=== PATIENT | male | born 1945 | race Caucasian/White ===

== ENCOUNTER → 2017-10-04 10:46 | Outpatient (CLI) | payer MEDICARE, OTHER, SELFPAY | PROVIDERS: PCP Family Medicine; Visit Provider Family Medicine | DX: I10 Essential (primary) hypertension (principal) | CPT/HCPCS: 36415; 80048 ==

== ENCOUNTER → 2017-11-03 09:47 | Outpatient (CLI) | payer MEDICARE, OTHER, SELFPAY ==
--- NOTE | 2017-11-03 | DI.US.S_ITS ---
PROCEDURE: US RENAL COMPLETE INDICATIONS: History of renal cell carcinoma TECHNIQUE: Real-time scanning was performed of the kidneys and bladder, with image documentation. COMPARISON: [facility], , RENAL COMPLETE, 12/26/2007, 10:04. FINDINGS: Kidneys: Kidneys are normal in size. Right kidney measures 12.2 cm long; left kidney measures 12.9 cm long. Right renal cortical thickness is 1.6 cm; left renal cortical thickness is 2.0 cm. Renal cortical echotexture is normal. No hydronephrosis or nephrolithiasis. No suspicious solid mass lesions. Bilateral renal cysts are redemonstrated with the largest on the right measuring up to 3.9 cm which has increased in size from prior examination and largest on the left measuring up to 3.4 cm not significantly changed Bladder: Pre-void bladder volume is 530 mL. Post-void residual is 274 mL. Pre-void images demonstrate no intraluminal masses or stones. On pre-void images, neither ureteral jets are noted with color Doppler interrogation. (Of note, ureteral jets may not be detectable in up to 25% of cases due to insufficient differences in specific gravity between ureteral and bladder urine). Miscellaneous: No free pelvic fluid. Prominent prostate redemonstrated. IMPRESSION: Bilateral renal cysts, with the largest increased in size on the right compared to prior examination. 274 cc urinary bladder PVR. Dictated by: Michael Erickson [facility] Interpreted: Daryl Castillo MD on 11/03/2017 at 11:03 Approved by: Daryl Castillo M.D. on 11/03/2017 at 11:28
== END ==
PROVIDERS: PCP Family Medicine; Visit Provider Urology
DX: N28.1 Cyst of kidney, acquired (principal); Z90.5 Acquired absence of kidney; Z85.528 Personal history of other malignant neoplasm of kidney
CPT/HCPCS: 76770

== ENCOUNTER → 2017-12-14 14:09 | Outpatient (REF) | payer MEDICARE, OTHER, SELFPAY | LOC: LAB 14:09 | PROVIDERS: PCP Family Medicine; Visit Provider Family Medicine | DX: R19.7 Diarrhea, unspecified (principal) ==

== ENCOUNTER → 2018-05-26 09:48 | Outpatient (CLI) | payer MEDICARE, OTHER, SELFPAY ==
[2018-05-26 10:27] LABS: Add Manual Diff / Slide Review NO; Basophils Absolute Auto 0 /uL (0-100); Basophils Percent Auto 0.4 % (0-2); Eosinophils Absolute Auto 200 /uL (0-450); Eosinophils Percent Auto 2.9 % (2-4); Hematocrit 37.6 % (41-53); Hemoglobin 12.9 g/dL (13.5-17.5); Lymphocytes Absolute Auto 1500 /uL (1100-4500); Lymphocytes Percent Auto 25.3 % (25-40); Mean Corpuscular HGB Conc 34.4 % (30-36); Mean Corpuscular Hemoglobin 31.5 PG (26-34); Mean Corpuscular Volume 91.4 fL (80-100); Monocytes Absolute Auto 400 /uL (0-900); Monocytes Percent Auto 5.9 % (3-14); Neutrophils Absolute Auto 3900 /uL (1500-7000); Neutrophils Percent Auto 65.5 % (50-75); Platelet Count 175 X10^3/uL (150-400); Red Blood Cell Count 4.11 X10^6/uL (4.5-5.9); Red Cell Distribution Width 12.9 % (11.6-14.8)
[2018-05-26 10:53] LABS: Alanine Aminotransferase 23 IU/L (21-72); Albumin 4.4 g/dL (3.5-5.0); Albumin Globulin Ratio 1.5 (1.0-2.8); Alkaline Phosphatase 88 U/L (38-126); Aspartate Aminotransferase 19 IU/L (17-59); BUN Creatinine Ratio 21.2 (6-22); Bilirubin Total 0.5 mg/dL (0.2-1.3); Blood Urea Nitrogen 36 mg/dL (9-20); C-Reactive Protein Quant < 0.5 mg/dL (<1.0); Calcium 9.4 mg/dL (8.4-10.2); Carbon Dioxide 24 mmol/L (22-32); Chloride 106 mmol/L (98-107); Cholesterol 213 mg/dL (140-199); Estimated Glomerular Filt Rate 39.7 mL/min (>60); Globulin 2.9 g/dL (1.7-4.1); Glucose 121 mg/dL (80-110); HDL Cholesterol 32 mg/dL (40-60); HEMOLYSIS < 15 (0-50); LDL Cholesterol Calculated 145 mg/dL (<100); Potassium 4.4 mmol/L (3.4-5.1); Sodium 141 mmol/L (137-145); Total Protein 7.3 g/dL (6.3-8.2); Triglycerides 178 mg/dL (35-150)
[2018-05-26 10:57] LABS: Rheumatoid Factor < 8.6 IU/mL (<12.0)
[2018-05-26 11:19] LABS: Vitamin D 25 Hydroxy (D3) 35.1 ng/mL (30.0-100.0)
[2018-05-26 11:20] LABS: Erythrocyte Sedimentation Rate 23 MM/HR (0-15)
[2018-05-26 11:25] LABS: TSH w/ Reflex to FT4 1.51 uIU/mL (0.47-4.68)
[2018-05-26 11:39] LABS: Vitamin B12 699 pg/mL (239-931)
[2018-05-28 10:45] LABS: CCP Antibody (IgG) < 16 Units (< 20)
[2018-05-28 20:01] LABS: ANA Screen, IFA Negative (Negative)
[2018-05-31 15:53] LABS: Homocysteine 11.2 umol/L (< 11.4)
[2018-06-01 16:29] LABS: Methylmalonic Acid 196 nmol/L (87-318)
== END ==
PROVIDERS: PCP Family Medicine; Visit Provider Family Medicine
DX: E78.5 Hyperlipidemia, unspecified (principal); G60.0 Hereditary motor and sensory neuropathy; G35 Multiple sclerosis; I10 Essential (primary) hypertension
CPT/HCPCS: 36415; 80053; 80061; 82306; 82607; 83090; 83516; 83921; 84443; 85025; 85651; 86038; 86140; 86430

== ENCOUNTER → 2018-06-21 09:27 | Outpatient (CLI) | payer MEDICARE, OTHER, SELFPAY ==
[2018-06-21 11:07] LABS: Creatinine Urine Random 115.8 mg/dL; Protein (Total) Urine Random 27 mg/dL (0-12); Protein Creatinine Ratio Urine 0.23 GRAM/24H
== END ==
PROVIDERS: Family Provider Family Medicine; PCP Family Medicine; Visit Provider Student in an Organized Health Care Education/Training Program
DX: R80.9 Proteinuria, unspecified (principal)
CPT/HCPCS: 82570; 84156

== ENCOUNTER → 2018-07-11 10:34 | Outpatient (CLI) | payer MEDICARE, OTHER, SELFPAY ==
--- NOTE | 2018-07-11 | DI.US.S_ITS ---
PROCEDURE: US RENAL COMPLETE INDICATIONS: CHRONIC KIDNEY DISEASE STAGE 3 TECHNIQUE: Real-time scanning was performed of the kidneys and bladder, with image documentation. COMPARISON: [facility], , US RENAL COMPLETE, 11/03/2017, 10:04. FINDINGS: Kidneys: Kidneys are normal in size. Right kidney measures 10.5 cm long; left kidney measures 12.1 cm long. Right renal cortical thickness is 1.1 cm; left renal cortical thickness is 1.4 cm. Renal cortical echotexture is grossly unremarkable. No hydronephrosis or nephrolithiasis. No suspicious solid mass lesions. There are bilateral renal cysts measuring up to 3.8 cm on the right, and 3.7 cm on the left. Bladder: Pre-void bladder volume is 614 mL. Post-void residual is 315 mL. Pre-void images demonstrate no intraluminal masses or stones. On pre-void images, both of the ureteral jets are noted with color Doppler interrogation. (Of note, ureteral jets may not be detectable in up to 25% of cases due to insufficient differences in specific gravity between ureteral and bladder urine). Miscellaneous: No free pelvic fluid. IMPRESSION: Bilateral simple appearing renal cysts. No hydronephrosis. Large postvoid residual measuring 315 mL. Dictated by: Daryl Castillo M.D. on 07/11/2018 at 13:26 Approved by: Daryl Castillo M.D. on 07/11/2018 at 13:29
== END ==
PROVIDERS: Family Provider Family Medicine; PCP Family Medicine; Visit Provider Student in an Organized Health Care Education/Training Program
DX: N18.3 Chronic kidney disease, stage 3 (moderate) (principal); N28.1 Cyst of kidney, acquired
CPT/HCPCS: 76770

== ENCOUNTER → 2018-07-26 08:00 | Outpatient (CLI) | payer MEDICARE, OTHER, SELFPAY ==
[2018-07-26 08:18] LABS: Bacteria Urine None Seen; RBC Urine None Seen (0-5/HPF); WBC Urine None Seen (0-5/HPF)
[2018-07-26 08:47] LABS: Appearance Urine UA CLEAR; Bilirubin Urine UA NEGATIVE (NEGATIVE); Color Urine UA YELLOW; Glucose Urine UA NEGATIVE (Negative); Ketones Urine UA NEGATIVE (NEGATIVE); Leukocyte Esterase Urine UA NEGATIVE (NEGATIVE); Nitrite Urine UA NEGATIVE (Negative); Occult Blood Urine UA NEGATIVE (Negative); Protein Urine UA NEGATIVE (Negative); Urobilinogen Urine UA 0.2 E.U./dL (0.2)
[2018-07-26 09:02] LABS: Add Manual Diff / Slide Review NO; Basophils Absolute Auto 0 /uL (0-100); Basophils Percent Auto 0.5 % (0-2); Eosinophils Absolute Auto 200 /uL (0-450); Eosinophils Percent Auto 3.1 % (2-4); Hematocrit 35.5 % (41-53); Hemoglobin 12.5 g/dL (13.5-17.5); Lymphocytes Absolute Auto 1400 /uL (1100-4500); Lymphocytes Percent Auto 26.7 % (25-40); Mean Corpuscular HGB Conc 35.1 % (30-36); Mean Corpuscular Hemoglobin 32.1 PG (26-34); Mean Corpuscular Volume 91.5 fL (80-100); Monocytes Absolute Auto 300 /uL (0-900); Monocytes Percent Auto 6.4 % (3-14); Neutrophils Absolute Auto 3400 /uL (1500-7000); Neutrophils Percent Auto 63.3 % (50-75); Platelet Count 170 X10^3/uL (150-400); Red Blood Cell Count 3.88 X10^6/uL (4.5-5.9); Red Cell Distribution Width 12.8 % (11.6-14.8); White Blood Cell Count 5.4 X10^3/uL (4.5-11.0)
[2018-07-26 09:04] LABS: HEMOLYSIS < 15 (0-50); Iron 104 ug/dL (49-181)
[2018-07-26 09:06] LABS: BUN Creatinine Ratio 25.3 (6-22); Blood Urea Nitrogen 43 mg/dL (9-20); Calcium 9.5 mg/dL (8.4-10.2); Carbon Dioxide 25 mmol/L (22-32); Chloride 105 mmol/L (98-107); Estimated Glomerular Filt Rate 39.6 mL/min (>60); Glucose 119 mg/dL (80-110); HEMOLYSIS < 15 (0-50); Phosphorous 3.9 mg/dL (2.3-3.7); Potassium 4.3 mmol/L (3.4-5.1); Sodium 140 mmol/L (137-145)
[2018-07-26 09:10] LABS: Reticulocyte Count, Percent 1.1 % (0.87-2.60)
[2018-07-26 09:15] LABS: Percent Iron Saturation 35 % (20-50); Total Iron Binding Capacity 296 ug/dL (261-462); Transferrin 221 mg/dL (206-381)
[2018-07-26 09:21] LABS: Vitamin D 25 Hydroxy (D3) 37.2 ng/mL (30.0-100.0)
[2018-07-26 09:24] LABS: Creatinine Urine Random 83.6 mg/dL; Protein (Total) Urine Random 24 mg/dL (0-12); Protein Creatinine Ratio Urine 0.28 GRAM/24H
[2018-07-26 09:27] LABS: Culture Indicated Urine Cult Not Indicated; Urine Comments Microscopic Normal
[2018-07-26 09:57] LABS: Vitamin B12 582 pg/mL (239-931)
[2018-07-28 14:45] LABS: Parathyroid Hormone Int 49 pg/mL (14-64)
== END ==
PROVIDERS: PCP Family Medicine; Visit Provider Student in an Organized Health Care Education/Training Program
DX: N05.9 Unspecified nephritic syndrome with unspecified morphologic changes (principal); N30.00 Acute cystitis without hematuria; R80.9 Proteinuria, unspecified; D64.9 Anemia, unspecified; D50.0 Iron deficiency anemia secondary to blood loss (chronic); E83.30 Disorder of phosphorus metabolism, unspecified; N25.81 Secondary hyperparathyroidism of renal origin; N18.3 Chronic kidney disease, stage 3 (moderate); G35 Multiple sclerosis
CPT/HCPCS: 36415; 80048; 81001; 82306; 82570; 82607; 82728; 83540; 83550; 83970; 84100; 84156; 85025; 85045

== ENCOUNTER 2018-08-26 11:15 | Outpatient (RCR) | payer MEDICARE, OTHER, SELFPAY ==
--- NOTE | 2018-07-25 14:30 | PT.OIE ---
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) Past Medical History (Last Updated 05/28/18 @ 11:51 by Brittany Lomas DO) Melanoma (Resolved 2007) CMT (Mvryhlm-Pmpud-Dukfo disease) (Chronic 2014) Stage 3 chronic kidney disease (Chronic) Essential hypertension (Chronic) Obstructive sleep apnea (Chronic) Colon polyps (Resolved 2008) Tinnitus (Chronic) Hearing loss (Chronic 2014) Clubfoot (Chronic) Osteoarthrosis, ankle and foot (Chronic) BPH (benign prostatic hyperplasia) (Chronic) Malignant neoplasm of kidney (Resolved) Osteoarthritis of both knees (Chronic) Spinal stenosis of lumbar region (Chronic 09/15/13) Ankle pain (Chronic) Shoulder pain (Chronic 2011) Basal cell adenocarcinoma (Resolved) Cataract (Resolved 2013) History of kidney cancer (Resolved 2003) Rheumatic fever (Resolved 1957) Squamous cell skin cancer, face (Resolved) Past Surgical History (Last Updated 05/28/18 @ 11:54 by Brittany Lomas DO) Anesthesia (Resolved) History of back surgery (Resolved 08/2013) History of cataract removal with insertion of prosthetic lens (Resolved 2013) History of left knee replacement (Resolved) History of left knee surgery (Resolved 2004) History of nephrectomy (Resolved 2003) Provider Visit Care Team Role Provider Type Brittany Lomas DO Attending Provider Physician Primary Care Provider Specialty: Family Practice Address: [address] [place] [address] Email: [email or web address] Physical Therapy Initial Evaluation PT-OP-A Visit Information Start: 07/25/18 08:14 Freq: Status: Active Protocol: Document 07/25/18 11:25 LRN (Rec: 07/25/18 12:39 LRN [id number]) Out-Patient Physical Therapy Visit Information Visit Information Visit Type Initial Evaluation Visit Start Time 11:25 Visit Stop Time 12:25 Total Visit Minutes 60 Visit Number 1 Number of [facility] Visits 0 Evaluation Information Evaluation Date 07/25/18 PT-OP-B Current Condition Start: 07/25/18 08:14 Freq: Status: Active Protocol: Document 07/25/18 11:25 LRN (Rec: 07/25/18 12:39 LRN [id number]) Current Condition History of Current Condition Onset Date . Started in hands 5 yrs ago. 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 His history is that he has had numbness in the entire R arm that has been controlled with wound care center consultant, to clear the symptom for a couple weeks. He also reports having a nerve moved at the R elbow and it didn't help his R hand strength. He has continued to receive wound care center consultant every other week; therefore numbness is only in the hands, He states the numbness has started to move up the fingers, and he is losing strength in the hands. He is being referred to PT for weakness of hands. He notes chronic pain in ankles & is has bone on bone now; therefore he has a noticeable limp. He states his gait is baseline and is not seeking therapy for his LE's and gait. 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 Prior Functional Status Baseline Function- ADL's Independent Baseline Function- Mobility Independent Baseline Function- Gait Independent Baseline Function- Other Difficulty picking up screws or change from pockets, difficulty working with tools that need to grasp tightly. Able to hold a hammer and pound nails in. Current Functional Impairments (Reported) Functional Limitations- Other Past 2 years difficulty picking up and using tools that he has to squeeze and hold. Difficulty holding hammer and pounding nails. Personal Factors Other Personal Factors That May Effect HBP, Rheumatoid arthritis, Therapy/Recovery Kidney CA - 8-10yrs ago, Melanoma, Otoniel TKA's, Low back disc decompression 8-10 yrs ago. PT-OP-C Subjective Start: 07/25/18 08:14 Freq: Status: Active Protocol: Document 07/25/18 11:25 LRN (Rec: 07/26/18 19:16 LRN [id number]) Patient Questionnaires Lower Extremity Functional Scale LEFS Score 53 LEFS Impairment 20 to 39% Impaired (Score 48- 62) PT-OP-K Range of Motion Start: 06/03/19 08:14 Freq: Status: Active Protocol: Document 07/25/18 11:25 LRN (Rec: 07/26/18 19:14 LRN [id number]) Elbow/Forearm Range of Motion Elbow/Forearm Measured in Degrees Right Active Pronation (degrees) 90 Supination (degrees) 90 Left Active Pronation (degrees) 60 Supination (degrees) 70 Wrist Goniometric Range of Motion Wrist Measured in Degrees Right Flexion Active (degrees) 35 Extension Active (degrees) 60 Left Flexion Active (degrees) 28 Extension Active (degrees) 60 PT-OP-M Strength Start: 07/25/18 08:14 Freq: Status: Active Protocol: Document 07/25/18 11:25 LRN (Rec: 07/26/18 19:14 LRN [id number]) Elbow/Forearm Strength Elbow and Forearm Manual Muscle Testing Right Reason Not Measured WFL Comments Generally 5/5 Left Reason Not Measured WFL Comments Generally 5/5 Wrist Strength Wrist Manual Muscle Testing Right Ulnar Deviation 3 Fair Radial Deviation 4 Good Left Ulnar Deviation 5 Normal Radial Deviation 5 Normal Hand Pulp Mill Operator/Pinch Strength Hand Dominance Hand Dominance Right Hand Strength Right Pulp Mill Operator (lbs) 17 Lateral Pinch (lbs) 4 Comments Avg Pulp Mill Operator noted above from 3 trials (kg): 20, 16, 15. Lateral Pinch (kg): 2. Finger Opposition: Generally 5/5. Left Pulp Mill Operator (lbs) 27 Lateral Pinch (lbs) 8 Comments Avg Pulp Mill Operator noted above from 3 trials (kg): 30, 26, 26. Lateral Pinch (kg): 2.75. Finger opposition is WNL except 1/2 cm lacking in little finger to thumb opposition positioning. PT-OP-T Assessment and Plan Start: 07/25/18 08:14 Freq: Status: Active Protocol: Document 07/25/18 11:25 LRN (Rec: 07/25/18 12:39 LRN [id number]) Physical Therapy Assessment Rehab Potential Rehabilitation Potential Fair Evaluation Complexity Number of Personal Factors/Comorbidities 3 or More Number of Body Systems Impaired 1-2 Clinical Presentation at Evaluation Stable Impairments Impairments Sensation Strength Other Concerns Barriers to Rehabilitation Chronicity of condition Diagnosis: Waeazhe-Bpcoi-Kxfla Disease Hereditary motor & sensory neuropathy Assessment Summary Assessment Pt presents with complaints of weakness of his dominant R hand and wrist that are making fine motor movements difficult (picking up screws and tiny objects). The pt will need time to work towards strengthening and it was agreed upon that he could do the exercises at home, since they will primarily be fine motor skills. I agreed that this might be a good program for the patient to try. As I am familiar with the patient and have found in the past that he is compliant with home exercises I feel this is appropriate The pt will therefore be seen for several skilled physical therapy visits to place him on a HEP of hand/wrist strengthening exercises and if he can demonstrate improvement, he could then benefit from continuation of therapy for a more formal rehab at 2x/week for 4-6 weeks. Physical Therapy Plan Frequency and Duration Frequency of Treatment 2x/Week Plan of Care Start Date 07/25/18 Plan of Care End Date 10/25/18 Therapeutic Interventions Therapeutic Interventions Home Exercise Program Joint Mobilizations Manual Therapy Patient/Caregiver Education Self-Care/Home Management Soft Tissue Mobilization Therapeutic Exercises Modalities Cold Pack/Ice Massage Hot Packs Paraffin Bath Next Visit Focus/Plan Next Note Type Treatment Note Next Visit Plan 2 x/week for strengthening and placement on a HEP of hand general and intrinsic ex's for HEP (general and T-Putty exs) with handouts within a 2-3 visit timeframe. I will then see him for a follow up in 3-4 weeks for assessment of strength improvements. If he can demonstrate improvement I will progress his exercise rehab to include his UE's 2x/ week for general strengthening . If time permits at next appt, try Paraffin Wax with elbow/shoulder strengthening ( UBE, ex's with hand gripping handles).
--- NOTE | 2018-07-25 14:30 | PT.OPPOC ---
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) Provider Visit Care Team Role Provider Type Brittany Lomas DO Attending Provider Physician Primary Care Provider Specialty: Family Practice Address: [address] [place] [address], [phone] Email: [email or web address] Plan Of Care PT-OP-T Assessment and Plan Start: 07/25/18 08:14 Freq: Status: Active Protocol: Document 07/25/18 11:25 LRN (Rec: 07/25/18 12:39 LRN [id number]) Physical Therapy Assessment Rehab Potential Rehabilitation Potential Fair Evaluation Complexity Number of Personal Factors/Comorbidities 3 or More Number of Body Systems Impaired 1-2 Clinical Presentation at Evaluation Stable Impairments Impairments Sensation Strength Other Concerns Barriers to Rehabilitation Chronicity of condition Diagnosis: Uxilcrj-Sveov-Yhkvs Disease Hereditary motor & sensory neuropathy Assessment Summary Assessment Pt presents with complaints of weakness of his dominant R hand and wrist that are making fine motor movements difficult (picking up screws and tiny objects). The pt will need time to work towards strengthening and it was agreed upon that he could do the exercises at home, since they will primarily be fine motor skills. I agreed that this might be a good program for the patient to try. As I am familiar with the patient and have found in the past that he is compliant with home exercises I feel this is appropriate The pt will therefore be seen for several skilled physical therapy visits to place him on a HEP of hand/wrist strengthening exercises and if he can demonstrate improvement, he could then benefit from continuation of therapy for a more formal rehab at 2x/week for 4-6 weeks. Physical Therapy Plan Frequency and Duration Frequency of Treatment 2x/Week Plan of Care Start Date 07/25/18 Plan of Care End Date 10/25/18 Therapeutic Interventions Therapeutic Interventions Home Exercise Program Joint Mobilizations Manual Therapy Patient/Caregiver Education Self-Care/Home Management Soft Tissue Mobilization Therapeutic Exercises Modalities Cold Pack/Ice Massage Hot Packs Paraffin Bath Next Visit Focus/Plan Next Note Type Treatment Note Next Visit Plan 2 x/week for strengthening and placement on a HEP of hand general and intrinsic ex's for HEP (general and T-Putty exs) with handouts within a 2-3 visit timeframe. I will then see him for a follow up in 3-4 weeks for assessment of strength improvements. If he can demonstrate improvement I will progress his exercise rehab to include his UE's 2x/ week for general strengthening . If time permits at next appt, try Paraffin Wax with elbow/shoulder strengthening ( UBE, ex's with hand gripping handles). Plan of Care Dates Plan of Care Start Date 07/25/18 Plan of Care End Date 10/25/18 Please Sign and Return: I have reviewed this Plan of Care and certify that the skilled therapy services above are required to meet the patient?s needs. Physician Signature Date Printed Name and Credentials Clinical Instructor Signature Printed Name and Credentials
--- NOTE | 2018-07-25 14:30 | PT.OPPOC ---
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) Provider Visit Care Team Role Provider Type Brittany Lomas DO Attending Provider Physician Primary Care Provider Specialty: Family Practice Address: [address] [place] [address], [phone] Email: [email or web address] Plan Of Care PT-OP-T Assessment and Plan Start: 07/25/18 08:14 Freq: Status: Active Protocol: Document 07/25/18 11:25 LRN (Rec: 07/25/18 12:39 LRN [id number]) Physical Therapy Assessment Rehab Potential Rehabilitation Potential Fair Evaluation Complexity Number of Personal Factors/Comorbidities 3 or More Number of Body Systems Impaired 1-2 Clinical Presentation at Evaluation Stable Impairments Impairments Sensation Strength Other Concerns Barriers to Rehabilitation Chronicity of condition Diagnosis: Uracyso-Lgead-Petom Disease Hereditary motor & sensory neuropathy Assessment Summary Assessment Pt presents with complaints of weakness of his dominant R hand and wrist that are making fine motor movements difficult (picking up screws and tiny objects). The pt will need time to work towards strengthening and it was agreed upon that he could do the exercises at home, since they will primarily be fine motor skills. I agreed that this might be a good program for the patient to try. As I am familiar with the patient and have found in the past that he is compliant with home exercises I feel this is appropriate The pt will therefore be seen for several skilled physical therapy visits to place him on a HEP of hand/wrist strengthening exercises and if he can demonstrate improvement, he could then benefit from continuation of therapy for a more formal rehab at 2x/week for 4-6 weeks. Physical Therapy Plan Frequency and Duration Frequency of Treatment 2x/Week Plan of Care Start Date 07/25/18 Plan of Care End Date 10/25/18 Therapeutic Interventions Therapeutic Interventions Home Exercise Program Joint Mobilizations Manual Therapy Patient/Caregiver Education Self-Care/Home Management Soft Tissue Mobilization Therapeutic Exercises Modalities Cold Pack/Ice Massage Hot Packs Paraffin Bath Next Visit Focus/Plan Next Note Type Treatment Note Next Visit Plan 2 x/week for strengthening and placement on a HEP of hand general and intrinsic ex's for HEP (general and T-Putty exs) with handouts within a 2-3 visit timeframe. I will then see him for a follow up in 3-4 weeks for assessment of strength improvements. If he can demonstrate improvement I will progress his exercise rehab to include his UE's 2x/ week for general strengthening . If time permits at next appt, try Paraffin Wax with elbow/shoulder strengthening ( UBE, ex's with hand gripping handles). Plan of Care Dates Plan of Care Start Date 07/25/18 Plan of Care End Date 10/25/18 Please Sign and Return: I have reviewed this Plan of Care and certify that the skilled therapy services above are required to meet the patient?s needs. Physician Signature Date Printed Name and Credentials Clinical Instructor Signature Printed Name and Credentials
--- NOTE | 2018-07-25 14:30 | PT.OIE ---
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) Past Medical History (Last Updated 05/28/18 @ 11:51 by Brittany Lomas DO) Melanoma (Resolved 2007) CMT (Ggpumhm-Jbetr-Zvhph disease) (Chronic 2014) Stage 3 chronic kidney disease (Chronic) Essential hypertension (Chronic) Obstructive sleep apnea (Chronic) Colon polyps (Resolved 2008) Tinnitus (Chronic) Hearing loss (Chronic 2014) Clubfoot (Chronic) Osteoarthrosis, ankle and foot (Chronic) BPH (benign prostatic hyperplasia) (Chronic) Malignant neoplasm of kidney (Resolved) Osteoarthritis of both knees (Chronic) Spinal stenosis of lumbar region (Chronic 09/15/13) Ankle pain (Chronic) Shoulder pain (Chronic 2011) Basal cell adenocarcinoma (Resolved) Cataract (Resolved 2013) History of kidney cancer (Resolved 2003) Rheumatic fever (Resolved 1957) Squamous cell skin cancer, face (Resolved) Past Surgical History (Last Updated 05/28/18 @ 11:54 by Brittany Lomas DO) Anesthesia (Resolved) History of back surgery (Resolved 08/2013) History of cataract removal with insertion of prosthetic lens (Resolved 2013) History of left knee replacement (Resolved) History of left knee surgery (Resolved 2004) History of nephrectomy (Resolved 2003) Provider Visit Care Team Role Provider Type Brittany Lomas DO Attending Provider Physician Primary Care Provider Specialty: Family Practice Address: [address] [place] [address] Email: [email or web address] Physical Therapy Initial Evaluation PT-OP-A Visit Information Start: 07/25/18 08:14 Freq: Status: Active Protocol: Document 07/25/18 11:25 LRN (Rec: 07/25/18 12:39 LRN [id number]) Out-Patient Physical Therapy Visit Information Visit Information Visit Type Initial Evaluation Visit Start Time 11:25 Visit Stop Time 12:25 Total Visit Minutes 60 Visit Number 1 Number of BAR TENDER Visits 0 Evaluation Information Evaluation Date 07/25/18 PT-OP-B Current Condition Start: 07/25/18 08:14 Freq: Status: Active Protocol: Document 07/25/18 11:25 LRN (Rec: 07/25/18 12:39 LRN [id number]) Current Condition History of Current Condition Onset Date . Started in hands 5 yrs ago. 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 His history is that he has had numbness in the entire R arm that has been controlled with youth care worker, to clear the symptom for a couple weeks. He also reports having a nerve moved at the R elbow and it didn't help his R hand strength. He has continued to receive youth care worker every other week; therefore numbness is only in the hands, He states the numbness has started to move up the fingers, and he is losing strength in the hands. He is being referred to PT for weakness of hands. He notes chronic pain in ankles & is has bone on bone now; therefore he has a noticeable limp. He states his gait is baseline and is not seeking therapy for his LE's and gait. 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 Prior Functional Status Baseline Function- ADL's Independent Baseline Function- Mobility Independent Baseline Function- Gait Independent Baseline Function- Other Difficulty picking up screws or change from pockets, difficulty working with tools that need to grasp tightly. Able to hold a hammer and pound nails in. Current Functional Impairments (Reported) Functional Limitations- Other Past 2 years difficulty picking up and using tools that he has to squeeze and hold. Difficulty holding hammer and pounding nails. Personal Factors Other Personal Factors That May Effect HBP, Rheumatoid arthritis, Therapy/Recovery Kidney CA - 8-10yrs ago, Melanoma, Otoniel TKA's, Low back disc decompression 8-10 yrs ago. PT-OP-C Subjective Start: 07/25/18 08:14 Freq: Status: Active Protocol: Document 07/25/18 11:25 LRN (Rec: 07/26/18 19:16 LRN [id number]) Patient Questionnaires Lower Extremity Functional Scale LEFS Score 53 LEFS Impairment 20 to 39% Impaired (Score 48- 62) PT-OP-K Range of Motion Start: 07/25/18 08:14 Freq: Status: Active Protocol: Document 07/25/18 11:25 LRN (Rec: 07/26/18 19:14 LRN [id number]) Elbow/Forearm Range of Motion Elbow/Forearm Measured in Degrees Right Active Pronation (degrees) 90 Supination (degrees) 90 Left Active Pronation (degrees) 60 Supination (degrees) 70 Wrist Goniometric Range of Motion Wrist Measured in Degrees Right Flexion Active (degrees) 35 Extension Active (degrees) 60 Left Flexion Active (degrees) 28 Extension Active (degrees) 60 PT-OP-M Strength Start: 07/25/18 08:14 Freq: Status: Active Protocol: Document 07/25/18 11:25 LRN (Rec: 07/26/18 19:14 LRN [id number]) Elbow/Forearm Strength Elbow and Forearm Manual Muscle Testing Right Reason Not Measured WFL Comments Generally 5/5 Left Reason Not Measured WFL Comments Generally 5/5 Wrist Strength Wrist Manual Muscle Testing Right Ulnar Deviation 3 Fair Radial Deviation 4 Good Left Ulnar Deviation 5 Normal Radial Deviation 5 Normal Hand Association Executive/Pinch Strength Hand Dominance Hand Dominance Right Hand Strength Right Association Executive (lbs) 17 Lateral Pinch (lbs) 4 Comments Avg Association Executive noted above from 3 trials (kg): 20, 16, 15. Lateral Pinch (kg): 2. Finger Opposition: Generally 5/5. Left Association Executive (lbs) 27 Lateral Pinch (lbs) 8 Comments Avg Association Executive noted above from 3 trials (kg): 30, 26, 26. Lateral Pinch (kg): 2.75. Finger opposition is WNL except 1/2 cm lacking in little finger to thumb opposition positioning. PT-OP-Q Treatments Start: 07/25/18 08:14 Freq: Status: Active Protocol: Document 07/25/18 11:25 LRN (Rec: 07/28/18 15:29 LRN [id number]) Therapeutic Exercises Sitting Exercises Wrist pronation Side bilateral Wrist supination Side bilateral Hand gripping Sitting Exercise Name Hand gripping for fingertips on palmar surface of hand Side bilateral Finger ROM Sitting Exercise Name Opposition ex and gripping ex Side bilateral PT-OP-T Assessment and Plan Start: 07/25/18 08:14 Freq: Status: Active Protocol: Document 07/25/18 11:25 LRN (Rec: 07/25/18 12:39 LRN [id number]) Physical Therapy Assessment Rehab Potential Rehabilitation Potential Fair Evaluation Complexity Number of Personal Factors/Comorbidities 3 or More Number of Body Systems Impaired 1-2 Clinical Presentation at Evaluation Stable Impairments Impairments Sensation Strength Other Concerns Barriers to Rehabilitation Chronicity of condition Diagnosis: Jcqujts-Wsiyf-Rxbrd Disease Hereditary motor & sensory neuropathy Assessment Summary Assessment Pt presents with complaints of weakness of his dominant R hand and wrist that are making fine motor movements difficult (picking up screws and tiny objects). The pt will need time to work towards strengthening and it was agreed upon that he could do the exercises at home, since they will primarily be fine motor skills. I agreed that this might be a good program for the patient to try. As I am familiar with the patient and have found in the past that he is compliant with home exercises I feel this is appropriate The pt will therefore be seen for several skilled physical therapy visits to place him on a HEP of hand/wrist strengthening exercises and if he can demonstrate improvement, he could then benefit from continuation of therapy for a more formal rehab at 2x/week for 4-6 weeks. Physical Therapy Plan Frequency and Duration Frequency of Treatment 2x/Week Plan of Care Start Date 07/25/18 Plan of Care End Date 10/25/18 Therapeutic Interventions Therapeutic Interventions Home Exercise Program Joint Mobilizations Manual Therapy Patient/Caregiver Education Self-Care/Home Management Soft Tissue Mobilization Therapeutic Exercises Modalities Cold Pack/Ice Massage Hot Packs Paraffin Bath Next Visit Focus/Plan Next Note Type Treatment Note Next Visit Plan 2 x/week for strengthening and placement on a HEP of hand general and intrinsic ex's for HEP (general and T-Putty exs) with handouts within a 2-3 visit timeframe. I will then see him for a follow up in 3-4 weeks for assessment of strength improvements. If he can demonstrate improvement I will progress his exercise rehab to include his UE's 2x/ week for general strengthening . If time permits at next appt, try Paraffin Wax with elbow/shoulder strengthening ( UBE, ex's with hand gripping handles).
--- NOTE | 2018-07-28 15:56 | PT.OTN ---
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) Physical Therapy Treatment Note PT-OP-A Visit Information Start: 07/25/18 08:14 Freq: Status: Active Protocol: Document 07/28/18 11:37 LRN (Rec: 07/28/18 15:56 LRN [id number]) Out-Patient Physical Therapy Visit Information Visit Information Visit Type Progress Note Visit Start Time 11:37 Visit Stop Time 12:07 Total Visit Minutes 44 Visit Number 2 Number of COLLEGE PROFESSOR Visits 0 Evaluation Information Evaluation Date 07/25/18 PT-OP-B Current Condition Start: 07/25/18 08:14 Freq: Status: Active Protocol: Document 07/25/18 11:25 LRN (Rec: 07/25/18 12:39 LRN [id number]) Current Condition History of Current Condition Onset Date . Started in hands 5 yrs ago. 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 His history is that he has had numbness in the entire R arm that has been controlled with health care / medical job titles, to clear the symptom for a couple weeks. He also reports having a nerve moved at the R elbow and it didn't help his R hand strength. He has continued to receive health care / medical job titles every other week; therefore numbness is only in the hands, He states the numbness has started to move up the fingers, and he is losing strength in the hands. He is being referred to PT for weakness of hands. He notes chronic pain in ankles & is has bone on bone now; therefore he has a noticeable limp. He states his gait is baseline and is not seeking therapy for his LE's and gait. Future Testing and Treatments Planned None Treatment Goals Patient/Caregiver Goals Pt goal is to: 1) improve the strength of his R hand, 2) to be able to student support services director a hammer better, 3) to be able to pick remover small objects with his fingers. Prior Functional Status Baseline Function- ADL's Independent Baseline Function- Mobility Independent Baseline Function- Gait Independent Baseline Function- Other Difficulty picking up screws or change from pockets, difficulty working with tools that need to grasp tightly. Able to hold a hammer and pound nails in. Current Functional Impairments (Reported) Functional Limitations- Other Past 2 years difficulty picking up and using tools that he has to squeeze and hold. Difficulty holding hammer and pounding nails. Personal Factors Other Personal Factors That May Effect HBP, Rheumatoid arthritis, Therapy/Recovery Kidney CA - 8-10yrs ago, Melanoma, Otoniel TKA's, Low back disc decompression 8-10 yrs ago. PT-OP-C Subjective Start: 07/25/18 08:14 Freq: Status: Active Protocol: Document 07/28/18 11:37 LRN (Rec: 07/28/18 15:56 LRN [id number]) OP-PT Subjective Patient Comments Patient Comments Pt feels after last session he can now bend his fingers more and after exercising at home, can touch his R little finger to the vazquez surface of the hand barely. PT-OP-K Range of Motion Start: 07/25/18 08:14 Freq: Status: Active Protocol: Document 07/25/18 11:25 LRN (Rec: 07/26/18 19:14 LRN [id number]) Elbow/Forearm Range of Motion Elbow/Forearm Measured in Degrees Right Active Pronation (degrees) 90 Supination (degrees) 90 Left Active Pronation (degrees) 60 Supination (degrees) 70 Wrist Goniometric Range of Motion Wrist Measured in Degrees Right Flexion Active (degrees) 35 Extension Active (degrees) 60 Left Flexion Active (degrees) 28 Extension Active (degrees) 60 PT-OP-M Strength Start: 07/25/18 08:14 Freq: Status: Active Protocol: Document 07/25/18 11:25 LRN (Rec: 07/26/18 19:14 LRN [id number]) Elbow/Forearm Strength Elbow and Forearm Manual Muscle Testing Right Reason Not Measured WFL Comments Generally 5/5 Left Reason Not Measured WFL Comments Generally 5/5 Wrist Strength Wrist Manual Muscle Testing Right Ulnar Deviation 3 Fair Radial Deviation 4 Good Left Ulnar Deviation 5 Normal Radial Deviation 5 Normal Hand Clinical Lab Assistant/Pinch Strength Hand Dominance Hand Dominance Right Hand Strength Right Clinical Lab Assistant (lbs) 17 Lateral Pinch (lbs) 4 Comments Avg Clinical Lab Assistant noted above from 3 trials (kg): 20, 16, 15. Lateral Pinch (kg): 2. Finger Opposition: Generally 5/5. Left Clinical Lab Assistant (lbs) 27 Lateral Pinch (lbs) 8 Comments Avg Clinical Lab Assistant noted above from 3 trials (kg): 30, 26, 26. Lateral Pinch (kg): 2.75. Finger opposition is WNL except 1/2 cm lacking in little finger to thumb opposition positioning. PT-OP-Q Treatments Start: 07/25/18 08:14 Freq: Status: Active Protocol: Document 07/28/18 11:37 LRN (Rec: 07/28/18 15:56 LRN [id number]) Therapeutic Exercises Sitting Exercises Finger ext Sitting Exercise Name Finger ext with regular rubberband Side bilateral Reps/Minutes 4' Wrist flexor stretch Sitting Exercise Name Stretch of wrist flexors: Arms out and hand planted: fingers up & medial. Side bilateral Reps/Minutes 7' Hand gripping Sitting Exercise Name Hand gripping for fingertips on palmar surface of hand, squeezing T-Putty Side bilateral Resistance None & Green T-putty Equipment Used 10' Finger ROM Sitting Exercise Name Opposition of each finger and with T-Putty Side bilateral Resistance Yellow T-Putty Reps/Minutes 15' Self-Care/Home Management Treatment Education Patient Education Home Exercise Program Activities Self-Care/Home Management Activities Educated, issued & reviewed HEP: Finger opposition and student support services director strengthening ex's (with and without T-putty) and stretch to finger flexors between strengthening ex's. Issued yellow T-putty for finger opposition ex's and Green T-putty for gripping ex' s. PT-OP-T Assessment and Plan Start: 07/25/18 08:14 Freq: Status: Active Protocol: Document 07/28/18 11:37 LRN (Rec: 07/28/18 15:56 [facility] [id number]) Physical Therapy Assessment Rehab Potential Rehabilitation Potential Fair Evaluation Complexity Number of Personal Factors/Comorbidities 3 or More Number of Body Systems Impaired 1-2 Clinical Presentation at Evaluation Stable Impairments Impairments Sensation Strength Other Concerns Barriers to Rehabilitation Chronicity of condition Diagnosis: Xqrxirt-Atbdt-Qssav Disease Hereditary motor & sensory neuropathy Goals Two Impairment Pt lacks R student support services director strength to hammer nails Airway Traffic Controller Goal (LTG) Pt will improve R student support services director strength enough to hold and use a hammer to pound nails. LTG Duration 10/10/18 One Impairment Pt lacks full mobility of R fingers for flexion and opposition. Short Term Goal (STG) Pt will be issued a HEP for self progression towards achieving ability to fully grasp and oppose fingers with thumb. STG Duration 08/05/18 Airway Traffic Controller Goal (LTG) Pt will be able to actively perform with the R hand a full grasp and oppose finger with thumbs such that the pt will be able to pick remover screws without dropping 10x. LTG Duration 09/09/18 Assessment Summary Assessment Goals set. Pt able to student support services director better with slight improved finger flexion ability. Not able to use Paraffin Dip due to skin condition from melanoma treatments. Pt presents with complaints of weakness of his dominant R hand and wrist that are making fine motor movements difficult (picking up screws and tiny objects). The pt will need time to work towards strengthening and it was agreed upon that he could do the exercises at home, since they will primarily be fine motor skills. I agreed that this might be a good program for the patient to try. As I am familiar with the patient and have found in the past that he is compliant with home exercises I feel this is appropriate The pt will therefore be seen for several skilled physical therapy visits to place him on a HEP of hand/wrist strengthening exercises and if he can demonstrate improvement, he could then benefit from continuation of therapy for a more formal rehab at 2x/week for 4-6 weeks. Physical Therapy Plan Frequency and Duration Frequency of Treatment 2x/Week Plan of Care Start Date 07/25/18 Plan of Care End Date 10/25/18 Therapeutic Interventions Therapeutic Interventions Home Exercise Program Joint Mobilizations Manual Therapy Patient/Caregiver Education Self-Care/Home Management Soft Tissue Mobilization Therapeutic Exercises Modalities Cold Pack/Ice Massage Hot Packs Paraffin Bath Next Visit Focus/Plan Next Note Type Treatment Note Next Visit Plan 2 x/week for strengthening and placement on a HEP of hand general and intrinsic ex's for HEP (general and T-Putty exs) with handouts within a 1-2 visit timeframe. I will then see him for a follow up in 3-4 weeks for assessment of strength improvements. If he can demonstrate improvement I will progress his exercise rehab to include his UE's 2x/ week for general strengthening . If time permits at next appt, try elbow/shoulder strengthening (UBE, ex's with hand gripping handles).
--- NOTE | 2018-07-28 15:57 | PT.OPPOC ---
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) Provider Visit Care Team Role Provider Type Brittany Lomas DO Attending Provider Physician Primary Care Provider Specialty: Family Practice Address: [address] [place] [address], [id number] Email: [email or web address] Plan Of Care PT-OP-T Assessment and Plan Start: 07/25/18 08:14 Freq: Status: Active Protocol: Document 07/28/18 11:37 LRN (Rec: 07/28/18 15:56 LRN [id number]) Physical Therapy Assessment Rehab Potential Rehabilitation Potential Fair Evaluation Complexity Number of Personal Factors/Comorbidities 3 or More Number of Body Systems Impaired 1-2 Clinical Presentation at Evaluation Stable Impairments Impairments Sensation Strength Other Concerns Barriers to Rehabilitation Chronicity of condition Diagnosis: Gakdczw-Qagvy-Lfnmf Disease Hereditary motor & sensory neuropathy Goals Two Impairment Pt lacks R hospice administrator strength to hammer nails [facility] Goal (LTG) Pt will improve R hospice administrator strength enough to hold and use a hammer to pound nails. LTG Duration 10/10/18 One Impairment Pt lacks full mobility of R fingers for flexion and opposition. Short Term Goal (STG) Pt will be issued a HEP for self progression towards achieving ability to fully grasp and oppose fingers with thumb. STG Duration 08/05/18 [facility] Goal (LTG) Pt will be able to actively perform with the R hand a full grasp and oppose finger with thumbs such that the pt will be able to sheepskin pickler screws without dropping 10x. LTG Duration 09/09/18 Assessment Summary Assessment Goals set. Pt able to hospice administrator better with slight improved finger flexion ability. Not able to use Paraffin Dip due to skin condition from melanoma treatments. Pt presents with complaints of weakness of his dominant R hand and wrist that are making fine motor movements difficult (picking up screws and tiny objects). The pt will need time to work towards strengthening and it was agreed upon that he could do the exercises at home, since they will primarily be fine motor skills. I agreed that this might be a good program for the patient to try. As I am familiar with the patient and have found in the past that he is compliant with home exercises I feel this is appropriate The pt will therefore be seen for several skilled physical therapy visits to place him on a HEP of hand/wrist strengthening exercises and if he can demonstrate improvement, he could then benefit from continuation of therapy for a more formal rehab at 2x/week for 4-6 weeks. Physical Therapy Plan Frequency and Duration Frequency of Treatment 2x/Week Plan of Care Start Date 07/25/18 Plan of Care End Date 10/25/18 Therapeutic Interventions Therapeutic Interventions Home Exercise Program Joint Mobilizations Manual Therapy Patient/Caregiver Education Self-Care/Home Management Soft Tissue Mobilization Therapeutic Exercises Modalities Cold Pack/Ice Massage Hot Packs Paraffin Bath Next Visit Focus/Plan Next Note Type Treatment Note Next Visit Plan 2 x/week for strengthening and placement on a HEP of hand general and intrinsic ex's for HEP (general and T-Putty exs) with handouts within a 1-2 visit timeframe. I will then see him for a follow up in 3-4 weeks for assessment of strength improvements. If he can demonstrate improvement I will progress his exercise rehab to include his UE's 2x/ week for general strengthening . If time permits at next appt, try elbow/shoulder strengthening (UBE, ex's with hand gripping handles). Plan of Care Dates Plan of Care Start Date 07/25/18 Plan of Care End Date 10/25/18 Please Sign and Return: I have reviewed this Plan of Care and certify that the skilled therapy services above are required to meet the patient?s needs. Physician Signature Date Printed Name and Credentials Clinical Instructor Signature Printed Name and Credentials
--- NOTE | 2018-08-01 12:18 | PT.OTN ---
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) Physical Therapy Treatment Note PT-OP-A Visit Information Start: 07/25/18 08:14 Freq: Status: Active Protocol: Document 08/01/18 11:21 LRN (Rec: 08/01/18 12:18 LRN [id number]) Out-Patient Physical Therapy Visit Information Visit Information Visit Type Treatment Note Visit Start Time 11:21 Visit Stop Time 12:05 Total Visit Minutes 44 Visit Number 3 Number of ANIMAL PARK CODE ENFORCEMENT OFFICER Visits 0 Evaluation Information Evaluation Date 07/25/18 PT-OP-B Current Condition Start: 07/25/18 08:14 Freq: Status: Active Protocol: Document 07/25/18 11:25 LRN (Rec: 07/25/18 12:39 LRN [id number]) Current Condition History of Current Condition Onset Date . Started in hands 5 yrs ago. 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 His history is that he has had numbness in the entire R arm that has been controlled with manager intensive care unit, to clear the symptom for a couple weeks. He also reports having a nerve moved at the R elbow and it didn't help his R hand strength. He has continued to receive manager intensive care unit every other week; therefore numbness is only in the hands, He states the numbness has started to move up the fingers, and he is losing strength in the hands. He is being referred to PT for weakness of hands. He notes chronic pain in ankles & is has bone on bone now; therefore he has a noticeable limp. He states his gait is baseline and is not seeking therapy for his LE's and gait. 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 Prior Functional Status Baseline Function- ADL's Independent Baseline Function- Mobility Independent Baseline Function- Gait Independent Baseline Function- Other Difficulty picking up screws or change from pockets, difficulty working with tools that need to grasp tightly. Able to hold a hammer and pound nails in. Current Functional Impairments (Reported) Functional Limitations- Other Past 2 years difficulty picking up and using tools that he has to squeeze and hold. Difficulty holding hammer and pounding nails. Personal Factors Other Personal Factors That May Effect HBP, Rheumatoid arthritis, Therapy/Recovery Kidney CA - 8-10yrs ago, Melanoma, Otoniel TKA's, Low back disc decompression 8-10 yrs ago. PT-OP-C Subjective Start: 07/25/18 08:14 Freq: Status: Active Protocol: Document 08/01/18 11:21 LRN (Rec: 08/01/18 12:18 LRN [id number]) OP-PT Subjective Patient Comments Patient Comments Works out UE's using neighbors weight equipment. shoulders are strong. Can now touch my little finger with thumb on both sides. PT-OP-K Range of Motion Start: 07/25/18 08:14 Freq: Status: Active Protocol: Document 07/25/18 11:25 LRN (Rec: 07/26/18 19:14 LRN [id number]) Elbow/Forearm Range of Motion Elbow/Forearm Measured in Degrees Right Active Pronation (degrees) 90 Supination (degrees) 90 Left Active Pronation (degrees) 60 Supination (degrees) 70 Wrist Goniometric Range of Motion Wrist Measured in Degrees Right Flexion Active (degrees) 35 Extension Active (degrees) 60 Left Flexion Active (degrees) 28 Extension Active (degrees) 60 PT-OP-M Strength Start: 07/25/18 08:14 Freq: Status: Active Protocol: Document 07/25/18 11:25 LRN (Rec: 07/26/18 19:14 LRN [id number]) Elbow/Forearm Strength Elbow and Forearm Manual Muscle Testing Right Reason Not Measured WFL Comments Generally 5/5 Left Reason Not Measured WFL Comments Generally 5/5 Wrist Strength Wrist Manual Muscle Testing Right Ulnar Deviation 3 Fair Radial Deviation 4 Good Left Ulnar Deviation 5 Normal Radial Deviation 5 Normal Hand Post Acute Care Nurse/Pinch Strength Hand Dominance Hand Dominance Right Hand Strength Right Post Acute Care Nurse (lbs) 17 Lateral Pinch (lbs) 4 Comments Avg Post Acute Care Nurse noted above from 3 trials (kg): 20, 16, 15. Lateral Pinch (kg): 2. Finger Opposition: Generally 5/5. Left Post Acute Care Nurse (lbs) 27 Lateral Pinch (lbs) 8 Comments Avg Post Acute Care Nurse noted above from 3 trials (kg): 30, 26, 26. Lateral Pinch (kg): 2.75. Finger opposition is WNL except 1/2 cm lacking in little finger to thumb opposition positioning. PT-OP-Q Treatments Start: 07/25/18 08:14 Freq: Status: Active Protocol: Document 08/01/18 11:21 LRN (Rec: 08/01/18 12:18 LRN [id number]) Cardio Equipment Recumbent Stepper (Sci-Fit) Duration (Minutes) 8 Resistance 2 Other UE's only Gym Equipment Cable Column (Body Solid) Shoulder ext Details Wrist band for wrist in sup & pron, fingers extended Resistance 10# Reps/Time 15X each wrist direction, bilaterally Lat Pull Down Details Facing forward Resistance 40# Reps/Time 25x Bicep curl Details Bicep Curl using Lat Pull Down Resistance 40# Reps/Time 25x Rows Details Soft senior integration architect handles Resistance 20# Reps/Time 25x Therapeutic Exercises Sitting Exercises Thumb AD Sitting Exercise Name Isometric holding, R>L Side bilateral Equipment Used Clip, 3 Pieces of paper held together. Reps/Minutes 4' Oppositiong Sitting Exercise Name Opposition Side bilateral Resistance Yellow Clip Reps/Minutes 5' Hand gripping Sitting Exercise Name Hand gripping for fingertips & general gripping Side bilateral Resistance 1.4 kg Digi-flex & [place] hand senior integration architect Equipment Used 15' Finger ROM Sitting Exercise Name Opposition of each finger Reps/Minutes 1' PT-OP-T Assessment and Plan Start: 07/25/18 08:14 Freq: Status: Active Protocol: Document 08/01/18 11:21 LRN (Rec: 08/01/18 12:18 LRN [id number]) Physical Therapy Assessment Assessment Summary Assessment Pt did very well with UE ex's. He is now able to perform R hand 5th digit opposition with the thumb. His R thumb ADD is very weak, with atrophy of muscle visible. He appears to have a good understanding of his HEP. Physical Therapy Plan Frequency and Duration Frequency of Treatment 2x/Week Plan of Care Start Date 07/25/18 Plan of Care End Date 10/25/18 Next Visit Focus/Plan Next Note Type Treatment Note Next Visit Plan Recheck in ~4 weeks to see if improvement is noted with strengthening on a HEP. If he can demonstrate improvement I will discuss DC to HEP or if he wants to continue with therapy to include his UE's 2x /week for general strengthening.
--- NOTE | 2018-08-26 12:24 | PT.OTN ---
Current Diagnoses Hereditary motor and sensory neuropathy (08/26/18) Physical Therapy Treatment Note PT-OP-A Visit Information Start: 07/25/18 08:14 Freq: Status: Active Protocol: Document 08/26/18 11:19 LRN (Rec: 08/26/18 12:20 LRN [id number]) Out-Patient Physical Therapy Visit Information Visit Information Visit Type Treatment Note Visit Start Time 11:19 Visit Stop Time 11:57 Total Visit Minutes 38 Visit Number 4 Number of RIPSAW MATCHER Visits 0 Evaluation Information Evaluation Date 07/25/18 PT-OP-B Current Condition Start: 07/25/18 08:14 Freq: Status: Active Protocol: Document 07/25/18 11:25 LRN (Rec: 07/25/18 12:39 LRN [id number]) Current Condition History of Current Condition Onset Date . Started in hands 5 yrs ago. 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 His history is that he has had numbness in the entire R arm that has been controlled with post acute care nurse practitioner, to clear the symptom for a couple weeks. He also reports having a nerve moved at the R elbow and it didn't help his R hand strength. He has continued to receive post acute care nurse practitioner every other week; therefore numbness is only in the hands, He states the numbness has started to move up the fingers, and he is losing strength in the hands. He is being referred to PT for weakness of hands. He notes chronic pain in ankles & is has bone on bone now; therefore he has a noticeable limp. He states his gait is baseline and is not seeking therapy for his LE's and gait. 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 Prior Functional Status Baseline Function- ADL's Independent Baseline Function- Mobility Independent Baseline Function- Gait Independent Baseline Function- Other Difficulty picking up screws or change from pockets, difficulty working with tools that need to grasp tightly. Able to hold a hammer and pound nails in. Current Functional Impairments (Reported) Functional Limitations- Other Past 2 years difficulty picking up and using tools that he has to squeeze and hold. Difficulty holding hammer and pounding nails. Personal Factors Other Personal Factors That May Effect HBP, Rheumatoid arthritis, Therapy/Recovery Kidney CA - 8-10yrs ago, Melanoma, Otoniel TKA's, Low back disc decompression 8-10 yrs ago. PT-OP-C Subjective Start: 07/25/18 08:14 Freq: Status: Active Protocol: Document 08/26/18 11:19 LRN (Rec: 08/26/18 12:20 LRN [id number]) OP-PT Subjective Patient Comments Patient Comments States no improvement, but can picked edge sewing machine operator screws now. States a couple weeks ago had to see chiropractor to eliminate numbness in the R arm, but numbness in fingers are the same as usual. PT-OP-K Range of Motion Start: 07/25/18 08:14 Freq: Status: Active Protocol: Document 08/26/18 11:19 LRN (Rec: 08/26/18 12:20 LRN [id number]) Elbow/Forearm Range of Motion Elbow/Forearm Right Active Pronation (degrees) 90 Supination (degrees) 65 Left Active Pronation (degrees) 90 Supination (degrees) 60 Wrist Goniometric Range of Motion Wrist Right Flexion Active (degrees) 45 Extension Active (degrees) 55 Left Flexion Active (degrees) 35 Extension Active (degrees) 68 PT-OP-M Strength Start: 07/25/18 08:14 Freq: Status: Active Protocol: Document 08/26/18 11:19 LRN (Rec: 08/26/18 12:20 LRN [id number]) Elbow/Forearm Strength Elbow and Forearm Manual Muscle Testing Right Reason Not Measured WFL Comments Generally 5/5 Left Reason Not Measured WFL Comments Generally 5/5 Wrist Strength Wrist Manual Muscle Testing Right Ulnar Deviation 5 Normal Radial Deviation 5 Normal Left Ulnar Deviation 5 Normal Radial Deviation 5 Normal Hand Casino Manager/Pinch Strength Hand Dominance Hand Dominance Right Hand Strength Right Casino Manager (lbs) 25 Comments Avg Casino Manager noted above from 3 trials (kg): 26, 25, 25. Lateral Pinch (kg): Unable to assess. Measuring unit not available Finger Opposition: Generally 5/5. Left Casino Manager (lbs) 32.6 Comments Avg Casino Manager noted above from 3 trials (kg): 35, 32, 31. Lateral Pinch (kg): Unable to assess. Measuring unit not available Finger opposition is WNL except little finger to thumb opposition is 3/5. Pt is able to perform opposition with little finger. PT-OP-Q Treatments Start: 07/25/18 08:14 Freq: Status: Active Protocol: Document 08/26/18 11:19 LRN (Rec: 08/26/18 12:20 LRN [id number]) Cardio Equipment Upper Body Ergometer (UBE) Duration (Minutes) 8 RPM 70 Seat Position 11 Height 3 Therapeutic Exercises Sitting Exercises Oppositiong Sitting Exercise Name Opposition Side bilateral Reps/Minutes Active Wrist pronation Side bilateral Wrist supination Side bilateral Hand gripping Sitting Exercise Name Hand gripping for fingertips & general gripping Side bilateral Resistance Hand dynomometer Equipment Used 15' Comments Measurements also taken Finger ROM Sitting Exercise Name Opposition of each finger Reps/Minutes 5' Comments Strength also assessed Self-Care/Home Management Treatment Education Patient Education Home Exercise Program Activities Self-Care/Home Management Activities Review of HEP. PT-OP-T Assessment and Plan Start: 07/25/18 08:14 Freq: Status: Active Protocol: Document 08/26/18 11:19 LRN (Rec: 08/26/18 12:20 LRN [id number]) Physical Therapy Assessment Goals Two Impairment Pt lacks R account retention representative strength to hammer nails Dough Mixing Machine Operator Goal (LTG) Pt will improve R account retention representative strength enough to hold and use a hammer to pound nails. LTG Duration 10/10/18 (08/26/18: Goal partially met) One Impairment Pt lacks full mobility of R fingers for flexion and opposition. Short Term Goal (STG) Pt will be issued a HEP for self progression towards achieving ability to fully grasp and oppose fingers with thumb. STG Duration 08/05/18 (08/26/18: GOAL MET) Penitentiary Goal (LTG) Pt will be able to actively perform with the R hand a full grasp and oppose finger with thumbs such that the pt will be able to picked edge sewing machine operator screws without dropping 10x. LTG Duration 09/09/18 (08/26/18: GOAL MET) Assessment Summary Assessment Pt demonstrates improved account retention representative strength and opposition mobility bilaterally, being mainly on a HEP. Functionally /recreationally, he is not able to hammer like he would like to, but he is nowe able to picked edge sewing machine operator screws with his right hand. The pt feels with his improvement he can continue on his own independent HEP to work towards furthering his account retention representative strength to make recreational activities easier. Physical Therapy Plan Frequency and Duration Frequency of Treatment 2x/Week Plan of Care Start Date 07/25/18 Plan of Care End Date 10/25/18 Discharge Physical Therapy Discharge Reasons Goals Met Discharge Comments Pt has been placed on an independent HEP to improve his account retention representative and hand strength.
== END 2018-09-16 15:07 | disposition home or self-care (01) ==
LOC: PHYS 11:15
PROVIDERS: PCP Family Medicine; Visit Provider Family Medicine
DX: G60.0 Hereditary motor and sensory neuropathy (principal)
CPT/HCPCS: 97110; 97161; 97535

== ENCOUNTER → 2018-08-29 15:29 | Outpatient (CLI) | payer MEDICARE, OTHER, SELFPAY | PROVIDERS: Family Provider Family Medicine; PCP Family Medicine; Visit Provider Specialist | DX: N40.3 Nodular prostate with lower urinary tract symptoms (principal) | CPT/HCPCS: 36415; 84153 ==

== ENCOUNTER → 2018-10-03 11:57 | Outpatient (CLI) | payer MEDICARE, OTHER, SELFPAY ==
[2018-10-03 12:22] LABS: Hematocrit 37.1 % (41-53); Hemoglobin 12.6 g/dL (13.5-17.5)
[2018-10-03 12:42] LABS: Appearance Urine UA CLEAR; Bilirubin Urine UA NEGATIVE (NEGATIVE); Color Urine UA YELLOW; Glucose Urine UA NEGATIVE (Negative); Ketones Urine UA NEGATIVE (NEGATIVE); Leukocyte Esterase Urine UA 2+ (NEGATIVE); Nitrite Urine UA NEGATIVE (Negative); Occult Blood Urine UA TRACE-LYSED (Negative); Protein Urine UA NEGATIVE (Negative); Urobilinogen Urine UA 0.2 E.U./dL (0.2)
[2018-10-03 12:45] LABS: BUN Creatinine Ratio 19.4 (6-22); Blood Urea Nitrogen 33 mg/dL (9-20); Calcium 9.5 mg/dL (8.4-10.2); Carbon Dioxide 23 mmol/L (22-32); Chloride 105 mmol/L (98-107); Estimated Glomerular Filt Rate 39.6 mL/min (>60); Glucose 118 mg/dL (80-110); HEMOLYSIS < 15 (0-50); Potassium 4.4 mmol/L (3.4-5.1); Sodium 140 mmol/L (137-145)
[2018-10-03 12:47] LABS: Bacteria Urine Few (2-10); Culture Indicated Urine Specimen Cultured; RBC Urine 0-1/HPF (0-5/HPF); WBC Urine 5-10/HPF (0-5/HPF)
[2018-10-03 15:14] LABS: Creatinine Urine Random 65.4 mg/dL; Protein (Total) Urine Random 19 mg/dL (0-12); Protein Creatinine Ratio Urine 0.29 GRAM/24H
[2018-10-06 14:50] LABS: Parathyroid Hormone Int 41 pg/mL (14-64)
== END ==
PROVIDERS: PCP Family Medicine; Visit Provider Student in an Organized Health Care Education/Training Program
DX: N05.9 Unspecified nephritic syndrome with unspecified morphologic changes (principal); D64.9 Anemia, unspecified; N25.81 Secondary hyperparathyroidism of renal origin; N30.00 Acute cystitis without hematuria; R80.9 Proteinuria, unspecified
CPT/HCPCS: 36415; 80048; 81001; 82570; 83970; 84156; 85014; 85018; 87086

== ENCOUNTER → 2018-11-24 07:33 | Outpatient (CLI) | payer MEDICARE, OTHER, SELFPAY ==
--- NOTE | 2018-11-24 | DI.MRI.S_ITS ---
PROCEDURE: MR PELIS WO/W CON INDICATIONS: Elevated PSA. TECHNIQUE: Coronal HASTE, axial T1 FSE with fat saturation, 3-plane nonbreath-hold T2 FSE. After the administration of contrast, dynamic axial, delayed axial and coronal VIBE or 2-D FLASH with fat saturation through the pelvis. Optional diffusion weighted imaging and ADC may be performed. COMPARISON: [facility], , CT ABDOMEN/PELVIS W/WO CONTRAST, 12/05/2002, 8:27. FINDINGS: Image quality: Diffusion weighted and dynamic contrast enhanced images are diagnostic. Prostate: Gland size is 6.7 x 5.7 x 5.4 cm; ellipsoid gland volume is 107 mL. Median lobe hypertrophy. -Focus of intrinsic T1 hyperintensity in the left mid gland transitional zone which may be due to prior biopsy hemorrhage. -Serpiginous dilated duct with intrinsic T1 hyperintensity in the left seminal vesicle, (07/16), likely due to proteinaceous debris. Lesion size(s): Lesion 1: A 1 cm in axial plane, (06/12). Lesion location(s) (sector): Lesion 1: Right apex transitional zone Lesion description: Lesion 1: Circumscribed hypointense nodule T2 weighted imaging (T2WI) morphology score: Lesion 1: 2 Diffusion weighted imaging (DWI) morphology score: Lesion 1: 2 Dynamic contrast enhancement (DCE): Lesion 1: Present Lesion PI-RADS score: Lesion 1: PI-RADS 2, low probability. Genitourinary system: Bladder wall thickness is normal. Distal ureters are non distended. Bowel and peritoneum: No pathologic free pelvic fluid. Inferior colon and small bowel loops are normal in caliber. Nodes and vessels: No pelvic or inguinal adenopathy by size criteria. Iliac vessels are normal in caliber. Soft tissues: Bilateral fat-containing inguinal hernias. Bones: Marrow demonstrates normal overall signal, without lesions to suggest metastases. IMPRESSION: 1. No PI-RADS 3 or above lesion. 2. PI-RADS 2 nodule in the right apex transitional zone. 3. No suspicious adenopathy. 4. Proteinaceous debris in the left seminal vesicle. Dictated by: Thanh Caballero M.D. on 11/24/2018 at 17:46 Approved by: Thanh Caballero M.D. on 11/24/2018 at 18:06
== END ==
PROVIDERS: PCP Family Medicine; Visit Provider Specialist
DX: R97.20 Elevated prostate specific antigen [PSA] (principal); K40.20 Bilateral inguinal hernia, without obstruction or gangrene, not specified as recurrent
CPT/HCPCS: 72197; A9579

== ENCOUNTER → 2018-12-14 11:05 | Outpatient (CLI) | payer MEDICARE, OTHER, SELFPAY ==
[2018-12-14 13:55] LABS: Prostate Specific Antigen 3.08 ng/mL (0.10-4.00)
== END ==
PROVIDERS: Family Provider Family Medicine; PCP Family Medicine; Visit Provider Specialist
DX: R97.20 Elevated prostate specific antigen [PSA] (principal)
CPT/HCPCS: 36415; 84153

== ENCOUNTER → 2019-02-08 11:55 | Outpatient (CLI) | payer MEDICARE, OTHER, SELFPAY ==
[2019-02-08 12:36] LABS: Hematocrit 35.7 % (41-53); Hemoglobin 12.3 g/dL (13.5-17.5)
[2019-02-08 13:01] LABS: Hemoglobin A1C% w Est Avg Glu 5.4 % (4.0-6.0)
[2019-02-08 13:32] LABS: BUN Creatinine Ratio 22.1 (6-22); Blood Urea Nitrogen 42 mg/dL (9-20); Calcium 9.7 mg/dL (8.4-10.2); Carbon Dioxide 24 mmol/L (22-32); Chloride 106 mmol/L (98-107); Estimated Glomerular Filt Rate 34.8 mL/min (>60); Glucose 123 mg/dL (80-110); HEMOLYSIS < 15 (0-50); Potassium 4.7 mmol/L (3.4-5.1); Sodium 141 mmol/L (137-145)
[2019-02-08 16:47] LABS: Creatinine Urine Random 126.6 mg/dL; Protein (Total) Urine Random 21 mg/dL (0-12); Protein Creatinine Ratio Urine 0.16 GRAM/24H
[2019-02-11 17:20] LABS: Parathyroid Hormone Int 19 pg/mL (14-64)
== END ==
PROVIDERS: PCP Family Medicine; Visit Provider Student in an Organized Health Care Education/Training Program
DX: R80.9 Proteinuria, unspecified (principal); N05.9 Unspecified nephritic syndrome with unspecified morphologic changes; D64.9 Anemia, unspecified; N25.81 Secondary hyperparathyroidism of renal origin; R73.03 Prediabetes
CPT/HCPCS: 36415; 80048; 82570; 83036; 83970; 84156; 85014; 85018

== ENCOUNTER → 2019-03-16 12:29 | Outpatient (CLI) | payer MEDICARE, OTHER, SELFPAY ==
[2019-03-16 14:00] LABS: BUN Creatinine Ratio 20.6 (6-22); Blood Urea Nitrogen 37 mg/dL (9-20); Calcium 9.8 mg/dL (8.4-10.2); Carbon Dioxide 24 mmol/L (22-32); Chloride 106 mmol/L (98-107); Estimated Glomerular Filt Rate 37.1 mL/min (>60); Glucose 104 mg/dL (80-110); HEMOLYSIS < 15 (0-50); Potassium 4.6 mmol/L (3.4-5.1); Sodium 141 mmol/L (137-145)
[2019-03-16 15:05] LABS: Protein (Total) Urine Random 25 mg/dL (0-12); Protein Creatinine Ratio Urine 0.14 GRAM/24H
== END ==
PROVIDERS: PCP Family Medicine; Visit Provider Student in an Organized Health Care Education/Training Program
DX: N05.9 Unspecified nephritic syndrome with unspecified morphologic changes (principal); R80.9 Proteinuria, unspecified
CPT/HCPCS: 36415; 80048; 82570; 84156

== ENCOUNTER → 2019-07-20 14:09 | Outpatient (CLI) | payer MEDICARE, OTHER, SELFPAY ==
[2019-07-20 17:16] LABS: Hematocrit 33.7 % (41-53); Hemoglobin 11.7 g/dL (13.5-17.5)
[2019-07-20 17:41] LABS: BUN Creatinine Ratio 19.6 (6-22); Blood Urea Nitrogen 37 mg/dL (9-20); Calcium 9.4 mg/dL (8.4-10.2); Carbon Dioxide 25 mmol/L (22-32); Chloride 105 mmol/L (98-107); Estimated Glomerular Filt Rate 34.9 mL/min (>60); Glucose 140 mg/dL (80-110); HEMOLYSIS < 15 (0-50); Potassium 4.6 mmol/L (3.4-5.1); Sodium 140 mmol/L (137-145)
[2019-07-21 07:49] LABS: Parathyroid Hormone Int 52 pg/mL (15-65)
== END ==
PROVIDERS: PCP Family Medicine; Referring Provider Student in an Organized Health Care Education/Training Program; Visit Provider Student in an Organized Health Care Education/Training Program
DX: N05.9 Unspecified nephritic syndrome with unspecified morphologic changes (principal); D64.9 Anemia, unspecified; N25.81 Secondary hyperparathyroidism of renal origin
CPT/HCPCS: 36415; 80048; 83970; 85014; 85018

== ENCOUNTER → 2019-09-22 08:47 | Outpatient (CLI) | payer MEDICARE, OTHER, SELFPAY ==
[2019-09-22 09:43] LABS: Add Manual Diff / Slide Review NO; Basophils Absolute Auto 0 /uL (0-100); Basophils Percent Auto 0.6 % (0-2); Eosinophils Absolute Auto 300 /uL (0-450); Eosinophils Percent Auto 4.7 % (2-4); Hematocrit 34.1 % (41-53); Hemoglobin 11.6 g/dL (13.5-17.5); Lymphocytes Absolute Auto 1300 /uL (1100-4500); Lymphocytes Percent Auto 24.5 % (25-40); Mean Corpuscular HGB Conc 34.1 % (30-36); Mean Corpuscular Hemoglobin 31.2 PG (26-34); Mean Corpuscular Volume 91.5 fL (80-100); Monocytes Absolute Auto 400 /uL (0-900); Monocytes Percent Auto 7.6 % (3-14); Neutrophils Absolute Auto 3400 /uL (1500-7000); Neutrophils Percent Auto 62.6 % (50-75); Platelet Count 185 X10^3/uL (150-400); Red Blood Cell Count 3.73 X10^6/uL (4.5-5.9); Red Cell Distribution Width 13.1 % (11.6-14.8); White Blood Cell Count 5.5 X10^3/uL (4.5-11.0)
[2019-09-22 10:01] LABS: Hemoglobin A1C% w Est Avg Glu 5.4 % (4.0-6.0)
[2019-09-22 10:20] LABS: BUN Creatinine Ratio 25.2 (6-22); Blood Urea Nitrogen 38 mg/dL (9-20); Calcium 9.4 mg/dL (8.4-10.2); Carbon Dioxide 24 mmol/L (22-32); Chloride 108 mmol/L (98-107); Estimated Glomerular Filt Rate 45.3 mL/min (>60); Glucose 137 mg/dL (80-110); HEMOLYSIS < 15 (0-50); Potassium 3.8 mmol/L (3.4-5.1); Sodium 140 mmol/L (137-145)
[2019-09-22 15:37] LABS: Creatinine Urine Random 104.4 mg/dL; Protein (Total) Urine Random 84 mg/dL (0-12)
[2019-09-23 09:36] LABS: Parathyroid Hormone, Intact 57 pg/mL (15-65)
== END ==
PROVIDERS: PCP Family Medicine; Referring Provider Family Medicine; Visit Provider Family Medicine
DX: E78.5 Hyperlipidemia, unspecified (principal); I10 Essential (primary) hypertension; N18.3 Chronic kidney disease, stage 3 (moderate); N40.0 Benign prostatic hyperplasia without lower urinary tract symptoms; Q66.89 Other specified congenital deformities of feet
CPT/HCPCS: 36415; 80048; 82310; 82570; 83036; 83970; 84156; 85025

== ENCOUNTER → 2019-12-12 13:56 | Outpatient (CLI) | payer MEDICARE, OTHER, SELFPAY ==
[2019-12-12 15:56] LABS: BUN Creatinine Ratio 22.2 (6-22); Blood Urea Nitrogen 34 mg/dL (9-20); Calcium 9.3 mg/dL (8.4-10.2); Carbon Dioxide 25 mmol/L (22-32); Chloride 105 mmol/L (98-107); Estimated Glomerular Filt Rate 44.6 mL/min (>60); Glucose 127 mg/dL (80-110); HEMOLYSIS < 15 (0-50); Potassium 3.8 mmol/L (3.4-5.1); Sodium 139 mmol/L (137-145)
[2019-12-12 15:57] LABS: Creatinine Urine Random 89.8 mg/dL; Protein (Total) Urine Random 184 mg/dL (0-12); Protein Creatinine Ratio Urine 2.04 GRAM/24H
[2019-12-12 15:58] LABS: Hematocrit 40.4 % (41-53)
[2019-12-13 08:03] LABS: Parathyroid Hormone Int 49 pg/mL (15-65)
== END ==
PROVIDERS: PCP Family Medicine; Referring Provider Student in an Organized Health Care Education/Training Program; Visit Provider Student in an Organized Health Care Education/Training Program
DX: N05.9 Unspecified nephritic syndrome with unspecified morphologic changes (principal); D64.9 Anemia, unspecified; N25.81 Secondary hyperparathyroidism of renal origin; R80.9 Proteinuria, unspecified
CPT/HCPCS: 36415; 80048; 82570; 83970; 84156; 85014; 85018

== ENCOUNTER → 2019-12-19 13:37 | Outpatient (CLI) | payer MEDICARE, OTHER, SELFPAY ==
[2019-12-19 15:02] LABS: Add Manual Diff / Slide Review NO; Basophils Absolute Auto 0 /uL (0-100); Basophils Percent Auto 0.5 % (0-2); Eosinophils Absolute Auto 200 /uL (0-450); Hematocrit 39.4 % (41-53); Hemoglobin 13.3 g/dL (13.5-17.5); Lymphocytes Absolute Auto 1700 /uL (1100-4500); Mean Corpuscular HGB Conc 33.7 % (30-36); Mean Corpuscular Hemoglobin 30.1 PG (26-34); Mean Corpuscular Volume 89.4 fL (80-100); Monocytes Absolute Auto 500 /uL (0-900); Monocytes Percent Auto 7.6 % (3-14); Neutrophils Absolute Auto 4500 /uL (1500-7000); Neutrophils Percent Auto 63.9 % (50-75); Platelet Count 194 X10^3/uL (150-400); Red Cell Distribution Width 13.8 % (11.6-14.8)
[2019-12-19 15:19] LABS: Hemoglobin A1C% w Est Avg Glu 5.9 % (4.0-6.0)
== END ==
PROVIDERS: PCP Family Medicine; Referring Provider Family Medicine; Visit Provider Family Medicine
DX: I10 Essential (primary) hypertension (principal); E78.5 Hyperlipidemia, unspecified
CPT/HCPCS: 36415; 83036; 85025

== ENCOUNTER → 2019-12-29 07:53 | Outpatient (CLI) | payer MEDICARE, OTHER, SELFPAY ==
--- NOTE | 2019-12-29 07:54 | DI.ECHO.S_ITS ---
[facility]---------+ [facility] +---------+ : : [address] [place] : : : : [id number] : : : : Phone: [phone]---------+ Echocardiogram Report + + :Name: DONNA BRUCE Study Date: 12/29/2019 Height: 65 in : :[facility] Weight: 220 lb : : Gender: Male BSA: 2.1 m2 : :: 1945 Age: 74 yrs BP: 144/70 mmHg: :Reason For Study: Murmur : :History: CABG : :Ordering Physician: Brittany : :Abebe Performed By: Lillian Brar : + + Interpretation Summary 1) Mildly to moderately increased left ventricular thickness with mildly to moderately reduced systolic function (EF about 40%). 2) Normal right ventricular size and function. 3) Severe left atrial enlargement. 4) Aortic sclerosis but no significant valvular stenosis or regurgitation present. 5) The aortic root is mildly dilated at 4.1cm. 6) There is a trivial (physiological appearing) pericardial effusion noted. 7) No prior echo available for comparison. Procedure: A two-dimensional transthoracic echocardiogram with color flow and Doppler was performed. The study quality was technically adequate. There is no prior echocardiogram noted for this patient. The patient was in normal sinus rhythm during the exam. Left Ventricle: The left ventricle is normal in size. Left ventricular wall thickness is mild-moderately increased. There is no ventricular septal defect visualized. Left ventricular ejection fraction is estimated to be 40 +/- 5%. There is mild to moderate global hypokinesis of the left ventricle. Diastolic parameters suggest a pseudonormalization pattern, consistent with probable elevated filling pressures. Right Ventricle: The right ventricle is normal in size and function. Atria: The left atrium is severely dilated. The right atrium is mildly dilated. There is no Doppler evidence for an interatrial shunt. Mitral Valve: There is mild to moderate mitral annular calcification. There is mild mitral regurgitation. Aortic Valve: The aortic valve is trileaflet. The aortic valve opens well. There is discrete nodular thickening of the right coronary cusp. There is no aortic valve stenosis. No aortic regurgitation is present. Tricuspid Valve: The tricuspid valve is not well visualized, but is grossly normal. Pulmonary artery pressures cannot be estimated because of the lack of a measurable TR jet velocity but the IVC suggests a CVP of around 3 mmHg. Pulmonic Valve: The pulmonic valve is not well visualized. There is a trace or physiologic amount of pulmonic regurgitation. Great Vessels: The aortic root is mildly dilated. The ascending aorta is at the upper limits of normal in size. The aortic arch is normal in size. The IVC is of normal diameter and collapses greater than 50% with a sniff. This suggests a low right atrial pressure of 3 mm Hg. Pericardium/ Pleura There is a trivial pericardial effusion noted. MMode/2D Measurements & Calculations LVIDd: 5.4 cm LVOT diam: 2.5 cm EPSS: 1.3 cm Ao root diam: 4.1 cm IVSd: 1.8 cm Aortic Jxn: 3.5 cm LVPWd: 1.4 cm asc Aorta Diam: 3.9 cm LV encinas. diameter/BSA (cm/m^2): 2.6 Ao Arch Diam (Prox Trans): 2.9 cm LA A2 area: 30.4 cm2 RA long axis: 5.6 cm LA A4 area: 32.0 cm2 RA area: 20.9 cm2 LA length (vol): 6.7 cm RA vol: 66.1 ml LA vol: 123.7 ml RA : 32.1 ml/m2 LA vol index: 60.1 ml/m2 IVC diam: 1.8 cm RVD1 (basal): 4.0 cm RVD2 (mid): 3.2 cm TAPSE: 3.3 cm Doppler Measurements & Calculations Ao V2 max: 178.4 cm/sec LVOT Max Thomas: 99.9 cm/sec Ao V2 mean: 134.4 cm/sec LV V1 max P.0 mmHg Ao max P.7 mmHg LV V1 VTI: 24.7 cm Ao mean P.7 mmHg KVNG(I,D): 3.0 cm2 Ao V2 VTI: 41.4 cm KVNG(V,D): 2.8 cm2 sev ratio: 0.60 KVNG indexed to BSA (cm^2/m^2): 1.5 MV E max thomas: 77.7 cm/sec PA V2 max: 104.0 cm/sec MV A max thomas: 103.4 cm/sec PA V2 mean: 68.2 cm/sec MV E/A: 0.75 PA mean P.1 mmHg Med Peak E' Thomas: 3.7 cm/sec PA Accel Time: 0.09 sec E/E' med: 20.8 Lat Peak E' Thomas: 4.6 cm/sec E/E' lat: 16.9 E/e' average: 18.9 MV dec time: 0.25 sec MV P1/2t: 72.1 msec MV /2t max thomas: 77.5 cm/sec SV(LVOT): 125.4 ml MVA(2t): 3.1 cm2 Reading Physician:12:15 PM
== END ==
PROVIDERS: PCP Family Medicine; Referring Provider Family Medicine; Visit Provider Family Medicine
DX: I34.0 Nonrheumatic mitral (valve) insufficiency (principal); I77.810 Thoracic aortic ectasia; R01.1 Cardiac murmur, unspecified
CPT/HCPCS: 93306

== ENCOUNTER → 2020-01-09 09:33 | Outpatient (CLI) | payer MEDICARE, OTHER, SELFPAY ==
[2020-01-09 11:43] LABS: Add Manual Diff / Slide Review NO; Basophils Absolute Auto 0 /uL (0-100); Basophils Percent Auto 0.5 % (0-2); Eosinophils Absolute Auto 200 /uL (0-450); Eosinophils Percent Auto 3.5 % (2-4); Hematocrit 39.6 % (41-53); Hemoglobin 13.2 g/dL (13.5-17.5); Lymphocytes Absolute Auto 1600 /uL (1100-4500); Lymphocytes Percent Auto 25.8 % (25-40); Mean Corpuscular HGB Conc 33.5 % (30-36); Mean Corpuscular Hemoglobin 30.2 PG (26-34); Mean Corpuscular Volume 90.4 fL (80-100); Monocytes Absolute Auto 400 /uL (0-900); Monocytes Percent Auto 6.8 % (3-14); Neutrophils Absolute Auto 3800 /uL (1500-7000); Neutrophils Percent Auto 63.4 % (50-75); Platelet Count 188 X10^3/uL (150-400); Red Blood Cell Count 4.38 X10^6/uL (4.5-5.9); Red Cell Distribution Width 13.7 % (11.6-14.8)
[2020-01-09 12:00] LABS: Hemoglobin A1C% w Est Avg Glu 5.9 % (4.0-6.0)
[2020-01-09 12:02] LABS: BUN Creatinine Ratio 25.5 (6-22); Blood Urea Nitrogen 40 mg/dL (9-20); Calcium 8.8 mg/dL (8.4-10.2); Carbon Dioxide 26 mmol/L (22-32); Chloride 105 mmol/L (98-107); Estimated Glomerular Filt Rate 43.3 mL/min (>60); Glucose 118 mg/dL (80-110); Potassium 4.3 mmol/L (3.4-5.1); Sodium 139 mmol/L (137-145)
[2020-01-09 12:04] LABS: HEMOLYSIS 70 (0-50)
[2020-01-09 14:53] LABS: Creatinine Urine Random 84.2 mg/dL; Protein (Total) Urine Random 59 mg/dL (0-12)
[2020-01-10 15:43] LABS: Calcium 9.4 mg/dL (8.6-10.2); Parathyroid Hormone, Intact 48 pg/mL (15-65)
== END ==
PROVIDERS: PCP Family Medicine; Referring Provider Family Medicine; Visit Provider Family Medicine
DX: I10 Essential (primary) hypertension (principal); R73.9 Hyperglycemia, unspecified
CPT/HCPCS: 36415; 80048; 82310; 82570; 83036; 83970; 84156; 85025

== ENCOUNTER → 2020-01-15 11:38 | Outpatient (CLI) | payer MEDICARE, OTHER, SELFPAY ==
[2020-01-15 13:10] LABS: COVID19 -Nasal RAPID Negative (Negative)
== END ==
PROVIDERS: PCP Family Medicine; Visit Provider Physician Assistant
DX: Z11.59 Encounter for screening for other viral diseases (principal)
CPT/HCPCS: 87635

== ENCOUNTER → 2020-01-16 08:16 | Outpatient (CLI) | payer MEDICARE, OTHER, SELFPAY ==
--- NOTE | 2020-01-16 09:18 | PM.TREADMILL ---
Cardiac Stress Test Report Referral & Results Date Patient Seen: 01/16/20 Time Patient Seen: 09:00 Requesting provider: Brittany Lomas Indication: Cardiomegaly Rest ECG: Left bundle branch block Procedure Note: After both written and verbal informed consent the patient had an IV started by the diagnostic imaging RN, and then was hooked up to the treadmill monitoring system. The Lexiscan material, and then the Cardiolite tracer, were administered sequentially. An additional 3 min was spent monitoring the patient while supine on the gurney. The patient had a normal response to all infused materials. Impression: Successful Kendy protocol. Will await perfusion imaging. Please note: Actual ECG tracings can be found in the PACS system.
--- NOTE | 2020-01-17 20:48 | DI.NM.S_ITS ---
DATE OF SERVICE: 01/16/2020 PROCEDURE: Pharmacological perfusion study INDICATION: LV dysfunction on echocardiogram with underlying left bundle branch block with ejection fraction around 40 percent. RADIOPHARMACEUTICAL: 25.4 millicurie technetium-99m Myoview IV was injected at stress and 25.2 millicurie technetium-99m Myoview IV was injected at rest. CARDIAC STRESS: The patient underwent IV Lexiscan perfusion study under the supervision of an attending staff, as per standard protocol. The patient remained hemodynamically stable. Baseline EKG reveals sinus rhythm with left bundle branch block. During stress, no new ischemic changes. No new significant arrhythmias. RAW DATA: There is increased subdiaphragmatic activity. GATED STUDY: Resting LV ejection fraction 42 percent and stress LV ejection fraction reported to be 53 percent. There appears to be global hypokinesis. Resting end-diastolic volume 231 mL, suggestive of dilated left ventricle. TID ratio 1.08, which is within normal limits. Lung/heart ratio 0.42, which is within normal limits. MYOCARDIAL PERFUSION: Stress supine, resting supine and stress prone images were compared to each other. It appears to be that patient has a small to moderate-sized, mild reversible ischemia of the basal inferior wall extending into the distal inferolateral wall. CONCLUSION: I will call this study and abnormal myocardial perfusion study with small to moderate size reversible ischemia of the basal inferior wall extending into the distal inferior lateral wall. Left ventricle is dilated. Resting left ventricular ejection fraction 42 percent. It appears to be that patient has a combination of ischemic, as well as nonischemic, cardiomyopathy. I discussed the finding with Dr. Lomas. Will recommend left heart catheterization. Andres Younger - ROLY/tripp/ronna doc#: [id number]/job#: [id number] dd: 01/17/2020 17:45:00 dt: 01/17/2020 20:20:00 DICTATING MD/COPIES TO: Mala Jerome MD; Brittany Lomas, DO COPIES MNE: WAI;
== END ==
PROVIDERS: PCP Family Medicine; Referring Provider Family Medicine; Visit Provider Family Medicine
DX: R94.30 Abnormal result of cardiovascular function study, unspecified (principal); R93.1 Abnormal findings on diagnostic imaging of heart and coronary circulation; I51.7 Cardiomegaly
CPT/HCPCS: 78452; 93016; 93017; 93018; A9502; J2785

== ENCOUNTER 2020-01-23 12:59 | Inpatient (IN) | payer MEDICARE, OTHER, SELFPAY ==
[2020-01-23] VITALS (11 sets, daily range): BP systolic 122–166; BP diastolic 61–81; PULSE 57–68; RESP 16–18; TEMP 36.4–37.3; O2SAT 96–99; BMI 32.8
[2020-01-23] MEDS: SODIUM CHLORIDE 0.9% 1,000 ML 1000 ML IV (13:38)
[2020-01-23 13:42] LABS: Add Manual Diff / Slide Review NO; Basophils Absolute Auto 0 /uL (0-100); Basophils Percent Auto 0.5 % (0-2); Eosinophils Absolute Auto 500 /uL (0-450); Eosinophils Percent Auto 7.6 % (2-4); Hematocrit 35.9 % (41-53); Hemoglobin 12.2 g/dL (13.5-17.5); Lymphocytes Absolute Auto 1100 /uL (1100-4500); Lymphocytes Percent Auto 17.6 % (25-40); Mean Corpuscular HGB Conc 33.9 % (30-36); Mean Corpuscular Hemoglobin 30.8 PG (26-34); Mean Corpuscular Volume 90.7 fL (80-100); Monocytes Absolute Auto 500 /uL (0-900); Monocytes Percent Auto 8.2 % (3-14); Neutrophils Absolute Auto 4300 /uL (1500-7000); Neutrophils Percent Auto 66.1 % (50-75); Platelet Count 172 X10^3/uL (150-400); Red Blood Cell Count 3.96 X10^6/uL (4.5-5.9); Red Cell Distribution Width 13.4 % (11.6-14.8); White Blood Cell Count 6.5 X10^3/uL (4.5-11.0)
--- NOTE | 2020-01-23 13:47 | ED_ITS ---
HPI - Recheck/Abnormal Lab/Rx <Pricilla ReyIGNACIA - Last Filed: 01/23/20 19:59> General Chief Complaint: Recheck/Abnormal Lab/Rx Stated Complaint: Abnormal Labs Time Seen by Provider: 01/23/20 13:10 History of Present Illness HPI narrative: 74yo male with a history of CKD stage 3 and HTN presents to the ED per instruction of DR. Trotter at [facility]. Patient states that he was getting laboratory work drawn prior to an Angiocath procedure, his laboratory w ork was taken yesterday. He was called today and told to be seen in the emergency department as his BUN and creatinine were elevated. Patient denies any symptoms. He denies any fatigue, back pain, dysuria, chest pain, shortness of breath, abdominal pain, nausea, or any other concerns. Laboratory work from 01/22/2020 was brought with patient, BUN 52, Creatinine 3.25, and eGFR 18. Patient later states he had a UTI last week, was given an antibiotic, unsure of name, has 2 doses left. Patient also states that before he had a TURP some time ago he used to self cath due to urinary tension. Patient cathed himself this morning and had a small to moderate amount of urine drained. Patient states 1 week ago he had a stress test and nuclear scan, states the use injectable medicine, unsure if it was . Related Data Home Medications Medication Instructions Recorded Confirmed Respironics Dreamstation CPAP #1 ea 07/27/18 01/24/20 amlodipine 5 mg tablet 5 mg PO DAILY 01/16/19 01/23/20 carvedilol 12.5 mg tablet 12.5 mg PO BID 04/17/19 01/23/20 lisinopril 5 mg tablet 5 mg PO DAILY 12/22/19 01/23/20 acetaminophen 650 mg 650 mg PO Q12H PRN 01/15/20 01/23/20 tablet,extended release Previous Rx's Medication Instructions Recorded miscellaneous medical supply #1 each 10/04/17 cefdinir 300 mg PO BID #6 cap 01/24/20 tamsulosin [Flomax] 0.4 mg PO BEDTIME #30 cap 01/24/20 Allergies Allergy/AdvReac Type Severity Reaction Status Date / Time amoxicillin [AMOXICILLIN] Allergy Unknown RASH Verified 01/15/20 16:30 Review of Systems <IGNACIA Evangelista - Last Filed: 01/23/20 19:59> Review of Systems Narrative: REVIEW OF SYSTEMS: GENERAL: Denies fever or chills. HENT: No head trauma. EYES: No loss of vision, double vision, eye pain, or irritation. CARDIOVASCULAR: No chest pain or syncope. RESPIRATORY: No shortness of breath or cough. GASTROINTESTINAL: No nausea, vomiting, diarrhea, or constipation. GENITOURINARY: No flank pain or dysuria. MUSCULOSKELETAL: No pain, weakness, or deformities. INTEGUMENTARY: No rash, lesions, or pruritus. NEURO: No numbness, tingling, memory loss, or confusion. PSYCH: No behavior or mood changes. Patient History <IGNACIA Evangelista - Last Filed: 01/23/20 19:59> Medical History (Updated 01/24/20 @ 04:41 by IGNACIA Zayas) Ankle pain Basal cell adenocarcinoma BPH (benign prostatic hyperplasia) Cardiomyopathy Cataract (2013) Clubfoot CMT (Lxaemka-Szhqk-Wbfck disease) (2014) Colon polyps (2008) Essential hypertension Hearing loss (2014) Malignant neoplasm of kidney Melanoma (2007) Obstructive sleep apnea Osteoarthritis of both knees Osteoarthrosis, ankle and foot Rheumatic fever (1957) Shoulder pain (2011) Spinal stenosis of lumbar region (09/15/13) Squamous cell skin cancer, face Stage 3 chronic kidney disease Superficial laceration Tinnitus UTI (urinary tract infection) Surgical History Anesthesia History of back surgery (08/2013) History of cataract removal with insertion of prosthetic lens (2013) History of left knee replacement History of left knee surgery (2004) History of nephrectomy (2003) S/P TURP (~07/2019) Family History Father Alcoholism Heart disease Mother Stroke Heart disease Other Hypertension Social History marital status: household members: spouse lives independently: Yes Smoking Status: Former smoker alcohol intake: current Smoking Status: Never smoker Exam <IGNACIA Evangelista - Last Filed: 01/23/20 19:59> Initial Vital Signs Initial Vital Signs: Vital Signs Temperature 97.5 F L 01/23/20 13:00 Pulse Rate 61 01/23/20 13:00 Respiratory Rate 18 01/23/20 13:00 Blood Pressure 149/68 H 01/23/20 13:00 Pulse Oximetry 99 01/23/20 13:00 PHYSICAL EXAMINATION: GENERAL: Well groomed, alert, and cooperative. Answers questions promptly and appropriately. Vital signs noted. HENT: Normocephalic, atraumatic. Ear canals patent. Oral mucosa is pink and moist. EYES: Conjunctiva pink, sclera white, no periorbital swelling. CHEST: Normal to inspection and without deformities. CARDIOVASCULAR: S1 and S2 sounds normal. Regular rate and rhythm, no murmurs, clicks, or bruits. No pedal edema. RESPIRATORY: Normal respiratory rate, trachea midline, airway patent. No strido r, nasal flaring or accessory muscle use. Lungs are clear in all alexander without wheeze, rhonchi, or crackles. GASTROINTESTINAL: Bowel sounds normoactive. Abdomen is soft and non-tender. No organomegaly. : No CVA tenderness. MUSCULOSKELETAL: Normal gait and coordination. Equal tone and mass bilaterally. EXTREMITIES: CMS intact. Moves all extremities. SKIN: Warm, dry, soft, appropriate color for ethnicity. No lesions, rashes, or wounds. NEURO: Alert and Oriented X 3. Good coordination. No ataxia, or sensory deficits, or cognitive issues. PSYCH: Appropriate affect and mood. <Allyssa Victoria DO - Last Filed: 01/28/20 08:09> Initial Vital Signs Initial Vital Signs: Vital Signs Temperature 97.5 F L 01/23/20 13:00 Pulse Rate 61 01/23/20 13:00 Respiratory Rate 18 01/23/20 13:00 Blood Pressure 149/68 H 01/23/20 13:00 Pulse Oximetry 99 01/23/20 13:00 Course <IGNACIA Evangelista - Last Filed: 01/23/20 19:59> Course Course Narrative: 1523: I spoke with Dr. Walton discussed patient's history, test, test results. She requested urinalysis result and KUB prior to admission. 1717: I discussed patient's case with urology. Does not recommend any specific treatment for stones at this time as they appear to be in the kidney. 1720: Patient had bacteria in urine, urine culture was added. IV ceftriaxone was given to the patient. 1733: I spoke with Dr. Walton discussed you job urology consult, KUB findings, and patient's history. She accepts for admission. 1800: Patient updated on plan of care, agrees to admission. Orders Ordered: Discontinued Medications Acetaminophen (Acetaminophen 325 Mg Tablet) 650 mg PO Q6HR PRN PRN Reason: Fever/Mild Pain (1-3) Al Hydrox/Mg Hydrox/Simethicone (Mag Hydrox/Alum/Simeth 30 Ml Udc) 30 ml PO Q6HR PRN PRN Reason: Dyspepsia Amlodipine Besylate (Amlodipine 5 Mg Tablet) 5 mg PO DAILY [facility] Last Admin: 01/24/20 08:44 Dose: 5 mg Documented by: VAHID Calcium Carbonate (Calcium Carbonate 500 Mg Tab) 1,000 mg PO Q4HR PRN PRN Reason: Dyspepsia Carvedilol (Carvedilol 12.5 Mg Tablet) 12.5 mg PO BID [facility] Last Admin: 01/24/20 08:44 Dose: 12.5 mg Documented by: VAHID Dextrose (Dextrose 50 % In Water 25 Gm/50 Ml Syringe) 25 gm IV PRN PRN; Protocol PRN Reason: Hypoglycemia Heparin Sodium (Porcine) (Heparin 5,000 Unit/Ml Vial) 5,000 unit SUBCUT BID [facility] Last Admin: 01/24/20 08:44 Dose: 5,000 unit Documented by: Admin: 01/23/20 21:00 Dose: 5,000 unit Documented by: NATALIA Sodium Chloride (Normal Saline 0.9%) 1,000 mls @ 1,000 mls/hr IV BOLUS ONE Stop: 01/23/20 14:25 Last Infusion: 01/23/20 14:55 Dose: 0 mls/hr Documented by: Admin: 01/23/20 13:38 Dose: 1,000 mls/hr Documented by: DOTTIE Ceftriaxone Sodium/Dextrose (Rocephin) 1 gm in 50 mls @ 100 mls/hr IV NOW ONE Stop: 01/23/20 16:00 Last Infusion: 01/23/20 16:43 Dose: 0 mls/hr Documented by: Admin: 01/23/20 15:37 Dose: 100 mls/hr Documented by: DOTTIE Sodium Chloride (Normal Saline 0.9%) 1,000 mls @ 100 mls/hr IV CONT [facility] Last Admin: 01/23/20 23:13 Dose: Not Given Documented by: ELIJAH Sodium Chloride (Normal Saline 0.9%) 1,000 mls @ 75 mls/hr IV CONT [facility] Last Admin: 01/24/20 06:01 Dose: 75 mls/hr Documented by: Infusion: 01/24/20 06:01 Dose: 75 mls/hr Documented by: Admin: 01/23/20 21:04 Dose: 75 mls/hr Documented by: NATALIA Ceftriaxone Sodium/Dextrose (Rocephin) 1 gm in 50 mls @ 100 mls/hr IV Q24H [facility] Last Admin: 01/24/20 14:31 Dose: 100 mls/hr Documented by: VAHID Insulin Aspart (Insulin Aspart 100 Unit/Ml Insuln Pen) 0 unit SUBCUT [facility]; Protocol Last Admin: 01/24/20 12:00 Dose: 1 unit Documented by: VAHID Cosigned by: ASHKAN Admin: 01/24/20 08:45 Dose: Not Given Documented by: Admin: 01/23/20 21:06 Dose: 1 unit Documented by: NATALIA Cosigned by: TEVIN Lisinopril (Lisinopril 5 Mg Tablet) 5 mg PO DAILY [facility] Melatonin (Melatonin 3 Mg Tablet) 6 mg PO BEDTIME [facility] Last Admin: 01/24/20 00:17 Dose: 6 mg Documented by: ELIJAH Naloxone HCl (Naloxone 0.4 Mg/Ml Vial) 0.2 mg IV Q2MIN PRN PRN Reason: Opiate Reversal Ondansetron HCl (Ondansetron 4 Mg/2 Ml Inj) 4 mg IV Q8HR PRN PRN Reason: Nausea And Vomiting Tamsulosin HCl (Tamsulosin 0.4 Mg Capsule) 0.4 mg PO BEDTIME [facility] Last Admin: 01/23/20 21:00 Dose: 0.4 mg Documented by: NATALIA Consultations Consultation #1: Patient staffed with Dr. Victoria discussed test, test results, plan of care. Vital Signs Vital signs: Vital Signs - 8 hr 01/23/20 13:00 01/23/20 14:30 01/23/20 15:00 Temperature 97.5 F L Pulse Rate 61 57 L 60 Respiratory Rate 18 Blood Pressure 149/68 H 135/64 Pulse Oximetry 99 98 98 01/23/20 16:57 01/23/20 16:59 01/23/20 17:00 Temperature Pulse Rate 68 65 65 Respiratory Rate Blood Pressure 166/77 H 161/81 H Pulse Oximetry 96 98 98 01/23/20 17:30 Temperature Pulse Rate 60 Respiratory Rate Blood Pressure 140/65 Pulse Oximetry 96 <Allyssa Victoria, - Last Filed: 01/28/20 08:09> Orders Ordered: Discontinued Medications Acetaminophen (Acetaminophen 325 Mg Tablet) 650 mg PO Q6HR PRN PRN Reason: Fever/Mild Pain (1-3) Al Hydrox/Mg Hydrox/Simethicone (Mag Hydrox/Alum/Simeth 30 Ml Udc) 30 ml PO Q6HR PRN PRN Reason: Dyspepsia Amlodipine Besylate (Amlodipine 5 Mg Tablet) 5 mg PO DAILY [facility] Last Admin: 01/24/20 08:44 Dose: 5 mg Documented by: VAHID Calcium Carbonate (Calcium Carbonate 500 Mg Tab) 1,000 mg PO Q4HR PRN PRN Reason: Dyspepsia Carvedilol (Carvedilol 12.5 Mg Tablet) 12.5 mg PO BID [facility] Last Admin: 01/24/20 08:44 Dose: 12.5 mg Documented by: VAHID Dextrose (Dextrose 50 % In Water 25 Gm/50 Ml Syringe) 25 gm IV PRN PRN; Protocol PRN Reason: Hypoglycemia Heparin Sodium (Porcine) (Heparin 5,000 Unit/Ml Vial) 5,000 unit SUBCUT BID [facility] Last Admin: 01/24/20 08:44 Dose: 5,000 unit Documented by: Admin: 01/23/20 21:00 Dose: 5,000 unit Documented by: NATALIA Sodium Chloride (Normal Saline 0.9%) 1,000 mls @ 1,000 mls/hr IV BOLUS ONE Stop: 01/23/20 14:25 Last Infusion: 01/23/20 14:55 Dose: 0 mls/hr Documented by: Admin: 01/23/20 13:38 Dose: 1,000 mls/hr Documented by: DOTTIE Ceftriaxone Sodium/Dextrose (Rocephin) 1 gm in 50 mls @ 100 mls/hr IV NOW ONE Stop: 01/23/20 16:00 Last Infusion: 01/23/20 16:43 Dose: 0 mls/hr Documented by: Admin: 01/23/20 15:37 Dose: 100 mls/hr Documented by: DOTTIE Sodium Chloride (Normal Saline 0.9%) 1,000 mls @ 100 mls/hr IV CONT [facility] Last Admin: 01/23/20 23:13 Dose: Not Given Documented by: ELIJAH Sodium Chloride (Normal Saline 0.9%) 1,000 mls @ 75 mls/hr IV CONT [facility] Last Admin: 01/24/20 06:01 Dose: 75 mls/hr Documented by: Infusion: 01/24/20 06:01 Dose: 75 mls/hr Documented by: Admin: 01/23/20 21:04 Dose: 75 mls/hr Documented by: NATALIA Ceftriaxone Sodium/Dextrose (Rocephin) 1 gm in 50 mls @ 100 mls/hr IV Q24H [facility] Last Admin: 01/24/20 14:31 Dose: 100 mls/hr Documented by: VAHID Insulin Aspart (Insulin Aspart 100 Unit/Ml Insuln Pen) 0 unit SUBCUT [facility]; Protocol Last Admin: 01/24/20 12:00 Dose: 1 unit Documented by: VAHID Cosigned by: ASHKAN Admin: 01/24/20 08:45 Dose: Not Given Documented by: Admin: 01/23/20 21:06 Dose: 1 unit Documented by: NATALIA Cosigned by: TEVIN Lisinopril (Lisinopril 5 Mg Tablet) 5 mg PO DAILY [facility] Melatonin (Melatonin 3 Mg Tablet) 6 mg PO BEDTIME [facility] Last Admin: 01/24/20 00:17 Dose: 6 mg Documented by: ELIJAH Naloxone HCl (Naloxone 0.4 Mg/Ml Vial) 0.2 mg IV Q2MIN PRN PRN Reason: Opiate Reversal Ondansetron HCl (Ondansetron 4 Mg/2 Ml Inj) 4 mg IV Q8HR PRN PRN Reason: Nausea And Vomiting Tamsulosin HCl (Tamsulosin 0.4 Mg Capsule) 0.4 mg PO BEDTIME [facility] Last Admin: 01/23/20 21:00 Dose: 0.4 mg Documented by: NATALIA Vital Signs Vital signs: Vital Signs - 8 hr 01/23/20 13:00 01/23/20 14:30 01/23/20 15:00 Temperature 97.5 F L Pulse Rate 61 57 L 60 Respiratory Rate 18 Blood Pressure 149/68 H 135/64 Pulse Oximetry 99 98 98 01/23/20 16:57 01/23/20 16:59 01/23/20 17:00 Temperature Pulse Rate 68 65 65 Respiratory Rate Blood Pressure 166/77 H 161/81 H Pulse Oximetry 96 98 98 01/23/20 17:30 Temperature Pulse Rate 60 Respiratory Rate Blood Pressure 140/65 Pulse Oximetry 96 MDM - Recheck/Abnormal Lab/Rx <IGNACIA Evangelista - Last Filed: 01/23/20 19:59> Medical Records Attestation: I reviewed the patient's medical records. Lab Data Attestation: I reviewed the patient's lab results. Result diagrams: 01/24/20 06:18 01/24/20 16:16 Labs: Lab Results 01/23/20 01/23/20 01/23/20 Range/Units 13:20 13:20 13:20 WBC 6.5 (4.5-11.0) X10^3/uL RBC 3.96 L (4.5-5.9) X10^6/uL Hgb 12.2 L (13.5-17.5) g/dL Hct 35.9 L (41-53) % MCV 90.7 (80-100) fL MCH 30.8 (26-34) PG MCHC 33.9 (30-36) % RDW 13.4 (11.6-14.8) % Plt Count 172 (150-400) X10^3/uL Neut % (Auto) 66.1 (50-75) % Lymph % (Auto) 17.6 L (25-40) % Stark % (Auto) 8.2 (3-14) % Eos % (Auto) 7.6 H (2-4) % Baso % (Auto) 0.5 (0-2) % Neut # (Auto) 4300 (3090-8247) /uL Lymph # (Auto) 1100 (2648-6058) /uL Stark # (Auto) 500 (0-900) /uL Eos # (Auto) 500 H (0-450) /uL Baso # (Auto) 0 (0-100) /uL Sodium 137 (137-145) mmol/L Potassium 4.6 (3.4-5.1) mmol/L Chloride 106 (98-107) mmol/L Carbon Dioxide 23 (22-32) mmol/L BUN 52 H (9-20) mg/dL Creatinine 3.17 H (0.66-1.25) mg/dL Estimated GFR 19.2 L (>60) mL/min BUN/Creatinine Ratio 16.4 (6-22) Glucose 160 H (80-110) mg/dL Hemoglobin A1c (4.0-6.0) % Calcium 9.1 (8.4-10.2) mg/dL Magnesium (1.6-2.3) mg/dL Total Bilirubin 0.5 (0.2-1.3) mg/dL AST 64 H (17-59) IU/L ALT 101 H (<50) IU/L Alkaline Phosphatase 253 H (38-126) U/L Total Protein 7.3 (6.3-8.2) g/dL Albumin 4.2 (3.5-5.0) g/dL Globulin 3.1 (1.7-4.1) g/dL Albumin/Globulin Ratio 1.4 (1.0-2.8) Procalcitonin 0.30 (<0.5) ng/mL Urine Color Urine Appearance Urine pH (4.5-8.0) Ur Specific Almo (1.000-1.035) Urine Protein (Negative) Urine Glucose (UA) (Negative) g/dL Urine Ketones (NEGATIVE) Urine Occult Blood (Negative) Urine Nitrate (Negative) Urine Bilirubin (NEGATIVE) Urine Urobilinogen (0.2) E.U./dL Ur Leukocyte Esterase (NEGATIVE) Urine RBC (0-5/HPF) Urine WBC (0-5/HPF) Ur Squamous Epith Cells (0-5/HPF) Urine Bacteria (None) Ur Culture Indicated? COVID-19 PCR (Negative) 01/23/20 01/23/20 01/23/20 Range/Units 13:20 13:20 14:20 WBC (4.5-11.0) X10^3/uL RBC (4.5-5.9) X10^6/uL Hgb (13.5-17.5) g/dL Hct (41-53) % MCV (80-100) fL MCH (26-34) PG MCHC (30-36) % RDW (11.6-14.8) % Plt Count (150-400) X10^3/uL Neut % (Auto) (50-75) % Lymph % (Auto) (25-40) % Stark % (Auto) (3-14) % Eos % (Auto) (2-4) % Baso % (Auto) (0-2) % Neut # (Auto) (5272-2821) /uL Lymph # (Auto) (1724-7346) /uL Stark # (Auto) (0-900) /uL Eos # (Auto) (0-450) /uL Baso # (Auto) (0-100) /uL Sodium (137-145) mmol/L Potassium (3.4-5.1) mmol/L Chloride (98-107) mmol/L Carbon Dioxide (22-32) mmol/L BUN (9-20) mg/dL Creatinine (0.66-1.25) mg/dL Estimated GFR (>60) mL/min BUN/Creatinine Ratio (6-22) Glucose (80-110) mg/dL Hemoglobin A1c 5.8 (4.0-6.0) % Calcium (8.4-10.2) mg/dL Magnesium 2.2 (1.6-2.3) mg/dL Total Bilirubin (0.2-1.3) mg/dL AST (17-59) IU/L ALT (<50) IU/L Alkaline Phosphatase (38-126) U/L Total Protein (6.3-8.2) g/dL Albumin (3.5-5.0) g/dL Globulin (1.7-4.1) g/dL Albumin/Globulin Ratio (1.0-2.8) Procalcitonin (<0.5) ng/mL Urine Color Yellow Urine Appearance Sl cloudy Urine pH 5.0 (4.5-8.0) Ur Specific Almo 1.010 (1.000-1.035) Urine Protein 1+ H (Negative) Urine Glucose (UA) Negative (Negative) g/dL Urine Ketones Negative (NEGATIVE) Urine Occult Blood 3+ H (Negative) Urine Nitrate Negative (Negative) Urine Bilirubin Negative (NEGATIVE) Urine Urobilinogen 0.2 (0.2) E.U./dL Ur Leukocyte Esterase Negative (NEGATIVE) Urine RBC >100/hpf H (0-5/HPF) Urine WBC 1-5/hpf (0-5/HPF) Ur Squamous Epith Cells 0-1 /hpf (0-5/HPF) Urine Bacteria Many (>30) H (None) Ur Culture Indicated? Cult not indicated COVID-19 PCR (Negative) 01/23/20 Range/Units 14:48 WBC (4.5-11.0) X10^3/uL RBC (4.5-5.9) X10^6/uL Hgb (13.5-17.5) g/dL Hct (41-53) % MCV (80-100) fL MCH (26-34) PG MCHC (30-36) % RDW (11.6-14.8) % Plt Count (150-400) X10^3/uL Neut % (Auto) (50-75) % Lymph % (Auto) (25-40) % Stark % (Auto) (3-14) % Eos % (Auto) (2-4) % Baso % (Auto) (0-2) % Neut # (Auto) (4749-6942) /uL Lymph # (Auto) (1424-5101) /uL Stark # (Auto) (0-900) /uL Eos # (Auto) (0-450) /uL Baso # (Auto) (0-100) /uL Sodium (137-145) mmol/L Potassium (3.4-5.1) mmol/L Chloride (98-107) mmol/L Carbon Dioxide (22-32) mmol/L BUN (9-20) mg/dL Creatinine (0.66-1.25) mg/dL Estimated GFR (>60) mL/min BUN/Creatinine Ratio (6-22) Glucose (80-110) mg/dL Hemoglobin A1c (4.0-6.0) % Calcium (8.4-10.2) mg/dL Magnesium (1.6-2.3) mg/dL Total Bilirubin (0.2-1.3) mg/dL AST (17-59) IU/L ALT (<50) IU/L Alkaline Phosphatase (38-126) U/L Total Protein (6.3-8.2) g/dL Albumin (3.5-5.0) g/dL Globulin (1.7-4.1) g/dL Albumin/Globulin Ratio (1.0-2.8) Procalcitonin (<0.5) ng/mL Urine Color Urine Appearance Urine pH (4.5-8.0) Ur Specific Almo (1.000-1.035) Urine Protein (Negative) Urine Glucose (UA) (Negative) g/dL Urine Ketones (NEGATIVE) Urine Occult Blood (Negative) Urine Nitrate (Negative) Urine Bilirubin (NEGATIVE) Urine Urobilinogen (0.2) E.U./dL Ur Leukocyte Esterase (NEGATIVE) Urine RBC (0-5/HPF) Urine WBC (0-5/HPF) Ur Squamous Epith Cells (0-5/HPF) Urine Bacteria (None) Ur Culture Indicated? COVID-19 PCR Negative (Negative) Imaging Data CT scan - abdomen/pelvis: Radiologist's Impression: [address] [id number] Scan ReportSigned Patient: Andres Younger#: [id number]: 5Acct:[id number]/Sex: 74 / MDate of Service: 01/23/20Loc: EDAccession Number: [id number] Procedure: CT kidney ureter bladder (KUB) Ordering Provider: Pricilla Rey PROCEDURE: CT KIDNEY URETER BLADDER (KUB) INDICATIONS: urinary retention TECHNIQUE: Noncontrast 5 mm thick sections acquired from the diaphragms to the symphysis. 5 mm thick coronal and sagittal reformats were then performed. For radiation dose reduction, the following was used: automated exposure control, adjustment of mA and/or kV according to patient size. COMPARISON: [facility], CT, KIDNEY/ URETER/BLADDER, 04/01/2009, 12:01. FINDINGS: Image quality: Excellent. Lung bases: Trace pericardial effusion. 3 mm right basilar pulmonary nodule, is unchanged since 2009. Urinary system: No hydronephrosis is seen. There is bilateral renal cortical scarring and atrophy. Left renal cysts although technically indeterminate in the absence of IV contrast. There are multiple sub 5 mm bilateral renal calculi. Some of these may represent vascular calcifications. Minimal age-indeterminate bilateral perinephric stranding. Other solid organs: Liver is normal in size. Gallbladder contains sub cm gallstones otherwise unremarkable appearance . Pancreas is normal in contours. Spleen is normal in size. No adrenal nodules. Peritoneum and bowel: Unenhanced bowel loops demonstrate normal wall thickness and caliber. No free fluid or air. Appendix is not clearly identified however no suspicious pericecal inflammatory changes are seen. Colonic diverticulosis is seen without evidence of acute complication. Nodes and vessels: No retroperitoneal or mesenteric adenopathy by size criteria. Aorta and inferior vena cava are normal in caliber. Abdominal wall: No ventral hernias. Pelvis: Small bilateral fat containing inguinal hernias. Enlarged prostate. Mild circumferential bladder wall thickening. Bones: No vertebral body compression fracture. Spondylytic changes and facet arthropathy. IMPRESSION: Bilateral sub 5 mm renal calculi suggesting nephrolithiasis, although some of these may be vascular nature. No hydronephrosis identified. Incidental cholelithiasis Circumferential bladder wall thickening, which could reflect age-indeterminate cystitis although recommend clinical correlation and with urinalysis. Additional chronic and incidental findings as above. Dictated by: Daryl Castillo M.D. on 01/23/2020 at 16:01 Approved by: Daryl Castillo M.D. on 01/23/2020 at 16:08 [facility] Narrative Medical decision making narrative: 74yo male with a history of CKD, presents to the ED after a call up from a hospitalist at [facility] for abnormal labs. He was getting preop labs for a cardiac Angiocath, however, his creatinine and BUN were significantly elevated which is an acute bladder changer the past 2 weeks. Patient was recently treated with Bactrim for UTI, urinary infection and Bactrim may have caused renal function to decline. Additionally, patient has a history of urinary tension pre TURP procedure, he states he felt like he was having an increase in urinary tension over the past few days. This may have also caused elevated renal enzymes. Additionally other cause may be previous testing about a week ago, he was unsure if tie was used. Patient did have bacteria in urine, no white blood cells or nitrates present which is most likely due to patient taking Bactrim. However, specimen was attempted to be cultured. Patient was treated with ceftriaxone. KUB was ordered prior to admission per hospitalist. Renal calculi present but appeared to be in renal pelvis. Less concern for sepsis, patient is afebrile, non tachycardic, and hemodynamically stable. Patient is admitted to Dr. Walton for further evaluation and treatment. <Allyssa Victoria, DO - Last Filed: 01/28/20 08:09> Lab Data Labs: Lab Results 01/23/20 01/23/20 01/23/20 Range/Units 13:20 13:20 13:20 WBC 6.5 (4.5-11.0) X10^3/uL RBC 3.96 L (4.5-5.9) X10^6/uL Hgb 12.2 L (13.5-17.5) g/dL Hct 35.9 L (41-53) % MCV 90.7 (80-100) fL MCH 30.8 (26-34) PG MCHC 33.9 (30-36) % RDW 13.4 (11.6-14.8) % Plt Count 172 (150-400) X10^3/uL Neut % (Auto) 66.1 (50-75) % Lymph % (Auto) 17.6 L (25-40) % Stark % (Auto) 8.2 (3-14) % Eos % (Auto) 7.6 H (2-4) % Baso % (Auto) 0.5 (0-2) % Neut # (Auto) 4300 (1463-7789) /uL Lymph # (Auto) 1100 (8062-6873) /uL Stark # (Auto) 500 (0-900) /uL Eos # (Auto) 500 H (0-450) /uL Baso # (Auto) 0 (0-100) /uL Sodium 137 (137-145) mmol/L Potassium 4.6 (3.4-5.1) mmol/L Chloride 106 (98-107) mmol/L Carbon Dioxide 23 (22-32) mmol/L BUN 52 H (9-20) mg/dL Creatinine 3.17 H (0.66-1.25) mg/dL Estimated GFR 19.2 L (>60) mL/min BUN/Creatinine Ratio 16.4 (6-22) Glucose 160 H (80-110) mg/dL Hemoglobin A1c (4.0-6.0) % Calcium 9.1 (8.4-10.2) mg/dL Magnesium (1.6-2.3) mg/dL Total Bilirubin 0.5 (0.2-1.3) mg/dL AST 64 H (17-59) IU/L ALT 101 H (<50) IU/L Alkaline Phosphatase 253 H (38-126) U/L Total Protein 7.3 (6.3-8.2) g/dL Albumin 4.2 (3.5-5.0) g/dL Globulin 3.1 (1.7-4.1) g/dL Albumin/Globulin Ratio 1.4 (1.0-2.8) Procalcitonin 0.30 (<0.5) ng/mL Urine Color Urine Appearance Urine pH (4.5-8.0) Ur Specific Almo (1.000-1.035) Urine Protein (Negative) Urine Glucose (UA) (Negative) g/dL Urine Ketones (NEGATIVE) Urine Occult Blood (Negative) Urine Nitrate (Negative) Urine Bilirubin (NEGATIVE) Urine Urobilinogen (0.2) E.U./dL Ur Leukocyte Esterase (NEGATIVE) Urine RBC (0-5/HPF) Urine WBC (0-5/HPF) Ur Squamous Epith Cells (0-5/HPF) Urine Bacteria (None) Ur Culture Indicated? COVID-19 PCR (Negative) 01/23/20 01/23/20 01/23/20 Range/Units 13:20 13:20 14:20 WBC (4.5-11.0) X10^3/uL RBC (4.5-5.9) X10^6/uL Hgb (13.5-17.5) g/dL Hct (41-53) % MCV (80-100) fL MCH (26-34) PG MCHC (30-36) % RDW (11.6-14.8) % Plt Count (150-400) X10^3/uL Neut % (Auto) (50-75) % Lymph % (Auto) (25-40) % [place] % (Auto) (3-14) % Eos % (Auto) (2-4) % Baso % (Auto) (0-2) % Neut # (Auto) (0094-0549) /uL Lymph # (Auto) (0333-0994) /uL Stark # (Auto) (0-900) /uL Eos # (Auto) (0-450) /uL Baso # (Auto) (0-100) /uL Sodium (137-145) mmol/L Potassium (3.4-5.1) mmol/L Chloride (98-107) mmol/L Carbon Dioxide (22-32) mmol/L BUN (9-20) mg/dL Creatinine (0.66-1.25) mg/dL Estimated GFR (>60) mL/min BUN/Creatinine Ratio (6-22) Glucose (80-110) mg/dL Hemoglobin A1c 5.8 (4.0-6.0) % Calcium (8.4-10.2) mg/dL Magnesium 2.2 (1.6-2.3) mg/dL Total Bilirubin (0.2-1.3) mg/dL AST (17-59) IU/L ALT (<50) IU/L Alkaline Phosphatase (38-126) U/L Total Protein (6.3-8.2) g/dL Albumin (3.5-5.0) g/dL Globulin (1.7-4.1) g/dL Albumin/Globulin Ratio (1.0-2.8) Procalcitonin (<0.5) ng/mL Urine Color Yellow Urine Appearance Sl cloudy Urine pH 5.0 (4.5-8.0) Ur Specific [place] 1.010 (1.000-1.035) Urine Protein 1+ H (Negative) Urine Glucose (UA) Negative (Negative) g/dL Urine Ketones Negative (NEGATIVE) Urine Occult Blood 3+ H (Negative) Urine Nitrate Negative (Negative) Urine Bilirubin Negative (NEGATIVE) Urine Urobilinogen 0.2 (0.2) E.U./dL Ur Leukocyte Esterase Negative (NEGATIVE) Urine RBC >100/hpf H (0-5/HPF) Urine WBC 1-5/hpf (0-5/HPF) Ur Squamous Epith Cells 0-1 /hpf (0-5/HPF) Urine Bacteria Many (>30) H (None) Ur Culture Indicated? Cult not indicated COVID-19 PCR (Negative) 01/23/20 Range/Units 14:48 WBC (4.5-11.0) X10^3/uL RBC (4.5-5.9) X10^6/uL Hgb (13.5-17.5) g/dL Hct (41-53) % MCV (80-100) fL MCH (26-34) PG MCHC (30-36) % RDW (11.6-14.8) % Plt Count (150-400) X10^3/uL Neut % (Auto) (50-75) % Lymph % (Auto) (25-40) % Stark % (Auto) (3-14) % Eos % (Auto) (2-4) % Baso % (Auto) (0-2) % Neut # (Auto) (8174-6663) /uL Lymph # (Auto) (3917-2214) /uL Stark # (Auto) (0-900) /uL Eos # (Auto) (0-450) /uL Baso # (Auto) (0-100) /uL Sodium (137-145) mmol/L Potassium (3.4-5.1) mmol/L Chloride (98-107) mmol/L Carbon Dioxide (22-32) mmol/L BUN (9-20) mg/dL Creatinine (0.66-1.25) mg/dL Estimated GFR (>60) mL/min BUN/Creatinine Ratio (6-22) Glucose (80-110) mg/dL Hemoglobin A1c (4.0-6.0) % Calcium (8.4-10.2) mg/dL Magnesium (1.6-2.3) mg/dL Total Bilirubin (0.2-1.3) mg/dL AST (17-59) IU/L ALT (<50) IU/L Alkaline Phosphatase (38-126) U/L Total Protein (6.3-8.2) g/dL Albumin (3.5-5.0) g/dL Globulin (1.7-4.1) g/dL Albumin/Globulin Ratio (1.0-2.8) Procalcitonin (<0.5) ng/mL Urine Color Urine Appearance Urine pH (4.5-8.0) Ur Specific [place] (1.000-1.035) Urine Protein (Negative) Urine Glucose (UA) (Negative) g/dL Urine Ketones (NEGATIVE) Urine Occult Blood (Negative) Urine Nitrate (Negative) Urine Bilirubin (NEGATIVE) Urine Urobilinogen (0.2) E.U./dL Ur Leukocyte Esterase (NEGATIVE) Urine RBC (0-5/HPF) Urine WBC (0-5/HPF) Ur Squamous Epith Cells (0-5/HPF) Urine Bacteria (None) Ur Culture Indicated? COVID-19 PCR Negative (Negative) Discharge Plan Departure Patient Disposition: Admitted As Inpatient Clinical Impression: Acute UTI Acute renal failure Qualifiers: Acute renal failure type: unspecified Qualified Code(s): N17.9 - Acute kidney failure, unspecified Admit Date/Time: 01/23/20 17:46 Admit Provider: Татьяна Walton <Allyssa Victoria DO - Last Filed: 01/28/20 08:09> Cosign ED Attending Cosignature Attestation: I was immediately available in the department for consultation. This documentation has been reviewed and I agree with assessment and plan. Patient's case was discussed with myself as well as labs and imaging reviewed myself. Patient does have acute renal failure likely secondary to antibiotic, bactrim. Patient does have renal stones but they are within the kidney themselves and not a likely cause of renal failure. No current signs of infection. Supervised by Allyssa Victoria DO
[2020-01-23 13:50] LABS: Alanine Aminotransferase 101 IU/L (<50); Albumin 4.2 g/dL (3.5-5.0); Albumin Globulin Ratio 1.4 (1.0-2.8); Alkaline Phosphatase 253 U/L (38-126); Aspartate Aminotransferase 64 IU/L (17-59); BUN Creatinine Ratio 16.4 (6-22); Bilirubin Total 0.5 mg/dL (0.2-1.3); Blood Urea Nitrogen 52 mg/dL (9-20); Calcium 9.1 mg/dL (8.4-10.2); Carbon Dioxide 23 mmol/L (22-32); Chloride 106 mmol/L (98-107); Estimated Glomerular Filt Rate 19.2 mL/min (>60); Globulin 3.1 g/dL (1.7-4.1); Glucose 160 mg/dL (80-110); HEMOLYSIS < 15 (0-50); Potassium 4.6 mmol/L (3.4-5.1); Sodium 137 mmol/L (137-145); Total Protein 7.3 g/dL (6.3-8.2)
[2020-01-23 15:06] LABS: Appearance Urine UA SL CLOUDY; Bilirubin Urine UA NEGATIVE (NEGATIVE); Color Urine UA YELLOW; Glucose Urine UA NEGATIVE (Negative); Ketones Urine UA NEGATIVE (NEGATIVE); Leukocyte Esterase Urine UA NEGATIVE (NEGATIVE); Nitrite Urine UA NEGATIVE (Negative); Occult Blood Urine UA 3+ (Negative); Protein Urine UA 1+ (Negative); Urobilinogen Urine UA 0.2 E.U./dL (0.2)
[2020-01-23 15:20] LABS: COVID19 -Nasal RAPID Negative (Negative)
--- NOTE | 2020-01-23 15:20 | DI.CT.S_ITS ---
PROCEDURE: CT KIDNEY URETER BLADDER (KUB) INDICATIONS: urinary retention TECHNIQUE: Noncontrast 5 mm thick sections acquired from the diaphragms to the symphysis. 5 mm thick coronal and sagittal reformats were then performed. For radiation dose reduction, the following was used: automated exposure control, adjustment of mA and/or kV according to patient size. COMPARISON: [facility], CT, KIDNEY/ URETER/BLADDER, 04/01/2009, 12:01. FINDINGS: Image quality: Excellent. Lung bases: Trace pericardial effusion. 3 mm right basilar pulmonary nodule, is unchanged since 2009. Urinary system: No hydronephrosis is seen. There is bilateral renal cortical scarring and atrophy. Left renal cysts although technically indeterminate in the absence of IV contrast. There are multiple sub 5 mm bilateral renal calculi. Some of these may represent vascular calcifications. Minimal age-indeterminate bilateral perinephric stranding. Other solid organs: Liver is normal in size. Gallbladder contains sub cm gallstones otherwise unremarkable appearance . Pancreas is normal in contours. Spleen is normal in size. No adrenal nodules. Peritoneum and bowel: Unenhanced bowel loops demonstrate normal wall thickness and caliber. No free fluid or air. Appendix is not clearly identified however no suspicious pericecal inflammatory changes are seen. Colonic diverticulosis is seen without evidence of acute complication. Nodes and vessels: No retroperitoneal or mesenteric adenopathy by size criteria. Aorta and inferior vena cava are normal in caliber. Abdominal wall: No ventral hernias. Pelvis: Small bilateral fat containing inguinal hernias. Enlarged prostate. Mild circumferential bladder wall thickening. Bones: No vertebral body compression fracture. Spondylytic changes and facet arthropathy. IMPRESSION: Bilateral sub 5 mm renal calculi suggesting nephrolithiasis, although some of these may be vascular nature. No hydronephrosis identified. Incidental cholelithiasis Circumferential bladder wall thickening, which could reflect age-indeterminate cystitis although recommend clinical correlation and with urinalysis. Additional chronic and incidental findings as above. Dictated by: Daryl Castillo M.D. on 01/23/2020 at 16:01 Approved by: Daryl Castillo M.D. on 01/23/2020 at 16:08
[2020-01-23 15:21] LABS: Bacteria Urine Many (>30); RBC Urine >100/HPF (0-5/HPF); Squamous Epithelial Cell Urine 0-1 /HPF (0-5/HPF); WBC Urine 1-5/HPF (0-5/HPF)
[2020-01-23 15:22] LABS: Culture Indicated Urine Cult Not Indicated
[2020-01-23] MEDS: CEFTRIAXONE 1 GM/50 ML FROZ.PIGGY IV (15:37)
[2020-01-23 20:25] LABS: Magnesium 2.2 mg/dL (1.6-2.3)
[2020-01-23 20:28] LABS: Hemoglobin A1C% w Est Avg Glu 5.8 % (4.0-6.0)
[2020-01-23] MEDS: TAMSULOSIN 0.4 MG CAPSULE PO (21:00)
[2020-01-23] MEDS: HEPARIN 5,000 UNIT/ML VIAL 5000 UNIT SUBCUT (21:00)
[2020-01-23] MEDS: SODIUM CHLORIDE 0.9% 1,000 ML 75 ML IV (21:04)
[2020-01-23] MEDS: INSULIN ASPART 100 UNIT/ML INSULN PEN SUBCUT (21:06)
--- NOTE | 2020-01-23 23:02 | PM.HP.1 ---
History of Present Illness History of Present Illness Date Patient Seen: 01/23/20 Time Patient Seen: 20:49 Chief complaint: Abnormal Labs Narrative: Mr. Andres Younger is a sent to the emergency depart at the instruction of DR. Trotter at [facility]. The patient had undergone a cardiac stress test on 01/16/2020 with plans for a left heart catheterization for which she had preoperative labs completed finding an elevated creatinine. The patient has a history of chronic kidney disease stage 3 with his baseline creatinine between 1.50 and 1.89. The patient previously had BPH with lower urinary tract symptoms and had been on finasteride and terazosin. Patient that time was self catheterizing for 1 year until undergoing a TURP after which his urinary symptoms were relieved. The patient reports developing UTI symptoms for which she was prescribed Bactrim DS on 01/15/2020. The patient describes ongoing urinary symptoms urinary hesitancy and weak stream. He felt he was retaining urine so he once again self catheterized this morning returning approximately 4 oz. otherwise the patient states he has been feeling in good health and active and was planning on riding his bike today. He denies complaints of fevers or chills, nausea vomiting or back pain. He reports no other flu or cold symptoms and no known COVID-19 exposures. Denies nasal congestion or sore throat. Reports no chest pain or palpitations, shortness of breath cough or wheezing. He has no epigastric or abdominal pain and denies diarrhea or constipation. He has urinary symptoms as outlined above. Upon arrival to the ER the patient is afebrile with temperature 97.5?, heart rate of 61, blood pressure 149/68, respirations of 18 saturating 99% on room air. A CT of the abdomen and pelvis finds bilateral sub 5 mm renal calculi without hydronephrosis, incidental cholelithiasis, cecum pharyngeal bladder wall thickening. On 12 lead EKG the patient shows sinus bradycardia at a rate of 58 with a first-degree AV block and left bundle branch block. He has a p.r. 242 milliseconds, QRS 188 milliseconds and QTC of 475 milliseconds. On laboratory analysis he has white count of 6.5, hemoglobin of 12.2 and hematocrit of 35.9 and platelets of 172. His electrolytes are within normal limits he has a BUN of 52 and a creatinine of 3.17. His EGFR is 19.2. His nonfasting glucose is 160. His total bilirubin 0.5, AST of 64, ALT of 101 and alkaline phosphatase of 253. On urinalysis he has 1+ protein, positive for blood and bacteria, negative for leukocyte esters nitrites. His COVID screening is negative. In the ER a Batista catheter is placed, normal saline 1 L infused and 1 g of ceftriaxone administered. The patient is admitted to the hospitalist service for acute kidney injury. Patient History Medical History (Updated 01/24/20 @ 04:41 by IGNACIA Zayas) Ankle pain Basal cell adenocarcinoma BPH (benign prostatic hyperplasia) Cardiomyopathy Cataract (2013) Clubfoot CMT (Pqrtefy-Aegyf-Xcpof disease) (2014) Colon polyps (2008) Essential hypertension Hearing loss (2014) Malignant neoplasm of kidney Melanoma (2007) Obstructive sleep apnea Osteoarthritis of both knees Osteoarthrosis, ankle and foot Rheumatic fever (1957) Shoulder pain (2011) Spinal stenosis of lumbar region (09/15/13) Squamous cell skin cancer, face Stage 3 chronic kidney disease Superficial laceration Tinnitus UTI (urinary tract infection) Surgical History Anesthesia History of back surgery (08/2013) History of cataract removal with insertion of prosthetic lens (2013) History of left knee replacement History of left knee surgery (2004) History of nephrectomy (2003) S/P TURP (~07/2019) Family & Social History Family History Father Alcoholism Heart disease Mother Stroke Heart disease Other Hypertension Social History: household members spouse Prior Living Arrangements House lives independently Yes Safety & Behavioral: Feels Safe in Current Yes Environment Been Physically Hurt or No Threatened By a Person Suicide Plan Description No Plan Tobacco & Substance use: Smoking Status Former smoker alcohol intake current alcohol intake frequency holiday/special occasion Substance Use Type does not use Meds Home Medications and Allergies Home Medications Medication Instructions Recorded Confirmed Type miscellaneous medical supply #1 each 10/04/17 01/15/20 Rx Respironics Dreamstation CPAP #1 ea 07/27/18 01/15/20 History amlodipine 5 mg tablet 5 mg PO DAILY 01/16/19 01/23/20 History carvedilol 12.5 mg tablet 12.5 mg PO BID 04/17/19 01/23/20 History lisinopril 5 mg tablet 5 mg PO DAILY 12/22/19 01/23/20 History acetaminophen 650 mg 650 mg PO Q12H PRN 01/15/20 01/23/20 History tablet,extended release Allergies Allergy/AdvReac Type Severity Reaction Status Date / Time amoxicillin [AMOXICILLIN] Allergy Unknown RASH Verified 01/15/20 16:30 Review of Systems Review of Systems ROS: Yes All systems reviewed with the patient and are negative except as otherwise documented Exam Vital Signs (past 8 hours): - 01/23/20 16:57 01/23/20 16:59 01/23/20 17:00 Temperature Pulse Rate 68 65 65 Respiratory Rate Blood Pressure 166/77 H 161/81 H Pulse Oximetry 96 98 98 01/23/20 17:30 01/23/20 18:00 01/23/20 20:12 Temperature Pulse Rate 60 59 L Respiratory Rate Blood Pressure 140/65 139/66 Pulse Oximetry 96 96 96 01/23/20 21:00 Temperature 98.1 F Pulse Rate 58 L Respiratory Rate 17 Blood Pressure 132/62 Pulse Oximetry 97 Oxygen Delivery Method Room Air Narrative Exam Narrative: GENERAL APPEARANCE: well developed, obese male with BMI of 32.8, resting semi recumbent in bed in no acute distress. HEENT: Normocephalic, PERRLA, conjunctiva clear, EOMs intact without nystagmus, no sinus tenderness to percussion, no rhinorrhea, mucous membranes are moist and pink. NECK/THYROID: Diminished range of motion, no JVD, no carotid bruit, no thyromegaly, trachea midline. LYMPH NODES: no cervical or supraclavicular lymphadenopathy. SKIN: [place], warm and dry, no visible lesions or rashes. HEART: Bradycardic heart rate, regular rhythm, S1-S2, no murmur, no rubs or gallops, brisk capillary refill, trace bilateral pedal edema LUNGS: clear to auscultation bilaterally, no coarseness crackles or wheezing, no cough present CHEST: Symmetrical movement, no accessory muscle use, good tidal volume. ABDOMEN: Soft, dull to percussion, no abdominal tenderness on palpation, no guarding or peritoneal signs, no organomegaly, no flank or suprapubic tenderness, active bowel tones. EXTREMITIES: moves all extremities, strength is 5/5 and symmetrical, bilateral clubfoot with decreased range of motion NEUROLOGIC: AAO x4, no focal neurologic deficits, cranial nerves II-XII grossly intact, decreased sensation fingers, impaired hearing PSYCH: Good eye contact, cooperative, stable behavior Objective Labs Result Diagrams: 01/23/20 13:20 01/23/20 13:20 Labs: Laboratory Results - last 24 hr 01/23/20 01/23/20 01/23/20 13:20 13:20 13:20 WBC 6.5 RBC 3.96 L Hgb 12.2 L Hct 35.9 L MCV 90.7 MCH 30.8 MCHC 33.9 RDW 13.4 Plt Count 172 Neut % (Auto) 66.1 Lymph % (Auto) 17.6 L [place] % (Auto) 8.2 Eos % (Auto) 7.6 H Baso % (Auto) 0.5 Neut # (Auto) 4300 Lymph # (Auto) 1100 [place] # (Auto) 500 Eos # (Auto) 500 H Baso # (Auto) 0 Sodium 137 Potassium 4.6 Chloride 106 Carbon Dioxide 23 BUN 52 H Creatinine 3.17 H Estimated GFR 19.2 L BUN/Creatinine Ratio 16.4 Glucose 160 H Hemoglobin A1c Calcium 9.1 Magnesium Total Bilirubin 0.5 AST 64 H ALT 101 H Alkaline Phosphatase 253 H Total Protein 7.3 Albumin 4.2 Globulin 3.1 Albumin/Globulin Ratio 1.4 Procalcitonin 0.30 Urine Color Urine Appearance Urine pH Ur Specific [place] Urine Protein Urine Glucose (UA) Urine Ketones Urine Occult Blood Urine Nitrate Urine Bilirubin Urine Urobilinogen Ur Leukocyte Esterase Urine RBC Urine WBC Ur Squamous Epith Cells Urine Bacteria Ur Culture Indicated? COVID-19 PCR 01/23/20 01/23/20 01/23/20 13:20 13:20 14:20 WBC RBC Hgb Hct MCV MCH MCHC RDW Plt Count Neut % (Auto) Lymph % (Auto) [place] % (Auto) Eos % (Auto) Baso % (Auto) Neut # (Auto) Lymph # (Auto) [place] # (Auto) Eos # (Auto) Baso # (Auto) Sodium Potassium Chloride Carbon Dioxide BUN Creatinine Estimated GFR BUN/Creatinine Ratio Glucose Hemoglobin A1c 5.8 Calcium Magnesium 2.2 Total Bilirubin AST ALT Alkaline Phosphatase Total Protein Albumin Globulin Albumin/Globulin Ratio Procalcitonin Urine Color Yellow Urine Appearance Sl cloudy Urine pH 5.0 Ur Specific [place] 1.010 Urine Protein 1+ H Urine Glucose (UA) Negative Urine Ketones Negative Urine Occult Blood 3+ H Urine Nitrate Negative Urine Bilirubin Negative Urine Urobilinogen 0.2 Ur Leukocyte Esterase Negative Urine RBC >100/hpf H Urine WBC 1-5/hpf Ur Squamous Epith Cells 0-1 /hpf Urine Bacteria Many (>30) H Ur Culture Indicated? Cult not indicated COVID-19 PCR 01/23/20 14:48 WBC RBC Hgb Hct MCV MCH MCHC RDW Plt Count Neut % (Auto) Lymph % (Auto) [place] % (Auto) Eos % (Auto) Baso % (Auto) Neut # (Auto) Lymph # (Auto) [place] # (Auto) Eos # (Auto) Baso # (Auto) Sodium Potassium Chloride Carbon Dioxide BUN Creatinine Estimated GFR BUN/Creatinine Ratio Glucose Hemoglobin A1c Calcium Magnesium Total Bilirubin AST ALT Alkaline Phosphatase Total Protein Albumin Globulin Albumin/Globulin Ratio Procalcitonin Urine Color Urine Appearance Urine pH Ur Specific [place] Urine Protein Urine Glucose (UA) Urine Ketones Urine Occult Blood Urine Nitrate Urine Bilirubin Urine Urobilinogen Ur Leukocyte Esterase Urine RBC Urine WBC Ur Squamous Epith Cells Urine Bacteria Ur Culture Indicated? COVID-19 PCR Negative Assessment & Plan Assessment & Plan narrative: This is a 74-year-old former smoker male with past medical history significant for hypertension, cardiomyopathy, chronic kidney disease stage 3, obstructive sleep apnea, spinal stenosis, osteoarthritis BPH s/p TURP and basal cell, squamous and melanoma skin cancers who who was found to have acute kidney injury on preoperative lab clearance for left heart catheterization. 1. Acute kidney injury superimposed on chronic kidney disease stage 3, present on admission, active -patient with a creatinine of 3.17 today with an EGFR of 19.2. Previous creatinine was 1.57 with ranged from 1.50 to 1.89. -etiology of acute kidney injury likely multifactorial including addition of Haris inhibitor, obstructive uropathy, UTI or heart failure. -blood dressing each etiology and re-evaluate renal function on serial chemistries. -patient is followed by Dr. Fontenot. Will evaluate patient's response and consult tandem mill roller as needed. 2. Urinary tract infection, acute, present on admission, active -patient was started on a 10 day course of Bactrim DS which the patient has completed 1 week. -CT of the abdomen pelvis finds mild circumferential bladder wall thickening. -urinalysis positive for blood and bacteria, negative for leukocyte esterase or nitrites, is sent for culture. -ordered ceftriaxone 1 g IV daily 1st dose administered in the emergency department. 3. BPH with lower urinary tract symptoms, acute, present on admission, active -previous history of BPH treated with terazosin and finasteride, patient still of catheterized for 1 year prior to undergoing TURP. Symptoms abated until recently with UTI and recurrent lower urinary tract symptoms reoccurred. -patient feels incomplete voiding with hesitancy and weak stream self catheterized this morning obtaining 4 oz of urine. -CT of the abdomen pelvis finds enlarged prostate. -Batista catheter placed in the emergency department with clear urine that is pink tinged. -or tamsulosin 0.4 mg at bedtime. 4. Systolic heart failure, believed chronic, present on admission, stable. -the patient denies chest pain or palpitations, no reports of exertional dyspnea. -the patient underwent a cardiac stress test on 01/16/2020 for cardiomyopathy. Interpretation of the stress test is not available at this time. The patient was referred for left heart catheterization. -echocardiogram completed on 12/29/2019 finds ejection fraction of 40% with moderately increased LV thickness and reduced function, RV is normal in size and function, severe left atrial enlargement. -over proceed with rehydration cautiously at 75 cc/hour. -will obtain a proBNP with morning labs. 5. Hypertension, chronic, stable -patient initially hypertensive on admission to the ER at 149/68. Blood pressure later normalize after admission. -will continue carvedilol 12.5 mg twice daily and amlodipine 5 mg daily. Lisinopril 5 mg started for renal protection initially but would be home with this time. -will closely follow blood pressures. 6. Hyperglycemia, unknown if acute or chronic, active -no personal or family history of diabetes. Elevated glucose elevates the risk for UTI. -serum glucose on admission labs is 160. -ordered fingerstick blood sugar checks a.c. and hs with correctional insulin low-dose sliding scale. -will check hemoglobin A1c. VTE prophylaxis: Heparin IV fluid: Normal saline 75 cc/hour Diet: Heart healthy. Code status: Patient is full code and he designates his is his surrogate decision maker. The patient is admitted to the hospital due to the extent of his acute renal failure involving multiple possible etiologies requiring further investigation and follow-up. The patient is admitted as an inpatient with expected length of stay to be greater than 2 midnights. COVID-19 COVID-19 status: Negative Result date/Date tested (Pos, Neg/Pending): 01/23/20 Quality VTE Deep Vein Thrombosis/Pulmonary Embolism Present on Admission: No
[2020-01-24] VITALS: O2SAT 98
[2020-01-24] MEDS: MELATONIN 3 MG TABLET 6 MG PO (00:17)
[2020-01-24 04:00] VITALS: O2SAT 96
[2020-01-24] MEDS: SODIUM CHLORIDE 0.9% 1,000 ML 75 ML IV (06:01)
[2020-01-24 06:24] VITALS: BP 134/61; PULSE 66; RESP 16; TEMP 37.1; O2SAT 97
[2020-01-24 06:37] LABS: Add Manual Diff / Slide Review NO; Basophils Absolute Auto 0 /uL (0-100); Basophils Percent Auto 0.7 % (0-2); Eosinophils Absolute Auto 500 /uL (0-450); Eosinophils Percent Auto 8.8 % (2-4); Hematocrit 33.3 % (41-53); Hemoglobin 11.2 g/dL (13.5-17.5); Lymphocytes Absolute Auto 1300 /uL (1100-4500); Lymphocytes Percent Auto 21.7 % (25-40); Mean Corpuscular HGB Conc 33.6 % (30-36); Mean Corpuscular Hemoglobin 30.7 PG (26-34); Mean Corpuscular Volume 91.2 fL (80-100); Monocytes Absolute Auto 500 /uL (0-900); Monocytes Percent Auto 8.9 % (3-14); Neutrophils Absolute Auto 3500 /uL (1500-7000); Neutrophils Percent Auto 59.9 % (50-75); Platelet Count 172 X10^3/uL (150-400); Red Blood Cell Count 3.65 X10^6/uL (4.5-5.9); Red Cell Distribution Width 13.8 % (11.6-14.8); White Blood Cell Count 5.9 X10^3/uL (4.5-11.0)
[2020-01-24 06:47] LABS: Alanine Aminotransferase 88 IU/L (<50); Albumin 3.6 g/dL (3.5-5.0); Albumin Globulin Ratio 1.2 (1.0-2.8); Alkaline Phosphatase 254 U/L (38-126); Aspartate Aminotransferase 60 IU/L (17-59); BUN Creatinine Ratio 17.5 (6-22); Bilirubin Total 0.4 mg/dL (0.2-1.3); Blood Urea Nitrogen 41 mg/dL (9-20); Calcium 8.7 mg/dL (8.4-10.2); Carbon Dioxide 22 mmol/L (22-32); Chloride 111 mmol/L (98-107); Estimated Glomerular Filt Rate 27.3 mL/min (>60); Glucose 117 mg/dL (80-110); HEMOLYSIS < 15 (0-50); Potassium 4.7 mmol/L (3.4-5.1); Sodium 139 mmol/L (137-145); Total Protein 6.6 g/dL (6.3-8.2)
[2020-01-24 06:55] LABS: NT-proBNP (BNP-Adult 18+) 1230 pg/mL (<450)
[2020-01-24 07:00] LABS: Procalcitonin 0.24 ng/mL (<0.5)
[2020-01-24 08:00] VITALS: BP 124/57; PULSE 62; RESP 16; TEMP 36.8; O2SAT 98
[2020-01-24] MEDS: AMLODIPINE 5 MG TABLET PO (08:44)
[2020-01-24] MEDS: carvediloL 12.5 MG TABLET PO (08:44)
[2020-01-24] MEDS: HEPARIN 5,000 UNIT/ML VIAL 5000 UNIT SUBCUT (08:44)
--- NOTE | 2020-01-24 09:23 | PC.NURSE ---
Addendum entered by Sirisha Santiago R.N. 01/24/20 11:28: Patients barajas catheter taken out around 1115. Patient encouraged to drink water, and is getting ivf to help with kidney function. Will give him a couple of hours time to void, if no void, will bladder scan patient. Original Note: Patient will go home this afternoon if his creatinine is under 2. said she will do that this afternoon after seeing his labs. He denies pain, blood sugar 109 and appetite good. He did not sleep well, he has ivf infusing and his barajas catheter will be taken out.
[2020-01-24 12:00] VITALS: BP 129/58; PULSE 65; RESP 15; TEMP 36.4; O2SAT 98
[2020-01-24] MEDS: INSULIN ASPART 100 UNIT/ML INSULN PEN SUBCUT (12:00)
[2020-01-24] MEDS: CEFTRIAXONE 1 GM/50 ML FROZ.PIGGY IV (14:31)
[2020-01-24 15:27] VITALS: BP 145/66; PULSE 72; RESP 18; TEMP 36.9; O2SAT 97
--- NOTE | 2020-01-24 16:32 | DIET.PN ---
Dietary Progress Note Assessment: 74y M admitted with acute kidney injury. Pt will have a left heart catheterization soon and his preop labs showed a high creatinine level and he was referred to hospital to address. pMHx of CKD3, HTN, Cardiomyopathy, systolic heart failure. Pt reports his typical diet is: Breakfast: Oatmeal with blueberries, brown sugar and nonfat half and half Lunch: Sometimes a sandwich Dinner: Chicken, fish, or turkey, pasta with red sauce Pts is the primary cook and she is very considerate of their salt intake and makes most foods from scratch in order to limit the sodium from processed foods. Often makes homemade bread and casseroles. Pts had questions about if bananas were okay for pt to eat. does not feel very confident with the information they currently have. Pt and his were happy to get to speak to an RD and would like to meet outpatient for more information about CKD3 and diet. HT: 175.26cm WT: 100kg BMI: 32.6 Labs: BUN: 52H on admit, 41H today eGFR: 19.2L on admit, 27.3L today Cr: 3.17H on admit, 2.341H today NTpBNP: 1230H MNA:14 Justin: 22 Nutrition Diagnosis: Nutrition related knowledge deficit r/t chronic kidney disease aeb pt has several questions about food and fluids appropriate for CKD, eGFR 27.3L , Cr: 2.34H, and BUN 41H. Interventions: 1.Educated pt about basics of CKD diet such as limiting sodium and moderating protein. 2. Limit bananas and potatoes to one serving per day. Explained that boiling potatoes and discarding the water can help to decrease the potassium in potatoes. 3. [facility] outpatient RD appt to tailor help patient tailor his diet . Will request consult from Dr. Lomas. Diet Order: HH
[2020-01-24 16:37] LABS: BUN Creatinine Ratio 23.8 (6-22); Blood Urea Nitrogen 46 mg/dL (9-20); Calcium 8.6 mg/dL (8.4-10.2); Carbon Dioxide 22 mmol/L (22-32); Chloride 110 mmol/L (98-107); Estimated Glomerular Filt Rate 34.1 mL/min (>60); Glucose 131 mg/dL (80-110); HEMOLYSIS 41 (0-50); Potassium 5.2 mmol/L (3.4-5.1); Sodium 138 mmol/L (137-145)
--- NOTE | 2020-01-24 17:41 | P.DS_ITS ---
History of Present Illness History of Present Illness Date Patient Seen: 01/23/20 Chief complaint: Abnormal Labs Narrative: Written by Forrest BETH: Mr. Andres Younger is a sent to the emergency depart at the instruction of DR. Trotter at [facility]. The patient had undergone a cardiac stress test on 01/16/2020 with plans for a left heart catheterization for which she had preoperative labs completed finding an elevated creatinine. The patient has a history of chronic kidney disease stage 3 with his baseline creatinine between 1.50 and 1.89. The patient previously had BPH with lower urinary tract symptoms and had been on finasteride and terazosin. Patient that time was self catheterizing for 1 year until undergoing a TURP after which his urinary symptoms were relieved. The patient reports developing UTI symptoms for which she was prescribed Bactrim DS on 01/15/2020. The patient describes ongoing urinary symptoms urinary hesitancy and weak stream. He felt he was retaining urine so he once again self catheterized this morning returning approximately 4 oz. otherwise the patient states he has been feeling in good health and active and was planning on riding his bike today. He denies complaints of fevers or chills, nausea vomiting or back pain. He reports no other flu or cold symptoms and no known COVID-19 exposures. Denies nasal congestion or sore throat. Reports no chest pain or palpitations, shortness of breath cough or wheezing. He has no epigastric or abdominal pain and denies diarrhea or constipation. He has urinary symptoms as outlined above. Upon arrival to the ER the patient is afebrile with temperature 97.5?, heart rate of 61, blood pressure 149/68, respirations of 18 saturating 99% on room air. A CT of the abdomen and pelvis finds bilateral sub 5 mm renal calculi without hydronephrosis, incidental cholelithiasis, cecum pharyngeal bladder wall thickening. On 12 lead EKG the patient shows sinus bradycardia at a rate of 58 with a first-degree AV block and left bundle branch block. He has a p.r. 242 milliseconds, QRS 188 milliseconds and QTC of 475 milliseconds. On laboratory analysis he has white count of 6.5, hemoglobin of 12.2 and hematocrit of 35.9 and platelets of 172. His electrolytes are within normal limits he has a BUN of 52 and a creatinine of 3.17. His EGFR is 19.2. His nonfasting glucose is 160. His total bilirubin 0.5, AST of 64, ALT of 101 and alkaline phosphatase of 253. On urinalysis he has 1+ protein, positive for blood and bacteria, negative for leukocyte esters nitrites. His COVID screening is negative. In the ER a Batista catheter is placed, normal saline 1 L infused and 1 g of ceftriaxone administered. The patient is admitted to the hospitalist service for acute kidney injury. Discharge Providers Provider Date of admission: 01/23/20 17:46 Discharge Date: 01/24/20 Primary care physician: Brittany Lomas DO Consults: 01/23/20 20:05 Consult to Dietitian, Adult Routine Comment: Reason For Exam: Acute on chronic renal failure, eGFR 19.2 Consult to Discharge Planning Routine Comment: Discharge provider: Татьяна Walton DO Summary Hospital Course Discharge Diagnosis: 1. Acute kidney injury on chronic kidney disease stage 3, present on admission. Resolving. 2. Recent urinary tract infection, present on admission. Resolving. 3. BPH with lower urinary tract symptoms, chronic, present on admission. Stable. 4. Presumed ischemic cardiomyopathy and systolic congestive heart failure, chronic, present on admission. Stable. 5. Hypertension, chronic, present on admission. Stable. 6. Prediabtes, chronic, present on admission. Stable. Hospital Course: Andres Younger is a 74-year-old male with a past medical history significant for hypertension, presumed ischemic cardiomyopathy and systolic congestive heart failure EF 40%, CKD stage 3, BPH status post TURP who presented to ED at [facility] cardiology due to elevated creatinine on preoperative labs for left heart catheterization. 1. Acute kidney injury on chronic kidney disease stage 3, present on admission. Resolving. -Etiology of acute kidney injury multifactorial and secondary to UTI, Bactrim, ACEI and obstructive uropathy. -Initial creatinine 3.17 with eGFR 19.2. Baseline creatinine 1.5-1.8. Creatinine improved to 1.93. -Avoided nephroptoxic agents. Held home lisinopril and discontinued Bactrim. -Continued cautious IV fluid hydration with normal saline at 75 mL/hr then discontinued once adequately hydrated and BC nearly resolved. -Patient is followed by nephrology Dr. Fontenot and continue outpatient follow-up. 2. Recent urinary tract infection, present on admission. Resolving. -Patient was started on a 10 day course of Bactrim DS outpatient per PCP and had completed 7 days. -CT abdomen and pelvis without contrast demonstrated mild circumferential bladder wall thickening. -Urine culture had no growth but patient was on antibiotics. -Continued ceftriaxone 1 g IV daily with first dose in ED. Discharged on c efdinir 300 mg twice daily for 3 days to complete 10 day course of antibiotic treatment. 3. BPH with lower urinary tract symptoms, chronic, present on admission. Stable. -Previous history of BPH initially treated with terazosin and finasteride then TURP. Patient previously performed self catheterized for 1 year prior to undergoing TURP. Symptoms completely abated with TURP until recently with UTI and recurrent lower urinary tract symptoms including: feeling of incomplete voiding, hesitancy and weak stream. Patient performed self catheterization prior to arrival with 4 oz of urine obtained. Patient reports he has been told he will need to have repeat TURP in future. -CT abdomen and pelvis without contrast demonstrated enlarged prostate. -Batista catheter placed in ED for urinary retention and later removed and patient was able to spontaneously void. -Restarted tamsulosin 0.4 mg at bedtime. Recommended outpatient re-evaluation of BPH and treatment per his urologist at [facility]. Patient is aware he may need to resume intermittent self catheterization using sterile technique. 4. Presumed ischemic cardiomyopathy and systolic congestive heart failure, chronic, present on admission. Stable. -Patient denies chest pain, ACS or CHF symptoms. Does not represent acute CHF exacerbation. -Patient underwent a cardiac stress test on 01/16/2020 for cardiomyopathy which was felt to have ischemic and non-ischemic component. The patient was referred for left heart catheterization. -Echocardiogram on 12/29/2019 finds ejection fraction of 40% with moderately increased LV thickness and reduced function, RV is normal in size and function, severe left atrial enlargement. -Continued cautious IV fluid hydration with normal saline at 75 mL/hr then discontinued once adequately hydrated and BC nearly resolved as above. -Continued to monitor strict I&O's and daily weights. -Continued heart healthy/carbohydrate consistent diet. -Recommend pursue left heart catheterization as soon as possible at [facility] and defer to cardiology. 5. Hypertension, chronic, present on admission. Stable. -Continued home carvedilol 12.5 mg twice daily and amlodipine 5 mg daily. Held home lisinopril 5 mg due to BC as above. 6. Prediabtes, chronic, present on admission. Stable. -Hemoglobin A1C 5.8% indicative of prediabetes. -No family history of diabetes. Patients elevated glucose increases risk for UTI. -Continued ACHS blood glucose checksand low-dose correctional scale insulin. -Counseled patient on lifestyle modification including diet and exercise. -Continued heart healthy/carbohydrate consistent diet. Exam Vital Signs (past 8 hours): - 01/24/20 12:00 01/24/20 15:27 Temperature 97.6 F 98.5 F Pulse Rate 65 72 Respiratory Rate 15 18 Blood Pressure 129/58 L 145/66 H Pulse Oximetry 98 97 Oxygen Delivery Method Room Air Oxygen Flow Rate 0 Narrative Exam Narrative: General: Elderly male sitting in bed and in no acute distress, well-developed, well-nourished, appropriately interactive. HEENT: Normocephalic, atraumatic. External ears without defect. Pupils equal, round, and reactive to light. Anicteric sclerae, moist conjunctivae, and no lid lag. Oropharynx free of erythema and cobble stoning with moist mucosa. Neck: Supple with full range of motion. No jugular venous distension. No lymphadenopathy or thyromegaly. Cardiovascular: Regular rate and rhythm without murmurs, rubs, or gallops appreciated. Pulmonary: Clear to auscultation bilaterally without crackles, wheezes, or rh onchi. Normal respiratory effort with no use of accessory muscles. Abdomen: Soft, bowel sounds present, nontender, nondistended. Extremities: No clubbing, cyanosis, or edema. Skin: Normal temperature, turgor, and texture; no rash, ulcers, or subcutaneous nodules appreciated. Neurological: Cranial nerves grossly intact. Psychiatric: Normal mood and affect. Alert and oriented to person, place, and time. Objective Labs Result Diagrams: 01/24/20 06:18 01/24/20 16:16 Labs: Laboratory Results - last 24 hr 01/23/20 01/23/20 01/24/20 13:20 13:20 06:18 WBC 5.9 RBC 3.65 L Hgb 11.2 L Hct 33.3 L MCV 91.2 MCH 30.7 MCHC 33.6 RDW 13.8 Plt Count 172 Neut % (Auto) 59.9 Lymph % (Auto) 21.7 L [place] % (Auto) 8.9 Eos % (Auto) 8.8 H Baso % (Auto) 0.7 Neut # (Auto) 3500 Lymph # (Auto) 1300 [place] # (Auto) 500 Eos # (Auto) 500 H Baso # (Auto) 0 Sodium Potassium Chloride Carbon Dioxide BUN Creatinine Estimated GFR BUN/Creatinine Ratio Glucose Hemoglobin A1c 5.8 Calcium Magnesium 2.2 Total Bilirubin AST ALT Alkaline Phosphatase NT-Pro-B Natriuret Pep Total Protein Albumin Globulin Albumin/Globulin Ratio Procalcitonin 01/24/20 01/24/20 01/24/20 06:18 06:18 16:16 WBC RBC Hgb Hct MCV MCH MCHC RDW Plt Count Neut % (Auto) Lymph % (Auto) [place] % (Auto) Eos % (Auto) Baso % (Auto) Neut # (Auto) Lymph # (Auto) [place] # (Auto) Eos # (Auto) Baso # (Auto) Sodium 139 138 Potassium 4.7 5.2 H Chloride 111 H 110 H Carbon Dioxide 22 22 BUN 41 H 46 H Creatinine 2.34 H 1.93 H Estimated GFR 27.3 L 34.1 L BUN/Creatinine Ratio 17.5 23.8 H Glucose 117 H 131 H Hemoglobin A1c Calcium 8.7 8.6 Magnesium Total Bilirubin 0.4 AST 60 H ALT 88 H Alkaline Phosphatase 254 H NT-Pro-B Natriuret Pep 1230 H Total Protein 6.6 Albumin 3.6 Globulin 3.0 Albumin/Globulin Ratio 1.2 Procalcitonin 0.24 PFSH Medical History (Updated 01/30/20 @ 17:06 by Brittany Lomas DO) Ankle pain Basal cell adenocarcinoma BPH (benign prostatic hyperplasia) Cardiomyopathy Cataract (2013) Clubfoot CMT (Bcxrbdf-Fnkyy-Ukheq disease) (2014) Colon polyps (2008) Essential hypertension Hearing loss (2014) Malignant neoplasm of kidney Melanoma (2007) Obstructive sleep apnea Osteoarthritis of both knees Osteoarthrosis, ankle and foot Rheumatic fever (1958) Shoulder pain (2011) Spinal stenosis of lumbar region (09/15/13) Squamous cell skin cancer, face Stage 3 chronic kidney disease Superficial laceration Tinnitus UTI (urinary tract infection) Surgical History Anesthesia History of back surgery (08/2013) History of cataract removal with insertion of prosthetic lens (2013) History of left knee replacement History of left knee surgery (2004) History of nephrectomy (2003) S/P TURP (~07/2019) Family History Father Alcoholism Heart disease Mother Stroke Heart disease Other Hypertension Social History marital status: household members: spouse lives independently: Yes Smoking Status: Former smoker alcohol intake: current Discharge Plan Discharge Plan Patient Disposition: Home Provider Discharge Comment: You are being discharged home. You had a kidney injury for several reasons including UTI, Bactrim which was used to treat UTI and probable urinary retention due to enlarged prostate. You have been started on tamsulosin 0.4 mg daily at bedtime to help shrink your prostate until you are able to have another TURP performed by your urologist. You may need to intermittently self catheterization using sterile technique as you have in the past to assure that you are not retaining urine as this will provoke UTI. You have been prescribed cefdinir 300 mg every 12 hours for 3 additional days to complete treatment of your UTI. Please follow-up with your primary care physician, Dr. Lomas, at your scheduled appointment regarding your hospitalization and for repeat lab work to check your kidney function and electrolytes. Please continue to follow-up with your neuropsychiatric aide at [facility] to plan your left heart catheterization which should be first priority. Discharge orders & Medications Prescriptions: Continued (DME) miscellaneous medical supply misc See Dose Instructions .Route .MEDSUPPLY Qty: 1 RF: 0 amlodipine 5 mg tablet 5 mg PO DAILY RF: 0 carvedilol 12.5 mg tablet 12.5 mg PO BID RF: 0 acetaminophen [Tylenol Arthritis Pain] 650 mg tablet extended release 650 mg PO Q12H PRN (Reason: Pain (Scale Score 4-6)) RF: 0 lisinopril 5 mg tablet 5 mg PO DAILY RF: 0 Hold Instructions: kidney function (DME) Respironics Dreamstation CPAP Qty: 1 RF: 0 No Action terazosin 10 mg capsule 10 mg PO BEDTIME RF: 0 Follow up/Referrals: Brittany Lomas DO [Primary Care Provider] - 01/29/20 4:30 pm (APPT:01/28 @ 4:[address] LOMAS PLEASE ARRIVE 15 MINUTES PRIOR TO YOUR SCHEDULED APPOINTMENT TIME ) Diet/Activity/Treatments Diet: Diet as Tolerated, Low-fat, Low-sodium and Low-cholesterol Activity: Activity as tolerated Visit Report/Discharge Packet Instructions: How to Catheterize Yourself -- for Men, DI for Urinary Tract Infection (UTI), DI for Urinary Retention in Men, Tamsulosin, How To Use an Intermittent Catheter-Male Discharge Data Primary Care Provider: Brittany Lomas VTE Deep Vein Thrombosis/Pulmonary Embolism Present on Admission: No
== END 2020-01-24 18:25 | disposition home or self-care (01) | DRG 683 ==
LOC: ED 17:40 → AC 17:47
PROVIDERS: Nurse Practitioner Adult Health; Admitting Provider Internal Medicine; Emergency Provider Nurse Practitioner; PCP Family Medicine; Referring Provider Nurse Practitioner; Visit Provider Internal Medicine
DX: N17.9 Acute kidney failure, unspecified (principal); N39.0 Urinary tract infection, site not specified; I13.0 Hypertensive heart and chronic kidney disease with heart failure and stage 1 through stage 4 chronic kidney disease, or unspecified chronic kidney disease; I50.22 Chronic systolic (congestive) heart failure; I42.9 Cardiomyopathy, unspecified; N18.30 Chronic kidney disease, stage 3 unspecified; E66.9 Obesity, unspecified; Z68.32 Body mass index [BMI] 32.0-32.9, adult; N40.1 Benign prostatic hyperplasia with lower urinary tract symptoms; R39.14 Feeling of incomplete bladder emptying; R73.9 Hyperglycemia, unspecified; Z87.891 Personal history of nicotine dependence; Z11.59 Encounter for screening for other viral diseases
CPT/HCPCS: 36415; 51701; 74176; 80048; 80053; 81001; 82962; 83036; 83735; 83880; 84145; 85025; 87086; 87635; 93005; 96361; 96365; 99283; 99284; J1644

== ENCOUNTER → 2020-01-29 11:27 | Outpatient (CLI) | payer MEDICARE, OTHER, SELFPAY ==
[2020-01-23 21:36] VITALS: BMI 32.8
[2020-01-29 11:56] LABS: Bacteria Urine None Seen; WBC Urine None Seen (0-5/HPF)
[2020-01-29 12:33] LABS: Appearance Urine UA CLEAR; Bilirubin Urine UA NEGATIVE (NEGATIVE); Color Urine UA YELLOW; Glucose Urine UA NEGATIVE (Negative); Ketones Urine UA NEGATIVE (NEGATIVE); Leukocyte Esterase Urine UA NEGATIVE (NEGATIVE); Nitrite Urine UA NEGATIVE (Negative); Occult Blood Urine UA TRACE-INTACT (Negative); Protein Urine UA TRACE (Negative); Urobilinogen Urine UA 0.2 E.U./dL (0.2)
[2020-01-29 12:42] LABS: Amorphous Sediment Urine 1+; Culture Indicated Urine Cult Not Indicated; RBC Urine 1-5/HPF (0-5/HPF)
[2020-01-29 12:56] LABS: Alanine Aminotransferase 123 IU/L (<50); Albumin Globulin Ratio 1.4 (1.0-2.8); Alkaline Phosphatase 192 U/L (38-126); Aspartate Aminotransferase 68 IU/L (17-59); BUN Creatinine Ratio 18.8 (6-22); Bilirubin Total 0.3 mg/dL (0.2-1.3); Blood Urea Nitrogen 30 mg/dL (9-20); Calcium 9.4 mg/dL (8.4-10.2); Carbon Dioxide 25 mmol/L (22-32); Chloride 105 mmol/L (98-107); Estimated Glomerular Filt Rate 42.3 mL/min (>60); Globulin 2.9 g/dL (1.7-4.1); Glucose 126 mg/dL (80-110); HEMOLYSIS < 15 (0-50); Potassium 4.4 mmol/L (3.4-5.1); Sodium 137 mmol/L (137-145); Total Protein 6.9 g/dL (6.3-8.2)
== END ==
PROVIDERS: PCP Family Medicine; Referring Provider Family Medicine; Visit Provider Family Medicine
DX: N17.9 Acute kidney failure, unspecified (principal); N30.01 Acute cystitis with hematuria; N39.0 Urinary tract infection, site not specified
CPT/HCPCS: 80053; 81001; 83735

== ENCOUNTER → 2020-02-05 08:55 | Outpatient (CLI) | payer MEDICARE, OTHER, SELFPAY ==
[2020-01-23 21:36] VITALS: BMI 32.8
[2020-02-05 09:56] LABS: Alanine Aminotransferase 36 IU/L (<50); Albumin 4.1 g/dL (3.5-5.0); Albumin Globulin Ratio 1.4 (1.0-2.8); Alkaline Phosphatase 157 U/L (38-126); Aspartate Aminotransferase 24 IU/L (17-59); Bilirubin Total 0.3 mg/dL (0.2-1.3); Blood Urea Nitrogen 34 mg/dL (9-20); Calcium 9.4 mg/dL (8.4-10.2); Carbon Dioxide 24 mmol/L (22-32); Chloride 107 mmol/L (98-107); Estimated Glomerular Filt Rate 41.7 mL/min (>60); Glucose 117 mg/dL (80-110); HEMOLYSIS < 15 (0-50); Potassium 4.1 mmol/L (3.4-5.1); Sodium 140 mmol/L (137-145); Total Protein 7.1 g/dL (6.3-8.2)
== END ==
PROVIDERS: PCP Family Medicine; Referring Provider Family Medicine; Visit Provider Family Medicine
DX: I10 Essential (primary) hypertension (principal); N17.9 Acute kidney failure, unspecified; N18.30 Chronic kidney disease, stage 3 unspecified; R74.01 Elevation of levels of liver transaminase levels
CPT/HCPCS: 36415; 80053

== ENCOUNTER → 2020-04-02 09:54 | Outpatient (CLI) | payer MEDICARE, OTHER, SELFPAY ==
[2020-01-23 21:36] VITALS: BMI 32.8
[2020-04-02 10:40] LABS: Hematocrit 37.1 % (41-53); Hemoglobin 12.5 g/dL (13.5-17.5)
[2020-04-02 11:05] LABS: BUN Creatinine Ratio 20.9 (6-22); Blood Urea Nitrogen 36 mg/dL (9-20); Calcium 9.1 mg/dL (8.4-10.2); Carbon Dioxide 26 mmol/L (22-32); Chloride 106 mmol/L (98-107); Glucose 188 mg/dL (80-110); HEMOLYSIS < 15 (0-50); Potassium 3.7 mmol/L (3.4-5.1); Sodium 140 mmol/L (137-145)
[2020-04-02 11:09] LABS: Creatinine Urine Random 97.6 mg/dL; Protein (Total) Urine Random 35 mg/dL (0-12); Protein Creatinine Ratio Urine 0.35 GRAM/24H
[2020-04-02 14:50] LABS: Hemoglobin A1C% w Est Avg Glu 5.3 % (4.0-6.0)
[2020-04-03 12:49] LABS: Parathyroid Hormone Int 73 pg/mL (15-65)
== END ==
PROVIDERS: PCP Family Medicine; Referring Provider Student in an Organized Health Care Education/Training Program; Visit Provider Student in an Organized Health Care Education/Training Program
DX: N05.9 Unspecified nephritic syndrome with unspecified morphologic changes (principal); N25.81 Secondary hyperparathyroidism of renal origin; D64.9 Anemia, unspecified; R80.9 Proteinuria, unspecified; R73.9 Hyperglycemia, unspecified
CPT/HCPCS: 36415; 80048; 82570; 83036; 83970; 84156; 85014; 85018

== ENCOUNTER → 2020-04-03 12:57 | Outpatient (CLI) | payer MEDICARE, OTHER, SELFPAY ==
[2020-01-23 21:36] VITALS: BMI 32.8
--- NOTE | 2020-04-03 13:04 | DIET.PN ---
Dietary Progress Note Assessment: 74y M referred to nutrition for help c diet for CKD3b and his newly found atherosclerosis, attends appointment c who is the main cook of the family. 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, just started low dose statin, pt dx c CKD 1.5y ago Pt eats mostly from scratch, even making pizza dough when buying any boxed or canned items, get no sodium was a salt man but now using MsKatie Hardin and is okay with it Usual Day: 8:30- wakes up breakfast 9am: 3/4c raw old fashioned and quick oatmeal prepared c water c 1 cup blueberries c coffee light lunch Lunch 1-2pm: 1 slice Orowheat oatmeal bread c pb and honey or leftovers (piece chicken), tuna fish sandwich, drinks water throughout the day rides bike daily Dinner 5-5:30pm: time together c and sit down meal salmon and chicken weekly, ground turkey, sometimes a casserole, frozen veggies, sometimes rice, sometimes potatoes-baked or scalloped HT: 5'9 WT: 215# BMI: 31.7 Labs:K+ 3.7, eGFR 39.0 L, Cr 1.72 H all have been fairly stable for the past 1.5y Nutrition Diagnosis: altered nutrition related laboratory values (Cr, eGFR) r/t food and nutrition related knowledge deficit aeb pt has dx of CKD3b, pt and spouse unaware of nutrition reccs for CKD, Cr 1.72 H, eGFR 39.0 L. Interventions: 1. Educated on role of nutrition in renal disease. Discussed important labs and when we decide to manage specific nutrient intake. At this point, pt should moderate sodium and protein, and be aware of high/low potassium and phosphorus foods. 2. Educated pt on role of sodium in diet, recc 1500-2,000mg per day. It seems like they were trying to reduce sodium to zero. Alerted pt to high sodium content of any boxed or canned products, and anything not made from scratch in the home. 3. Educated pt on the role of protein in the diet, calculated pts pro needs at 75g/d (0.8g/kg). Pts diet averages this amount of protein, but provided handout with protein content of food to increase confidence with meal planning and in the kitchen. 4. Introduced pt to high and low potassium foods c handouts. While pt does not need to moderate potassium at this time, he should try to not pair high K+ foods in a day. For instance, pt should avoid bananas and oranges when he would like to eat potatoes. 5. Provided pt information on phosphorus in the diet. Encouraged pt to limit foods with phos in the ingredient list as these are 100% bioavailable. Alerted pt to low phosphorus dairy products which he can freely eat. Diet Order: Renal EER: 75g Monitoring/Evaluations: pt will f/u c RD with any questions or if labs change
== END ==
PROVIDERS: PCP Family Medicine; Referring Provider Family Medicine; Visit Provider Family Medicine
DX: N18.32 Chronic kidney disease, stage 3b (principal)
CPT/HCPCS: 97802

== ENCOUNTER → 2020-07-01 16:47 | Outpatient (CLI) | payer MEDICARE, OTHER, SELFPAY ==
[2020-01-23 21:36] VITALS: BMI 32.8
--- NOTE | 2020-07-01 16:50 | DI.MRI.S_ITS ---
PROCEDURE: MR HEAD/BRAIN WO CON INDICATIONS: UNSPECIFIED SENSORINEURAL HEARING LOSS TECHNIQUE: Non-contrast axial T1 spin echo, axial T2 fast spin echo, sagittal T1 and axial FLAIR, coronal T2 fast spin echo, axial gradient echo, axial diffusion and ADC through the brain. Thin section, high-resolution axial CISS and T1 with fat sat images obtained through the internal auditory canals. COMPARISON: None. FINDINGS: Image quality: Excellent. CSF spaces: Ventricles appear symmetric in size and shape. Basal cisterns are patent. No extra-axial fluid collections. Brain: No intracranial bleeds or mass effects. There is mild cerebral volume loss for age. There are moderate periventricular and deep white matter chronic small vessel ischemic changes. Brainstem appears normal. Diffusion-weighted images show no acute ischemic insults. No chronic ischemic insults. Normal intravascular flow voids are present. Inner ears are normally formed bilaterally. Normal fluid signal noted within the cochlea, semicircular canals vestibules. Skull and face: Calvarial bone marrow is normal in signal. Orbits are normal. Sinuses: Mild mucosal thickening in the maxillary sinuses bilaterally. The mastoids are clear. IMPRESSION: 1. No acute intracranial disease process. 2. No abnormal mass identified in the cerebellar pontine angles or internal auditory canals. 3. Normal MR appearance of cochlea, semicircular canals and vestibules. Dictated by: Chaya Ashby MD, PhD on 07/02/2020 at 8:58 Approved by: Chaya Ashby MD, PhD on 07/02/2020 at 9:04
== END ==
PROVIDERS: PCP Family Medicine; Referring Provider Otolaryngology; Visit Provider Otolaryngology
DX: H90.5 Unspecified sensorineural hearing loss (principal)
CPT/HCPCS: 70551

== ENCOUNTER → 2020-08-26 08:19 | Outpatient (CLI) | payer MEDICARE, OTHER, SELFPAY ==
[2020-01-23 21:36] VITALS: BMI 32.8
[2020-08-26 09:14] LABS: Hematocrit 36.3 % (41-53); Hemoglobin 12.5 g/dL (13.5-17.5)
[2020-08-26 09:33] LABS: BUN Creatinine Ratio 21.6 (6-22); Blood Urea Nitrogen 37 mg/dL (9-20); Calcium 9.5 mg/dL (8.4-10.2); Carbon Dioxide 25 mmol/L (22-32); Chloride 109 mmol/L (98-107); Estimated Glomerular Filt Rate 39.1 mL/min (>60); Glucose 127 mg/dL (80-110); HEMOLYSIS < 15 (0-50); Potassium 4.1 mmol/L (3.4-5.1); Sodium 141 mmol/L (137-145)
[2020-08-26 09:43] LABS: Creatinine Urine Random 73.9 mg/dL; Protein (Total) Urine Random 32 mg/dL (0-12); Protein Creatinine Ratio Urine 0.43 GRAM/24H
[2020-08-27 05:42] LABS: Parathyroid Hormone Int 85 pg/mL (15-65)
== END ==
PROVIDERS: PCP Family Medicine; Referring Provider Student in an Organized Health Care Education/Training Program; Visit Provider Student in an Organized Health Care Education/Training Program
DX: N05.9 Unspecified nephritic syndrome with unspecified morphologic changes (principal); D64.9 Anemia, unspecified; N25.81 Secondary hyperparathyroidism of renal origin; R80.9 Proteinuria, unspecified
CPT/HCPCS: 36415; 80048; 82570; 83970; 84156; 85014; 85018

== ENCOUNTER → 2020-09-18 13:19 | Outpatient (CLI) | payer MEDICARE, OTHER, SELFPAY ==
[2020-01-23 21:36] VITALS: BMI 32.8
--- NOTE | 2020-09-18 13:21 | DI.RAD.S_ITS ---
PROCEDURE: XR ELBOW LT MIN 3V INDICATIONS: left elbow injury, swelling TECHNIQUE: 3 views of the elbow were acquired. COMPARISON: None. FINDINGS: Bones: No fractures or dislocations. Prominent marginal spurring on the humeral ulnar articulation medially, and the radiocapitellar articulation laterally. There is dystrophic calcification projecting ventrally from the distal humerus. No suspicious bony lesions. Soft tissues: Prominent soft tissue thickening over the olecranon. No radiodense foreign bodies. No elbow joint effusion. No suspicious soft tissue calcifications. IMPRESSION: 1. Dorsal soft tissue thickening without underlying fracture or foreign body. Consider bursitis or cellulitis. 2. Moderately severe degenerative changes in the elbow. Dictated by: Trisha Obregon M.D. on 09/18/2020 at 15:03 Approved by: Trisha Obregon M.D. on 09/18/2020 at 15:07
== END ==
PROVIDERS: PCP Family Medicine; Referring Provider Registered Nurse; Visit Provider Registered Nurse
DX: S59.902A Unspecified injury of left elbow, initial encounter (principal); M25.422 Effusion, left elbow; X58.XXXA Exposure to other specified factors, initial encounter
CPT/HCPCS: 73080

== ENCOUNTER 2020-11-11 11:15 | Outpatient (RCR) | payer MEDICARE, OTHER, SELFPAY ==
[2020-01-23 21:36] VITALS: BMI 32.8
--- NOTE | 2020-10-10 16:30 | PT.OIE ---
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) Muscle weakness (generalized) (10/10/20) Other abnormalities of gait and mobility (10/10/20) Past Medical History (Last Reviewed 10/03/20 @ 08:45 by Luly Sheehan PA-C) Acute renal failure Acute UTI Ankle pain Basal cell adenocarcinoma BPH (benign prostatic hyperplasia) Burning pain CAD (coronary artery disease) Cardiomyopathy Cataract (2013) Clubfoot CMT (Zkykmog-Iagyd-Xaahe disease) (2014) Colon polyps (2008) Essential hypertension Hearing loss (2014) History of back surgery (08/2013) History of left knee replacement History of left knee surgery (2004) Injury of left elbow Malignant neoplasm of kidney Melanoma (2007) Obstructive sleep apnea Osteoarthritis of both knees Osteoarthrosis, ankle and foot Rheumatic fever (1957) S/P TURP (~07/2019) Shoulder pain (2011) Spinal stenosis of lumbar region (09/15/13) Squamous cell skin cancer, face Stage 3 chronic kidney disease Superficial laceration Tinnitus UTI (urinary tract infection) Past Surgical History (Last Reviewed 10/03/20 @ 08:45 by Luly Sheehan PA-C) Anesthesia History of back surgery (08/2013) History of cataract removal with insertion of prosthetic lens (2013) History of left knee replacement History of left knee surgery (2004) History of nephrectomy (2003) S/P TURP (~07/2019) Visit Care Team Role Provider Type Brittany Lomas DO Primary Care Provider Physician Specialty: Family Practice Address: [address] [place] [address], [address], [address] Email: [email or web address] Karla Lacy Attending Provider Non-Staff Referring Provider Specialty: Medical Address: [address] [place] [address], [address], [address] Email: Physical Therapy Initial Evaluation PT-OP-A Visit Information Start: 10/01/20 17:33 Freq: Status: Active Protocol: Document 10/10/20 11:26 LRN (Rec: 10/10/20 12:48 LRN [id number]) Out-Patient Physical Therapy Visit Information Visit Information Visit Type Initial Evaluation Visit Start Time 11:27 Visit Stop Time 12:20 Total Visit Minutes 53 Visit Number 1 Evaluation Information Evaluation Date 10/10/20 Precautions Precautions Per subjective report: Tape allergy, 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 PT-OP-B Current Condition Start: 10/01/20 17:33 Freq: Status: Active Protocol: Document 10/10/20 11:26 LRN (Rec: 10/10/20 12:48 LRN [id number]) Current Condition History of Current Condition Onset Date 09/04/20 Current Complaints Poor balance History of Current Condition 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 Was referred to physical therapy for balance that has been a problem since having to wear bilateral Vinny ankle braces, given to him by Dr. Gee 2 yrs ago. Pt feels the braces on the legs causes him balance issues for the past couple years. Pt reports recent fall from his electric bike that her rides 3x/week. He fell when reaching behind him with his right arm to turn his bike on when he lost his balance and fell landing on his L elbow. He has been to a walk in clinic and given instructions to treat, but the L elbow is now severely swollen and painful. Coloration is good and pt denies increased temperature. Prior Treatments and Tests None. Prior treatment for his hands. Future Testing and Treatments Planned None Developmental History Developmental History Dr. Lomas wanted him to see a neurologist due to CMT disease and numbness of fingers. Neurologist thought his balance wasn't good; therefore was referred to therapy. Pt is not convinced PT will be helpful due to longstanding nature of his CMT disease. Treatment Goals Patient/Caregiver Goals HEP (leg strengthening & balance ex's). Prior Functional Status Baseline Function- ADL's Independent Baseline Function- Mobility Independent Baseline Function- Gait Walks 2-3 blocks before having to sit to rest ankles. Current Functional Impairments (Reported) Functional Limitations- ADL's Hand use is limited due to CMT disease Functional Limitations- Mobility/Gait Walks 2-3 blocks before having to sit to rest ankles. Wears bilateral ankle braces with hard lateral supports. Functional Limitations- Other Works out at [employer] 3x /week (Joe). Personal Factors Other Personal Factors That May Effect being treated for blood Therapy/Recovery cancer. 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 PT-OP-C Subjective Start: 10/01/20 17:33 Freq: Status: Active Protocol: Document 10/10/20 11:26 LRN (Rec: 10/10/20 12:48 LRN [id number]) OP-PT Pain Assessment Pain Assessment Grid Paper Pain Assessment Grid Completed Yes Location Ankles Pain Location Details Ankles (L>R) Intensity 3 Scale Used Numeric (0 - 10) Description Aching Frequency Walking Pain Duration Only while walking Pain Aggravating Factors Walking Pain Alleviating Factors Inactivity Other Pain Alleviating Factors Marijuana cream PT-OP-D Balance Start: 10/01/20 17:33 Freq: Status: Active Protocol: Document 10/10/20 11:26 LRN (Rec: 10/10/20 12:48 LRN [id number]) Gale Balance Assessment Evaluation Sitting to Standing Ability Independent w/out Hands Unsupported Stance Safely- 2 minutes Sitting Unsupported, Feet on Floor Safely- 2 minutes Standing to Sitting Ability Safely, Minimal Hand Use Transfer Ability Safely, Minimal Hand Use Unsupported Stance- Eyes Closed Safely, 10 seconds Unsupported Stance- Eyes Open Independent, 1 minute Reaching Forward Standing Safely, 5 inches Pick- Up Object From Floor Independent/Safe Look Behind Shoulder - Standing Shifts Weight Well Turning 360 Degrees Turns Bilateral, < 4 secs Unsupported Stance, Alternating Feet on (I)- 8 Steps in 20 secs Stair Unsupported Tandem Stance Balance Lost- Step/Stand Unilateral Leg Stance Unable,assist to not fall Total Score Gale Total Score (out of 56 points) 47 Gale Impairment Rating 20 to 39% Impaired (Score 34- 44) Tinetti Balance Assessment Sitting Balance Sitting Balance Steady, safe Arising from Chair Ability to Arise Able, w/o using arms Standing Balance Immediate Standing Balance Steady w/o support Turning Step Pattern Turning 360 Degrees Continuous steps Stability Turning 360 Degrees Steady Sitting Down Sitting Down Safe, steady Gait and Step Initiation of Gait No hesitancy Right Foot Step Length Does pass stance foot Right Foot Step Height Completely clears floor Left Foot Step Length Does not pass stance foot Left Foot Step Height Completely clears floor Step Description Step Symmetry Step length not equal Step Continuity Steps appear continuous Gait Description Path Description Mild/moderate deviation Trunk Description Marked sway or uses aide Walking Stance Heels apart Scoring and Interpretation Tinetti Composite Score (points) 15 Interpretation of Scores High risk for falls(< 19) Tinetti Impairment Rating from Composite 40 to <60% Impaired (Score 12- Score 16) PT-OP-G Mobility & Gait Start: 10/01/20 17:33 Freq: Status: Active Protocol: Document 10/10/20 11:26 LRN (Rec: 10/11/20 09:39 LRN [id number]) OP Gait Assessment Gait Gait Assistance Required: Independent Able to Maintain Weight Bearing Status Yes During Gait Assistive Devices Assistive Device None Gait Deviations General Gait Pattern Decreased Stride Length, Lateral Trunk Lean,Wide Based Gait Factors Limiting Gait Function Factors Limiting Gait Function Decreased Strength,Limited Range of Motion,Poor Balance PT-OP-J Posture/Palpation/Skin Start: 10/01/20 17:33 Freq: Status: Active Protocol: Document 10/10/20 11:26 LRN (Rec: 10/11/20 09:39 LRN [id number]) Posture Evaluation Comments Posture Comments Bilateral ankle braces with hard lateral supports. Palpation Assessment Location Ankles Palpation Location Ankles Palpation Details Poor joint mobility. PT-OP-K Range of Motion Start: 10/01/20 17:33 Freq: Status: Active Protocol: Document 10/10/20 11:26 LRN (Rec: 10/10/20 12:48 LRN [id number]) Hip Goniometric Range of Motion Hip Right Active Testing Position Prone Comments Lacks hip ext to neutral Left Active Testing Position Prone Comments Lacks hip ext to neutral Knee Goniometric Range of Motion Knee Right Knee ROM WFL Yes Patient Position Sitting Left Knee ROM WFL Yes Patient Position Sitting Ankle and Foot Goniometric Range of Motion Ankle and Foot Right Active Ankle/Foot ROM WFL No Testing Position Sitting Comments Lacks ankle AROM (~95%): flex, IV. Mild decrease with EV & DF. Left Active Ankle/Foot ROM WFL No Testing Position Sitting Comments Lacks ankle AROM ~95%: DF, flex, IV. Mild decrease with EV. PT-OP-M Strength Start: 10/01/20 17:33 Freq: Status: Active Protocol: Document 10/10/20 11:26 LRN (Rec: 10/10/20 12:48 LRN [id number]) Trunk Strength Trunk Manual Muscle Testing Testing Position Supine, sidelie & prone Flexion 3+ Fair+ Extension 3+ Fair+ Rotation Left 2+ Poor+ Rotation Right 2+ Poor+ Lateral Flexion Left 5 Normal Lateral Flexion Right 5 Normal Core Stabilization Pt not able to maintain core stability during hip MMT. Hip Strength Hip Manual Muscle Testing Right Flexion (L2) 5 Normal Extension (S1) 2- Poor- Abduction 3+ Fair+ Adduction 5 Normal Comments Pt lacks hip ext mobility Left Flexion (L2) 5 Normal Extension (S1) 2- Poor- Abduction 3+ Fair+ Adduction 5 Normal Comments Pt lacks hip ext mobility Knee Strength Knee Manual Muscle Testing Right Flexion (S2) 5 Normal Extension (L3) 5 Normal Left Flexion (S2) 5 Normal Extension (L3) 5 Normal Ankle/Foot Strength Ankle and Foot Manual Muscle Testing Right Dorsiflexion (L4) 5 Normal Plantarflexion (S1) 5 Normal Inversion 3+ Fair+ Eversion (S1) 5 Normal Comments Club foot prohibits ankle movement; strength tesing is in neutral position. Left Dorsiflexion (L4) 1 Trace Plantarflexion (S1) 5 Normal Inversion 2- Poor- Eversion (S1) 5 Normal Comments Club foot prohibits ankle movement; strength is in neutral position. Toe Strength Toe Manual Muscle Testing Right Great Toe Flexion 5 Normal Extension 2+ Poor+ Left Great Toe Flexion 3+ Fair+ Extension 5 Normal PT-OP-Q Treatments Start: 10/01/20 17:33 Freq: Status: Active Protocol: Document 10/10/20 11:26 LRN (Rec: 10/10/20 12:48 LRN [id number]) Self-Care/Home Management Treatment Education Other Education Discussed reason for physical therapy since pt was not sure why he was sent to therapy. Discussed results of evaluation, goals, and plan of care (POC) and timeline, pt agreeable. Discussed his current exercise status (aerobic and hands) and recommended pt continue. Reviewed self care of L elbow swelling by other health care practitioners and recommended pt see his primary care physician. PT-OP-T Assessment and Plan Start: 10/01/20 17:33 Freq: Status: Active Protocol: Document 10/10/20 11:26 LRN (Rec: 10/10/20 12:48 LRN [id number]) Physical Therapy Assessment Rehab Potential Rehabilitation Potential Good Evaluation Complexity Number of Personal Factors/Comorbidities 1-2 Number of Body Systems Impaired 3 Clinical Presentation at Evaluation Evolving Impairments Impairments Gait,Pain,Strength Goals Three Impairment Decreased syd Ankle and hip strength Impairment Initial Eval: Ankle strength: In neutral position isometric strength is normal except: Left: DF 1/5, IV 2-/5; Right: IV 3+/5. Hip strength: In neutral position isometric strength is normal except: Left: Ext 2/ 5, AB 3+/5; Right: Ext 2-/5, AB 3+/5. Short Term Goal (STG) Improve ankle and hip strength by 1/2 grade in areas of weakness. STG Duration 11/08/20 Mcc Goal (LTG) Improve ankle and hip strength to 4/5 with pt able to demonstrate less trunk sway and path deviation (under 1 foot) with gait. LTG Duration 12/23/20 Two Impairment Decreased tandem and SLS stance (0 secs for both) Short Term Goal (STG) Improve standing balance with tandem stance to 3 secs ( initial 0 secs) STG Duration 11/08/20 Cotton Chopper Goal (LTG) Improve standing balance with tandem stance to 5 secs ( initial 0 secs) and improve SLS > 2 sec. LTG Duration 12/23/20 One Impairment Lacks appropriate self care HEP Impairment Weak ankles, hips & core; and lacks SLS/tandem stance ability. Big toe weak: L flexion, R ext . Ankles: DF(1/5)/IV(2/5) left, IV(3/5) right. Hips: Left: Ext 2-/5, AB 4/5; Right Ext 2-/5, AB 4+/5 Short Term Goal (STG) Pt will be educated in edema management. STG Duration 11/08/20 Mcc Goal (LTG) Pt will be independent in a self care HEP of ankle/hip/ core strengthening and SLS/ tandem stance exercises. LTG Duration 12/23/20 Assessment Summary Assessment Pt is a 75 yo male who presents with weakness of his toes, ankles, hips & core effecting his balance with gait. He lacks ability to balance with SLS or tandem stance, affecting his stability with gait. Progression of his Charcot Ani Tooth Disease is expected to hinder his ability to progress with therapy. Today the pt pointed out excessive swelling in the L elbow after a recent fall that is causing him pain; therefore he would benefit from further medical assessment and treatment for his L elbow. The pt will benefit from skilled physical therapy to achieve the above stated goals. Physical Therapy Plan Frequency and Duration Frequency of Treatment 2x/Week Plan of Care Start Date 10/10/20 Plan of Care End Date 12/23/20 Therapeutic Interventions Therapeutic Interventions Balance Training,Gait Training ,Home Exercise Program,Joint Mobilizations,Manual Therapy, Neuromuscular Re-education, Patient/Caregiver Education, Self-Care/Home Management,Soft Tissue Mobilization, Therapeutic Exercises Modalities Cold Pack/Ice Massage, Ultrasound Other Referrals/Consults Referrals/Consults Recommended Consult with primary care physician for swelling in L elbow since fall. Next Visit Focus/Plan Next Note Type Treatment Note Next Visit Plan Therapy to focus on improving bilateral ankle/hip/core strength and gait training to improve stability with gait. Reassess progress in 4-6 weeks for continuation of therapy or progression towards self care on a HEP. Next treatment educate pt in edema management of elbow if hindering his ability to concentrate on therapy due to pain.
--- NOTE | 2020-10-10 16:30 | PT.OPPOC ---
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) Muscle weakness (generalized) (10/10/20) Other abnormalities of gait and mobility (10/10/20) Visit Care Team Role Provider Type Brittany Lomas DO Primary Care Provider Physician Specialty: Family Practice Address: [address] [place] [address], [facility] [address], [place], [address] Email: [email or web address] Karla Lacy Attending Provider Non-Staff Referring Provider Specialty: Medical Address: [address] [place] [address], [facility], [place], [address] Email: Plan Of Care PT-OP-T Assessment and Plan Start: 10/01/20 17:33 Freq: Status: Active Protocol: Document 10/10/20 11:26 LRN (Rec: 10/10/20 12:48 LRN [id number]) Physical Therapy Assessment Rehab Potential Rehabilitation Potential Good Evaluation Complexity Number of Personal Factors/Comorbidities 1-2 Number of Body Systems Impaired 3 Clinical Presentation at Evaluation Evolving Impairments Impairments Gait,Pain,Strength Goals Three Impairment Decreased syd Ankle and hip strength Impairment Initial Eval: Ankle strength: In neutral position isometric strength is normal except: Left: DF 1/5, IV 2-/5; Right: IV 3+/5. Hip strength: In neutral position isometric strength is normal except: Left: Ext 2/ 5, AB 3+/5; Right: Ext 2-/5, AB 3+/5. Short Term Goal (STG) Improve ankle and hip strength by 1/2 grade in areas of weakness. STG Duration 11/08/20 Longterm Goal (LTG) Improve ankle and hip strength to 4/5 with pt able to demonstrate less trunk sway and path deviation (under 1 foot) with gait. LTG Duration 12/23/20 Two Impairment Decreased tandem and SLS stance (0 secs for both) Short Term Goal (STG) Improve standing balance with tandem stance to 3 secs ( initial 0 secs) STG Duration 11/08/20 Longterm Goal (LTG) Improve standing balance with tandem stance to 5 secs ( initial 0 secs) and improve SLS > 2 sec. LTG Duration 12/23/20 One Impairment Lacks appropriate self care HEP Impairment Weak ankles, hips & core; and lacks SLS/tandem stance ability. Big toe weak: L flexion, R ext . Ankles: DF(1/5)/IV(2/5) left, IV(3/5) right. Hips: Left: Ext 2-/5, AB 4/5; Right Ext 2-/5, AB 4+/5 Short Term Goal (STG) Pt will be educated in edema management. STG Duration 11/08/20 Shipping Helper Goal (LTG) Pt will be independent in a self care HEP of ankle/hip/ core strengthening and SLS/ tandem stance exercises. LTG Duration 12/23/20 Assessment Summary Assessment Pt is a 75 yo male who presents with weakness of his toes, ankles, hips & core effecting his balance with gait. He lacks ability to balance with SLS or tandem stance, affecting his stability with gait. Progression of his Charcot Ani Tooth Disease is expected to hinder his ability to progress with therapy. Today the pt pointed out excessive swelling in the L elbow after a recent fall that is causing him pain; therefore he would benefit from further medical assessment and treatment for his L elbow. The pt will benefit from skilled physical therapy to achieve the above stated goals. Physical Therapy Plan Frequency and Duration Frequency of Treatment 2x/Week Plan of Care Start Date 10/10/20 Plan of Care End Date 12/23/20 Therapeutic Interventions Therapeutic Interventions Balance Training,Gait Training ,Home Exercise Program,Joint Mobilizations,Manual Therapy, Neuromuscular Re-education, Patient/Caregiver Education, Self-Care/Home Management,Soft Tissue Mobilization, Therapeutic Exercises Modalities Cold Pack/Ice Massage, Ultrasound Other Referrals/Consults Referrals/Consults Recommended Consult with primary care physician for swelling in L elbow since fall. Next Visit Focus/Plan Next Note Type Treatment Note Next Visit Plan Therapy to focus on improving bilateral ankle/hip/core strength and gait training to improve stability with gait. Reassess progress in 4-6 weeks for continuation of therapy or progression towards self care on a HEP. Next treatment educate pt in edema management of elbow if hindering his ability to concentrate on therapy due to pain. Plan of Care Dates Plan of Care Start Date 10/10/20 Plan of Care End Date 12/23/20 Electronically Signed by: Connie Reddy, PT 10/11/20 1018 Please Sign and Return: I have reviewed this Plan of Care and certify that the skilled therapy services above are required to meet the patient?s needs. Physician Signature Date Printed Name and Credentials Clinical Instructor Signature Printed Name and Credentials
--- NOTE | 2020-10-14 17:39 | PT.OTN ---
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) Muscle weakness (generalized) (10/14/20) Other abnormalities of gait and mobility (10/14/20) Physical Therapy Treatment Note PT-OP-A Visit Information Start: 10/01/20 17:33 Freq: Status: Active Protocol: Document 10/14/20 09:50 LRN (Rec: 10/14/20 10:35 LRN [id number]) Out-Patient Physical Therapy Visit Information Visit Information Visit Type Treatment Note Visit Start Time 09:50 Visit Stop Time 10:31 Total Visit Minutes 41 Visit Number 2 Evaluation Information Evaluation Date 10/10/20 Precautions Precautions Per subjective report: Tape allergy, 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 PT-OP-B Current Condition Start: 10/01/20 17:33 Freq: Status: Active Protocol: Document 10/10/20 11:26 LRN (Rec: 10/10/20 12:48 LRN [id number]) Current Condition History of Current Condition Onset Date 09/04/20 Current Complaints Poor balance History of Current Condition 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 Was referred to physical therapy for balance that has been a problem since having to wear bilateral Vinny ankle braces, given to him by Dr. Gee 2 yrs ago. Pt feels the braces on the legs causes him balance issues for the past couple years. Pt reports recent fall from his electric bike that her rides 3x/week. He fell when reaching behind him with his right arm to turn his bike on when he lost his balance and fell landing on his L elbow. He has been to a walk in clinic and given instructions to treat, but the L elbow is now severely swollen and painful. Coloration is good and pt denies increased temperature. Prior Treatments and Tests None. Prior treatment for his hands. Future Testing and Treatments Planned None Developmental History Developmental History Dr. Lomas wanted him to see a neurologist due to CMT disease and numbness of fingers. Neurologist thought his balance wasn't good; therefore was referred to therapy. Pt is not convinced PT will be helpful due to longstanding nature of his CMT disease. Treatment Goals Patient/Caregiver Goals HEP (leg strengthening & balance ex's). Prior Functional Status Baseline Function- ADL's Independent Baseline Function- Mobility Independent Baseline Function- Gait Walks 2-3 blocks before having to sit to rest ankles. Current Functional Impairments (Reported) Functional Limitations- ADL's Hand use is limited due to CMT disease Functional Limitations- Mobility/Gait Walks 2-3 blocks before having to sit to rest ankles. Wears bilateral ankle braces with hard lateral supports. Functional Limitations- Other Works out at [employer] 3x /week ([employer]). Personal Factors Other Personal Factors That May Effect being treated for blood Therapy/Recovery cancer. 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 PT-OP-C Subjective Start: 10/01/20 17:33 Freq: Status: Active Protocol: Document 10/14/20 09:50 LRN (Rec: 10/14/20 10:35 LRN [id number]) OP-PT Subjective Patient Comments Patient Comments ............ PT-OP-D Balance Start: 10/01/20 17:33 Freq: Status: Active Protocol: Document 10/10/20 11:26 LRN (Rec: 10/10/20 12:48 LRN [id number]) Gale Balance Assessment Evaluation Sitting to Standing Ability Independent w/out Hands Unsupported Stance Safely- 2 minutes Sitting Unsupported, Feet on Floor Safely- 2 minutes Standing to Sitting Ability Safely, Minimal Hand Use Transfer Ability Safely, Minimal Hand Use Unsupported Stance- Eyes Closed Safely, 10 seconds Unsupported Stance- Eyes Open Independent, 1 minute Reaching Forward Standing Safely, 5 inches Pick- Up Object From Floor Independent/Safe Look Behind Shoulder - Standing Shifts Weight Well Turning 360 Degrees Turns Bilateral, < 4 secs Unsupported Stance, Alternating Feet on (I)- 8 Steps in 20 secs Stair Unsupported Tandem Stance Balance Lost- Step/Stand Unilateral Leg Stance Unable,assist to not fall Total Score Gale Total Score (out of 56 points) 47 Gale Impairment Rating 20 to 39% Impaired (Score 34- 44) Tinetti Balance Assessment Sitting Balance Sitting Balance Steady, safe Arising from Chair Ability to Arise Able, w/o using arms Standing Balance Immediate Standing Balance Steady w/o support Turning Step Pattern Turning 360 Degrees Continuous steps Stability Turning 360 Degrees Steady Sitting Down Sitting Down Safe, steady Gait and Step Initiation of Gait No hesitancy Right Foot Step Length Does pass stance foot Right Foot Step Height Completely clears floor Left Foot Step Length Does not pass stance foot Left Foot Step Height Completely clears floor Step Description Step Symmetry Step length not equal Step Continuity Steps appear continuous Gait Description Path Description Mild/moderate deviation Trunk Description Marked sway or uses aide Walking Stance Heels apart Scoring and Interpretation Tinetti Composite Score (points) 15 Interpretation of Scores High risk for falls(< 19) Tinetti Impairment Rating from Composite 40 to <60% Impaired (Score 12- Score 16) PT-OP-G Mobility & Gait Start: 10/01/20 17:33 Freq: Status: Active Protocol: Document 10/10/20 11:26 LRN (Rec: 10/11/20 09:39 LRN [id number]) OP Gait Assessment Gait Gait Assistance Required: Independent Able to Maintain Weight Bearing Status Yes During Gait Assistive Devices Assistive Device None Gait Deviations General Gait Pattern Decreased Stride Length, Lateral Trunk Lean,Wide Based Gait Factors Limiting Gait Function Factors Limiting Gait Function Decreased Strength,Limited Range of Motion,Poor Balance PT-OP-J Posture/Palpation/Skin Start: 10/01/20 17:33 Freq: Status: Active Protocol: Document 10/10/20 11:26 LRN (Rec: 10/11/20 09:39 LRN [id number]) Posture Evaluation Comments Posture Comments Bilateral ankle braces with hard lateral supports. Palpation Assessment Location Ankles Palpation Location Ankles Palpation Details Poor joint mobility. PT-OP-K Range of Motion Start: 10/01/20 17:33 Freq: Status: Active Protocol: Document 10/10/20 11:26 LRN (Rec: 10/10/20 12:48 LRN [id number]) Hip Goniometric Range of Motion Hip Right Active Testing Position Prone Comments Lacks hip ext to neutral Left Active Testing Position Prone Comments Lacks hip ext to neutral Knee Goniometric Range of Motion Knee Right Knee ROM WFL Yes Patient Position Sitting Left Knee ROM WFL Yes Patient Position Sitting Ankle and Foot Goniometric Range of Motion Ankle and Foot Right Active Ankle/Foot ROM WFL No Testing Position Sitting Comments Lacks ankle AROM (~95%): flex, IV. Mild decrease with EV & DF. Left Active Ankle/Foot ROM WFL No Testing Position Sitting Comments Lacks ankle AROM ~95%: DF, flex, IV. Mild decrease with EV. PT-OP-M Strength Start: 10/01/20 17:33 Freq: Status: Active Protocol: Document 10/10/20 11:26 LRN (Rec: 10/10/20 12:48 LRN [id number]) Trunk Strength Trunk Manual Muscle Testing Testing Position Supine, sidelie & prone Flexion 3+ Fair+ Extension 3+ Fair+ Rotation Left 2+ Poor+ Rotation Right 2+ Poor+ Lateral Flexion Left 5 Normal Lateral Flexion Right 5 Normal Core Stabilization Pt not able to maintain core stability during hip MMT. Hip Strength Hip Manual Muscle Testing Right Flexion (L2) 5 Normal Extension (S1) 2- Poor- Abduction 3+ Fair+ Adduction 5 Normal Comments Pt lacks hip ext mobility Left Flexion (L2) 5 Normal Extension (S1) 2- Poor- Abduction 3+ Fair+ Adduction 5 Normal Comments Pt lacks hip ext mobility Knee Strength Knee Manual Muscle Testing Right Flexion (S2) 5 Normal Extension (L3) 5 Normal Left Flexion (S2) 5 Normal Extension (L3) 5 Normal Ankle/Foot Strength Ankle and Foot Manual Muscle Testing Right Dorsiflexion (L4) 5 Normal Plantarflexion (S1) 5 Normal Inversion 3+ Fair+ Eversion (S1) 5 Normal Comments Club foot prohibits ankle movement; strength tesing is in neutral position. Left Dorsiflexion (L4) 1 Trace Plantarflexion (S1) 5 Normal Inversion 2- Poor- Eversion (S1) 5 Normal Comments Club foot prohibits ankle movement; strength is in neutral position. Toe Strength Toe Manual Muscle Testing Right Great Toe Flexion 5 Normal Extension 2+ Poor+ Left Great Toe Flexion 3+ Fair+ Extension 5 Normal PT-OP-Q Treatments Start: 10/01/20 17:33 Freq: Status: Active Protocol: Document 10/14/20 09:50 LRN (Rec: 10/14/20 10:35 LRN [id number]) Therapeutic Exercises Supine Exercises BKFO Supine Exercise Name BKFO (issued HEP) Side bilateral Equipment Used Lev 2 TB Reps/Minutes 15' Comments Extra time to help pt awareness of stabilizing core w/ex, much phy cuing. TA tightening Supine Exercise Name TA tightening training Reps/Minutes 3' Comments Pt able to identify abdominal mvmt, but not able to control Breathing w/thoracic excursion Equipment Used Self assess with hand on abdomen and hand on chest Reps/Minutes 3' Sidelying Exercises GM strengthening Sidelying Exercise Name Zuhair (issued HEP) Side bilateral Reps/Minutes 15x 2 Comments Much cuing needed for TA/Hip mvmt w/o lumbar rot (L worse than R). Self-Care/Home Management Treatment Education Patient Education Home Exercise Program Activities Self-Care/Home Management Activities Issued & reviewed HEP: Hip strengthening (clamshell, hip AB, sup BKFO). PT-OP-T Assessment and Plan Start: 10/01/20 17:33 Freq: Status: Active Protocol: Document 10/14/20 09:50 LRN (Rec: 10/14/20 10:35 LRN [id number]) Physical Therapy Assessment Goals Three Impairment Decreased syd Ankle and hip strength Impairment Initial Eval: Ankle strength: In neutral position isometric strength is normal except: Left: DF 1/5, IV 2-/5; Right: IV 3+/5. Hip strength: In neutral position isometric strength is normal except: Left: Ext 2/ 5, AB 3+/5; Right: Ext 2-/5, AB 3+/5. Short Term Goal (STG) Improve ankle and hip strength by 1/2 grade in areas of weakness. STG Duration 11/08/20 Surgical Assist Goal (LTG) Improve ankle and hip strength to 4/5 with pt able to demonstrate less trunk sway and path deviation (under 1 foot) with gait. LTG Duration 12/23/20 Two Impairment Decreased tandem and SLS stance (0 secs for both) Short Term Goal (STG) Improve standing balance with tandem stance to 3 secs ( initial 0 secs) STG Duration 11/08/20 Snf Goal (LTG) Improve standing balance with tandem stance to 5 secs ( initial 0 secs) and improve SLS > 2 sec. LTG Duration 12/23/20 One Impairment Lacks appropriate self care HEP Impairment Weak ankles, hips & core; and lacks SLS/tandem stance ability. Big toe weak: L flexion, R ext . Ankles: DF(1/5)/IV(2/5) left, IV(3/5) right. Hips: Left: Ext 2-/5, AB 4/5; Right Ext 2-/5, AB 4+/5 Short Term Goal (STG) Pt will be educated in edema management. STG Duration 11/08/20 Snf Goal (LTG) Pt will be independent in a self care HEP of ankle/hip/ core strengthening and SLS/ tandem stance exercises. (10/14/20: Hip AB strengthening issued) LTG Duration 12/23/20 (10/14/20: Progressed) Assessment Summary Assessment Pt tends to bulge at abdomen with TA tightening in sup & sidelie. Glut Med is weaker on the L side. Pt was able to provide appropriate response to phys cuing at [facility] when doing Glut Med & hip AB strengthening after training to prevent rolling of pelvis posteriorly with hip AB ( bilaterally). Physical Therapy Plan Frequency and Duration Frequency of Treatment 2x/Week Plan of Care Start Date 10/10/20 Plan of Care End Date 12/23/20 Next Visit Focus/Plan Next Note Type Treatment Note Next Visit Plan Review HEP for proper core/ pelvic stabilization. Issue HEP for TA tightening and add TA program. Next treatment educate pt in edema management of elbow if hindering his ability to concentrate on therapy due to pain. Therapy to focus on improving bilateral ankle/hip/core strength and gait training to improve stability with gait. Reassess progress in 4-6 weeks for continuation of therapy or progression towards self care on a HEP.
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
--- NOTE | 2020-11-14 12:35 | PT-OP ANOTE ---
Pt canceled due to kidney infection.
--- NOTE | 2020-11-15 18:50 | PT-OP ANOTE ---
Pt has been hospitalized due to his infection; discussed per phone conversation with pt that due to change in medical status he will be discharged from therapy. Pt in agreement.
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
== END 2020-12-10 09:56 ==
LOC: PHYS 11:15
PROVIDERS: PCP Family Medicine; Referring Provider Student in an Organized Health Care Education/Training Program; Visit Provider Student in an Organized Health Care Education/Training Program
DX: G60.0 Hereditary motor and sensory neuropathy (principal); M62.81 Muscle weakness (generalized); R26.89 Other abnormalities of gait and mobility
CPT/HCPCS: 97110; 97112; 97162; 97535

== ENCOUNTER 2020-11-14 16:13 | Inpatient (IN) | payer MEDICARE, OTHER, SELFPAY ==
[2020-01-23 21:36] VITALS: BMI 32.8
[2020-11-14] VITALS (16 sets, daily range): BP systolic 102–171; BP diastolic 52–81; PULSE 71–113; RESP 13–35; TEMP 36.8–38.1; O2SAT 93–98; BMI 32.6
--- NOTE | 2020-11-14 18:08 | DI.CT.S_ITS ---
PROCEDURE: CT KIDNEY URETER BLADDER (KUB) INDICATIONS: gross hematuria TECHNIQUE: Axial sections were acquired from the lung bases to the pubic symphysis. Coronal and sagittal reformats were performed. For radiation dose reduction, the following was used: automated exposure control, adjustment of mA and/or kV according to patient size. COMPARISON: [facility], CT, CT KIDNEY URETER BLADDER (KUB), 01/23/2020, 15:46. [facility], CT, KIDNEY/ URETER/BLADDER, 04/01/2009, 12:01. FINDINGS: Image quality: Excellent. Lung bases: Stable right lung base pulmonary nodule. Heart: Small pericardial effusion. Atherosclerotic calcifications of the coronary arteries. URINARY: Right Kidney: Redemonstration of nonobstructive punctate nephroliths measuring less than 5 mm. No hydronephrosis. No perinephric stranding. Mild renal cortical scarring as before. Multiple partially exophytic hypodensities compatible with renal cyst. Right Ureter: No hydroureter. No ureteral stone. Left Kidney: Multiple nonobstructive punctate nephroliths measuring less than 5 mm. No hydronephrosis. No perinephric stranding. Renal cortical scarring as before. Multiple exophytic and partially exophytic renal hypodensities compatible with cysts. Left Ureter: No hydroureter. No ureteral stone. Bladder: There is thickening of the urinary bladder. Urinary bladder is partially decompressed by Batista catheter. ABDOMEN: Liver: Unremarkable. Gallbladder: Multiple gallstones near the gallbladder gallbladder neck. No CT evidence for pericholecystic inflammatory changes. Biliary ducts: Unremarkable. Pancreas: Unremarkable. Spleen: Unremarkable. Adrenal Glands: Unremarkable. Stomach and Bowel: Stomach, small bowel loops, and colon are unremarkable. Scattered colonic diverticulosis without acute diverticulitis. Appendix is not visualized but no secondary findings for acute appendicitis. Peritoneum: No abnormal intraperitoneal fluid. No free air. Ventral Wall: No hernia. Abdominal Nodes: No enlarged retroperitoneal or mesenteric lymph nodes. Vessels: Scattered atherosclerotic calcifications of the abdominal aorta and iliac vessels without aneurysmal dilatation. PELVIS: Pelvic Organs: Prostate appears enlarged.. Pelvic Nodes: Unremarkable. Miscellaneous: Small fat containing left inguinal hernia without acute inflammation. Bones: No acute vertebral body compression fractures. Multilevel spondylitic changes throughout the imaged spine. No suspicious osseous lesions. IMPRESSION: 1. Bilateral nonobstructive nephrolithiasis. No evidence for obstructive uropathy. 2. Moderate, slightly irregular thickening of the urinary bladder. Findings may represent infectious/inflammatory cystitis. Recommend clinical correlation and urinalysis. Underlying neoplastic process not excluded. Consider further evaluation with nonemergent urological consultation for direct visualization. 3. Colonic diverticulosis without acute diverticulitis. 4. Prostatomegaly. 5. Stable sub 5 mm right lower lobe pulmonary nodule. 6. Cholelithiasis without CT evidence for acute cholecystitis. Other chronic findings as above. Dictated by: Hardy Quinn M.D. on 11/14/2020 at 19:21 Approved by: Hardy Quinn M.D. on 11/14/2020 at 19:31
--- NOTE | 2020-11-14 18:29 | DI.RAD.S_ITS ---
PROCEDURE: XR CHEST 1V INDICATIONS: chills, fever TECHNIQUE: One view of the chest was acquired. COMPARISON: [facility], , CHEST 2 VIEW, 09/18/2009, 14:25. FINDINGS: Surgical changes and devices: None. Lungs and pleura: Mild hyperaeration and flattening of the hemidiaphragms. Minimal streaky bibasilar opacities. No focal consolidation. No pleural effusions or pneumothorax. Mediastinum: Mediastinal contours appear stable. Heart size is prominent. Bones and chest wall: No suspicious bony lesions. Overlying soft tissues appear unremarkable. IMPRESSION: Mild hyperaeration and flattening of the hemidiaphragms suggestive of chronic obstructive pulmonary physiology. Minimal streaky bibasilar opacities likely representing atelectasis or scarring. No focal consolidations. Dictated by: Hardy Quinn M.D. on 11/14/2020 at 19:19 Approved by: Hardy Quinn M.D. on 11/14/2020 at 19:21
[2020-11-14 18:44] LABS: Add Manual Diff / Slide Review NO; Basophils Absolute Auto 200 /uL (0-100); Basophils Percent Auto 1.1 % (0-2); Eosinophils Absolute Auto 200 /uL (0-450); Eosinophils Percent Auto 1.3 % (2-4); Hematocrit 34.2 % (41-53); Hemoglobin 11.6 g/dL (13.5-17.5); Lymphocytes Absolute Auto 2200 /uL (1100-4500); Mean Corpuscular Hemoglobin 30.8 PG (26-34); Mean Corpuscular Volume 90.6 fL (80-100); Monocytes Absolute Auto 600 /uL (0-900); Monocytes Percent Auto 4.2 % (3-14); Neutrophils Absolute Auto 11600 /uL (1500-7000); Neutrophils Percent Auto 78.4 % (50-75); Platelet Count 191 X10^3/uL (150-400); Red Blood Cell Count 3.77 X10^6/uL (4.5-5.9); Red Cell Distribution Width 13.2 % (11.6-14.8); White Blood Cell Count 14.8 X10^3/uL (4.5-11.0)
[2020-11-14 18:55] LABS: Albumin 4.5 g/dL (3.5-5.0); Carbon Dioxide 25 mmol/L (22-32); HEMOLYSIS 65 (0-50); Lactate (Lactic Acid) 1.6 mmol/L (0.7-2.1)
--- NOTE | 2020-11-14 18:56 | PC.NURSE ---
rn attempted to place straight cath, no urine obtained. bladder scan indicated 95 cc in bladder. RN then removed straight cath and placed 16 fr barajas with 10 cc balloon with immediate return of 300 cc of frankly bloody urine with small blood clots. sample sent to lab for urinalysis. notified provider.
--- NOTE | 2020-11-14 19:09 | ED_ITS ---
HPI - Male Genitourinary <Michael Roland PA-C - Last Filed: 11/14/20 19:59> General Chief complaint: Urogenital-Male Stated complaint: Bladder Infection Getting Worse Blood/Clotting Time Seen by Provider: 11/14/20 17:52 Source: patient Mode of arrival: Ambulatory Limitations: no limitations History of Present Illness HPI Narrative: Lenny presents today with chief complaint bloody urination that has gotten worse over the last 2 days. He reports that last night he had trouble urinating because of the amount of blood clots that he was passing. He passed a large blood clot earlier today and has had pain in his penis since that occurred. He denies any significant abdominal pain, nausea, vomiting, flank pain, shortness of breath, chest pain, fever or any other acute concerns or complaints at this time. He is not on any blood thinners and takes 81 mg of aspirin daily. Related Data Home Medications Medication Instructions Recorded Confirmed Respironics Dreamstation CPAP #1 ea 07/27/18 10/30/20 carvedilol 12.5 mg tablet 12.5 mg PO BID 04/17/19 11/14/20 terazosin 10 mg capsule 10 mg PO BEDTIME 01/29/20 11/14/20 aspirin 81 mg tablet,delayed 81 mg PO DAILY 04/22/20 11/14/20 release rosuvastatin 5 mg tablet 5 mg PO DAILY 04/22/20 11/14/20 acetaminophen 650 mg See Rx Instructions PO DAILY PRN 09/17/20 11/14/20 tablet,extended release (Tylenol tab Arthritis Pain) amlodipine 5 mg tablet 5 mg PO DAILY 09/17/20 11/14/20 pregabalin 25 mg capsule (Lyrica) 25 mg PO DAILY cap 11/01/20 11/14/20 Previous Rx's Medication Instructions Recorded miscellaneous medical supply #1 each 10/04/17 Allergies Allergy/AdvReac Type Severity Reaction Status Date / Time amoxicillin [AMOXICILLIN] Allergy Unknown RASH Verified 11/14/20 11:07 sulfamethoxazole AdvReac Severe acute Verified 11/14/20 11:07 [From Bactrim] renal failure trimethoprim [From Bactrim] AdvReac Severe acute Verified 11/14/20 11:07 renal failure Review of Systems <Michael Roland PA-C - Last Filed: 11/14/20 19:59> Review of Systems Narrative: As per HPI Patient History <Michael Roland PA-C - Last Filed: 11/14/20 19:59> Medical History (Updated 11/15/20 @ 01:59 by ARMIDA HammondsP-) Acute UTI Ankle pain Basal cell adenocarcinoma BPH (benign prostatic hyperplasia) Burning pain CAD (coronary artery disease) Cardiomyopathy Cataract (2013) Clubfoot CMT (Uzpjqen-Evnev-Cgzvj disease) (2014) Colon polyps (2008) Essential hypertension Hearing loss (2014) Injury of left elbow Malignant neoplasm of kidney Melanoma (2007) Obstructive sleep apnea Osteoarthritis of both knees Osteoarthrosis, ankle and foot Rheumatic fever (1957) Shoulder pain (2011) Spinal stenosis of lumbar region (09/15/13) Squamous cell skin cancer, face Stage 3 chronic kidney disease Superficial laceration Tinnitus UTI (urinary tract infection) Surgical History Anesthesia History of back surgery (08/2013) History of cataract removal with insertion of prosthetic lens (2013) History of left knee replacement History of left knee surgery (2004) History of nephrectomy (2003) S/P TURP (~07/2019) Family History Father Alcoholism Heart disease Mother Stroke Heart disease Other Hypertension Social History marital status: household members: spouse lives independently: Yes Smoking Status: Former smoker alcohol intake: current Smoking Status: Former smoker alcohol intake frequency: holidays/special occasions only Substance Use Type: does not use Exam <Michael Roland PA-C - Last Filed: 11/14/20 19:59> Narrative Exam Narrative: Exam Narrative: Const General: cooperative, comfortable, no acute distress, well developed and well groomed Nutritional Appearance: elevated BMI Orientation: alert and oriented x3 HENMT Head: normal to inspection and atraumatic Ears: hearing grossly normal bilaterally Nose: external nose normal and nares normal Face and sinus: normal facial exam Neck Neck: normal visual inspection and supple Resp Effort & Inspection: normal respiratory effort, able to speak in complete sentences, no audible wheezes, not labored, no nasal flaring and no respiratory distress Neuro General: alert, oriented x3, gait normal, tone normal and moves all extremities Cognition: normal cognition Speech: speech normal Gait: normal gait GI Nondistended, normal bowel sounds, nontender to palpation No CVA tenderness noted. Psych Appearance: grossly normal and well kempt Mental Status: mental status grossly normal Speech and Movement: speech and movement normal Mood: congruent mood Affect: normal affect Initial Vital Signs Initial Vital Signs: Vital Signs Temperature 98.2 F 11/14/20 16:22 Pulse Rate 71 11/14/20 16:22 Respiratory Rate 20 11/14/20 16:22 Blood Pressure 159/73 H 11/14/20 16:22 Pulse Oximetry 98 11/14/20 16:22 <Alfredo Ayers DO - Last Filed: 11/15/20 03:44> Initial Vital Signs Initial Vital Signs: Vital Signs Temperature 98.2 F 11/14/20 16:22 Pulse Rate 71 11/14/20 16:22 Respiratory Rate 20 11/14/20 16:22 Blood Pressure 159/73 H 11/14/20 16:22 Pulse Oximetry 98 11/14/20 16:22 Course <Michael Roland PA-C - Last Filed: 11/14/20 19:59> Course Course Narrative: Called spoke with the hospitalist. Full conversation was had which included his history, presentation, and workup. She agreed to admit this patient at this time. I then spoke with the patient and his and they are agreeable to this plan. Orders Ordered: ED Orders 11/14/20 18:46 Urinalysis and Microscopic Stat 11/14/20 19:00 Blood Culture Stat COVID19 - ADMIT ([employer] swab/PCR) Stat Acetaminophen (Acetaminophen 325 Mg Tablet) 650 mg PO Q6HR PRN PRN Reason: Fever/Mild Pain (1-3) Last Admin: 11/14/20 22:41 Dose: 650 mg Documented by: SPENCER Hydrocodone Bitart/Acetaminophen (Hydrocodone/Acet 5/325 Tablet) 2 tab PO Q4HR PRN PRN Reason: Pain, Severe (7-10) Hydromorphone HCl (Hydromorphone 0.5 Mg Inj) 0.5 mg IV Q4H PRN PRN Reason: Pain, Moderate (4-6) Last Admin: 11/15/20 02:27 Dose: 0.5 mg Documented by: ANTWAN Lactated Ringer's (Lactated Ringers) 1,000 mls @ 100 mls/hr IV CONT [facility] Last Admin: 11/14/20 22:41 Dose: 100 mls/hr Documented by: SPENCER Ceftriaxone Sodium 1,000 mg/ (Sodium Chloride) 100 mls @ 200 mls/hr IV Q24H [facility] Piperacillin Sod/Tazobactam (Sod 3.375 gm/ Sodium Chloride) 100 mls @ 25 mls/hr IV Q8H [facility] Last Admin: 11/15/20 02:28 Dose: 25 mls/hr Documented by: ANTWAN Naloxone HCl (Naloxone 0.4 Mg/Ml Vial) 0.2 mg IV Q2MIN PRN PRN Reason: Opiate Reversal Ondansetron HCl (Ondansetron 4 Mg/2 Ml Inj) 4 mg IV Q8HR PRN PRN Reason: Nausea And Vomiting Discontinued Medications Enoxaparin Sodium (Enoxaparin 30 Mg/0.3 Ml Syringe) 30 mg SUBCUT DAILY [facility] Sodium Chloride (Normal Saline 0.9%) 1,000 mls @ 1,000 mls/hr IV BOLUS ONE Stop: 11/14/20 19:18 Last Infusion: 11/14/20 22:21 Dose: 0 mls/hr Documented by: JOSÉ MIGUEL Admin: 11/14/20 19:27 Dose: 1,000 mls/hr Documented by: ANKITA Ceftriaxone Sodium 2,000 mg/ (Sodium Chloride) 100 mls @ 200 mls/hr IV NOW ONE Stop: 11/14/20 19:42 Last Infusion: 11/14/20 20:24 Dose: 0 mls/hr Documented by: Admin: 11/14/20 19:52 Dose: 200 mls/hr Documented by: ANKITA Piperacillin Sod/Tazobactam (Sod 4.5 gm/ Sodium Chloride) 100 mls @ 200 mls/hr IV NOW ONE Stop: 11/14/20 23:07 Last Admin: 11/14/20 23:53 Dose: 200 mls/hr Documented by: LONG Lidocaine HCl (Lidocaine 2% (Glydo) 6 Ml Gel) 6 ml TOP NOW ONE Stop: 11/14/20 20:23 Last Admin: 11/14/20 20:25 Dose: 6 ml Documented by: ANKITA Lidocaine HCl (Lidocaine 2% (Glydo) 6 Ml Gel) 6 ml TOP NOW ONE Stop: 11/15/20 00:51 Last Admin: 11/15/20 02:30 Dose: Not Given Documented by: LONG Pantoprazole Sodium (Pantoprazole 40 Mg Vial) 40 mg IV NOW ONE Stop: 11/14/20 23:08 Last Admin: 11/14/20 23:53 Dose: 40 mg Documented by: LONG Vital Signs Vital signs: Vital Signs - 8 hr 11/14/20 20:00 Pulse Rate 103 H Respiratory Rate 13 Blood Pressure 159/66 H Pulse Oximetry 94 <Alfredo Ayers DO - Last Filed: 11/15/20 03:44> Orders Ordered: ED Orders 11/14/20 18:46 Urinalysis and Microscopic Stat 11/14/20 19:00 Blood Culture Stat COVID19 - ADMIT ([employer] swab/PCR) Stat Acetaminophen (Acetaminophen 325 Mg Tablet) 650 mg PO Q6HR PRN PRN Reason: Fever/Mild Pain (1-3) Last Admin: 11/14/20 22:41 Dose: 650 mg Documented by: SPENCER Hydrocodone Bitart/Acetaminophen (Hydrocodone/Acet 5/325 Tablet) 2 tab PO Q4HR PRN PRN Reason: Pain, Severe (7-10) Hydromorphone HCl (Hydromorphone 0.5 Mg Inj) 0.5 mg IV Q4H PRN PRN Reason: Pain, Moderate (4-6) Last Admin: 11/15/20 02:27 Dose: 0.5 mg Documented by: ANTWAN Lactated Ringer's (Lactated Ringers) 1,000 mls @ 100 mls/hr IV CONT ZUNILDA Last Admin: 11/14/20 22:41 Dose: 100 mls/hr Documented by: SPENCER Ceftriaxone Sodium 1,000 mg/ (Sodium Chloride) 100 mls @ 200 mls/hr IV Q24H ZUNILDA Piperacillin Sod/Tazobactam (Sod 3.375 gm/ Sodium Chloride) 100 mls @ 25 mls/hr IV Q8H [facility] Last Admin: 11/15/20 02:28 Dose: 25 mls/hr Documented by: ANTWAN Naloxone HCl (Naloxone 0.4 Mg/Ml Vial) 0.2 mg IV Q2MIN PRN PRN Reason: Opiate Reversal Ondansetron HCl (Ondansetron 4 Mg/2 Ml Inj) 4 mg IV Q8HR PRN PRN Reason: Nausea And Vomiting Discontinued Medications Enoxaparin Sodium (Enoxaparin 30 Mg/0.3 Ml Syringe) 30 mg SUBCUT DAILY ZUNILDA Sodium Chloride (Normal Saline 0.9%) 1,000 mls @ 1,000 mls/hr IV BOLUS ONE Stop: 11/14/20 19:18 Last Infusion: 11/14/20 22:21 Dose: 0 mls/hr Documented by: JOSÉ MIGUEL Admin: 11/14/20 19:27 Dose: 1,000 mls/hr Documented by: ANKITA Ceftriaxone Sodium 2,000 mg/ (Sodium Chloride) 100 mls @ 200 mls/hr IV NOW ONE Stop: 11/14/20 19:42 Last Infusion: 11/14/20 20:24 Dose: 0 mls/hr Documented by: Admin: 11/14/20 19:52 Dose: 200 mls/hr Documented by: ANKITA Piperacillin Sod/Tazobactam (Sod 4.5 gm/ Sodium Chloride) 100 mls @ 200 mls/hr IV NOW ONE Stop: 11/14/20 23:07 Last Admin: 11/14/20 23:53 Dose: 200 mls/hr Documented by: LONG Lidocaine HCl (Lidocaine 2% (Glydo) 6 Ml Gel) 6 ml TOP NOW ONE Stop: 11/14/20 20:23 Last Admin: 11/14/20 20:25 Dose: 6 ml Documented by: ANKITA Lidocaine HCl (Lidocaine 2% (Glydo) 6 Ml Gel) 6 ml TOP NOW ONE Stop: 11/15/20 00:51 Last Admin: 11/15/20 02:30 Dose: Not Given Documented by: LONG Pantoprazole Sodium (Pantoprazole 40 Mg Vial) 40 mg IV NOW ONE Stop: 11/14/20 23:08 Last Admin: 11/14/20 23:53 Dose: 40 mg Documented by: LONG Vital Signs Vital signs: Vital Signs - 8 hr 11/14/20 20:00 Pulse Rate 103 H Respiratory Rate 13 Blood Pressure 159/66 H Pulse Oximetry 94 MDM - Male Genitourinary <Michael Roland PA-C - Last Filed: 11/14/20 19:59> Lab Data Result diagrams: 11/14/20 22:46 11/14/20 18:22 Labs: Lab Results 11/14/20 11/14/20 11/14/20 Range/Units 18:22 18:22 18:22 WBC 14.8 H (4.5-11.0) X10^3/uL RBC 3.77 L (4.5-5.9) X10^6/uL Hgb 11.6 L (13.5-17.5) g/dL Hct 34.2 L (41-53) % MCV 90.6 (80-100) fL MCH 30.8 (26-34) PG MCHC 34.0 (30-36) % RDW 13.2 (11.6-14.8) % Plt Count 191 (150-400) X10^3/uL Neut % (Auto) 78.4 H (50-75) % Lymph % (Auto) 15.0 L (25-40) % [place] % (Auto) 4.2 (3-14) % Eos % (Auto) 1.3 L (2-4) % Baso % (Auto) 1.1 (0-2) % Neut # (Auto) 81777 H (2181-1412) /uL Lymph # (Auto) 2200 (8145-1485) /uL [place] # (Auto) 600 (0-900) /uL Eos # (Auto) 200 (0-450) /uL Baso # (Auto) 200 H (0-100) /uL Sodium 137 (137-145) mmol/L Potassium 4.9 (3.4-5.1) mmol/L Chloride 103 (98-107) mmol/L Carbon Dioxide 25 (22-32) mmol/L BUN 34 H (9-20) mg/dL Creatinine 1.68 H (0.66-1.25) mg/dL Estimated GFR 39.9 L (>60) mL/min BUN/Creatinine Ratio 20.2 (6-22) Glucose 127 H (80-110) mg/dL Lactate 1.6 (0.7-2.1) mmol/L Calcium 9.1 (8.4-10.2) mg/dL Magnesium (1.6-2.3) mg/dL Total Bilirubin 0.8 (0.2-1.3) mg/dL AST 27 (17-59) IU/L ALT 18 (<50) IU/L Alkaline Phosphatase 111 (38-126) U/L Total Protein 7.4 (6.3-8.2) g/dL Albumin 4.5 (3.5-5.0) g/dL Globulin 2.9 (1.7-4.1) g/dL Albumin/Globulin Ratio 1.6 (1.0-2.8) Urine Color Urine Appearance Urine pH Ur Specific [place] Urine Protein Urine Glucose (UA) Urine Ketones Urine Occult Blood Urine Nitrate Urine Bilirubin Urine Urobilinogen Ur Leukocyte Esterase Urine RBC Urine WBC Ur Squamous Epith Cells Ur Transition Epith Cell Ur Renal Epithelial Cell Calcium Oxalate Crystal Uric Acid Crystals Triple Phos Crystals Other Crystals Amorphous Sediment Urine Bacteria Hyaline Casts Granular Casts RBC Casts WBC Casts Other Casts Urine Mucus Urine Trichomonas Urine Yeast Urine Sperm Ur Culture Indicated? Micro UA Comment SARS-CoV-2 (PCR) (Negative) 11/14/20 11/14/20 11/14/20 Range/Units 18:22 18:46 18:46 WBC (4.5-11.0) X10^3/uL RBC (4.5-5.9) X10^6/uL Hgb (13.5-17.5) g/dL Hct (41-53) % MCV (80-100) fL MCH (26-34) PG MCHC (30-36) % RDW (11.6-14.8) % Plt Count (150-400) X10^3/uL Neut % (Auto) (50-75) % Lymph % (Auto) (25-40) % [place] % (Auto) (3-14) % Eos % (Auto) (2-4) % Baso % (Auto) (0-2) % Neut # (Auto) (0787-4677) /uL Lymph # (Auto) (2776-3072) /uL [place] # (Auto) (0-900) /uL Eos # (Auto) (0-450) /uL Baso # (Auto) (0-100) /uL Sodium (137-145) mmol/L Potassium (3.4-5.1) mmol/L Chloride (98-107) mmol/L Carbon Dioxide (22-32) mmol/L BUN (9-20) mg/dL Creatinine (0.66-1.25) mg/dL Estimated GFR (>60) mL/min BUN/Creatinine Ratio (6-22) Glucose (80-110) mg/dL Lactate (0.7-2.1) mmol/L Calcium (8.4-10.2) mg/dL Magnesium 1.9 (1.6-2.3) mg/dL Total Bilirubin (0.2-1.3) mg/dL AST (17-59) IU/L ALT (<50) IU/L Alkaline Phosphatase (38-126) U/L Total Protein (6.3-8.2) g/dL Albumin (3.5-5.0) g/dL Globulin (1.7-4.1) g/dL Albumin/Globulin Ratio (1.0-2.8) Urine Color Red Urine Appearance Cloudy Urine pH TNP Ur Specific [place] TNP Urine Protein TNP Urine Glucose (UA) TNP Urine Ketones TNP Urine Occult Blood TNP Urine Nitrate TNP Urine Bilirubin TNP Urine Urobilinogen TNP Ur Leukocyte Esterase TNP Urine RBC Cancelled TNP Urine WBC Cancelled TNP Ur Squamous Epith Cells Cancelled TNP Ur Transition Epith Cell Cancelled TNP Ur Renal Epithelial Cell Cancelled TNP Calcium Oxalate Crystal Cancelled TNP Uric Acid Crystals Cancelled TNP Triple Phos Crystals Cancelled TNP Other Crystals Cancelled TNP Amorphous Sediment Cancelled TNP Urine Bacteria Cancelled TNP Hyaline Casts Cancelled TNP Granular Casts Cancelled TNP RBC Casts Cancelled TNP WBC Casts Cancelled TNP Other Casts Cancelled TNP Urine Mucus Cancelled TNP Urine Trichomonas Cancelled TNP Urine Yeast Cancelled TNP Urine Sperm Cancelled TNP Ur Culture Indicated? Cancelled Cult not indicated Micro UA Comment Cancelled SARS-CoV-2 (PCR) (Negative) 11/14/20 Range/Units 19:00 WBC (4.5-11.0) X10^3/uL RBC (4.5-5.9) X10^6/uL Hgb (13.5-17.5) g/dL Hct (41-53) % MCV (80-100) fL MCH (26-34) PG MCHC (30-36) % RDW (11.6-14.8) % Plt Count (150-400) X10^3/uL Neut % (Auto) (50-75) % Lymph % (Auto) (25-40) % [place] % (Auto) (3-14) % Eos % (Auto) (2-4) % Baso % (Auto) (0-2) % Neut # (Auto) (2112-6177) /uL Lymph # (Auto) (9825-3758) /uL [place] # (Auto) (0-900) /uL Eos # (Auto) (0-450) /uL Baso # (Auto) (0-100) /uL Sodium (137-145) mmol/L Potassium (3.4-5.1) mmol/L Chloride (98-107) mmol/L Carbon Dioxide (22-32) mmol/L BUN (9-20) mg/dL Creatinine (0.66-1.25) mg/dL Estimated GFR (>60) mL/min BUN/Creatinine Ratio (6-22) Glucose (80-110) mg/dL Lactate (0.7-2.1) mmol/L Calcium (8.4-10.2) mg/dL Magnesium (1.6-2.3) mg/dL Total Bilirubin (0.2-1.3) mg/dL AST (17-59) IU/L ALT (<50) IU/L Alkaline Phosphatase (38-126) U/L Total Protein (6.3-8.2) g/dL Albumin (3.5-5.0) g/dL Globulin (1.7-4.1) g/dL Albumin/Globulin Ratio (1.0-2.8) Urine Color Urine Appearance Urine pH Ur Specific [place] Urine Protein Urine Glucose (UA) Urine Ketones Urine Occult Blood Urine Nitrate Urine Bilirubin Urine Urobilinogen Ur Leukocyte Esterase Urine RBC Urine WBC Ur Squamous Epith Cells Ur Transition Epith Cell Ur Renal Epithelial Cell Calcium Oxalate Crystal Uric Acid Crystals Triple Phos Crystals Other Crystals Amorphous Sediment Urine Bacteria Hyaline Casts Granular Casts RBC Casts WBC Casts Other Casts Urine Mucus Urine Trichomonas Urine Yeast Urine Sperm Ur Culture Indicated? Micro UA Comment SARS-CoV-2 (PCR) Negative (Negative) <Alfredo Ayers DO - Last Filed: 11/15/20 03:44> Lab Data Labs: Lab Results 11/14/20 11/14/20 11/14/20 Range/Units 18:22 18:22 18:22 WBC 14.8 H (4.5-11.0) X10^3/uL RBC 3.77 L (4.5-5.9) X10^6/uL Hgb 11.6 L (13.5-17.5) g/dL Hct 34.2 L (41-53) % MCV 90.6 (80-100) fL MCH 30.8 (26-34) PG MCHC 34.0 (30-36) % RDW 13.2 (11.6-14.8) % Plt Count 191 (150-400) X10^3/uL Neut % (Auto) 78.4 H (50-75) % Lymph % (Auto) 15.0 L (25-40) % [place] % (Auto) 4.2 (3-14) % Eos % (Auto) 1.3 L (2-4) % Baso % (Auto) 1.1 (0-2) % Neut # (Auto) 25982 H (2767-1785) /uL Lymph # (Auto) 2200 (6013-4044) /uL [place] # (Auto) 600 (0-900) /uL Eos # (Auto) 200 (0-450) /uL Baso # (Auto) 200 H (0-100) /uL Sodium 137 (137-145) mmol/L Potassium 4.9 (3.4-5.1) mmol/L Chloride 103 (98-107) mmol/L Carbon Dioxide 25 (22-32) mmol/L BUN 34 H (9-20) mg/dL Creatinine 1.68 H (0.66-1.25) mg/dL Estimated GFR 39.9 L (>60) mL/min BUN/Creatinine Ratio 20.2 (6-22) Glucose 127 H (80-110) mg/dL Lactate 1.6 (0.7-2.1) mmol/L Calcium 9.1 (8.4-10.2) mg/dL Magnesium (1.6-2.3) mg/dL Total Bilirubin 0.8 (0.2-1.3) mg/dL AST 27 (17-59) IU/L ALT 18 (<50) IU/L Alkaline Phosphatase 111 (38-126) U/L Total Protein 7.4 (6.3-8.2) g/dL Albumin 4.5 (3.5-5.0) g/dL Globulin 2.9 (1.7-4.1) g/dL Albumin/Globulin Ratio 1.6 (1.0-2.8) Urine Color Urine Appearance Urine pH Ur Specific [place] Urine Protein Urine Glucose (UA) Urine Ketones Urine Occult Blood Urine Nitrate Urine Bilirubin Urine Urobilinogen Ur Leukocyte Esterase Urine RBC Urine WBC Ur Squamous Epith Cells Ur Transition Epith Cell Ur Renal Epithelial Cell Calcium Oxalate Crystal Uric Acid Crystals Triple Phos Crystals Other Crystals Amorphous Sediment Urine Bacteria Hyaline Casts Granular Casts RBC Casts WBC Casts Other Casts Urine Mucus Urine Trichomonas Urine Yeast Urine Sperm Ur Culture Indicated? Micro UA Comment SARS-CoV-2 (PCR) (Negative) 11/14/20 11/14/20 11/14/20 Range/Units 18:22 18:46 18:46 WBC (4.5-11.0) X10^3/uL RBC (4.5-5.9) X10^6/uL Hgb (13.5-17.5) g/dL Hct (41-53) % MCV (80-100) fL MCH (26-34) PG MCHC (30-36) % RDW (11.6-14.8) % Plt Count (150-400) X10^3/uL Neut % (Auto) (50-75) % Lymph % (Auto) (25-40) % [place] % (Auto) (3-14) % Eos % (Auto) (2-4) % Baso % (Auto) (0-2) % Neut # (Auto) (7430-7981) /uL Lymph # (Auto) (5683-0189) /uL [place] # (Auto) (0-900) /uL Eos # (Auto) (0-450) /uL Baso # (Auto) (0-100) /uL Sodium (137-145) mmol/L Potassium (3.4-5.1) mmol/L Chloride (98-107) mmol/L Carbon Dioxide (22-32) mmol/L BUN (9-20) mg/dL Creatinine (0.66-1.25) mg/dL Estimated GFR (>60) mL/min BUN/Creatinine Ratio (6-22) Glucose (80-110) mg/dL Lactate (0.7-2.1) mmol/L Calcium (8.4-10.2) mg/dL Magnesium 1.9 (1.6-2.3) mg/dL Total Bilirubin (0.2-1.3) mg/dL AST (17-59) IU/L ALT (<50) IU/L Alkaline Phosphatase (38-126) U/L Total Protein (6.3-8.2) g/dL Albumin (3.5-5.0) g/dL Globulin (1.7-4.1) g/dL Albumin/Globulin Ratio (1.0-2.8) Urine Color Red Urine Appearance Cloudy Urine pH TNP Ur Specific [place] TNP Urine Protein TNP Urine Glucose (UA) TNP Urine Ketones TNP Urine Occult Blood TNP Urine Nitrate TNP Urine Bilirubin TNP Urine Urobilinogen TNP Ur Leukocyte Esterase TNP Urine RBC Cancelled TNP Urine WBC Cancelled TNP Ur Squamous Epith Cells Cancelled TNP Ur Transition Epith Cell Cancelled TNP Ur Renal Epithelial Cell Cancelled TNP Calcium Oxalate Crystal Cancelled TNP Uric Acid Crystals Cancelled TNP Triple Phos Crystals Cancelled TNP Other Crystals Cancelled TNP Amorphous Sediment Cancelled TNP Urine Bacteria Cancelled TNP Hyaline Casts Cancelled TNP Granular Casts Cancelled TNP RBC Casts Cancelled TNP WBC Casts Cancelled TNP Other Casts Cancelled TNP Urine Mucus Cancelled TNP Urine Trichomonas Cancelled TNP Urine Yeast Cancelled TNP Urine Sperm Cancelled TNP Ur Culture Indicated? Cancelled Cult not indicated Micro UA Comment Cancelled SARS-CoV-2 (PCR) (Negative) 11/14/20 Range/Units 19:00 WBC (4.5-11.0) X10^3/uL RBC (4.5-5.9) X10^6/uL Hgb (13.5-17.5) g/dL Hct (41-53) % MCV (80-100) fL MCH (26-34) PG MCHC (30-36) % RDW (11.6-14.8) % Plt Count (150-400) X10^3/uL Neut % (Auto) (50-75) % Lymph % (Auto) (25-40) % [place] % (Auto) (3-14) % Eos % (Auto) (2-4) % Baso % (Auto) (0-2) % Neut # (Auto) (5227-7038) /uL Lymph # (Auto) (3573-1210) /uL [place] # (Auto) (0-900) /uL Eos # (Auto) (0-450) /uL Baso # (Auto) (0-100) /uL Sodium (137-145) mmol/L Potassium (3.4-5.1) mmol/L Chloride (98-107) mmol/L Carbon Dioxide (22-32) mmol/L BUN (9-20) mg/dL Creatinine (0.66-1.25) mg/dL Estimated GFR (>60) mL/min BUN/Creatinine Ratio (6-22) Glucose (80-110) mg/dL Lactate (0.7-2.1) mmol/L Calcium (8.4-10.2) mg/dL Magnesium (1.6-2.3) mg/dL Total Bilirubin (0.2-1.3) mg/dL AST (17-59) IU/L ALT (<50) IU/L Alkaline Phosphatase (38-126) U/L Total Protein (6.3-8.2) g/dL Albumin (3.5-5.0) g/dL Globulin (1.7-4.1) g/dL Albumin/Globulin Ratio (1.0-2.8) Urine Color Urine Appearance Urine pH Ur Specific [place] Urine Protein Urine Glucose (UA) Urine Ketones Urine Occult Blood Urine Nitrate Urine Bilirubin Urine Urobilinogen Ur Leukocyte Esterase Urine RBC Urine WBC Ur Squamous Epith Cells Ur Transition Epith Cell Ur Renal Epithelial Cell Calcium Oxalate Crystal Uric Acid Crystals Triple Phos Crystals Other Crystals Amorphous Sediment Urine Bacteria Hyaline Casts Granular Casts RBC Casts WBC Casts Other Casts Urine Mucus Urine Trichomonas Urine Yeast Urine Sperm Ur Culture Indicated? Micro UA Comment SARS-CoV-2 (PCR) Negative (Negative) Discharge Plan Departure Patient Disposition: Admitted As Inpatient Clinical Impression: Acute UTI, Gross hematuria Sepsis Qualifiers: Sepsis type: sepsis due to unspecified organism Sepsis acute organ dysfunction status: unspecified Qualified Code(s): A41.9 - Sepsis, unspecified organism Admit Date/Time: 11/14/20 20:35 Admit Provider: Joslyn Gunn <Alfredo Ayers DO - Last Filed: 11/15/20 03:44> Cosign ED Attending Cosignature Attestation: I was immediately available in the department for consultation. This documentation has been reviewed and I agree with assessment and plan. Supervised by Alfredo Ayers DO
[2020-11-14 19:20] LABS: Color Urine UA RED
[2020-11-14 19:21] LABS: Appearance Urine UA CLOUDY
[2020-11-14 19:25] LABS: Culture Indicated Urine Cult Not Indicated
[2020-11-14] MEDS: SODIUM CHLORIDE 0.9% 1,000 ML 1000 ML IV (19:27)
[2020-11-14 19:30] LABS: Alanine Aminotransferase 18 IU/L (<50); Albumin Globulin Ratio 1.6 (1.0-2.8); Alkaline Phosphatase 111 U/L (38-126); Aspartate Aminotransferase 27 IU/L (17-59); BUN Creatinine Ratio 20.2 (6-22); Bilirubin Total 0.8 mg/dL (0.2-1.3); Blood Urea Nitrogen 34 mg/dL (9-20); Calcium 9.1 mg/dL (8.4-10.2); Chloride 103 mmol/L (98-107); Estimated Glomerular Filt Rate 39.9 mL/min (>60); Globulin 2.9 g/dL (1.7-4.1); Glucose 127 mg/dL (80-110); Potassium 4.9 mmol/L (3.4-5.1); Sodium 137 mmol/L (137-145); Total Protein 7.4 g/dL (6.3-8.2)
[2020-11-14] MEDS: cefTRIAXone 2,000 MG in SODIUM CHLORIDE 0.9% 100 ML 200 ML IV (19:52)
[2020-11-14 20:22] LABS: COVID19 - ADMIT (NP swab/PCR) Negative (Negative)
[2020-11-14] MEDS: LIDOCAINE 2% (GLYDO) 6 ML GEL TOP (20:25)
--- NOTE | 2020-11-14 21:17 | PC.NURSE ---
Pt's catheter not draining. Bright right blood noticed at meatus. Tried flushing with 60 cc syringe and normal saline. No difficulty infusing saline, no return out catheter. Replaced catheter with 18f [address] way and connected to continuous irrigation. Aproximately 10cc of dark red urine drained into bag and then stopped. Tried drawing urine through 3 way and no urine return. removed catheter followed by multiple blood clots from penis. Placed a [address]f [address] catheter with patient's consent. Catheter immediately started draining dark red urine, multiple clots noted in bag. Connected to continuous irrigation. Over a liter of fluid in drainage bag at this time.
[2020-11-14 21:27] LABS: Magnesium 1.9 mg/dL (1.6-2.3)
[2020-11-14] MEDS: ACETAMINOPHEN 325 MG TABLET 650 MG PO (22:41)
[2020-11-14] MEDS: LACTATED RINGERS 1,000 ML 100 ML IV (22:41)
[2020-11-14 23:13] LABS: Hematocrit 31.1 % (41-53); Hemoglobin 10.6 g/dL (13.5-17.5)
--- NOTE | 2020-11-14 23:50 | PC.ADMIT ---
[email or web address] Admission Note: Patient arrived to A&Ox4, VSS, complaint of severe abdominal discomfort. Upon observation catheter with decreased flow of urine and catheter clamped off during transfer. Catheter flushed with 60cc of sterile saline with immediate return of urine flow. Urine bright red with several blood clots. CBI roller clamp wide open. Within 15 minutes catheter with decrease flow of urine and patient complaining of mild abdominal discomfort. This RN pulled a total of 240 cc of bright red urine with several blood clots until return of urine flow. IGNACIA Gunn updated, Urologist notified of change, H&H ordered along with type and cross. Patient stable at this moment, SBP trended every 30min. shift nurse manager nurse updated. Bed in low position, bed alarm on, call light within reach. Vital Signs - 8 hr 11/14/20 16:22 11/14/20 17:59 11/14/20 18:25 Temperature 98.2 F Pulse Rate 71 75 95 H Respiratory Rate 20 18 Blood Pressure 159/73 H 171/81 H Pulse Oximetry 98 96 96 11/14/20 18:27 11/14/20 18:30 11/14/20 19:04 Temperature 99.8 F H Pulse Rate 96 H 95 H 98 H Respiratory Rate 19 18 20 Blood Pressure 165/80 H 150/72 H Pulse Oximetry 95 96 95 11/14/20 19:11 11/14/20 19:30 11/14/20 20:00 Temperature 100.6 F H Pulse Rate 95 H 94 H 103 H Respiratory Rate 18 23 13 Blood Pressure 135/63 137/64 159/66 H Pulse Oximetry 96 94 94 11/14/20 21:07 11/14/20 21:10 11/14/20 21:30 Temperature Pulse Rate 104 H 104 H 102 H Respiratory Rate 22 29 H 35 H Blood Pressure 124/57 L 105/52 L Pulse Oximetry 94 93 95 11/14/20 22:00 11/14/20 22:20 11/14/20 23:01 Temperature 99.6 F Pulse Rate 108 H 113 H Respiratory Rate 24 20 Blood Pressure 118/56 L 133/70 119/62 Pulse Oximetry 93 11/14/20 23:29 Temperature Pulse Rate Respiratory Rate Blood Pressure 102/57 L Pulse Oximetry
[2020-11-14] MEDS: PIPERACILLIN/TAZO 4.5 GM in SODIUM CHLORIDE 0.9% 100 ML 200 ML IV (23:53)
[2020-11-14] MEDS: PANTOPRAZOLE 40 MG VIAL IV (23:53)
[2020-11-15] VITALS (13 sets, daily range): BP systolic 100–122; BP diastolic 40–63; PULSE 63–98; RESP 14–20; TEMP 36.3–38.2; O2SAT 92–99
--- NOTE | 2020-11-15 01:40 | PM.HP.1 ---
History of Present Illness History of Present Illness Date Patient Seen: 11/14/20 Time Patient Seen: 20:59 Chief complaint: Bladder Infection Getting Worse Blood/Clotting Narrative: Patient is a 75-year-old male Andres Younger who presented today with chief complaint bloody urination that has gotten worse over the last 2 days. Patient has a history of BPH and had a TURP procedure in the past, has a history of hypertension, hyperlipidemia, CKD stage 3, anemia, RENO, and obesity. He reports that last night he had trouble urinating because of the amount of blood clots that he was passing. He passed a large blood clot earlier today and has had pain in his penis since that occurred. He denies any significant abdominal pain, nausea, vomiting, flank pain, shortness of breath, chest pain, fever or any other acute concerns or complaints at this time. He is not on any blood thinners and takes 81 mg of aspirin daily. Patient denies fever, body aches, or chills. Patient reports that he has never had blood in his urine before he did have a UTI several years ago, and has half a prostate left. Patient was admitted while still in the ED attempts at straight cath were unsuccessful due to the amount in size of blood clots eventually a 26 Gabonese Batista catheter was placed patient's urine vary between dark red and grape juice in color. Upon arriving on the floor patient was placed on continuous irrigation with continued obstruction from blood clots. Patient's vitals upon admit fever I will with temp 100.6?, BP 135/63, HR 95, RR 18, O2 saturation 96% on room air. Patient does have an elevated WBC 14.8 with neutrophils 11,600, baso 200, HGB 11.6, HCT 34.2. BUN 34, creatinine 1.68, glucose 127, GFR 39.9, sofa score: 1. Patient's chest x-ray demonstrated mild hyper aeration and flattening of the hemidiaphragms suggestive of COPD minimal bibasilar streaking opacities. CT of Abd/Pelvis demonstated Bilateral nonobstructive nephrolithiasis. No evidence for obstructive uropathy. Moderate, slightly irregular thickening of the urinary bladder.Underlying neoplastic process not excluded. Colonic diverticulosis without acute diverticulitis. Prostatomegaly. Stable sub 5 mm right lower lobe pulmonary nodule. Cholelithiasis without CT evidence for acute cholecystitis. Patient admitted for acute UTI with gross hematuria. Patient History Medical History (Updated 11/15/20 @ 01:59 by CHASTITY Hammonds-) Acute UTI Ankle pain Basal cell adenocarcinoma BPH (benign prostatic hyperplasia) Burning pain CAD (coronary artery disease) Cardiomyopathy Cataract (2013) Clubfoot CMT (Kbicgpa-Ruemw-Potuf disease) (2014) Colon polyps (2009) Essential hypertension Hearing loss (2014) Injury of left elbow Malignant neoplasm of kidney Melanoma (2007) Obstructive sleep apnea Osteoarthritis of both knees Osteoarthrosis, ankle and foot Rheumatic fever (1957) Shoulder pain (2011) Spinal stenosis of lumbar region (09/15/13) Squamous cell skin cancer, face Stage 3 chronic kidney disease Superficial laceration Tinnitus UTI (urinary tract infection) Surgical History Anesthesia History of back surgery (08/2013) History of cataract removal with insertion of prosthetic lens (2013) History of left knee replacement History of left knee surgery (2004) History of nephrectomy (2003) S/P TURP (~07/2019) Family & Social History Family History Father Alcoholism Heart disease Mother Stroke Heart disease Other Hypertension Social History: household members spouse Prior Living Arrangements House lives independently Yes Safety & Behavioral: Feels Safe in Current Yes Environment Been Physically Hurt or No Threatened By a Person Suicidal Ideation Description None Suicide Plan Description No Plan Tobacco & Substance use: Smoking Status Former smoker alcohol intake current alcohol intake frequency holiday/special occasion Substance Use Type does not use Meds Home Medications and Allergies Home Medications Medication Instructions Recorded Confirmed Type miscellaneous medical supply #1 each 10/04/17 11/14/20 Rx Respironics Dreamstation CPAP #1 ea 07/27/18 10/30/20 History carvedilol 12.5 mg tablet 12.5 mg PO BID 04/17/19 11/14/20 History terazosin 10 mg capsule 10 mg PO BEDTIME 01/29/20 11/14/20 History aspirin 81 mg tablet,delayed 81 mg PO DAILY 04/22/20 11/14/20 History release rosuvastatin 5 mg tablet 5 mg PO DAILY 04/22/20 11/14/20 History acetaminophen 650 mg See Rx Instructions PO DAILY PRN 09/17/20 11/14/20 History tablet,extended release (Tylenol tab Arthritis Pain) amlodipine 5 mg tablet 5 mg PO DAILY 09/17/20 11/14/20 History pregabalin 25 mg capsule (Lyrica) 25 mg PO DAILY cap 11/01/20 11/14/20 History Allergies Allergy/AdvReac Type Severity Reaction Status Date / Time amoxicillin [AMOXICILLIN] Allergy Unknown RASH Verified 11/14/20 11:07 sulfamethoxazole AdvReac Severe acute Verified 11/14/20 11:07 [From Bactrim] renal failure trimethoprim [From Bactrim] AdvReac Severe acute Verified 11/14/20 11:07 renal failure Review of Systems Review of Systems Narrative: All 12 point systems reviewed with the patient and are negative except otherwise documented. Exam Vital Signs (past 8 hours): - 11/14/20 17:59 11/14/20 18:25 11/14/20 18:27 Temperature Pulse Rate 75 95 H 96 H Respiratory Rate 18 19 Blood Pressure 171/81 H 165/80 H Pulse Oximetry 96 96 95 11/14/20 18:30 11/14/20 19:04 11/14/20 19:11 Temperature 99.8 F H 100.6 F H Pulse Rate 95 H 98 H 95 H Respiratory Rate 18 20 18 Blood Pressure 150/72 H 135/63 Pulse Oximetry 96 95 96 11/14/20 19:30 11/14/20 20:00 11/14/20 21:07 Temperature Pulse Rate 94 H 103 H 104 H Respiratory Rate 23 13 22 Blood Pressure 137/64 159/66 H Pulse Oximetry 94 94 94 11/14/20 21:10 11/14/20 21:30 11/14/20 22:00 Temperature Pulse Rate 104 H 102 H 108 H Respiratory Rate 29 H 35 H 24 Blood Pressure 124/57 L 105/52 L 118/56 L Pulse Oximetry 93 95 93 11/14/20 22:20 11/14/20 23:01 11/14/20 23:29 Temperature 99.6 F Pulse Rate 113 H Respiratory Rate 20 Blood Pressure 133/70 119/62 102/57 L Pulse Oximetry 11/15/20 00:58 Temperature 98.8 F Pulse Rate 98 H Respiratory Rate 20 Blood Pressure 100/51 L Pulse Oximetry 92 Oxygen Delivery Method Room Air Oxygen Flow Rate 0 Narrative Exam Narrative: General: Patient is a well-developed, well-nourished male in no distress at this time. HEENT: Normocephalic, atraumatic, extraocular muscles intact, oral pharynx is clear and mucous membranes are moist. Neck is supple and symmetric, trachea is midline, no adenopathy, no thyroid enlargement, nontender, no masses palpated. Negative for JVD Chest: Normal AP diameter and contour without kyphoscoliosis, no nasal flaring, retractions, or tachypneic labored Lungs: Auscultation of all lung alexander are clear without adventitious sounds, wheezes, rhonchi, or rales. Cardio: S1 & S2 with regular rate and rhythm without murmur, rubs, or gallops, no carotid bruit, no cardiac pulsations present. Abdomen: Soft nontender, negative for organomegaly, or masses. Bowel sounds are present in all 4 quadrants without guarding or rebound, no CVA tenderness. Batista in place draining well, dark Bloody urine. Musculoskeletal: Muscle strength and tone are equal within normal limits, no deformity, crepitus, effusions, cyanosis, or clubbing present. Bilateral non pitting +1 lower extremity edema. Full range of motion intact radial and pedal pulses are normal. Skin: Warm/hot to touch, dry and intact without rashes, ulcerations or petechiae. Neuro: Alert and orientated x3, strength is +5/5 in all extremities, sensation to touch intact, no gross deficits noted of cranial nerves. Psych: Patient has a well-kept appearance, appropriate affect, mental status attitude thought context and judgment are appropriate for age. Objective Labs Result Diagrams: 11/14/20 22:46 11/14/20 18:22 Labs: Laboratory Results - last 24 hr 11/14/20 11/14/20 11/14/20 18:22 18:22 18:22 WBC 14.8 H RBC 3.77 L Hgb 11.6 L Hct 34.2 L MCV 90.6 MCH 30.8 MCHC 34.0 RDW 13.2 Plt Count 191 Neut % (Auto) 78.4 H Lymph % (Auto) 15.0 L Winston % (Auto) 4.2 Eos % (Auto) 1.3 L Baso % (Auto) 1.1 Neut # (Auto) 47879 H Lymph # (Auto) 2200 Winston # (Auto) 600 Eos # (Auto) 200 Baso # (Auto) 200 H Sodium 137 Potassium 4.9 Chloride 103 Carbon Dioxide 25 BUN 34 H Creatinine 1.68 H Estimated GFR 39.9 L BUN/Creatinine Ratio 20.2 Glucose 127 H Lactate 1.6 Calcium 9.1 Magnesium Total Bilirubin 0.8 AST 27 ALT 18 Alkaline Phosphatase 111 Total Protein 7.4 Albumin 4.5 Globulin 2.9 Albumin/Globulin Ratio 1.6 Urine Color Urine Appearance Urine pH Ur Specific [place] Urine Protein Urine Glucose (UA) Urine Ketones Urine Occult Blood Urine Nitrate Urine Bilirubin Urine Urobilinogen Ur Leukocyte Esterase Urine RBC Urine WBC Ur Squamous Epith Cells Ur Transition Epith Cell Ur Renal Epithelial Cell Calcium Oxalate Crystal Uric Acid Crystals Triple Phos Crystals Other Crystals Amorphous Sediment Urine Bacteria Hyaline Casts Granular Casts RBC Casts WBC Casts Other Casts Urine Mucus Urine Trichomonas Urine Yeast Urine Sperm Ur Culture Indicated? Micro UA Comment SARS-CoV-2 (PCR) 11/14/20 11/14/20 11/14/20 18:22 18:46 18:46 WBC RBC Hgb Hct MCV MCH MCHC RDW Plt Count Neut % (Auto) Lymph % (Auto) Winston % (Auto) Eos % (Auto) Baso % (Auto) Neut # (Auto) Lymph # (Auto) Winston # (Auto) Eos # (Auto) Baso # (Auto) Sodium Potassium Chloride Carbon Dioxide BUN Creatinine Estimated GFR BUN/Creatinine Ratio Glucose Lactate Calcium Magnesium 1.9 Total Bilirubin AST ALT Alkaline Phosphatase Total Protein Albumin Globulin Albumin/Globulin Ratio Urine Color Red Urine Appearance Cloudy Urine pH TNP Ur Specific [place] TNP Urine Protein TNP Urine Glucose (UA) TNP Urine Ketones TNP Urine Occult Blood TNP Urine Nitrate TNP Urine Bilirubin TNP Urine Urobilinogen TNP Ur Leukocyte Esterase TNP Urine RBC Cancelled TNP Urine WBC Cancelled TNP Ur Squamous Epith Cells Cancelled TNP Ur Transition Epith Cell Cancelled TNP Ur Renal Epithelial Cell Cancelled TNP Calcium Oxalate Crystal Cancelled TNP Uric Acid Crystals Cancelled TNP Triple Phos Crystals Cancelled TNP Other Crystals Cancelled TNP Amorphous Sediment Cancelled TNP Urine Bacteria Cancelled TNP Hyaline Casts Cancelled TNP Granular Casts Cancelled TNP RBC Casts Cancelled TNP WBC Casts Cancelled TNP Other Casts Cancelled TNP Urine Mucus Cancelled TNP Urine Trichomonas Cancelled TNP Urine Yeast Cancelled TNP Urine Sperm Cancelled TNP Ur Culture Indicated? Cancelled Cult not indicated Micro UA Comment Cancelled SARS-CoV-2 (PCR) 11/14/20 11/14/20 19:00 22:46 WBC RBC Hgb 10.6 L Hct 31.1 L MCV MCH MCHC RDW Plt Count Neut % (Auto) Lymph % (Auto) Winston % (Auto) Eos % (Auto) Baso % (Auto) Neut # (Auto) Lymph # (Auto) Winston # (Auto) Eos # (Auto) Baso # (Auto) Sodium Potassium Chloride Carbon Dioxide BUN Creatinine Estimated GFR BUN/Creatinine Ratio Glucose Lactate Calcium Magnesium Total Bilirubin AST ALT Alkaline Phosphatase Total Protein Albumin Globulin Albumin/Globulin Ratio Urine Color Urine Appearance Urine pH Ur Specific [place] Urine Protein Urine Glucose (UA) Urine Ketones Urine Occult Blood Urine Nitrate Urine Bilirubin Urine Urobilinogen Ur Leukocyte Esterase Urine RBC Urine WBC Ur Squamous Epith Cells Ur Transition Epith Cell Ur Renal Epithelial Cell Calcium Oxalate Crystal Uric Acid Crystals Triple Phos Crystals Other Crystals Amorphous Sediment Urine Bacteria Hyaline Casts Granular Casts RBC Casts WBC Casts Other Casts Urine Mucus Urine Trichomonas Urine Yeast Urine Sperm Ur Culture Indicated? Micro UA Comment SARS-CoV-2 (PCR) Negative Assessment & Plan Assessment & Plan narrative: Patient is a 75-year-old male Andres Younger who presented today with chief complaint bloody urination and occulding blood clots that has gotten worse over the last 2 days. Patient has a history of BPH and had a TURP procedure in the past, has a history of hypertension, hyperlipidemia, CKD stage 3, anemia, RENO, and obesity. Patient admitted for acute UTI with gross hematuria. 1. Acute UTI with gross hematuria, in the setting of chronic kidney disease stage 3 and BPH with a history of TURP, acute on chronic, present on admission -temp 100.6?,WBC 14.8, neutrophils 11,600, baso 200, HGB 11.6, HCT 34.2. BUN 34, creatinine 1.68, glucose 127, GFR 39.9, sofa score:1. -CT of Abd/Pelvis demonstated Bilateral nonobstructive nephrolithiasis. No evidence for obstructive uropathy. Moderate, slightly irregular thickening of the urinary bladder.Underlying neoplastic process not excluded. Colonic diverticulosis without acute diverticulitis. Prostatomegaly. Stable sub 5 mm right lower lobe pulmonary nodule. Cholelithiasis without CT evidence for acute cholecystitis. -rule out sepsis, cystitis vs. pyelonephritis vs. epididymitis vs. prostatitis vs.nephrolithiasis -26 Gabonese Batista placed in the ED, continuous irrigation initiated upon admit-drainage continues to be dark red blood in color with frequent large obstructing blood clots requiring aggressive irrigation. -phone consult with Dr. [facility]- he plans to perform cystoscopy tomorrow. -Notify provider for urinary output less than 200 mL per shift, temp >38.5, systolic <100 or Heart rate >110 or an SaO2 less than 92%, -repeat H&H tonight -Urine & blood cultures pending -Protonix 40mg IV x1 -Rocephin and Zosyn -LR at 100 cc/HR -antiemetics and pain medication 2. Essential hypertension, chronic, present on admission, well controlled -continue patient's amlodipine and carvedilol, tenazosin -hold patient's aspirin 3. Hyperlipidemia, chronic, present on admission -continue patient's rouvastatin 4. Khayxtd-Shvcx-drhrh disease, chronic, present on admission -continue patient's Lyrica Code status:Full Surrogate decision maker: Yenni Aren -spouse COVID PCR:Negative COVID vaccination: Unknown DVT/VTE prophylaxis:SCD's only Disposition: Patient admitted for observation, expected length of stay less than 2 midnights I have utilized all available immediate resources to obtain, update, or review the patient's current medications. I confirmed that the patient's advanced care plan is present, Code status is documented and/or surrogate decision maker is listed in the patient's medical record. Time Spent With Patient Critical Care time: I spent a total of [] minutes of critical care time on this patient's care today; this time is exclusive of procedural time. Scores GCS Joe coma scale eye opening: Spontaneous [place] coma scale verbal response: Orientated Joe coma scale motor response: Obey commands Joe coma scale total score: 15
[2020-11-15] MEDS: HYDROMORPHONE 0.5 MG INJ IV (02:27)
[2020-11-15] MEDS: PIPERACILLIN/TAZO 3.375 GM in SODIUM CHLORIDE 0.9% 100 ML 25 ML IV ×2 (02:28→11:23)
[2020-11-15] MEDS: HYDROCODONE/ACET 5/325 TABLET 2 TAB PO (03:46)
[2020-11-15 05:36] LABS: Hematocrit 27.7 % (41-53); Hemoglobin 9.4 g/dL (13.5-17.5); Mean Corpuscular HGB Conc 33.8 % (30-36); Mean Corpuscular Hemoglobin 30.7 PG (26-34); Mean Corpuscular Volume 90.7 fL (80-100); Platelet Count 147 X10^3/uL (150-400); Red Blood Cell Count 3.06 X10^6/uL (4.5-5.9); Red Cell Distribution Width 13.4 % (11.6-14.8)
[2020-11-15 05:38] LABS: Add Manual Diff / Slide Review YES
[2020-11-15 05:52] LABS: INR 1.3 (0.9-1.3); Prothrombin Time 14.6 SECONDS (10.1-12.7)
[2020-11-15 05:53] LABS: PTT Partial Thromboplastin Tim 30 SECONDS (26.4-36.2)
[2020-11-15 06:09] LABS: Alanine Aminotransferase 17 IU/L (<50); Albumin 3.3 g/dL (3.5-5.0); Albumin Globulin Ratio 1.4 (1.0-2.8); Alkaline Phosphatase 67 U/L (38-126); Aspartate Aminotransferase 23 IU/L (17-59); BUN Creatinine Ratio 17.8 (6-22); Bilirubin Total 0.6 mg/dL (0.2-1.3); Blood Urea Nitrogen 35 mg/dL (9-20); Calcium 8.4 mg/dL (8.4-10.2); Carbon Dioxide 27 mmol/L (22-32); Chloride 102 mmol/L (98-107); Estimated Glomerular Filt Rate 33.2 mL/min (>60); Globulin 2.4 g/dL (1.7-4.1); Glucose 176 mg/dL (80-110); HEMOLYSIS < 15 (0-50); Sodium 137 mmol/L (137-145); Total Protein 5.7 g/dL (6.3-8.2)
[2020-11-15 06:59] LABS: Neutrophils Absolute Manual 17400 /uL (3000-5900); Total Cells Counted 100
[2020-11-15 07:00] LABS: RBC Morphology Normal Morphology
[2020-11-15] MEDS: PREGABALIN 25 MG CAPSULE PO (08:22)
[2020-11-15] MEDS: ACETAMINOPHEN 325 MG TABLET 650 MG PO ×2 (08:22→23:53)
[2020-11-15] MEDS: cefTRIAXone 1,000 MG in SODIUM CHLORIDE 0.9% 100 ML 200 ML IV (08:55)
--- NOTE | 2020-11-15 09:46 | PM.CN ---
History of Present Illness Consult details Date Patient Seen: 11/15/20 Time Patient Seen: 01:10 Chief complaint: Bladder Infection Getting Worse Blood/Clotting Reason for consult: Clot urinary retention with plugged catheter. Requesting provider: Joslyn Gunn Narrative: Is this is a 75-year-old male who presented to primary care provider with complaint of 2 day history of gross hematuria, clots, increasing difficulty urinating, dysuria, frequency, urgency. Sure this visit he was sent to the emergency department here at [facility] and was subsequently admitted by the hospitalist service. I was contacted by Dr. Gunn who related the patient's situation. I recommended continuous bladder irrigation and intermittent hand irrigation as needed; this in addition to appropriate antibiotics urine culture stopping any anticoagulants to include aspirin. Staff began having increasing difficulty with keeping his Batista catheter draining. They had been hand irrigating with saline. They got to the point where they could get ?nothing out and the urine is not flowing ?. In the emergency department the patient had a CT scan which showed bilateral nonobstructing renal calculi, no ureteral abnormality and no suspicious lesions in the bladder. The Batista was documented to be in the appropriate position. My review of the films makes me suspicious that there may be clot within the bladder at the time of the CT scan. Patient was noted have an elevated white count. Patient has a long history of urinary tract infections. He has been followed by a a urologist Heraclio Shrestha in [facility]; who in I believe July of 2019 did a ?button TURP ?. With the nursing staff having difficulty I was re-contacted by Dr. Gunn and suggested that instead of irrigating with saline that the irrigations by hand be done with sterile water. I also proceeded to the hospital at that time given the reported difficulties. I noted in the patient chart that appropriate laboratories had been obtained and appropriate antibiotics given. On presentation the patient was quite uncomfortable and had gone to the place where he really was not able to void. Patient denies constipation or straining and reports he had not engaged in vigorous or strenuous activity. He reports prior to this and after the button TURP he had been voiding well. I with the assistance of nursing then irrigated this bladder with sterile water retrieving a small amount of clot and having the efflux clear rather quickly. (note nursing staff with switching from saline to sterile water had had great success and evacuating a significant amount of clot.) On my arrival the urine was rather of blush colored and after irrigation was closer to clear. Meds Home Medications and Allergies Home Medications Medication Instructions Recorded Confirmed Type miscellaneous medical supply #1 each 10/04/17 11/14/20 Rx Respironics Dreamstation CPAP #1 ea 07/27/18 10/30/20 History carvedilol 12.5 mg tablet 12.5 mg PO BID 04/17/19 11/14/20 History terazosin 10 mg capsule 10 mg PO BEDTIME 01/29/20 11/14/20 History aspirin 81 mg tablet,delayed 81 mg PO DAILY 04/22/20 11/14/20 History release rosuvastatin 5 mg tablet 5 mg PO DAILY 04/22/20 11/14/20 History acetaminophen 650 mg See Rx Instructions PO DAILY PRN 09/17/20 11/14/20 History tablet,extended release (Tylenol tab Arthritis Pain) amlodipine 5 mg tablet 5 mg PO DAILY 09/17/20 11/14/20 History pregabalin 25 mg capsule (Lyrica) 25 mg PO DAILY cap 11/01/20 11/14/20 History Allergies Allergy/AdvReac Type Severity Reaction Status Date / Time amoxicillin [AMOXICILLIN] Allergy Unknown RASH Verified 11/14/20 11:07 sulfamethoxazole AdvReac Severe acute Verified 11/14/20 11:07 [From Bactrim] renal failure trimethoprim [From Bactrim] AdvReac Severe acute Verified 11/14/20 11:07 renal failure Review of Systems Review of Systems Narrative: Complete review of systems in the admission history and physical reviewed other points and review of systems are as in the history of present illness. Exam Vital Signs (past 8 hours): - 11/15/20 03:54 11/15/20 04:00 11/15/20 08:04 Temperature 97.7 F 97.4 F L Pulse Rate 69 63 Respiratory Rate 14 16 Blood Pressure 105/54 L 112/55 L Pulse Oximetry 96 95 Oxygen Delivery Method Room Air Oxygen Flow Rate 0 Narrative Exam Narrative: Exam: General: This is an 75-year-old male who upon entry to his room was initially sleeping. On awakening he expressed some mild discomfort. Abdomen: Soft, nontender Genitourinary exam: Penis with [address] way Batista catheter in place draining blush colored urine into his Batista bag. Normal penis, normal scrotum and testes. Rectal exam: Not done Objective Labs Result Diagrams: 11/15/20 13:30 11/15/20 13:30 Labs: Laboratory Results - last 24 hr 11/14/20 11/14/20 11/14/20 18:22 18:22 18:22 WBC 14.8 H RBC 3.77 L Hgb 11.6 L Hct 34.2 L MCV 90.6 MCH 30.8 MCHC 34.0 RDW 13.2 Plt Count 191 Neut % (Auto) 78.4 H Lymph % (Auto) 15.0 L [place] % (Auto) 4.2 Eos % (Auto) 1.3 L Baso % (Auto) 1.1 Neut # (Auto) 11266 H Lymph # (Auto) 2200 [place] # (Auto) 600 Eos # (Auto) 200 Baso # (Auto) 200 H Total Counted Seg Neutrophils % Band Neutrophils % Lymphocytes % (Manual) Monocytes % (Manual) Basophils % (Manual) Metamyelocytes % Neutrophils # (Manual) RBC Morphology PT INR APTT Sodium 137 Potassium 4.9 Chloride 103 Carbon Dioxide 25 BUN 34 H Creatinine 1.68 H Estimated GFR 39.9 L BUN/Creatinine Ratio 20.2 Glucose 127 H Lactate 1.6 Calcium 9.1 Magnesium Total Bilirubin 0.8 AST 27 ALT 18 Alkaline Phosphatase 111 Total Protein 7.4 Albumin 4.5 Globulin 2.9 Albumin/Globulin Ratio 1.6 Urine Color Urine Appearance Urine pH Ur Specific [place] Urine Protein Urine Glucose (UA) Urine Ketones Urine Occult Blood Urine Nitrate Urine Bilirubin Urine Urobilinogen Ur Leukocyte Esterase Urine RBC Urine WBC Ur Squamous Epith Cells Ur Transition Epith Cell Ur Renal Epithelial Cell Calcium Oxalate Crystal Uric Acid Crystals Triple Phos Crystals Other Crystals Amorphous Sediment Urine Bacteria Hyaline Casts Granular Casts RBC Casts WBC Casts Other Casts Urine Mucus Urine Trichomonas Urine Yeast Urine Sperm Ur Culture Indicated? Micro UA Comment SARS-CoV-2 (PCR) 11/14/20 11/14/20 11/14/20 18:22 18:46 18:46 WBC RBC Hgb Hct MCV MCH MCHC RDW Plt Count Neut % (Auto) Lymph % (Auto) [place] % (Auto) Eos % (Auto) Baso % (Auto) Neut # (Auto) Lymph # (Auto) [place] # (Auto) Eos # (Auto) Baso # (Auto) Total Counted Seg Neutrophils % Band Neutrophils % Lymphocytes % (Manual) Monocytes % (Manual) Basophils % (Manual) Metamyelocytes % Neutrophils # (Manual) RBC Morphology PT INR APTT Sodium Potassium Chloride Carbon Dioxide BUN Creatinine Estimated GFR BUN/Creatinine Ratio Glucose Lactate Calcium Magnesium 1.9 Total Bilirubin AST ALT Alkaline Phosphatase Total Protein Albumin Globulin Albumin/Globulin Ratio Urine Color Red Urine Appearance Cloudy Urine pH TNP Ur Specific [place] TNP Urine Protein TNP Urine Glucose (UA) TNP Urine Ketones TNP Urine Occult Blood TNP Urine Nitrate TNP Urine Bilirubin TNP Urine Urobilinogen TNP Ur Leukocyte Esterase TNP Urine RBC Cancelled TNP Urine WBC Cancelled TNP Ur Squamous Epith Cells Cancelled TNP Ur Transition Epith Cell Cancelled TNP Ur Renal Epithelial Cell Cancelled TNP Calcium Oxalate Crystal Cancelled TNP Uric Acid Crystals Cancelled TNP Triple Phos Crystals Cancelled TNP Other Crystals Cancelled TNP Amorphous Sediment Cancelled TNP Urine Bacteria Cancelled TNP Hyaline Casts Cancelled TNP Granular Casts Cancelled TNP RBC Casts Cancelled TNP WBC Casts Cancelled TNP Other Casts Cancelled TNP Urine Mucus Cancelled TNP Urine Trichomonas Cancelled TNP Urine Yeast Cancelled TNP Urine Sperm Cancelled TNP Ur Culture Indicated? Cancelled Cult not indicated Micro UA Comment Cancelled SARS-CoV-2 (PCR) 11/14/20 11/14/20 11/15/20 19:00 22:46 05:08 WBC 20.0 H RBC 3.06 L Hgb 10.6 L 9.4 L Hct 31.1 L 27.7 L MCV 90.7 MCH 30.7 MCHC 33.8 RDW 13.4 Plt Count 147 L Neut % (Auto) Not Reportable Lymph % (Auto) Not Reportable [place] % (Auto) Not Reportable Eos % (Auto) Not Reportable Baso % (Auto) Not Reportable Neut # (Auto) Lymph # (Auto) Not Reportable [place] # (Auto) Not Reportable Eos # (Auto) Baso # (Auto) Not Reportable Total Counted 100 Seg Neutrophils % 81.0 H Band Neutrophils % 6.0 Lymphocytes % (Manual) 4.0 L Monocytes % (Manual) 7.0 Basophils % (Manual) 1.0 Metamyelocytes % 1.0 H Neutrophils # (Manual) 13325 H RBC Morphology Normal morphology PT INR APTT Sodium Potassium Chloride Carbon Dioxide BUN Creatinine Estimated GFR BUN/Creatinine Ratio Glucose Lactate Calcium Magnesium Total Bilirubin AST ALT Alkaline Phosphatase Total Protein Albumin Globulin Albumin/Globulin Ratio Urine Color Urine Appearance Urine pH Ur Specific [place] Urine Protein Urine Glucose (UA) Urine Ketones Urine Occult Blood Urine Nitrate Urine Bilirubin Urine Urobilinogen Ur Leukocyte Esterase Urine RBC Urine WBC Ur Squamous Epith Cells Ur Transition Epith Cell Ur Renal Epithelial Cell Calcium Oxalate Crystal Uric Acid Crystals Triple Phos Crystals Other Crystals Amorphous Sediment Urine Bacteria Hyaline Casts Granular Casts RBC Casts WBC Casts Other Casts Urine Mucus Urine Trichomonas Urine Yeast Urine Sperm Ur Culture Indicated? Micro UA Comment SARS-CoV-2 (PCR) Negative 11/15/20 11/15/20 05:08 05:08 WBC RBC Hgb Hct MCV MCH MCHC RDW Plt Count Neut % (Auto) Lymph % (Auto) [place] % (Auto) Eos % (Auto) Baso % (Auto) Neut # (Auto) Lymph # (Auto) [place] # (Auto) Eos # (Auto) Baso # (Auto) Total Counted Seg Neutrophils % Band Neutrophils % Lymphocytes % (Manual) Monocytes % (Manual) Basophils % (Manual) Metamyelocytes % Neutrophils # (Manual) RBC Morphology PT 14.6 H INR 1.3 APTT 30 Sodium 137 Potassium 4.0 Chloride 102 Carbon Dioxide 27 BUN 35 H Creatinine 1.97 H Estimated GFR 33.2 L BUN/Creatinine Ratio 17.8 Glucose 176 H Lactate Calcium 8.4 Magnesium Total Bilirubin 0.6 AST 23 ALT 17 Alkaline Phosphatase 67 Total Protein 5.7 L Albumin 3.3 L Globulin 2.4 Albumin/Globulin Ratio 1.4 Urine Color Urine Appearance Urine pH Ur Specific [place] Urine Protein Urine Glucose (UA) Urine Ketones Urine Occult Blood Urine Nitrate Urine Bilirubin Urine Urobilinogen Ur Leukocyte Esterase Urine RBC Urine WBC Ur Squamous Epith Cells Ur Transition Epith Cell Ur Renal Epithelial Cell Calcium Oxalate Crystal Uric Acid Crystals Triple Phos Crystals Other Crystals Amorphous Sediment Urine Bacteria Hyaline Casts Granular Casts RBC Casts WBC Casts Other Casts Urine Mucus Urine Trichomonas Urine Yeast Urine Sperm Ur Culture Indicated? Micro UA Comment SARS-CoV-2 (PCR) [facility] Medical History (Updated 11/15/20 @ 15:01 by Liborio Edwards MD) Acute UTI Ankle pain Basal cell adenocarcinoma BPH (benign prostatic hyperplasia) Burning pain CAD (coronary artery disease) Cardiomyopathy Cataract (2013) Clubfoot CMT (Esfvfal-Ttxha-Ujhdt disease) (2014) Colon polyps (2009) Essential hypertension Batista catheter problem Hearing loss (2014) Injury of left elbow Malignant neoplasm of kidney Melanoma (2007) Obstructive sleep apnea Osteoarthritis of both knees Osteoarthrosis, ankle and foot Rheumatic fever (1958) Shoulder pain (2011) Spinal stenosis of lumbar region (09/15/13) Squamous cell skin cancer, face Stage 3 chronic kidney disease Superficial laceration Tinnitus UTI (urinary tract infection) Surgical History (Updated 11/15/20 @ 15:01 by Liborio Edwards MD) Anesthesia History of back surgery (08/2013) History of cataract removal with insertion of prosthetic lens (2013) History of left knee replacement History of left knee surgery (2004) History of nephrectomy (2003) History of transurethral resection of prostate S/P TURP (~07/2019) Family History Father Alcoholism Heart disease Mother Stroke Heart disease Other Hypertension Social History marital status: household members: spouse lives independently: Yes Tobacco & Substance Use Smoking Status: Former smoker alcohol intake: current Assessment & Plan Assessment and plan (1) Gross hematuria: Status: Acute (2) Batista catheter problem: Qualifiers: Encounter type: initial encounter Qualified Code(s): T83.9XXA - Unspecified complication of genitourinary prosthetic device, implant and graft, initial encounter Status: Acute (3) History of transurethral resection of prostate: Status: Acute (4) Sepsis: Qualifiers: Sepsis acute organ dysfunction status: unspecified Sepsis type: sepsis due to unspecified organism Qualified Code(s): A41.9 - Sepsis, unspecified organism Status: Acute (5) Acute UTI: Status: Acute Plan: Plan: Given that through maneuvers it appears that the clot has been evacuated and the urine is clearing, I would recommend continuing continuous bladder irrigation and weaning it to off for urine that is blush colored or certified ophthalmic assistant. The patient does have urologist but expressed interest in following up in our clinic. Discussed with him that he could follow-up where ever he chooses. The patient will need follow-up and will need cystoscopy which can be done as an outpatient with the patient on appropriate antibiotics. Patient should be discharged with his Batista catheter in place and follow up with Urology approximately 5-10 days after discharge Assessment & Plan narrative: Patient with gross hematuria most likely related to a acute urinary tract infection. It could also be connected to prostatic varicosities which have resulted from his prior resection of his prostate. The exact etiology of the patient's gross hematuria does remain to be defined. Has a long history of urinary tract infections and appears to have cultures pending. It would of course be recommended that he be treated with culture specific antibiotics and these be extended to the outpatient setting. Patient with history of transurethral resection of the prostate which he reports had worked well for him. Batista catheter malfunction on the patient's of clot obstruction. Which now appears to be resolved see plan above. COVID-19 COVID-19 status: Negative Result date/Date tested (Pos, Neg/Pending): 11/14/20 Time Spent With Patient Time with patient: 30 to 49 minutes with 50% spent counseling/coordinating care (Time was spent in irrigating the patient's bladder and discussing with him the implications of his situation) Critical Care time: I spent a total of [] minutes of critical care time on this patient's care today; this time is exclusive of procedural time.
[2020-11-15] MEDS: carvediloL 12.5 MG TABLET PO ×2 (10:00→21:07)
[2020-11-15 10:58] LABS: Acinetobacter baumannii Not Detected (Not Detect); E. coli Not Detected (Not Detect); Enterobacter cloacae complex Not Detected (Not Detect); Enterobacteriaceae species Not Detected (Not Detect); Enterococcus species Not Detected (Not Detect); Haemophilus influenzae Not Detected (Not Detect); Listeria monocytogenes Not Detected (Not Detect); Methicillin-resistant gene Not Detected (Not Detect); Proteus species Not Detected (Not Detect); Serratia marcescens Not Detected (Not Detect); Staphylococcus species Detected (Not Detect); Streptococcus agalactiae (Gr B Not Detected (Not Detect); Streptococcus pneumonia Not Detected (Not Detect); Streptococcus pyogenes (Gr A) Not Detected (Not Detect); Streptococcus species Not Detected (Not Detect)
[2020-11-15 10:59] LABS: Candida albicans Not Detected (Not Detect); Candida glabrata Not Detected (Not Detect); Candida krusei Not Detected (Not Detect); Candida parapsilosis Not Detected (Not Detect); Candida tropicalis Not Detected (Not Detect); Neisseria meningitidis Not Detected (Not Detect); Pseudomonas aeruginosa Not Detected (Not Detect)
--- NOTE | 2020-11-15 12:29 | DI.ECHO.S_ITS ---
[facility] +---------+ : : [address] [place] [address] : : : : [id number] : : : : Phone: [phone] Echocardiogram Report + + :Name: DONNA BRUCE Study Date: 11/15/2020 Height: 69 in : :[facility] ReadingLocation: Weight: 222 lb : : Gender: Male BSA: 2.2 m2 : :: 1945 Age: 75 yrs BP: 112/52 mmHg: :Reason For Study: Endocarditis : :Ordering Physician: : :FERNANDA HURST Performed By: Yury Jurado : :Referring: FERNANDA HURST : + + Interpretation Summary The left ventricle is moderate-severely dilated. There is mild global hypokinesis of the left ventricle. LVEF is 40-45% which is unchanged since prior study. There is a significant dyssynchronous contraction pattern, consistent with a conduction abnormality. The right ventricle is mildly dilated.The right ventricular systolic function is normal. Pulmonary artery pressures cannot be estimated because of the lack of a measurable TR jet velocity but the IVC suggests a CVP of around 3 mmHg. The left atrium is severely dilated. The right atrium is moderately dilated. There is mild mitral regurgitation. There is no other significant valvular heart disease. The aortic arch is mildly enlarged. No obvious findings for vegetative masses. Procedure: A two-dimensional transthoracic echocardiogram with color flow and Doppler was performed. The study quality was technically difficult. Comparison is made with the echocardiogram of 12/29/2019. Left Ventricle: The left ventricle is moderate-severely dilated. There is normal left ventricular wall thickness. Left ventricular systolic function is mildly reduced. The ejection fraction is estimated to be 40-45%. This is unchanged compared to the previous study. There is mild global hypokinesis of the left ventricle. There is inferior wall severe hypokinesis. There is a significant dyssynchronous contraction pattern, consistent with a conduction abnormality. Diastolic function could not be accurately assessed due to contradictory data. Right Ventricle: The right ventricle is mildly dilated. The right ventricular systolic function is normal. Atria: The left atrium is severely dilated. The right atrium is moderately dilated. There is no Doppler evidence for an interatrial shunt. Mitral Valve: There is mild mitral annular calcification. There is mild mitral regurgitation. Aortic Valve: The aortic valve is normal in structure and function. No aortic regurgitation is present. Tricuspid Valve: The tricuspid valve is normal in structure and function. There is a trace or physiologic amount of tricuspid regurgitation. Pulmonary artery pressures cannot be estimated because of the lack of a measurable TR jet velocity but the IVC suggests a CVP of around 3 mmHg. Pulmonic Valve: The pulmonic valve is normal in structure and function. There is trace pulmonic regurgitation. There is no other significant valvular heart disease. Great Vessels: The aortic root is normal size. The aortic arch is mildly enlarged. The IVC is of normal diameter and collapses greater than 50% with a sniff. This suggests a low right atrial pressure of 3 mm Hg. Pericardium/ Pleura There is a small pericardial effusion noted. There are no echocardiographic indications of cardiac tamponade. There is no pleural effusion. MMode/2D Measurements & Calculations LVIDd: 6.9 cm LVOT diam: 2.4 cm LVIDs: 5.4 cm Ao root diam: 3.9 cm FS: 21.7 % asc Aorta Diam: 3.7 cm IVSd: 1.1 cm LVPWd: 1.0 cm LV encinas. diameter/BSA (cm/m^2): 3.2 LV sys. diameter/BSA (cm/m^2): 2.5 LA A2 area: 35.3 cm2 RA long axis: 7.1 cm LA A4 area: 34.3 cm2 RA area: 28.8 cm2 LA length (vol): 6.7 cm RA vol: 99.8 ml LA vol: 152.1 ml RA : 46.2 ml/m2 LA vol index: 70.5 ml/m2 RVD1 (basal): 4.3 cm TAPSE: 3.2 cm Doppler Measurements & Calculations Ao V2 max: 185.9 cm/sec LVOT Max Thomas: 115.6 cm/sec Ao V2 mean: 125.9 cm/sec LV V1 max P.3 mmHg Ao max P.8 mmHg LV V1 VTI: 24.8 cm Ao mean P.1 mmHg KVNG(I,D): 3.1 cm2 Ao V2 VTI: 37.1 cm KVNG(V,D): 2.9 cm2 sev ratio: 0.67 KVNG indexed to BSA (cm^2/m^2): 1.5 MV E max thomas: 112.8 cm/sec SV(LVOT): 116.6 ml MV A max thomas: 126.4 cm/sec MV E/A: 0.89 Med Peak E' Thomas: 3.3 cm/sec E/E' med: 33.7 Lat Peak E' Thomas: 5.6 cm/sec E/E' lat: 20.1 E/e' average: 26.9 MV dec time: 0.22 sec Reading Physician:03:55 PM
[2020-11-15 13:44] LABS: Hematocrit 28.7 % (41-53); Hemoglobin 9.5 g/dL (13.5-17.5); Mean Corpuscular HGB Conc 33.2 % (30-36); Mean Corpuscular Hemoglobin 30.4 PG (26-34); Mean Corpuscular Volume 91.5 fL (80-100); Platelet Count 143 X10^3/uL (150-400); Red Blood Cell Count 3.14 X10^6/uL (4.5-5.9); Red Cell Distribution Width 13.9 % (11.6-14.8); White Blood Cell Count 14.6 X10^3/uL (4.5-11.0)
[2020-11-15 13:57] LABS: BUN Creatinine Ratio 19.3 (6-22); Blood Urea Nitrogen 38 mg/dL (9-20); Calcium 8.5 mg/dL (8.4-10.2); Carbon Dioxide 26 mmol/L (22-32); Chloride 103 mmol/L (98-107); Estimated Glomerular Filt Rate 33.2 mL/min (>60); Glucose 133 mg/dL (80-110); HEMOLYSIS < 15 (0-50); Sodium 135 mmol/L (137-145)
--- NOTE | 2020-11-15 14:03 | CM.DANOTE ---
Patient is a 75 yo male who was admitted on 11/14/20 for Bladder Infection/Clots. Pt has [place] and [place] for insurance and his PCP is Dr. Brittany Lomas. EMR was reviewed. Per MD, pt with continuous irrigation for clots in his urinary tract and admitted for acute UTI with hematuria. Per MD, cultures returned from blood and pt now positive for staph and will need 2 weeks IV-Abx but unsure yet which abx and dosing needs. SW met bedside with pt and explained role and he confirms he lives at home with spouse in [place] and is active and independent at baseline and drives and does not use DME. Pt denies any hx of HH or SNF. SW discussed the 2 weeks IV-Abx need at d/c and possible options including outpt infusion clinic vs home infusion pending pt's dosing need. Pt agreeable to either but if abx only needed once a day his preference is [facility]/infusion clinic and states either he or spouse can drive him once a day for 2 weeks for IV-Abx. Pt aware that if needed more than once a day then outpt clinic likely not an option and would have to determine any out of pocket expense for home infusion. SW made referral to [facility]/outpt infusion by faxing clinicals as their office is closed on Fridays and awaiting final cultures to determine abx needs. SW called [facility] with new referral and faxed clinicals and update on awaiting final abx so they can determine out pocket expense. Pt states he has been attending outpt PT here at [facility] and aware of where the infusion clinic is located. Pt states he has been working on my core strength with PT. Pt plans to continue once his abx course is completed. Plan: SW to follow closely for final cultures to return towards determining home infusion vs outpt infusion clinic at d/c. DIANA Augustine Discharge Planning/Care Management CM Discharge Assessment Start: 11/15/20 14:01 Freq: Status: Active Protocol: Document 11/15/20 14:01 (Rec: 11/15/20 14:03 [id number]) Discharge Planning Assessment Assigned Coin Wrapping Machine Operator DIANA Mayberry DPOA/Assigned Designee Name spouse Yenni Contact Information [phone] Advance Directives? Yes Advance Directives on File No History Provided By Patient,Medical Record Has Patient been admitted in last 30 No days? Prior Living Arrangements House Household Members spouse Type of transporation used prior to Drives own vehicle admit Independent with ADL's Yes Is patient alert and oriented? Yes Caregiver for Another No Patient/Family Preference Home with Home Health Barriers to Discharge No Discharge Plan Home with Home Health Community Services IV Therapy Transportation Arrangement Family to provide transport. Referrals Initiated Other Additional Comment Home infusion vs outpt Infusion Clinic Whiteboard Updated in Patient Room with Yes name and ext. # of Coin Wrapping Machine Operator Review Status In Process Please Provide Date Initial DC 11/15/20 Assessment Was Performed Next Review Type Continued Stay Review
--- NOTE | 2020-11-15 15:14 | PM.PN.1 ---
Subjective Subjective Date Patient Seen: 11/15/20 Time Patient Seen: 09:00 Interval history: Today he is feeling improved. His urine has turned to yellow after being on CBI all night. He has very few clots. Otherwise he has no fevers. No abdominal pain. He actually wants to go home. However his blood culture resulted as positive for staph aureus. Exam Vital Signs (past 8 hours): - 11/15/20 08:00 11/15/20 08:04 11/15/20 10:00 Temperature 97.4 F L Pulse Rate 63 63 Respiratory Rate 16 Blood Pressure 112/55 L 112/55 L Pulse Oximetry 95 99 11/15/20 12:00 11/15/20 13:43 Temperature 97.8 F Pulse Rate 72 Respiratory Rate 18 Blood Pressure 101/40 L Pulse Oximetry 96 98 Oxygen Delivery Method Room Air Oxygen Flow Rate 0 Narrative Exam Narrative: General:? no acute distress Lungs:? clear bilaterally Cardio:?regular rate and rhythm without murmurs Abdomen:? Soft nontender, no organomegaly : barajas draining yellow urine, small amount of clots Objective Labs Result Diagrams: 11/15/20 13:30 11/15/20 13:30 Labs: Laboratory Results - last 24 hr 11/14/20 11/14/20 11/14/20 18:22 18:22 18:22 WBC 14.8 H RBC 3.77 L Hgb 11.6 L Hct 34.2 L MCV 90.6 MCH 30.8 MCHC 34.0 RDW 13.2 Plt Count 191 Neut % (Auto) 78.4 H Lymph % (Auto) 15.0 L [place] % (Auto) 4.2 Eos % (Auto) 1.3 L Baso % (Auto) 1.1 Neut # (Auto) 69505 H Lymph # (Auto) 2200 [place] # (Auto) 600 Eos # (Auto) 200 Baso # (Auto) 200 H Total Counted Seg Neutrophils % Band Neutrophils % Lymphocytes % (Manual) Monocytes % (Manual) Basophils % (Manual) Metamyelocytes % Neutrophils # (Manual) RBC Morphology PT INR APTT Sodium 137 Potassium 4.9 Chloride 103 Carbon Dioxide 25 BUN 34 H Creatinine 1.68 H Estimated GFR 39.9 L BUN/Creatinine Ratio 20.2 Glucose 127 H Lactate 1.6 Calcium 9.1 Magnesium Total Bilirubin 0.8 AST 27 ALT 18 Alkaline Phosphatase 111 Total Protein 7.4 Albumin 4.5 Globulin 2.9 Albumin/Globulin Ratio 1.6 Urine Color Urine Appearance Urine pH Ur Specific [place] Urine Protein Urine Glucose (UA) Urine Ketones Urine Occult Blood Urine Nitrate Urine Bilirubin Urine Urobilinogen Ur Leukocyte Esterase Urine RBC Urine WBC Ur Squamous Epith Cells Ur Transition Epith Cell Ur Renal Epithelial Cell Calcium Oxalate Crystal Uric Acid Crystals Triple Phos Crystals Other Crystals Amorphous Sediment Urine Bacteria Hyaline Casts Granular Casts RBC Casts WBC Casts Other Casts Urine Mucus Urine Trichomonas Urine Yeast Urine Sperm Ur Culture Indicated? Micro UA Comment A. baumannii (PCR) Usha albicans (PCR) C. glabrata (PCR) C. krusei (PCR) C. parapsilosis (PCR) C. tropicalis (PCR) SARS-CoV-2 (PCR) Enterobacteriac sp PCR E. cloacae complex PCR Enterococcus sp PCR E. coli (PCR) H. influenzae (PCR) Klebsiella oxytoca PCR Klebsiella pneumoniae List. monocytogenes PCR N. meningitidis (PCR) Proteus species (PCR) Serratia marcescens PCR Staphylococcus sp PCR Staph aureus (PCR) mecA-Methicil Res Gene Streptococcus sp PCR Group A Strep (PCR) Strep agalactiae (PCR) Strep pneumoniae (PCR) P. aeruginosa (PCR) Shiva/B-Vanco Res Genes KPC-Carbap Res Gene PCR 11/14/20 11/14/20 11/14/20 18:22 18:46 18:46 WBC RBC Hgb Hct MCV MCH MCHC RDW Plt Count Neut % (Auto) Lymph % (Auto) [place] % (Auto) Eos % (Auto) Baso % (Auto) Neut # (Auto) Lymph # (Auto) [place] # (Auto) Eos # (Auto) Baso # (Auto) Total Counted Seg Neutrophils % Band Neutrophils % Lymphocytes % (Manual) Monocytes % (Manual) Basophils % (Manual) Metamyelocytes % Neutrophils # (Manual) RBC Morphology PT INR APTT Sodium Potassium Chloride Carbon Dioxide BUN Creatinine Estimated GFR BUN/Creatinine Ratio Glucose Lactate Calcium Magnesium 1.9 Total Bilirubin AST ALT Alkaline Phosphatase Total Protein Albumin Globulin Albumin/Globulin Ratio Urine Color Red Urine Appearance Cloudy Urine pH TNP Ur Specific [place] TNP Urine Protein TNP Urine Glucose (UA) TNP Urine Ketones TNP Urine Occult Blood TNP Urine Nitrate TNP Urine Bilirubin TNP Urine Urobilinogen TNP Ur Leukocyte Esterase TNP Urine RBC Cancelled TNP Urine WBC Cancelled TNP Ur Squamous Epith Cells Cancelled TNP Ur Transition Epith Cell Cancelled TNP Ur Renal Epithelial Cell Cancelled TNP Calcium Oxalate Crystal Cancelled TNP Uric Acid Crystals Cancelled TNP Triple Phos Crystals Cancelled TNP Other Crystals Cancelled TNP Amorphous Sediment Cancelled TNP Urine Bacteria Cancelled TNP Hyaline Casts Cancelled TNP Granular Casts Cancelled TNP RBC Casts Cancelled TNP WBC Casts Cancelled TNP Other Casts Cancelled TNP Urine Mucus Cancelled TNP Urine Trichomonas Cancelled TNP Urine Yeast Cancelled TNP Urine Sperm Cancelled TNP Ur Culture Indicated? Cancelled Cult not indicated Micro UA Comment Cancelled A. baumannii (PCR) Usha albicans (PCR) C. glabrata (PCR) C. krusei (PCR) C. parapsilosis (PCR) C. tropicalis (PCR) SARS-CoV-2 (PCR) Enterobacteriac sp PCR E. cloacae complex PCR Enterococcus sp PCR E. coli (PCR) H. influenzae (PCR) Klebsiella oxytoca PCR Klebsiella pneumoniae List. monocytogenes PCR N. meningitidis (PCR) Proteus species (PCR) Serratia marcescens PCR Staphylococcus sp PCR Staph aureus (PCR) mecA-Methicil Res Gene Streptococcus sp PCR Group A Strep (PCR) Strep agalactiae (PCR) Strep pneumoniae (PCR) P. aeruginosa (PCR) Shiva/B-Vanco Res Genes KPC-Carbap Res Gene PCR 11/14/20 11/14/20 11/15/20 19:00 22:46 05:08 WBC 20.0 H RBC 3.06 L Hgb 10.6 L 9.4 L Hct 31.1 L 27.7 L MCV 90.7 MCH 30.7 MCHC 33.8 RDW 13.4 Plt Count 147 L Neut % (Auto) Not Reportable Lymph % (Auto) Not Reportable [place] % (Auto) Not Reportable Eos % (Auto) Not Reportable Baso % (Auto) Not Reportable Neut # (Auto) Lymph # (Auto) Not Reportable [place] # (Auto) Not Reportable Eos # (Auto) Baso # (Auto) Not Reportable Total Counted 100 Seg Neutrophils % 81.0 H Band Neutrophils % 6.0 Lymphocytes % (Manual) 4.0 L Monocytes % (Manual) 7.0 Basophils % (Manual) 1.0 Metamyelocytes % 1.0 H Neutrophils # (Manual) 98920 H RBC Morphology Normal morphology PT INR APTT Sodium Potassium Chloride Carbon Dioxide BUN Creatinine Estimated GFR BUN/Creatinine Ratio Glucose Lactate Calcium Magnesium Total Bilirubin AST ALT Alkaline Phosphatase Total Protein Albumin Globulin Albumin/Globulin Ratio Urine Color Urine Appearance Urine pH Ur Specific [place] Urine Protein Urine Glucose (UA) Urine Ketones Urine Occult Blood Urine Nitrate Urine Bilirubin Urine Urobilinogen Ur Leukocyte Esterase Urine RBC Urine WBC Ur Squamous Epith Cells Ur Transition Epith Cell Ur Renal Epithelial Cell Calcium Oxalate Crystal Uric Acid Crystals Triple Phos Crystals Other Crystals Amorphous Sediment Urine Bacteria Hyaline Casts Granular Casts RBC Casts WBC Casts Other Casts Urine Mucus Urine Trichomonas Urine Yeast Urine Sperm Ur Culture Indicated? Micro UA Comment A. baumannii (PCR) Usha albicans (PCR) C. glabrata (PCR) C. krusei (PCR) C. parapsilosis (PCR) C. tropicalis (PCR) SARS-CoV-2 (PCR) Negative Enterobacteriac sp PCR E. cloacae complex PCR Enterococcus sp PCR E. coli (PCR) H. influenzae (PCR) Klebsiella oxytoca PCR Klebsiella pneumoniae List. monocytogenes PCR N. meningitidis (PCR) Proteus species (PCR) Serratia marcescens PCR Staphylococcus sp PCR Staph aureus (PCR) mecA-Methicil Res Gene Streptococcus sp PCR Group A Strep (PCR) Strep agalactiae (PCR) Strep pneumoniae (PCR) P. aeruginosa (PCR) Shiva/B-Vanco Res Genes KPC-Carbap Res Gene PCR 11/15/20 11/15/20 11/15/20 05:08 05:08 13:30 WBC 14.6 H RBC 3.14 L Hgb 9.5 L Hct 28.7 L MCV 91.5 MCH 30.4 MCHC 33.2 RDW 13.9 Plt Count 143 L Neut % (Auto) Lymph % (Auto) [place] % (Auto) Eos % (Auto) Baso % (Auto) Neut # (Auto) Lymph # (Auto) [place] # (Auto) Eos # (Auto) Baso # (Auto) Total Counted Seg Neutrophils % Band Neutrophils % Lymphocytes % (Manual) Monocytes % (Manual) Basophils % (Manual) Metamyelocytes % Neutrophils # (Manual) RBC Morphology PT 14.6 H INR 1.3 APTT 30 Sodium 137 Potassium 4.0 Chloride 102 Carbon Dioxide 27 BUN 35 H Creatinine 1.97 H Estimated GFR 33.2 L BUN/Creatinine Ratio 17.8 Glucose 176 H Lactate Calcium 8.4 Magnesium Total Bilirubin 0.6 AST 23 ALT 17 Alkaline Phosphatase 67 Total Protein 5.7 L Albumin 3.3 L Globulin 2.4 Albumin/Globulin Ratio 1.4 Urine Color Urine Appearance Urine pH Ur Specific [place] Urine Protein Urine Glucose (UA) Urine Ketones Urine Occult Blood Urine Nitrate Urine Bilirubin Urine Urobilinogen Ur Leukocyte Esterase Urine RBC Urine WBC Ur Squamous Epith Cells Ur Transition Epith Cell Ur Renal Epithelial Cell Calcium Oxalate Crystal Uric Acid Crystals Triple Phos Crystals Other Crystals Amorphous Sediment Urine Bacteria Hyaline Casts Granular Casts RBC Casts WBC Casts Other Casts Urine Mucus Urine Trichomonas Urine Yeast Urine Sperm Ur Culture Indicated? Micro UA Comment A. baumannii (PCR) Usha albicans (PCR) C. glabrata (PCR) C. krusei (PCR) C. parapsilosis (PCR) C. tropicalis (PCR) SARS-CoV-2 (PCR) Enterobacteriac sp PCR E. cloacae complex PCR Enterococcus sp PCR E. coli (PCR) H. influenzae (PCR) Klebsiella oxytoca PCR Klebsiella pneumoniae List. monocytogenes PCR N. meningitidis (PCR) Proteus species (PCR) Serratia marcescens PCR Staphylococcus sp PCR Staph aureus (PCR) mecA-Methicil Res Gene Streptococcus sp PCR Group A Strep (PCR) Strep agalactiae (PCR) Strep pneumoniae (PCR) P. aeruginosa (PCR) Shiva/B-Vanco Res Genes KPC-Carbap Res Gene PCR 11/15/20 11/15/20 13:30 18:22 WBC RBC Hgb Hct MCV MCH MCHC RDW Plt Count Neut % (Auto) Lymph % (Auto) [place] % (Auto) Eos % (Auto) Baso % (Auto) Neut # (Auto) Lymph # (Auto) [place] # (Auto) Eos # (Auto) Baso # (Auto) Total Counted Seg Neutrophils % Band Neutrophils % Lymphocytes % (Manual) Monocytes % (Manual) Basophils % (Manual) Metamyelocytes % Neutrophils # (Manual) RBC Morphology PT INR APTT Sodium 135 L Potassium 4.0 Chloride 103 Carbon Dioxide 26 BUN 38 H Creatinine 1.97 H Estimated GFR 33.2 L BUN/Creatinine Ratio 19.3 Glucose 133 H Lactate Calcium 8.5 Magnesium Total Bilirubin AST ALT Alkaline Phosphatase Total Protein Albumin Globulin Albumin/Globulin Ratio Urine Color Urine Appearance Urine pH Ur Specific [place] Urine Protein Urine Glucose (UA) Urine Ketones Urine Occult Blood Urine Nitrate Urine Bilirubin Urine Urobilinogen Ur Leukocyte Esterase Urine RBC Urine WBC Ur Squamous Epith Cells Ur Transition Epith Cell Ur Renal Epithelial Cell Calcium Oxalate Crystal Uric Acid Crystals Triple Phos Crystals Other Crystals Amorphous Sediment Urine Bacteria Hyaline Casts Granular Casts RBC Casts WBC Casts Other Casts Urine Mucus Urine Trichomonas Urine Yeast Urine Sperm Ur Culture Indicated? Micro UA Comment A. baumannii (PCR) Not detected Usha albicans (PCR) Not detected C. glabrata (PCR) Not detected C. krusei (PCR) Not detected C. parapsilosis (PCR) Not detected C. tropicalis (PCR) Not detected SARS-CoV-2 (PCR) Enterobacteriac sp PCR Not detected E. cloacae complex PCR Not detected Enterococcus sp PCR Not detected E. coli (PCR) Not detected H. influenzae (PCR) Not detected Klebsiella oxytoca PCR Not detected Klebsiella pneumoniae Not detected List. monocytogenes PCR Not detected N. meningitidis (PCR) Not detected Proteus species (PCR) Not detected Serratia marcescens PCR Not detected Staphylococcus sp PCR Detected H Staph aureus (PCR) Detected H mecA-Methicil Res Gene Not detected Streptococcus sp PCR Not detected Group A Strep (PCR) Not detected Strep agalactiae (PCR) Not detected Strep pneumoniae (PCR) Not detected P. aeruginosa (PCR) Not detected Shiva/B-Vanco Res Genes Not Reportable KPC-Carbap Res Gene PCR Not Reportable [facility] Medical History (Updated 11/15/20 @ 15:01 by Liborio Edwards MD) Acute UTI Ankle pain Basal cell adenocarcinoma BPH (benign prostatic hyperplasia) Burning pain CAD (coronary artery disease) Cardiomyopathy Cataract (2013) Clubfoot CMT (Yqrjgtx-Bfnvr-Gkgjk disease) (2014) Colon polyps (2008) Essential hypertension Barajas catheter problem Hearing loss (2014) Injury of left elbow Malignant neoplasm of kidney Melanoma (2007) Obstructive sleep apnea Osteoarthritis of both knees Osteoarthrosis, ankle and foot Rheumatic fever (1958) Shoulder pain (2011) Spinal stenosis of lumbar region (09/15/13) Squamous cell skin cancer, face Stage 3 chronic kidney disease Superficial laceration Tinnitus UTI (urinary tract infection) Surgical History (Updated 11/15/20 @ 15:01 by Liborio Edwards MD) Anesthesia History of back surgery (08/2013) History of cataract removal with insertion of prosthetic lens (2013) History of left knee replacement History of left knee surgery (2004) History of nephrectomy (2003) History of transurethral resection of prostate S/P TURP (~07/2019) Family History Father Alcoholism Heart disease Mother Stroke Heart disease Other Hypertension Social History marital status: household members: spouse lives independently: Yes Smoking Status: Former smoker alcohol intake: current Assessment & Plan Assessment & Plan narrative: Mr. Younger is 75M with PMH BPH s/p TURP, HTN, HL, CKD stage 3, RENO, anemia who presents with fevers, dysuria, hematuria, found to have urinary obstruction with barajas placed and CBI performed now with staph aureus bacteremia. 1. Acute UTI with gross hematuria -etiology of hematuria is likely infectious -urine grossly positive with culture pending -started on ceftriaxone, will continue -wean down CBI -appreciate urology consult -plan to keep barajas in place, then will need outpatient follow up -hold aspirin 2. Staph aureus bacteremia -etiology is likely from urine -follow up urine cultures -ordered for surveillance blood culture -continue vanco/ceftriaxone until sensitivities resulted -likely will need at least 2 weeks antibiotics, will need PICC -ECHO to eval for endocarditis 3. BC on CKD stage 3 -secondary to infection -trend daily 4. BPH with history of TURP -continue terazosin 5. HTN -continue home medications 6. HL -continue statin 7. Ldxdvcw-Jntkm-Lwmzc disease -continue lyrica Time Spent With Patient Critical Care time: I spent a total of [] minutes of critical care time on this patient's care today; this time is exclusive of procedural time.
[2020-11-15] MEDS: VANCOMYCIN 2,000 MG/400 ML PIGGYBACK 200 MG IV (15:33)
[2020-11-15] MEDS: ATORVASTATIN 20 MG TABLET 10 MG PO (21:07)
[2020-11-15] MEDS: TERAZOSIN 5 MG CAPSULE 10 MG PO (21:07)
[2020-11-15] MEDS: DOCUSATE 100 MG CAPSULE PO (23:53)
[2020-11-15] MEDS: MELATONIN 3 MG TABLET 9 MG PO (23:53)
[2020-11-15] MEDS: SENNOSIDES 8.6 MG TABLET PO (23:53)
[2020-11-16] VITALS (14 sets, daily range): BP systolic 111–133; BP diastolic 49–68; PULSE 52–82; RESP 15–20; TEMP 36.8–37.7; O2SAT 92–97
[2020-11-16 07:17] LABS: Add Manual Diff / Slide Review NO; Basophils Absolute Auto 0 /uL (0-100); Basophils Percent Auto 0.3 % (0-2); Eosinophils Absolute Auto 100 /uL (0-450); Eosinophils Percent Auto 0.8 % (2-4); Hematocrit 27.1 % (41-53); Hemoglobin 8.9 g/dL (13.5-17.5); Lymphocytes Absolute Auto 800 /uL (1100-4500); Lymphocytes Percent Auto 9.4 % (25-40); Mean Corpuscular HGB Conc 32.9 % (30-36); Mean Corpuscular Hemoglobin 30.3 PG (26-34); Mean Corpuscular Volume 92.1 fL (80-100); Monocytes Absolute Auto 600 /uL (0-900); Monocytes Percent Auto 6.6 % (3-14); Neutrophils Absolute Auto 7000 /uL (1500-7000); Neutrophils Percent Auto 82.9 % (50-75); Platelet Count 123 X10^3/uL (150-400); Red Blood Cell Count 2.94 X10^6/uL (4.5-5.9); Red Cell Distribution Width 13.8 % (11.6-14.8); White Blood Cell Count 8.5 X10^3/uL (4.5-11.0)
[2020-11-16 07:26] LABS: Alanine Aminotransferase 19 IU/L (<50); Albumin 3.1 g/dL (3.5-5.0); Albumin Globulin Ratio 1.2 (1.0-2.8); Alkaline Phosphatase 65 U/L (38-126); Aspartate Aminotransferase 25 IU/L (17-59); Bilirubin Total 0.3 mg/dL (0.2-1.3); Blood Urea Nitrogen 30 mg/dL (9-20); Calcium 8.3 mg/dL (8.4-10.2); Carbon Dioxide 25 mmol/L (22-32); Chloride 107 mmol/L (98-107); Estimated Glomerular Filt Rate 35.3 mL/min (>60); Globulin 2.5 g/dL (1.7-4.1); Glucose 106 mg/dL (80-110); HEMOLYSIS < 15 (0-50); Potassium 3.7 mmol/L (3.4-5.1); Sodium 136 mmol/L (137-145); Total Protein 5.6 g/dL (6.3-8.2)
[2020-11-16] MEDS: PREGABALIN 25 MG CAPSULE PO (09:56)
[2020-11-16] MEDS: carvediloL 12.5 MG TABLET PO ×2 (09:56→20:32)
[2020-11-16] MEDS: DOCUSATE 100 MG CAPSULE PO (09:56)
[2020-11-16] MEDS: cefTRIAXone 1,000 MG in SODIUM CHLORIDE 0.9% 100 ML 200 ML IV (09:57)
[2020-11-16] MEDS: SODIUM CHLORIDE 0.9% FLUSH 10 ML IV ×2 (09:57→22:16)
--- NOTE | 2020-11-16 12:07 | CM.DPC ---
DCP Cont: Per MD, still awaiting final blood culture sensitivities to determine Abx needed at d/c and per laboratory operations coordinator states they should return by tomorrow. unsure if dosing will be once daily or multiple times a day. Still unclear if pt can do outpt infusion clinic vs home infusion. Nika WOOTEN referral made for RN in case home infusion needed at d/ based on vendor calendar and no HH preference from pt. Plan: SW to follow closely for final cultures to determine outpt infusion vs home infusion for IV-Abx for 2 weeks at d/c. DIANA Augustine
--- NOTE | 2020-11-16 14:51 | PM.PN.1 ---
Subjective Subjective Date Patient Seen: 11/16/20 Time Patient Seen: 08:00 Interval history: He feels well today. He has no complaints. His urine is yellow. He has no fevers/chills, no pain. He has a barajas in place. Yesterday his blood cultures grew Staph Aureus. Exam Vital Signs (past 8 hours): - 11/16/20 08:30 11/16/20 09:53 11/16/20 10:55 Temperature 98.3 F Pulse Rate 82 Respiratory Rate 18 Blood Pressure 133/53 L Pulse Oximetry 95 94 95 11/16/20 13:29 Temperature 98.6 F Pulse Rate 68 Respiratory Rate 15 Blood Pressure 131/60 Pulse Oximetry 94 Oxygen Delivery Method Room Air Oxygen Flow Rate 0 Narrative Exam Narrative: General:? no acute distress Lungs:? clear bilaterally Cardio:?regular rate and rhythm without murmurs Abdomen:? Soft nontender, no organomegaly : barajas draining yellow urine Objective Labs Result Diagrams: 11/16/20 06:55 11/16/20 06:55 Labs: Laboratory Results - last 24 hr 11/16/20 11/16/20 06:55 06:55 WBC 8.5 RBC 2.94 L Hgb 8.9 L Hct 27.1 L MCV 92.1 MCH 30.3 MCHC 32.9 RDW 13.8 Plt Count 123 L Neut % (Auto) 82.9 H Lymph % (Auto) 9.4 L [place] % (Auto) 6.6 Eos % (Auto) 0.8 L Baso % (Auto) 0.3 Neut # (Auto) 7000 Lymph # (Auto) 800 L [place] # (Auto) 600 Eos # (Auto) 100 Baso # (Auto) 0 Sodium 136 L Potassium 3.7 Chloride 107 Carbon Dioxide 25 BUN 30 H Creatinine 1.87 H Estimated GFR 35.3 L BUN/Creatinine Ratio 16.0 Glucose 106 Calcium 8.3 L Total Bilirubin 0.3 AST 25 ALT 19 Alkaline Phosphatase 65 Total Protein 5.6 L Albumin 3.1 L Globulin 2.5 Albumin/Globulin Ratio 1.2 [facility] Medical History (Updated 11/15/20 @ 15:01 by Liborio Edwards MD) Acute UTI Ankle pain Basal cell adenocarcinoma BPH (benign prostatic hyperplasia) Burning pain CAD (coronary artery disease) Cardiomyopathy Cataract (2013) Clubfoot CMT ([place]-Flmcs-Fvkhb disease) (2015) Colon polyps (2009) Essential hypertension Barajas catheter problem Hearing loss (2014) Injury of left elbow Malignant neoplasm of kidney Melanoma (2007) Obstructive sleep apnea Osteoarthritis of both knees Osteoarthrosis, ankle and foot Rheumatic fever (1958) Shoulder pain (2011) Spinal stenosis of lumbar region (09/15/13) Squamous cell skin cancer, face Stage 3 chronic kidney disease Superficial laceration Tinnitus UTI (urinary tract infection) Surgical History (Updated 11/15/20 @ 15:01 by Liborio Edwards MD) Anesthesia History of back surgery (08/2013) History of cataract removal with insertion of prosthetic lens (2013) History of left knee replacement History of left knee surgery (2004) History of nephrectomy (2003) History of transurethral resection of prostate S/P TURP (~07/2019) Family History Father Alcoholism Heart disease Mother Stroke Heart disease Other Hypertension Social History marital status: household members: spouse lives independently: Yes Smoking Status: Former smoker alcohol intake: current Assessment & Plan Assessment & Plan narrative: Mr. Younger is 75M with PMH BPH s/p TURP, HTN, HL, CKD stage 3, R[place], anemia who presents with fevers, dysuria, hematuria, found to have urinary obstruction with barajas placed and CBI performed now with staph aureus bacteremia. 1. Acute UTI with gross hematuria -etiology of hematuria is likely infectious -urine grossly positive with culture pending -started on ceftriaxone, will continue -wean down CBI -appreciate urology consult -plan to keep barajas in place, then will need outpatient follow up -hold aspirin 2. Staph aureus bacteremia -etiology is possibly from urine -follow up urine cultures -ordered for surveillance blood culture, negative to date -continue vanco/ceftriaxone until sensitivities resulted -likely will need at least 2 weeks antibiotics, PICC ordered -ECHO to eval for endocarditis showed no vegetation 3. BC on CKD stage 3 -secondary to infection -trend daily 4. BPH with history of TURP -continue terazosin 5. HTN -continue home medications 6. HL -continue statin 7. Qqqmqrd-Umjoi-Xqqqq disease -continue lyrica Time Spent With Patient Critical Care time: I spent a total of [] minutes of critical care time on this patient's care today; this time is exclusive of procedural time.
[2020-11-16 16:13] LABS: Vancomycin Random 10.2 ug/mL (10-40)
[2020-11-16] MEDS: VANCOMYCIN 1,250 MG/250 ML PIGGYBACK 250 MG IV (17:16)
[2020-11-16] MEDS: VANCOMYCIN TROUGH 1 REQUEST MISC (17:33)
--- NOTE | 2020-11-16 19:27 | DI.RAD.S_ITS ---
PROCEDURE: XR CHEST FOR PICC 1V INDICATIONS: Picc COMPARISON: [facility], , XR CHEST 1V, 11/14/2020, 18:26. FINDINGS: PICC was placed by the intravenous therapy team from the right side. Fluoroscopic spot film demonstrates the tip of PICC projecting to the area of proximal SVC IMPRESSION: Tip of PICC projects to the area of proximal SVC. Dictated by: Anibal Hillman M.D. on 11/16/2020 at 19:45 Approved by: Anibal Hillman M.D. on 11/16/2020 at 19:45
[2020-11-16] MEDS: TERAZOSIN 5 MG CAPSULE 10 MG PO (20:31)
[2020-11-16] MEDS: MELATONIN 3 MG TABLET 9 MG PO (20:32)
[2020-11-16] MEDS: ACETAMINOPHEN 325 MG TABLET 650 MG PO (20:32)
[2020-11-16] MEDS: ATORVASTATIN 20 MG TABLET 10 MG PO (20:33)
--- NOTE | 2020-11-16 22:45 | PC.NURSE ---
pt had a PICC line placed this afternoon due to vancomycin usage for the next two weeks. Pt no longer needing CBI, urine is now clear yellow.
[2020-11-17] VITALS (14 sets, daily range): BP systolic 128–159; BP diastolic 58–73; PULSE 57–83; RESP 18; TEMP 36.7–37.2; O2SAT 94–98
[2020-11-17 05:20] LABS: Add Manual Diff / Slide Review NO; Basophils Absolute Auto 0 /uL (0-100); Basophils Percent Auto 0.5 % (0-2); Eosinophils Absolute Auto 300 /uL (0-450); Eosinophils Percent Auto 4.2 % (2-4); Hematocrit 26.7 % (41-53); Hemoglobin 9.1 g/dL (13.5-17.5); Lymphocytes Absolute Auto 1100 /uL (1100-4500); Lymphocytes Percent Auto 16.5 % (25-40); Mean Corpuscular Volume 91.2 fL (80-100); Monocytes Absolute Auto 700 /uL (0-900); Monocytes Percent Auto 10.1 % (3-14); Neutrophils Absolute Auto 4500 /uL (1500-7000); Neutrophils Percent Auto 68.7 % (50-75); Platelet Count 128 X10^3/uL (150-400); Red Blood Cell Count 2.92 X10^6/uL (4.5-5.9); Red Cell Distribution Width 13.5 % (11.6-14.8); White Blood Cell Count 6.5 X10^3/uL (4.5-11.0)
[2020-11-17 05:29] LABS: Alanine Aminotransferase 19 IU/L (<50); Albumin 3.3 g/dL (3.5-5.0); Albumin Globulin Ratio 1.3 (1.0-2.8); Alkaline Phosphatase 71 U/L (38-126); Aspartate Aminotransferase 22 IU/L (17-59); BUN Creatinine Ratio 15.2 (6-22); Bilirubin Total 0.2 mg/dL (0.2-1.3); Blood Urea Nitrogen 26 mg/dL (9-20); Calcium 8.5 mg/dL (8.4-10.2); Carbon Dioxide 28 mmol/L (22-32); Chloride 107 mmol/L (98-107); Estimated Glomerular Filt Rate 39.1 mL/min (>60); Globulin 2.5 g/dL (1.7-4.1); Glucose 142 mg/dL (80-110); HEMOLYSIS < 15 (0-50); Potassium 3.9 mmol/L (3.4-5.1); Sodium 140 mmol/L (137-145); Total Protein 5.8 g/dL (6.3-8.2)
[2020-11-17] MEDS: DOCUSATE 100 MG CAPSULE PO (08:31)
[2020-11-17] MEDS: PREGABALIN 25 MG CAPSULE PO (08:31)
[2020-11-17] MEDS: CEFAZOLIN 1 GM VIAL 2 GM IV ×3 (08:31→22:42)
[2020-11-17] MEDS: carvediloL 12.5 MG TABLET PO ×2 (08:32→21:06)
[2020-11-17] MEDS: SODIUM CHLORIDE 0.9% FLUSH 10 ML IV ×2 (08:32→21:08)
--- NOTE | 2020-11-17 08:59 | PC.NURSE ---
0720- This POLICY SERVICE COORDINATOR unable to assess patient oxygen saturation due to missing equipment. Notified RN.
--- NOTE | 2020-11-17 13:23 | CM.DPC ---
DCP Cont: Patient is to be going home with [facility]. Asked Dr. Coreas to write a prescription for the antibiotic, including route, duration, frequency, and if any lab draws are needed. Called [facility] and spoke to Michael, who is the pharmacist working today. He indicated, he will research this, they should have the referral and will call back. Michael at [facility] called back. He indicated that they can have the medication ready by morning, but not today, and do not have a nurse to come in and do teaching. He would like to set up to have nurse meet patient tomorrow in the home. Goal would be to have patient get his morning dose of antibiotic. He has been getting it at 0830, asked Janie, floor nurse, if he can get it earlier so his next dose can be given at home. She stated that she can discuss with pharmacist. Michael indicated that the cost of the medication could be $650.00 a week. He has Medicare primary, which usually does not cover home infusions, and [employer] [place] [employer] as secondary. He is not sure how much of this will be covered.. Spoke to patient and spouse about possible cost. She indicated that she had contacted insurance, [employer], and they stated, this should be covered. Will have Darrius at [facility] look into this tomorrow am. was hoping that antibiotic can be once a day versus 3, let her know that so far is 3 times a day, unless hospitalist changes. is a little nervous about doing the medication. Let her know that nursing at [facility] will go over all of this for her during meeting tomorrow, and will have more information as of the time that they will meet her at home. P: DCP will need to contact Darrius at [facility] to verify patient cost, and time that nursing can arrive. Will need prescription from hospitalist. Asked him if he can complete one today and send early, otherwise, will have to send in am. Tatiana Reinoso RN/Vending Technician
--- NOTE | 2020-11-17 15:58 | P.PN_ITS ---
Subjective Subjective Date Patient Seen: 11/17/20 Time Patient Seen: 08:00 Interval history: Today he feels well. He has no pain. He feels nearly back to normal. Exam Vital Signs (past 8 hours): - 11/17/20 08:32 11/17/20 09:43 11/17/20 11:00 Temperature Pulse Rate 65 Respiratory Rate Blood Pressure 133/59 L Pulse Oximetry 96 97 11/17/20 11:30 11/17/20 15:15 Temperature 98.1 F 98.2 F Pulse Rate 57 L 73 Respiratory Rate 18 18 Blood Pressure 128/61 159/73 H Pulse Oximetry 98 Oxygen Delivery Method Room Air Oxygen Flow Rate 0 Narrative Exam Narrative: General: no acute distress Lungs: clear bilaterally Cardio: regular rate and rhythm without murmurs Abdomen: Soft nontender, no organomegaly : barajas draining yellow urine Objective Labs Result Diagrams: 11/17/20 05:00 11/17/20 05:00 Labs: Laboratory Results - last 24 hr 11/16/20 11/17/20 11/17/20 15:25 05:00 05:00 WBC 6.5 RBC 2.92 L Hgb 9.1 L Hct 26.7 L MCV 91.2 MCH 31.0 MCHC 34.0 RDW 13.5 Plt Count 128 L Neut % (Auto) 68.7 Lymph % (Auto) 16.5 L [place] % (Auto) 10.1 Eos % (Auto) 4.2 H Baso % (Auto) 0.5 Neut # (Auto) 4500 Lymph # (Auto) 1100 [place] # (Auto) 700 Eos # (Auto) 300 Baso # (Auto) 0 Sodium 140 Potassium 3.9 Chloride 107 Carbon Dioxide 28 BUN 26 H Creatinine 1.71 H Estimated GFR 39.1 L BUN/Creatinine Ratio 15.2 Glucose 142 H Calcium 8.5 Total Bilirubin 0.2 AST 22 ALT 19 Alkaline Phosphatase 71 Total Protein 5.8 L Albumin 3.3 L Globulin 2.5 Albumin/Globulin Ratio 1.3 Random Vancomycin 10.2 [facility] Medical History (Updated 11/15/20 @ 15:01 by Liborio Edwards MD) Acute UTI Ankle pain Basal cell adenocarcinoma BPH (benign prostatic hyperplasia) Burning pain CAD (coronary artery disease) Cardiomyopathy Cataract (2013) 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) Colon polyps (2009) Essential hypertension Barajas catheter problem Hearing loss (2014) Injury of left elbow Malignant neoplasm of kidney Melanoma (2007) Obstructive sleep apnea Osteoarthritis of both knees Osteoarthrosis, ankle and foot Rheumatic fever (1958) Shoulder pain (2011) Spinal stenosis of lumbar region (09/15/13) Squamous cell skin cancer, face Stage 3 chronic kidney disease Superficial laceration Tinnitus UTI (urinary tract infection) Surgical History (Updated 11/15/20 @ 15:01 by Liborio Edwards MD) Anesthesia History of back surgery (08/2013) History of cataract removal with insertion of prosthetic lens (2013) History of left knee replacement History of left knee surgery (2004) History of nephrectomy (2003) History of transurethral resection of prostate S/P TURP (~07/2019) Family History Father Alcoholism Heart disease Mother Stroke Heart disease Other Hypertension Social History marital status: household members: spouse lives independently: Yes Smoking Status: Former smoker alcohol intake: current Assessment & Plan Assessment & Plan narrative: Mr. Younger is 75M with PMH BPH s/p TURP, HTN, HL, CKD stage 3, RENO, anemia who presents with fevers, dysuria, hematuria, found to have urinary obstruction with barajas placed and CBI performed now with staph aureus bacteremia. 1. Acute UTI with gross hematuria -etiology of hematuria is likely infectious -urine grossly positive with culture pending -started on ceftriaxone, will continue -wean down CBI -appreciate urology consult -plan to keep barajas in place, then will need outpatient follow up -hold aspirin 2. Staph aureus bacteremia -etiology is not clear -follow up urine cultures showed MSSA -blood culture -ordered for surveillance blood culture, negative to date -antibiotics switched from vancomycin to cefazolin 2gm q8 with plan for two week total course of antibiotics through 11/28 -PICC placed -ECHO to eval for endocarditis showed no vegetation 3. BC on CKD stage 3 vs CKD stage 3 -secondary to infection -trend daily -creatinine peaked at 1.97 now improved 1.71 4. BPH with history of TURP -continue terazosin 5. HTN -continue home medications 6. HL -continue statin 7. Fuebwht-Bgjju-Xafdu disease -continue lyrica Time Spent With Patient Critical Care time: I spent a total of [] minutes of critical care time on this patient's care today; this time is exclusive of procedural time.
[2020-11-17] MEDS: ATORVASTATIN 20 MG TABLET 10 MG PO (21:06)
[2020-11-17] MEDS: ACETAMINOPHEN 325 MG TABLET 650 MG PO (21:07)
[2020-11-17] MEDS: MELATONIN 3 MG TABLET 9 MG PO (21:07)
[2020-11-17] MEDS: TERAZOSIN 5 MG CAPSULE 10 MG PO (21:07)
[2020-11-18] VITALS (9 sets, daily range): BP systolic 122–150; BP diastolic 64–97; PULSE 61–66; RESP 16–18; TEMP 36.5–36.9; O2SAT 95–98
[2020-11-18] MEDS: carvediloL 12.5 MG TABLET PO (09:09)
[2020-11-18] MEDS: CEFAZOLIN 1 GM VIAL 2 GM IV (09:09)
[2020-11-18] MEDS: DOCUSATE 100 MG CAPSULE PO (09:10)
[2020-11-18] MEDS: PREGABALIN 25 MG CAPSULE PO (09:15)
[2020-11-18] MEDS: SODIUM CHLORIDE 0.9% FLUSH 10 ML IV (09:16)
--- NOTE | 2020-11-18 12:56 | CM.DPC ---
DCP Discharge Home Infusion Per MD, pt is medically stable to d/c home with 2 weeks IV-Abx Cefazolin Q8. SHIN called [facility] and they will re-run the final abx with pt's insurance and then call pt/spouse with update on any out of pocket expense and then confirmed they will do bedside teaching with pt and spouse in the hospital around [phone] and want to do pt's Abx dosing. SHIN met bedside with pt and discussed above and he is still agreeable with d/c plan and [facility] and Nika WOOTEN RN and will contact his spouse. SHIN updated custom garment designer who will update pt's RN. SHIN faxed [facility] pt's PICC insertion note and script. SHIN called pt's PCP Dr. Lomas and confirmed she was aware of pt being admitted and d/c plan for today and she is agreeable with following pt for IV-Abx with [facility]. SHIN called Nika WOOTEN and left msg regarding pt's d/c today and faxed F2F and MD orders. D/C summary not available yet. Plan: Patient to d/c home today via spouse POV after bedside teaching with [facility] RN around 1500 and Nika WOOTEN RN to follow after d/c. DIANA Augustine
--- NOTE | 2020-11-20 18:42 | P.DS_ITS ---
History of Present Illness History of Present Illness Date Patient Seen: 11/18/20 Chief complaint: Bladder Infection Getting Worse Blood/Clotting Narrative: Patient is a 75-year-old male Andres Younger who presented today with chief complaint bloody urination that has gotten worse over the last 2 days. Patient has a history of BPH and had a TURP procedure in the past, has a history of hypertension, hyperlipidemia, CKD stage 3, anemia, RENO, and obesity. He reports that last night he had trouble urinating because of the amount of blood clots that he was passing. He passed a large blood clot earlier today and has had pain in his penis since that occurred. He denies any significant abdominal pain, nausea, vomiting, flank pain, shortness of breath, chest pain, fever or any other acute concerns or complaints at this time. He is not on any blood thinners and takes 81 mg of aspirin daily. Patient denies fever, body aches, or chills. Patient reports that he has never had blood in his urine before he did have a UTI several years ago, and has half a prostate left. Patient was admitted while still in the ED attempts at straight cath were unsuccessful due to the amount in size of blood clots eventually a 26 Setswana Batista catheter was placed patient's urine vary between dark red and grape juice in color. Upon arriving on the floor patient was placed on continuous irrigatio n with continued obstruction from blood clots. Patient's vitals upon admit fever I will with temp 100.6?, BP 135/63, HR 95, RR 18, O2 saturation 96% on room air. Patient does have an elevated WBC 14.8 with neutrophils 11,600, baso 200, HGB 11.6, HCT 34.2. BUN 34, creatinine 1.68, glucose 127, GFR 39.9, sofa score: 1. Patient's chest x-ray demonstrated mild hyper aeration and flattening of the hemidiaphragms suggestive of COPD minimal bibasilar streaking opacities. CT of Abd/Pelvis demonstated Bilateral nonobstructive nephrolithiasis. No evidence for obstructive uropathy. Moderate, slightly irregular thickening of the urinary bladder.Underlying neoplastic process not excluded. Colonic diverticulosis without acute diverticulitis. Prostatomegaly. Stable sub 5 mm right lower lobe pulmonary nodule. Cholelithiasis without CT evidence for acute cholecystitis. Patient admitted for acute UTI with gross hematuria. Discharge Providers Provider Date of admission: 11/14/20 20:35 Discharge Date: 11/18/20 Primary care physician: Brittany Lomas DO Consults: 11/14/20 21:17 Consult to Physician Routine Comment: Consulting Provider: Liborio Edwards Reason for consultation: Hematuria, clots, hx prostate ca Has provider been notified: No 11/16/20 14:54 Consult After Hours PICC Line RN Routine Comment: 11/18/20 09:01 Consult to Home Health Routine Comment: home IV-Abx, lab draws, dressing changes Reason For Exam: Set up RN for home discharge Discharge provider: Kate Marin MD Summary Hospital Course Discharge Diagnosis: 1. Hematuria 2. Urinary tract infection 3. Recent transurethral resection of the prostate 4. Staph aureus bacteremia 5. Acute kidney injury 6. Hypertension 7. High lipidemia 8. Charcot Ani tooth disease 9. Acute kidney injury Hospital Course: Admitted to the hospital for gross hematuria. Patient was seen in consultation by Dr. Liborio Edwards from Urology. Continuous bladder irrigation was initiated with improvement of his hematuria. The patient was treated with antibiotics for urinary tract infection. Patient's blood cultures grew MRSA which was felt to be from the urine. PICC line was placed for antibiotic therapy echocardiogram revealed no evidence of vegetation or endocarditis. Patient also was found to have acute kidney injury felt to be secondary to infection. That improved. Patient's cultures ultimately grew methicillin sensitive Staph aureus, he was switched to cefazolin. PICC line was placed. In a paint arrangements were made for the patient to be discharged home for continued antibiotic therapy. Patient had no specific complaints and was deemed appropriate for discharge home. Status at Discharge Cognitive/behavioral status at discharge: oriented Functional status at discharge: independent ambulation Overall status at discharge: patient is back to baseline Exam Vital Signs (past 8 hours): Oxygen Delivery Method Room Air Oxygen Flow Rate 0 Narrative Exam Narrative: Pleasant gentleman in no obvious distress Resp Other: Lungs clear to auscultation Cardio Other: Cardiac exam regular rate and rhythm normal S1-S2 GI Other: Abdomen soft nontender Objective Labs Result Diagrams: 11/17/20 05:00 11/17/20 05:00 [facility] Medical History (Updated 11/15/20 @ 15:01 by Liborio Edwards MD) Acute UTI Ankle pain Basal cell adenocarcinoma BPH (benign prostatic hyperplasia) Burning pain CAD (coronary artery disease) Cardiomyopathy Cataract (2013) Clubfoot CMT (Yvhevgn-Xodcf-Qobba disease) (2014) Colon polyps (2008) Essential hypertension Batista catheter problem Hearing loss (2014) Injury of left elbow Malignant neoplasm of kidney Melanoma (2007) Obstructive sleep apnea Osteoarthritis of both knees Osteoarthrosis, ankle and foot Rheumatic fever (8) Shoulder pain (2011) Spinal stenosis of lumbar region (09/15/13) Squamous cell skin cancer, face Stage 3 chronic kidney disease Superficial laceration Tinnitus UTI (urinary tract infection) Surgical History (Updated 11/15/20 @ 15:01 by Liborio Edwards MD) Anesthesia History of back surgery (08/2013) History of cataract removal with insertion of prosthetic lens (2013) History of left knee replacement History of left knee surgery (2004) History of nephrectomy (2003) History of transurethral resection of prostate S/P TURP (~07/2019) Family History Father Alcoholism Heart disease Mother Stroke Heart disease Other Hypertension Social History marital status: household members: spouse lives independently: Yes Smoking Status: Former smoker alcohol intake: current Discharge Assessment & Plan Assessment and Plan Assessment: 1. Hematuria 2. Urinary tract infection 3. Recent transurethral resection of the prostate 4. Staph aureus bacteremia 5. Acute kidney injury 6. Hypertension 7. High lipidemia 8. Charcot Ani tooth disease 9. Acute kidney injury Plan of Treatment: Home antibiotics as described above Continue usual medication Discharge Plan Discharge Plan Patient Disposition: Home Health Service Transfer to: [facility] Discharge orders & Medications Prescriptions: New cefazolin 1 gram Recon Soln 2 g IV Q8H Qty: 33 RF: 0 Continued (DME) miscellaneous medical supply misc See Dose Instructions .Route .MEDSUPPLY Qty: 1 RF: 0 amlodipine 5 mg tablet 5 mg PO DAILY RF: 0 carvedilol 12.5 mg tablet 12.5 mg PO BID RF: 0 acetaminophen [Tylenol Arthritis Pain] 650 mg tablet extended release See Rx Instructions PO DAILY PRN (Reason: Pain (Scale Score 4-6)) RF: 0 terazosin 10 mg capsule 10 mg PO BEDTIME RF: 0 aspirin 81 mg tablet,delayed release (DR/EC) 81 mg PO DAILY RF: 0 rosuvastatin 5 mg tablet 5 mg PO DAILY RF: 0 pregabalin [Lyrica] 25 mg capsule 25 mg PO DAILY RF: 0 (DME) Respironics Dreamstation CPAP Qty: 1 RF: 0 Follow up/Referrals: Brittany Lomas DO [Primary Care Provider] - Diet/Activity/Treatments Diet: Low-sodium Catheter: 2-way Batista Skin/Wound/Dressing Care Report to your healthcare provider any signs of infection, such as:: chills, fever Visit Report/Discharge Packet Instructions: How to Care for Your Batista Catheter -- Male, Acute Kidney Injury, DI for Urinary Tract Infection (UTI), How to Prevent Falls Discharge Data Primary Care Provider: Brittany Lomas
--- NOTE | 2020-11-21 07:43 | CM.DPNOTE ---
Faxed DC summary and order and received fax conf. Kiley Bustillos CM Asst.
== END 2020-11-18 17:14 | disposition home or self-care (01) | DRG 690 ==
LOC: ED 20:36 → AC 20:36
PROVIDERS: Internal Medicine; Physician Assistant; Admitting Provider Nurse Practitioner Family; Emergency Provider Emergency Medicine; PCP Family Medicine; Referring Provider Family Medicine; Visit Provider Nurse Practitioner Family
DX: N39.0 Urinary tract infection, site not specified (principal); N17.9 Acute kidney failure, unspecified; R78.81 Bacteremia; R31.0 Gross hematuria; B95.61 Methicillin susceptible Staphylococcus aureus infection as the cause of diseases classified elsewhere; N40.1 Benign prostatic hyperplasia with lower urinary tract symptoms; I12.9 Hypertensive chronic kidney disease with stage 1 through stage 4 chronic kidney disease, or unspecified chronic kidney disease; N18.30 Chronic kidney disease, stage 3 unspecified; E78.5 Hyperlipidemia, unspecified; G60.0 Hereditary motor and sensory neuropathy; T83.091A Other mechanical complication of indwelling urethral catheter, initial encounter; Z87.891 Personal history of nicotine dependence; Z20.822 Contact with and (suspected) exposure to COVID-19
CPT/HCPCS: 36415; 51701; 51798; 71045; 74176; 80048; 80053; 80202; 81001; 83605; 83735; 85007; 85014; 85018; 85025; 85027; 85610; 85730; 87040; 87077; 87086; 87147; 87150; 87186; 87205; 87635; 93005; 93010; 93306; 94760; 96361; 96365; 99233; 99284; C9803; C9113; J0690; J0696; J1170; J1642; J2543

== ENCOUNTER → 2020-11-29 10:07 | Outpatient (CLI) | payer MEDICARE, OTHER, SELFPAY ==
[2020-11-14 23:16] VITALS: BMI 32.6
== END ==
PROVIDERS: PCP Family Medicine; Visit Provider Urology
DX: N39.0 Urinary tract infection, site not specified (principal); R33.8 Other retention of urine; R31.0 Gross hematuria; A41.9 Sepsis, unspecified organism; Z98.890 Other specified postprocedural states; Z90.79 Acquired absence of other genital organ(s)
CPT/HCPCS: 87086; 99214

== ENCOUNTER → 2020-12-17 14:53 | Outpatient (CLI) | payer MEDICARE, OTHER, SELFPAY ==
[2020-11-14 23:16] VITALS: BMI 32.6
[2020-12-17 15:36] LABS: Add Manual Diff / Slide Review NO; Basophils Absolute Auto 0 /uL (0-100); Basophils Percent Auto 0.6 % (0-2); Eosinophils Absolute Auto 200 /uL (0-450); Eosinophils Percent Auto 3.7 % (2-4); Hematocrit 31.9 % (41-53); Hemoglobin 10.8 g/dL (13.5-17.5); Lymphocytes Absolute Auto 1400 /uL (1100-4500); Lymphocytes Percent Auto 24.6 % (25-40); Mean Corpuscular HGB Conc 33.8 % (30-36); Mean Corpuscular Hemoglobin 30.7 PG (26-34); Mean Corpuscular Volume 90.9 fL (80-100); Monocytes Absolute Auto 500 /uL (0-900); Monocytes Percent Auto 8.6 % (3-14); Neutrophils Absolute Auto 3700 /uL (1500-7000); Neutrophils Percent Auto 62.5 % (50-75); Platelet Count 206 X10^3/uL (150-400); Red Blood Cell Count 3.51 X10^6/uL (4.5-5.9); Red Cell Distribution Width 13.6 % (11.6-14.8); White Blood Cell Count 5.9 X10^3/uL (4.5-11.0)
[2020-12-17 15:53] LABS: Alanine Aminotransferase 15 IU/L (<50); Albumin 4.3 g/dL (3.5-5.0); Albumin Globulin Ratio 1.7 (1.0-2.8); Alkaline Phosphatase 99 U/L (38-126); Aspartate Aminotransferase 25 IU/L (17-59); BUN Creatinine Ratio 18.2 (6-22); Bilirubin Total 0.3 mg/dL (0.2-1.3); Blood Urea Nitrogen 30 mg/dL (9-20); Calcium 9.4 mg/dL (8.4-10.2); Carbon Dioxide 22 mmol/L (22-32); Chloride 104 mmol/L (98-107); Cholesterol 132 mg/dL (140-199); Estimated Glomerular Filt Rate 40.8 mL/min (>60); Globulin 2.5 g/dL (1.7-4.1); Glucose 110 mg/dL (80-110); HDL Cholesterol 49 mg/dL (40-60); HEMOLYSIS < 15 (0-50); LDL Cholesterol Calculated 54 mg/dL (<100); Potassium 4.3 mmol/L (3.4-5.1); Sodium 138 mmol/L (137-145); Total Protein 6.8 g/dL (6.3-8.2); Triglycerides 147 mg/dL (35-150)
== END ==
PROVIDERS: PCP Family Medicine; Referring Provider Family Medicine; Visit Provider Family Medicine
DX: E78.5 Hyperlipidemia, unspecified (principal); I25.10 Atherosclerotic heart disease of native coronary artery without angina pectoris; N18.30 Chronic kidney disease, stage 3 unspecified; R33.8 Other retention of urine; R31.0 Gross hematuria; Z98.890 Other specified postprocedural states; Z90.79 Acquired absence of other genital organ(s)
CPT/HCPCS: 36415; 51798; 80053; 80061; 81002; 85025; 99214

== ENCOUNTER → 2021-01-01 15:40 | Outpatient (CLI) | payer MEDICARE, OTHER, SELFPAY ==
[2020-11-14 23:16] VITALS: BMI 32.6
== END ==
PROVIDERS: PCP Family Medicine; Visit Provider Urology
DX: N39.0 Urinary tract infection, site not specified (principal)
CPT/HCPCS: 81002; 87077; 87086; 87147; 87186

== ENCOUNTER → 2021-01-10 11:15 | Outpatient (CLI) | payer MEDICARE, OTHER, SELFPAY ==
[2020-11-14 23:16] VITALS: BMI 32.6
[2021-01-10] MEDS: COVID-19 VACC #3, MRNA(MOD) 50 MCG/0.25 ML VIAL IM (11:23)
== END ==
PROVIDERS: PCP Family Medicine; Visit Provider Internal Medicine
DX: Z23 Encounter for immunization (principal)
CPT/HCPCS: 0013A; 91301

== ENCOUNTER → 2021-01-14 17:39 | Outpatient (CLI) | payer MEDICARE, OTHER, SELFPAY ==
[2020-11-14 23:16] VITALS: BMI 32.6
[2021-01-14 19:21] LABS: Appearance Urine UA CLEAR; Bilirubin Urine UA NEGATIVE (NEGATIVE); Color Urine UA YELLOW; Glucose Urine UA NEGATIVE (Negative); Ketones Urine UA NEGATIVE (NEGATIVE); Leukocyte Esterase Urine UA NEGATIVE (NEGATIVE); Nitrite Urine UA NEGATIVE (Negative); Occult Blood Urine UA TRACE-LYSED (Negative); Protein Urine UA 2+ (Negative); Specific Gravity Urine UA 1.015 (1.000-1.035); Urobilinogen Urine UA 0.2 E.U./dL (0.2)
[2021-01-14 19:32] LABS: Bacteria Urine None Seen; Culture Indicated Urine Cult Not Indicated; RBC Urine 0-1/HPF (0-5/HPF); Squamous Epithelial Cell Urine 0-1 /HPF (0-5/HPF); WBC Urine 1-5/HPF (0-5/HPF)
== END ==
PROVIDERS: PCP Family Medicine; Referring Provider Urology; Visit Provider Urology
DX: R30.0 Dysuria (principal)
CPT/HCPCS: 81001

== ENCOUNTER → 2021-01-29 13:41 | Outpatient (CLI) | payer MEDICARE, OTHER, SELFPAY ==
[2020-11-14 23:16] VITALS: BMI 32.6
[2021-01-29 15:36] LABS: BUN Creatinine Ratio 20.6 (6-22); Blood Urea Nitrogen 34 mg/dL (9-20); Calcium 9.5 mg/dL (8.4-10.2); Carbon Dioxide 25 mmol/L (22-32); Chloride 105 mmol/L (98-107); Estimated Glomerular Filt Rate 40.8 mL/min (>60); Glucose 118 mg/dL (80-110); HEMOLYSIS < 15 (0-50); Potassium 4.2 mmol/L (3.4-5.1); Sodium 139 mmol/L (137-145)
== END ==
PROVIDERS: PCP Family Medicine; Visit Provider Urology
DX: R30.0 Dysuria (principal); N39.0 Urinary tract infection, site not specified; R31.0 Gross hematuria; Z98.890 Other specified postprocedural states; Z90.79 Acquired absence of other genital organ(s)
CPT/HCPCS: 36415; 80048; 81002; 87077; 87086; 87147; 87186; 99213

== ENCOUNTER → 2021-02-05 12:13 | Outpatient (CLI) | payer MEDICARE, OTHER, SELFPAY ==
[2021-01-29 14:23] VITALS: BMI 32.6
[2021-02-05 13:21] LABS: Hematocrit 36.2 % (41-53); Hemoglobin 12.4 g/dL (13.5-17.5)
[2021-02-05 14:30] LABS: BUN Creatinine Ratio 15.7 (6-22); Blood Urea Nitrogen 26 mg/dL (9-20); Calcium 9.3 mg/dL (8.4-10.2); Carbon Dioxide 23 mmol/L (22-32); Chloride 105 mmol/L (98-107); Estimated Glomerular Filt Rate 40.5 mL/min (>60); Glucose 143 mg/dL (80-110); HEMOLYSIS < 15 (0-50); Potassium 3.8 mmol/L (3.4-5.1); Sodium 139 mmol/L (137-145)
--- NOTE | 2021-02-05 14:45 | DI.CT.S_ITS ---
PROCEDURE: CT ABDOMEN PELVIS WO CON INDICATIONS: Recurring urinary tract infection TECHNIQUE: Axial sections were acquired from the lung bases to the pubic symphysis. Coronal and sagittal reformats were performed. For radiation dose reduction, the following was used: automated exposure control, adjustment of mA and/or kV according to patient size. COMPARISON: [facility], CT, CT KIDNEY URETER BLADDER (KUB), 11/14/2020, 19:00. FINDINGS: Image quality: Excellent. Lung bases: Unremarkable. Heart: [id number] pericardial effusion. URINARY: Right Kidney: Scattered tiny calcifications, as before. No hydronephrosis. Right Ureter: Unremarkable Left Kidney: Scattered punctate calcifications, as before, likely representing a combination of tiny stones and renovascular calcifications. Left Ureter: Unremarkable. Bladder: Previous Batista catheter is been removed. There is some clot present in the bladder. The bladder wall is not thickened. At least moderate enlargement of the prostate. ABDOMEN: Liver: Unremarkable. Gallbladder: Multiple stones are present. No gallbladder wall thickening. Biliary ducts: Unremarkable. Pancreas: Unremarkable. Spleen: Unremarkable. Adrenal Glands: Unremarkable. Stomach and Bowel: Scattered colonic diverticulosis. Moderate to large fecal load. No dilated loops or thickened loops. Peritoneum: No abnormal intraperitoneal fluid. No free air. Ventral Wall: No hernia. Abdominal Nodes: No enlarged retroperitoneal or mesenteric lymph nodes. Vessels: Aorta and inferior vena cava are normal in size. PELVIS: Pelvic Organs: Unremarkable. Pelvic Nodes: Unremarkable. Miscellaneous: Small bilateral fat containing inguinal hernias. Bones: Extensive lumbar degenerative change. No lytic or blastic bony lesions. No compression fractures. IMPRESSION: 1. Tiny bilateral punctate calcifications, a number of which are likely tiny nonobstructing stones. 2. No hydronephrosis. 3. There is clotted blood present in the bladder. 4. At least moderate prostate enlargement. 5. Cholelithiasis. 6. Mild to moderate pericardial effusion. Dictated by: Anibal Hillman M.D. on 02/05/2021 at 16:00 Approved by: Anibal Hillman M.D. on 02/05/2021 at 16:07
[2021-02-05 18:49] LABS: Creatinine Urine Random 25.2 mg/dL
[2021-02-05 19:41] LABS: Protein (Total) Urine Random 1006 mg/dL (0-12); Protein Creatinine Ratio Urine 39.92 GRAM/24H
[2021-02-06 12:06] LABS: Parathyroid Hormone Int 59 pg/mL (15-65)
== END ==
PROVIDERS: Student in an Organized Health Care Education/Training Program; PCP Family Medicine; Referring Provider Urology; Visit Provider Urology
DX: N39.0 Urinary tract infection, site not specified (principal); J90 Pleural effusion, not elsewhere classified; K80.20 Calculus of gallbladder without cholecystitis without obstruction; N40.0 Benign prostatic hyperplasia without lower urinary tract symptoms; N05.9 Unspecified nephritic syndrome with unspecified morphologic changes; D64.9 Anemia, unspecified; N25.81 Secondary hyperparathyroidism of renal origin; R80.9 Proteinuria, unspecified
CPT/HCPCS: 36415; 74176; 80048; 82570; 83970; 84156; 85014; 85018

== ENCOUNTER → 2021-02-27 10:46 | Outpatient (CLI) | payer MEDICARE, OTHER, SELFPAY ==
[2021-01-29 14:23] VITALS: BMI 32.6
--- NOTE | 2021-02-27 10:49 | DI.RAD.S_ITS ---
PROCEDURE: XR ANKLE RT MIN 3V INDICATIONS: fall TECHNIQUE: 3 views of the ankle were acquired. COMPARISON: None. FINDINGS: Bones: No fractures or dislocations. Ankle mortise is normally aligned. No suspicious bony lesions. Severe joint space narrowing and periarticular osteophyte formation at the tibiotalar joint. Chronic appearing ununited fracture of the distal fibula with adjacent osteoarthritic change. Disorganization of the midfoot and hindfoot joints. Talar dome collapse, severe in degree. Probable osteochondral injury involving the lateral talar dome. Soft tissues: No tibiotalar joint effusion. Achilles tendon appears normal. IMPRESSION: 1. Findings suggestive of Charcot arthropathy. 2. Severe osteoarthritis. 3. Ununited distal fibular fracture with adjacent osteoarthritis. 4. Probable lateral talar dome osteochondral injury. 5. Tibiotalar joint collapse. Dictated by: Naren León M.D. on 02/27/2021 at 11:06 Approved by: Naren León M.D. on 02/27/2021 at 11:21
== END ==
PROVIDERS: PCP Family Medicine; Referring Provider Nurse Practitioner Family; Visit Provider Nurse Practitioner Family
DX: M19.071 Primary osteoarthritis, right ankle and foot (principal); S96.911A Strain of unspecified muscle and tendon at ankle and foot level, right foot, initial encounter; S82.831K Other fracture of upper and lower end of right fibula, subsequent encounter for closed fracture with nonunion; M25.871 Other specified joint disorders, right ankle and foot; W10.9XXA Fall (on) (from) unspecified stairs and steps, initial encounter
CPT/HCPCS: 73610

== ENCOUNTER → 2021-03-05 09:37 | Outpatient (CLI) | payer MEDICARE, OTHER, SELFPAY ==
[2021-01-29 14:23] VITALS: BMI 32.6
[2021-03-05 11:43] LABS: Add Manual Diff / Slide Review NO; Basophils Absolute Auto 0 /uL (0-100); Basophils Percent Auto 0.5 % (0-2); Eosinophils Absolute Auto 100 /uL (0-450); Eosinophils Percent Auto 1.9 % (2-4); Hematocrit 34.9 % (41-53); Hemoglobin 11.6 g/dL (13.5-17.5); Lymphocytes Absolute Auto 900 /uL (1100-4500); Lymphocytes Percent Auto 12.2 % (25-40); Mean Corpuscular HGB Conc 33.2 % (30-36); Mean Corpuscular Hemoglobin 29.1 PG (26-34); Mean Corpuscular Volume 87.5 fL (80-100); Monocytes Absolute Auto 400 /uL (0-900); Monocytes Percent Auto 5.6 % (3-14); Neutrophils Absolute Auto 5900 /uL (1500-7000); Neutrophils Percent Auto 79.8 % (50-75); Platelet Count 256 X10^3/uL (150-400); Red Blood Cell Count 3.98 X10^6/uL (4.5-5.9); Red Cell Distribution Width 13.2 % (11.6-14.8); White Blood Cell Count 7.3 X10^3/uL (4.5-11.0)
[2021-03-05 12:07] LABS: Erythrocyte Sedimentation Rate 67 MM/HR (0-15)
[2021-03-05 12:20] LABS: BUN Creatinine Ratio 17.3 (6-22); Blood Urea Nitrogen 27 mg/dL (9-20); C-Reactive Protein Quant 6.2 mg/dL (<1.0); Calcium 9.5 mg/dL (8.4-10.2); Carbon Dioxide 27 mmol/L (22-32); Chloride 105 mmol/L (98-107); Estimated Glomerular Filt Rate 43.5 mL/min (>60); Glucose 201 mg/dL (80-110); HEMOLYSIS < 15 (0-50); Potassium 3.7 mmol/L (3.4-5.1); Sodium 141 mmol/L (137-145); Uric Acid 7.4 mg/dL (3.5-8.5)
== END ==
PROVIDERS: PCP Family Medicine; Referring Provider Family Medicine; Visit Provider Family Medicine
DX: M25.571 Pain in right ankle and joints of right foot (principal); S96.911A Strain of unspecified muscle and tendon at ankle and foot level, right foot, initial encounter; M10.9 Gout, unspecified
CPT/HCPCS: 36415; 80048; 84550; 85025; 85651; 86140

== ENCOUNTER → 2021-03-07 13:47 | Outpatient (CLI) | payer MEDICARE, OTHER, SELFPAY ==
[2021-01-29 14:23] VITALS: BMI 32.6
== END ==
PROVIDERS: PCP Family Medicine; Visit Provider Urology
DX: N39.0 Urinary tract infection, site not specified (principal); N32.89 Other specified disorders of bladder; Z98.890 Other specified postprocedural states; Z90.79 Acquired absence of other genital organ(s); M10.9 Gout, unspecified; M10.371 Gout due to renal impairment, right ankle and foot
CPT/HCPCS: 81002; 87077; 87086; 87147; 87185; 87186; 99214

== ENCOUNTER → 2021-03-10 14:20 | Outpatient (CLI) | payer MEDICARE, OTHER, SELFPAY ==
[2021-01-29 14:23] VITALS: BMI 32.6
[2021-03-10 15:54] LABS: COVID19 -Nasal RAPID Negative (Negative)
== END ==
PROVIDERS: PCP Family Medicine; Referring Provider Urology; Visit Provider Urology
DX: Z20.822 Contact with and (suspected) exposure to COVID-19 (principal)
CPT/HCPCS: 87635; C9803

== ENCOUNTER 2021-03-13 07:51 | Day surgery (SDC) | payer MEDICARE, OTHER, SELFPAY ==
[2021-01-29 14:23] VITALS: BMI 32.6
[2021-03-12 08:22] VITALS: BMI 32.0
[2021-03-13] VITALS (8 sets, daily range): BP systolic 116–152; BP diastolic 56–70; PULSE 50–54; RESP 15–18; TEMP 36.3–36.8; O2SAT 95–98; BMI 32.0
[2021-03-13] MEDS: LACTATED RINGERS 1,000 ML 100 ML IV (08:20)
--- NOTE | 2021-03-13 08:53 | PM.PREOP ---
Pre-operative Note COVID-19 COVID-19 status: Negative Result date/Date tested (Pos, Neg/Pending): 03/10/21 Criteria for continued procedure: Deterioration of the patient's condition or overall health and Non-surgical alternatives not available or appropriate per current SOC Interval Note History & Physical reviewed/Exam performed by Physician: Yes Changes to H&P: No
[2021-03-13] MEDS: CIPROFLOXACIN 400 MG/200 ML PIGGYBACK 200 MG IV (09:08)
--- NOTE | 2021-03-13 09:20 | SUR.OPER ---
Lithotomy on padded OR bed, head on pillow, arms secured on padded arm boards at <90 degrees abduction. Legs secured in padded yellow fins stirrups.
--- NOTE | 2021-03-13 09:30 | P.OP_ITS ---
Procedure & Clinicians Procedure: Cystoscopy Same procedure as scheduled: Yes (No clot evacuation the appear to have dissolved and passed) Indications: This is a 75-year-old male who has a history of clot urinary retention. He has had persistent infection and hematuria. And had flexible cystoscopy which appeared to show consolidated and partially calcified clot. He presents this time for cystoscopy for evacuation. Surgeon: Liborio Edwards Click Yes if Unassisted: Yes Anesthesia Type: General Operative Notes Findings: Urethra with meatal narrowing. Prostate shows evidence resection in varicosities. In the bladder there was severe trabeculation and cellules and some cystitis glandularis. There appeared that the clot had dissolved and was no longer present. Therefore cystoscopy was done only. The clot not being there is a little surprising that it appeared did appear to be somewhat calcified and flexible cystoscopy. However there was none present. Closure Type: not applicable Specimen(s): none sent Prosthetic devices, grafts, tissues, transplants, or devices: None Estimated Blood Loss (mL): 0 Procedure in detail: After informed consent was obtained, the patient was identified and brought to the operating room. The patient was placed in the supine position on the table and anesthesia was induced and maintained. The patient was then transitioned to a semi-lithotomy position where he was prepped, draped, prepared for transurethral procedure. After ensuring an adequate level of anesthesia attempts made to pass the cystoscope it met with resistance.. The patient had a meatal narrowing therefore Jyotsna sounds were applied from 18-26 Estonian dilating the meatus. The cystoscope was then easily passed through the urethra prostate and in the bladder were cystoscopy is performed with the 30 and 70 degree lens. It became apparent that the clots had dissolved in past and therefore the bladder was drained, the patient was awakened and taken and to the postanesthesia care unit having tolerated the procedure well. There were no complication. The patient will be discharged home to follow-up in my office Complications: none Post-operative Condition: stable Disposition: PACU Plan for aftercare: Patient to follow-up my office in 10-14 days.
== END 2021-03-13 10:25 | disposition home or self-care (01) ==
PROVIDERS: PCP Family Medicine; Referring Provider Urology; Visit Provider Urology
PROC: 0TJB8ZZ Inspection of Bladder, Via Natural or Artificial Opening Endoscopic (ICD-10-PCS; CPT 52000; principal; 2021-03-13 09:15)
DX: N35.911 Unspecified urethral stricture, male, meatal (principal); R33.8 Other retention of urine; G47.33 Obstructive sleep apnea (adult) (pediatric); N18.9 Chronic kidney disease, unspecified
CPT/HCPCS: 52281; J0744; J2704; J3010

== ENCOUNTER → 2021-03-20 09:38 | Outpatient (CLI) | payer MEDICARE, OTHER, SELFPAY ==
[2021-01-29 14:23] VITALS: BMI 32.6
[2021-03-20 11:19] LABS: Hematocrit 35.2 % (41-53); Hemoglobin 11.8 g/dL (13.5-17.5)
[2021-03-20 11:49] LABS: BUN Creatinine Ratio 24.5 (6-22); Blood Urea Nitrogen 38 mg/dL (9-20); Calcium 9.2 mg/dL (8.4-10.2); Carbon Dioxide 27 mmol/L (22-32); Chloride 104 mmol/L (98-107); Estimated Glomerular Filt Rate 43.8 mL/min (>60); Glucose 209 mg/dL (80-110); HEMOLYSIS < 15 (0-50); Potassium 3.7 mmol/L (3.4-5.1); Sodium 139 mmol/L (137-145)
[2021-03-20 12:57] LABS: Appearance Urine UA SL CLOUDY; Bilirubin Urine UA NEGATIVE (NEGATIVE); Color Urine UA YELLOW; Glucose Urine UA NEGATIVE (Negative); Ketones Urine UA NEGATIVE (NEGATIVE); Leukocyte Esterase Urine UA TRACE (NEGATIVE); Nitrite Urine UA NEGATIVE (Negative); Occult Blood Urine UA TRACE-LYSED (Negative); Protein Urine UA TRACE (Negative); Urobilinogen Urine UA 0.2 E.U./dL (0.2)
[2021-03-20 13:15] LABS: C-Reactive Protein Quant < 0.5 mg/dL (<1.0)
[2021-03-20 13:37] LABS: Bacteria Urine Few (2-10); Culture Indicated Urine Specimen Cultured; RBC Urine 1-5/HPF (0-5/HPF); Squamous Epithelial Cell Urine 1-5 /HPF (0-5/HPF); WBC Urine 1-5/HPF (0-5/HPF)
[2021-03-20 15:41] LABS: Protein (Total) Urine Random 38 mg/dL (0-12)
[2021-03-21 08:12] LABS: Parathyroid Hormone Int 85 pg/mL (15-65)
== END ==
PROVIDERS: PCP Family Medicine; Referring Provider Student in an Organized Health Care Education/Training Program; Visit Provider Student in an Organized Health Care Education/Training Program
DX: N05.9 Unspecified nephritic syndrome with unspecified morphologic changes (principal); D64.9 Anemia, unspecified; N25.81 Secondary hyperparathyroidism of renal origin; N30.00 Acute cystitis without hematuria; R80.9 Proteinuria, unspecified; M10.9 Gout, unspecified
CPT/HCPCS: 36415; 80048; 81001; 82570; 83970; 84156; 85014; 85018; 86140; 87086

== ENCOUNTER → 2021-03-28 08:59 | Outpatient (CLI) | payer MEDICARE, OTHER, SELFPAY ==
[2021-01-29 14:23] VITALS: BMI 32.6
== END ==
PROVIDERS: PCP Family Medicine; Visit Provider Urology
DX: M10.371 Gout due to renal impairment, right ankle and foot (principal); R30.0 Dysuria; N32.89 Other specified disorders of bladder; N39.0 Urinary tract infection, site not specified; Z98.890 Other specified postprocedural states; Z90.79 Acquired absence of other genital organ(s)
CPT/HCPCS: 81002; 87077; 87086; 87185; 87186; 99213

== ENCOUNTER → 2021-05-09 15:22 | Outpatient (CLI) | payer MEDICARE, OTHER, SELFPAY ==
[2021-01-29 14:23] VITALS: BMI 32.6
== END ==
PROVIDERS: PCP Family Medicine; Visit Provider Urology
DX: R30.0 Dysuria (principal); Z87.438 Personal history of other diseases of male genital organs
CPT/HCPCS: 36415; 84153; 87077; 87086; 87186

== ENCOUNTER → 2021-05-09 16:05 | Outpatient (CLI) | payer MEDICARE, OTHER, SELFPAY ==
[2021-05-09 15:33] VITALS: BMI 32.6
[2021-05-09 17:55] LABS: Prostate Specific Antigen 2.44 ng/mL (0.10-4.00)
== END ==
PROVIDERS: PCP Family Medicine; Referring Provider Urology; Visit Provider Urology
DX: Z87.438 Personal history of other diseases of male genital organs (principal)
CPT/HCPCS: 36415; 84153

== ENCOUNTER → 2021-07-23 11:53 | Outpatient (CLI) | payer MEDICARE, OTHER, SELFPAY ==
[2021-05-09 15:33] VITALS: BMI 32.6
[2021-07-23 13:45] LABS: Hemoglobin 10.7 g/dL (13.5-17.5)
[2021-07-23 14:20] LABS: BUN Creatinine Ratio 21.9 (6-22); Blood Urea Nitrogen 35 mg/dL (9-20); Calcium 8.8 mg/dL (8.4-10.2); Carbon Dioxide 22 mmol/L (22-32); Chloride 105 mmol/L (98-107); Estimated Glomerular Filt Rate 44 mL/min (>60); Glucose 143 mg/dL (80-110); HEMOLYSIS < 15 (0-50); Potassium 4.4 mmol/L (3.4-5.1); Sodium 139 mmol/L (137-145)
[2021-07-23 14:45] LABS: Prostate Specific Antigen 2.24 ng/mL (0.10-4.00)
[2021-07-23 16:54] LABS: Creatinine Urine Random 93.1 mg/dL; Protein (Total) Urine Random 18 mg/dL (0-12); Protein Creatinine Ratio Urine 0.19 GRAM/24H
[2021-07-24 06:18] LABS: Parathyroid Hormone Int 72 pg/mL (15-65)
== END ==
PROVIDERS: Urology; PCP Family Medicine; Referring Provider Student in an Organized Health Care Education/Training Program; Visit Provider Student in an Organized Health Care Education/Training Program
DX: N05.9 Unspecified nephritic syndrome with unspecified morphologic changes (principal); D64.9 Anemia, unspecified; N25.81 Secondary hyperparathyroidism of renal origin; R80.9 Proteinuria, unspecified; A41.9 Sepsis, unspecified organism; Z87.438 Personal history of other diseases of male genital organs
CPT/HCPCS: 36415; 80048; 82570; 83970; 84153; 84156; 85014; 85018

== ENCOUNTER → 2021-07-28 14:30 | Outpatient (CLI) | payer MEDICARE, OTHER, SELFPAY ==
[2021-05-09 15:33] VITALS: BMI 32.6
[2021-07-28 15:24] LABS: Appearance Urine UA CLOUDY; Bilirubin Urine UA NEGATIVE (NEGATIVE); Color Urine UA YELLOW; Glucose Urine UA NEGATIVE (Negative); Ketones Urine UA NEGATIVE (NEGATIVE); Leukocyte Esterase Urine UA 2+ (NEGATIVE); Nitrite Urine UA NEGATIVE (Negative); Occult Blood Urine UA 2+ (Negative); Protein Urine UA 1+ (Negative); Specific Gravity Urine UA 1.015 (1.000-1.035); Urobilinogen Urine UA 0.2 E.U./dL (0.2)
[2021-07-28 16:01] LABS: Bacteria Urine Occasional (0-1); RBC Urine 5-10/HPF (0-5/HPF); WBC Urine 5-10/HPF (0-5/HPF)
[2021-07-28 16:02] LABS: Amorphous Sediment Urine 1+; Culture Indicated Urine Specimen Cultured
== END ==
PROVIDERS: PCP Family Medicine; Referring Provider Urology; Visit Provider Urology
DX: R30.0 Dysuria (principal)
CPT/HCPCS: 81001; 87077; 87086; 87147; 87186

== ENCOUNTER → 2021-08-20 10:37 | Outpatient (CLI) | payer MEDICARE, OTHER, SELFPAY ==
[2021-05-09 15:33] VITALS: BMI 32.6
== END ==
PROVIDERS: PCP Family Medicine; Visit Provider Urology
DX: N39.0 Urinary tract infection, site not specified (principal); N40.1 Benign prostatic hyperplasia with lower urinary tract symptoms; R33.8 Other retention of urine; R30.0 Dysuria; Z87.442 Personal history of urinary calculi
CPT/HCPCS: 81002; 87077; 87086; 87186; 99213

== ENCOUNTER → 2021-08-29 10:24 | Outpatient (CLI) | payer MEDICARE, OTHER, SELFPAY ==
[2021-05-09 15:33] VITALS: BMI 32.6
--- NOTE | 2021-08-29 10:25 | DI.CT.S_ITS ---
PROCEDURE: CT ABDOMEN PELVIS WO CON INDICATIONS: Recurrent UTI and history of renal calculi TECHNIQUE: Noncontrast 5 mm thick sections acquired from the diaphragms to the symphysis. 5 mm coronal and sagittal reformats were then performed. For radiation dose reduction, the following was used: automated exposure control, adjustment of mA and/or kV according to patient size. COMPARISON: [facility], CT, CT ABDOMEN PELVIS WO CON, 02/05/2021, 15:09. FINDINGS: Image quality: Excellent. Lung bases: Lung bases are clear. Heart size is normal. Small pericardial effusion. Solid organs: Liver: The liver has no mass or intrahepatic biliary ductal dilatation. The portal vein and hepatic veins are patent. Biliary: There is a stone in the neck of the gallbladder. No wall thickening or pericholecystic fluid. Pancreas: The pancreas has no mass or ductal dilatation. There is no surrounding inflammation. Spleen: Normal size. There are no masses. Adrenals: No hypertrophy or nodules. Kidneys: No obstructive calculus or hydronephrosis. Punctate calcifications are seen in both kidneys. No solid mass. Multiple renal cysts are present. Peritoneum and bowel: The distal esophagus and stomach are normal. The small bowel has a normal caliber and appearance. The terminal ileum is normal. The large bowel has a normal caliber and appearance. No free fluid or air. Nodes and vessels: No retroperitoneal or mesenteric adenopathy by size criteria. The aorta has atherosclerosis with no aneurysmal dilatation. Miscellaneous: No abdominal wall mass or hernia. PELVIS: Genitourinary: There is circumferential bladder wall thickening measuring up to 4 mm. No focal mass. The prostate is enlarged. Bones: No suspicious bony lesions. Degenerative changes with no focal abnormality. IMPRESSION: 1. Punctate nonobstructing renal calcifications bilaterally. 2. Simple cysts in both kidneys. 3. No bladder calculi. 4. Diffuse circumferential thickening of the bladder measuring up to 4 mm, this can be seen with chronic cystitis. 5. Enlarged prostate. 6. Small pericardial effusion. Dictated by: Dioni Connors M.D. on 08/29/2021 at 16:20 Approved by: Dioni Connors M.D. on 08/29/2021 at 16:35
== END ==
PROVIDERS: PCP Family Medicine; Referring Provider Urology; Visit Provider Urology
DX: N20.0 Calculus of kidney (principal); N28.1 Cyst of kidney, acquired; N40.0 Benign prostatic hyperplasia without lower urinary tract symptoms; I31.3 Pericardial effusion (noninflammatory); N18.32 Chronic kidney disease, stage 3b; N39.0 Urinary tract infection, site not specified; R31.0 Gross hematuria
CPT/HCPCS: 74176

== ENCOUNTER → 2021-09-09 09:40 | Outpatient (CLI) | payer MEDICARE, OTHER, SELFPAY ==
[2021-05-09 15:33] VITALS: BMI 32.6
== END ==
PROVIDERS: PCP Family Medicine; Visit Provider Urology
DX: N39.0 Urinary tract infection, site not specified (principal); R30.0 Dysuria; Z98.890 Other specified postprocedural states; Z90.79 Acquired absence of other genital organ(s)
CPT/HCPCS: 81002; 87077; 87086; 87147; 87186; 99213

== ENCOUNTER → 2021-10-31 08:36 | Outpatient (CLI) | payer MEDICARE, OTHER, SELFPAY ==
[2021-05-09 15:33] VITALS: BMI 32.6
[2021-10-31 09:39] LABS: Appearance Urine UA CLEAR; Bilirubin Urine UA NEGATIVE (NEGATIVE); Color Urine UA YELLOW; Glucose Urine UA NEGATIVE (Negative); Ketones Urine UA NEGATIVE (NEGATIVE); Leukocyte Esterase Urine UA NEGATIVE (NEGATIVE); Nitrite Urine UA NEGATIVE (Negative); Occult Blood Urine UA NEGATIVE (Negative); Protein Urine UA NEGATIVE (Negative); Specific Gravity Urine UA 1.015 (1.000-1.035); Urobilinogen Urine UA 0.2 E.U./dL (0.2)
[2021-10-31 09:45] LABS: Add Manual Diff / Slide Review NO; Basophils Absolute Auto 0 /uL (0-100); Basophils Percent Auto 0.5 % (0-2); Eosinophils Absolute Auto 100 /uL (0-450); Eosinophils Percent Auto 2.9 % (2-4); Hematocrit 31.6 % (41-53); Hemoglobin 10.8 g/dL (13.5-17.5); Lymphocytes Absolute Auto 1200 /uL (1100-4500); Lymphocytes Percent Auto 23.8 % (25-40); Mean Corpuscular HGB Conc 34.1 % (30-36); Mean Corpuscular Volume 90.8 fL (80-100); Monocytes Absolute Auto 400 /uL (0-900); Monocytes Percent Auto 7.7 % (3-14); Neutrophils Absolute Auto 3200 /uL (1500-7000); Neutrophils Percent Auto 65.1 % (50-75); Platelet Count 169 X10^3/uL (150-400); Red Blood Cell Count 3.48 X10^6/uL (4.5-5.9); Red Cell Distribution Width 13.7 % (11.6-14.8); White Blood Cell Count 4.9 X10^3/uL (4.5-11.0)
[2021-10-31 10:04] LABS: Hemoglobin A1C% w Est Avg Glu 5.7 % (4.0-6.0)
[2021-10-31 10:11] LABS: RBC Urine 0-1/HPF (0-5/HPF); Squamous Epithelial Cell Urine 5-10 /HPF (0-5/HPF); WBC Urine 1-5/HPF (0-5/HPF)
[2021-10-31 10:12] LABS: Bacteria Urine Few (2-10); Culture Indicated Urine Cult Not Indicated
[2021-10-31 10:14] LABS: Alanine Aminotransferase 15 IU/L (<50); Albumin 4.2 g/dL (3.5-5.0); Albumin Globulin Ratio 1.6 (1.0-2.8); Alkaline Phosphatase 90 U/L (38-126); Aspartate Aminotransferase 21 IU/L (17-59); BUN Creatinine Ratio 21.1 (6-22); Bilirubin Total 0.4 mg/dL (0.2-1.3); Blood Urea Nitrogen 36 mg/dL (9-20); Calcium 8.9 mg/dL (8.4-10.2); Carbon Dioxide 21 mmol/L (22-32); Chloride 108 mmol/L (98-107); Cholesterol 131 mg/dL (140-199); Estimated Glomerular Filt Rate 41 mL/min (>60); Globulin 2.7 g/dL (1.7-4.1); Glucose 115 mg/dL (80-110); HDL Cholesterol 40 mg/dL (40-60); HEMOLYSIS < 15 (0-50); LDL Cholesterol Calculated 71 mg/dL (<100); Potassium 3.9 mmol/L (3.4-5.1); Sodium 141 mmol/L (137-145); Total Protein 6.9 g/dL (6.3-8.2); Triglycerides 102 mg/dL (35-150); Uric Acid 8.9 mg/dL (3.5-8.5)
== END ==
PROVIDERS: PCP Family Medicine; Referring Provider Internal Medicine Infectious Disease; Visit Provider Internal Medicine Infectious Disease
DX: N39.0 Urinary tract infection, site not specified (principal); R73.9 Hyperglycemia, unspecified; E78.2 Mixed hyperlipidemia; C43.9 Malignant melanoma of skin, unspecified; D63.1 Anemia in chronic kidney disease; I10 Essential (primary) hypertension; I25.10 Atherosclerotic heart disease of native coronary artery without angina pectoris; N18.31 Chronic kidney disease, stage 3a; N18.32 Chronic kidney disease, stage 3b
CPT/HCPCS: 36415; 80053; 80061; 81001; 83036; 84550; 85025

== ENCOUNTER → 2021-12-04 16:32 | Outpatient (CLI) | payer MEDICARE, OTHER, SELFPAY ==
[2021-05-09 15:33] VITALS: BMI 32.6
== END ==
PROVIDERS: PCP Family Medicine; Visit Provider Nurse Practitioner Family
DX: N39.0 Urinary tract infection, site not specified (principal)
CPT/HCPCS: 87077; 87086; 87147; 87185; 87186

== ENCOUNTER → 2021-12-17 09:51 | Outpatient (CLI) | payer MEDICARE, OTHER, SELFPAY ==
[2021-05-09 15:33] VITALS: BMI 32.6
[2021-12-17 10:18] LABS: Hematocrit 32.6 % (41-53); Hemoglobin 11.1 g/dL (13.5-17.5)
[2021-12-17 10:45] LABS: BUN Creatinine Ratio 18.3 (6-22); Blood Urea Nitrogen 32 mg/dL (9-20); Calcium 8.8 mg/dL (8.4-10.2); Carbon Dioxide 23 mmol/L (22-32); Chloride 106 mmol/L (98-107); Estimated Glomerular Filt Rate 40 mL/min (>60); Glucose 125 mg/dL (80-110); HEMOLYSIS < 15 (0-50); Potassium 4.3 mmol/L (3.4-5.1); Sodium 140 mmol/L (137-145)
[2021-12-17 12:02] LABS: Creatinine Urine Random 89.4 mg/dL; Protein (Total) Urine Random 16 mg/dL (0-12); Protein Creatinine Ratio Urine 0.17 GRAM/24H
[2021-12-18 06:36] LABS: Parathyroid Hormone Int 101 pg/mL (15-65)
== END ==
PROVIDERS: PCP Family Medicine; Referring Provider Student in an Organized Health Care Education/Training Program; Visit Provider Student in an Organized Health Care Education/Training Program
DX: N05.9 Unspecified nephritic syndrome with unspecified morphologic changes (principal); D64.9 Anemia, unspecified; N25.81 Secondary hyperparathyroidism of renal origin; R80.9 Proteinuria, unspecified
CPT/HCPCS: 36415; 80048; 82570; 83970; 84156; 85014; 85018

== ENCOUNTER → 2021-12-26 13:35 | Outpatient (CLI) | payer MEDICARE, OTHER, SELFPAY ==
[2021-05-09 15:33] VITALS: BMI 32.6
--- NOTE | 2021-12-26 | DI.MRI.S_ITS ---
PROCEDURE: MR PELVIS WO CON INDICATIONS: Recurrent urinary tract infection TECHNIQUE: Coronal T1 and HASTE, small FOV T2 axial and coronal, sagittal breath-hold T2; axial T1 with fat saturation through the pelvis. COMPARISON: [facility], CT, CT ABDOMEN PELVIS WO CON, 08/29/2021, 10:40. FINDINGS: Image quality: Adequate image quality, however multiparametric MR imaging of the prostate gland was not performed. Contrast was not administered per physician request. Prostate: Prostate gland is enlarged with morphology of transitional zone hypertrophy (BPH). There is median lobe hypertrophy and a prostatic defect of possible prior TURP. Prostate measures 6.0 x 5.2 x 5.6 cm for a volume of 91 cc. There are two encapsulated extruded BPH nodules in the right posterolateral peripheral zone near the gland base. There is a T2 hypointense, 8 mm rounded lesion with indistinct margin in the posteromedial right peripheral zone near the gland apex. No cystic lesions. Seminal vesicles are within normal limits. Urinary system: Bladder wall is normal in thickness. No visible debris or mass in the urinary bladder. Distal ureters are non distended. Urethra appears normal in morphology. Nodes and vessels: No pelvic or inguinal adenopathy by size criteria. Iliac vessels are normal in size. Bowel and peritoneum: No pathologic free pelvic fluid. Inferior colon and small bowel loops are normal in caliber. Soft tissues: Tiny fat containing left inguinal hernia. Visible musculature is symmetric. Bones: Marrow is heterogeneously hyperechoic. There are endplate spurs in the visible lumbar spine. No suspicious bone lesions. IMPRESSION: 1. Prostatomegaly and BPH morphology. 2. Focal 8 mm T2 hypointensity in the right peripheral zone. Without multiparametric imaging, this is nonspecific. 3. No definite morphology to suggest prostatitis or abscess, though IV contrast was not administered. Dictated by: Trisha Obregon M.D. on 12/29/2021 at 10:24 Approved by: Trisha Obregon M.D. on 12/29/2021 at 11:19
== END ==
PROVIDERS: PCP Family Medicine; Referring Provider Internal Medicine Infectious Disease; Visit Provider Internal Medicine Infectious Disease
DX: N39.0 Urinary tract infection, site not specified (principal); N40.0 Benign prostatic hyperplasia without lower urinary tract symptoms
CPT/HCPCS: 72195

== ENCOUNTER → 2022-01-29 16:34 | Outpatient (CLI) | payer MEDICARE, OTHER, SELFPAY ==
[2021-05-09 15:33] VITALS: BMI 32.6
[2022-01-29 17:37] LABS: Appearance Urine UA SL CLOUDY; Bilirubin Urine UA NEGATIVE (NEGATIVE); Color Urine UA YELLOW; Glucose Urine UA NEGATIVE (Negative); Ketones Urine UA NEGATIVE (NEGATIVE); Leukocyte Esterase Urine UA 2+ (NEGATIVE); Nitrite Urine UA NEGATIVE (Negative); Occult Blood Urine UA 3+ (Negative); Protein Urine UA 3+ (Negative); Urobilinogen Urine UA 0.2 E.U./dL (0.2)
[2022-01-29 18:26] LABS: RBC Urine 30-100/HPF (0-5/HPF); WBC Urine 30-100/HPF (0-5/HPF)
[2022-01-29 18:27] LABS: Bacteria Urine None Seen; Culture Indicated Urine Specimen Cultured; Squamous Epithelial Cell Urine 0-1 /HPF (0-5/HPF)
== END ==
PROVIDERS: PCP Family Medicine; Referring Provider Internal Medicine Infectious Disease; Visit Provider Internal Medicine Infectious Disease
DX: N39.0 Urinary tract infection, site not specified (principal)
CPT/HCPCS: 81001; 87086; 87147

== ENCOUNTER → 2022-03-21 11:54 | Outpatient (CLI) | payer MEDICARE, OTHER, SELFPAY ==
[2021-05-09 15:33] VITALS: BMI 32.6
--- NOTE | 2022-03-21 11:56 | DI.RAD.S_ITS ---
PROCEDURE: XR HIP W PEL IF DONE LT 2V INDICATIONS: left hip pain TECHNIQUE: AP pelvis with lateral view(s) of the left hip(s). COMPARISON: [facility], MR, MR PELVIS WO [facility], 12/26/2021, 13:59. [facility], CT, CT ABDOMEN PELVIS [facility], 08/29/2021, 10:40. FINDINGS: Bones: No fractures or dislocations. Pelvic ring appears intact. No suspicious bony lesions. There is moderate superior joint space narrowing seen of both hips, with associated remodeling changes with subchondral sclerosis and osteophyte formation. Age-appropriate lower lumbar spine degenerative changes are noted. Soft tissues: The visualized bowel gas pattern is normal. No suspicious soft tissue calcifications. IMPRESSION: Degenerative changes, without an acute abnormality seen on these plain films. If there is point tenderness (or other clinical suspicion for a fracture not seen on these images) then a dedicated CT could be considered for further evaluation, if clinically appropriate. Dictated by: Laz Bautista M.D. on 03/21/2022 at 11:33 Approved by: Laz Bautista M.D. on 03/21/2022 at 11:35
== END ==
PROVIDERS: PCP Family Medicine; Referring Provider Family Medicine; Visit Provider Family Medicine
DX: M25.552 Pain in left hip (principal)
CPT/HCPCS: 73502

== ENCOUNTER → 2022-04-02 12:02 | Outpatient (CLI) | payer MEDICARE, OTHER, SELFPAY ==
[2021-05-09 15:33] VITALS: BMI 32.6
[2022-04-02 13:07] LABS: Hematocrit 34.1 % (41-53); Hemoglobin 11.6 g/dL (13.5-17.5)
[2022-04-02 14:12] LABS: BUN Creatinine Ratio 18.9 (6-22); Blood Urea Nitrogen 37 mg/dL (9-20); Calcium 8.9 mg/dL (8.4-10.2); Carbon Dioxide 21 mmol/L (22-32); Chloride 108 mmol/L (98-107); Estimated Glomerular Filt Rate 35 mL/min (>60); Glucose 134 mg/dL (80-110); HEMOLYSIS < 15 (0-50); Potassium 4.2 mmol/L (3.4-5.1); Sodium 143 mmol/L (137-145)
[2022-04-02 19:16] LABS: Creatinine Urine Random 106.6 mg/dL; Protein (Total) Urine Random 28 mg/dL (0-12); Protein Creatinine Ratio Urine 0.26 GRAM/24H
[2022-04-04 10:20] LABS: Parathyroid Hormone Int 80 pg/mL (15-65)
== END ==
PROVIDERS: PCP Family Medicine; Referring Provider Student in an Organized Health Care Education/Training Program; Visit Provider Student in an Organized Health Care Education/Training Program
DX: N05.9 Unspecified nephritic syndrome with unspecified morphologic changes (principal); D64.9 Anemia, unspecified; N25.81 Secondary hyperparathyroidism of renal origin; R80.9 Proteinuria, unspecified
CPT/HCPCS: 36415; 80048; 82570; 83970; 84156; 85014; 85018

== ENCOUNTER → 2022-05-18 10:03 | Outpatient (CLI) | payer MEDICARE, OTHER, SELFPAY ==
[2021-05-09 15:33] VITALS: BMI 32.6
[2022-05-18 11:41] LABS: BUN Creatinine Ratio 20.8 (6-22); Blood Urea Nitrogen 41 mg/dL (9-20); Calcium 8.8 mg/dL (8.4-10.2); Carbon Dioxide 21 mmol/L (22-32); Chloride 106 mmol/L (98-107); Estimated Glomerular Filt Rate 34 mL/min (>60); Glucose 162 mg/dL (80-110); HEMOLYSIS < 15 (0-50); Potassium 4.1 mmol/L (3.4-5.1); Sodium 139 mmol/L (137-145)
== END ==
PROVIDERS: PCP Family Medicine; Referring Provider Student in an Organized Health Care Education/Training Program; Visit Provider Student in an Organized Health Care Education/Training Program
DX: N05.9 Unspecified nephritic syndrome with unspecified morphologic changes (principal)
CPT/HCPCS: 36415; 80048

== ENCOUNTER → 2022-05-28 09:43 | Outpatient (CLI) | payer MEDICARE, OTHER, SELFPAY ==
[2021-05-09 15:33] VITALS: BMI 32.6
[2022-05-28 11:20] LABS: Add Manual Diff / Slide Review NO; Basophils Absolute Auto 0 /uL (0-100); Basophils Percent Auto 0.6 % (0-2); Eosinophils Absolute Auto 100 /uL (0-450); Eosinophils Percent Auto 2.2 % (2-4); Hematocrit 33.4 % (41-53); Hemoglobin 11.3 g/dL (13.5-17.5); Lymphocytes Absolute Auto 1400 /uL (1100-4500); Lymphocytes Percent Auto 20.5 % (25-40); Mean Corpuscular HGB Conc 33.9 % (30-36); Mean Corpuscular Hemoglobin 30.9 PG (26-34); Mean Corpuscular Volume 91.1 fL (80-100); Monocytes Absolute Auto 600 /uL (0-900); Monocytes Percent Auto 8.5 % (3-14); Neutrophils Absolute Auto 4700 /uL (1500-7000); Neutrophils Percent Auto 68.2 % (50-75); Platelet Count 165 X10^3/uL (150-400); Red Blood Cell Count 3.67 X10^6/uL (4.5-5.9); Red Cell Distribution Width 13.7 % (11.6-14.8); White Blood Cell Count 6.8 X10^3/uL (4.5-11.0)
[2022-05-28 11:36] LABS: BUN Creatinine Ratio 21.3 (6-22); Blood Urea Nitrogen 38 mg/dL (9-20); Calcium 8.9 mg/dL (8.4-10.2); Carbon Dioxide 22 mmol/L (22-32); Chloride 106 mmol/L (98-107); Estimated Glomerular Filt Rate 39 mL/min (>60); Glucose 116 mg/dL (80-110); HEMOLYSIS < 15 (0-50); Potassium 3.9 mmol/L (3.4-5.1); Sodium 139 mmol/L (137-145)
== END ==
PROVIDERS: PCP Family Medicine; Referring Provider Nurse Practitioner Family; Visit Provider Nurse Practitioner Family
DX: R55 Syncope and collapse (principal)
CPT/HCPCS: 36415; 80048; 85025

== ENCOUNTER → 2022-06-11 07:53 | Outpatient (CLI) | payer MEDICARE, OTHER, SELFPAY ==
[2021-05-09 15:33] VITALS: BMI 32.6
--- NOTE | 2022-06-11 07:57 | DI.ECHO.S_ITS ---
[facility]---------+ [facility] +---------+ : : [address] : : : : [id number] : : : : Phone: [phone] Echocardiogram Report + + :Name: DONNA BRUCE Study Date: 06/11/2022 Height: 69 in : :[facility] ReadingLocation: Weight: 215 lb : : Gender: Male BSA: 2.1 m2 : :: 1945 Age: 76 yrs BP: 123/57 mmHg: :Reason For Study: SYNCOPAL EPISODE : :Ordering Physician: SUKUMAR, : :YOLA Performed By: Rossana Henley : :Referring: YOLA PATINO : + + Interpretation Summary Sinus bradycardia with HR 51-55 bpm during exam. and wide QRS complexes. Mildly dilated LV with normal wall thickness; EF is estimated at 45-55% with septal dyskinesis consistent with conduction system disease. Severe LA enlargement. No significant valvular abnormalities. Mildly-moderately dilated ascending aorta (4.4 cm diameter) and borderline dilated aortic root (4.1 cm) . Compared to prior study 02/03/2022, LV is more dynamic and less dilated. End diastolic dimension is down from 6.4 cm to 6.1 cm. Ascending aorta diameter is up from 4.1 to 4.4 cm. Procedure: A two-dimensional transthoracic echocardiogram with color flow and Doppler was performed. The study quality was technically difficult. Comparison is made with the echocardiogram of 02/03/2022. The heart rate ranged between 51-55 bpm during the study. Left Ventricle: The left ventricle is mildly dilated. There is normal left ventricular wall thickness. Left ventricular ejection fraction is estimated to be 50 +/- 5%. Septal motion is consistent with conduction abnormality. Right Ventricle: The right ventricle is normal in size and function. Atria: The left atrium is severely dilated. The right atrium is mild to moderately dilated. There is no Doppler evidence for an interatrial shunt. Mitral Valve: The mitral valve leaflets appear mildly thickened, but open well. The mitral valve leaflets are mildly calcified. There is mild mitral annular calcification. There is trace mitral regurgitation. Aortic Valve: The aortic valve is trileaflet. The aortic valve is mildly calcified. There is no aortic valve stenosis. No aortic regurgitation is present. Tricuspid Valve: The tricuspid valve is not well visualized, but is grossly normal. No tricuspid regurgitation. Pulmonic Valve: The pulmonic valve is not well seen, but is grossly normal. There is trace pulmonic regurgitation. Great Vessels: The aortic root is borderline dilated. The ascending aorta is mild-moderately enlarged. The IVC is of normal diameter and collapses greater than 50% with a sniff. This suggests a low right atrial pressure of 3 mm Hg. Pericardium/ Pleura There is no pericardial effusion. There is no pleural effusion. MMode/2D Measurements & Calculations LVIDd: 6.4 cm LVOT diam: 2.6 cm LVIDs: 4.5 cm Ao root diam: 4.1 cm FS: 29.3 % asc Aorta Diam: 4.4 cm IVSd: 1.1 cm Ao Arch Diam (Prox Trans): 3.0 cm LVPWd: 0.98 cm LV encinas. diameter/BSA (cm/m^2): 3.0 LV sys. diameter/BSA (cm/m^2): 2.1 LA A2 area: 32.7 cm2 RA long axis: 6.6 cm LA A4 area: 29.7 cm2 RA area: 26.7 cm2 LA length (vol): 6.8 cm RA vol: 92.4 ml LA vol: 120.7 ml RA : 43.4 ml/m2 LA vol index: 56.7 ml/m2 IVC diam: 1.6 cm RVD1 (basal): 3.4 cm RVD2 (mid): 2.8 cm TAPSE: 2.0 cm Doppler Measurements & Calculations Ao V2 max: 159.9 cm/sec LVOT Max Thomas: 111.7 cm/sec Ao V2 mean: 114.9 cm/sec LV V1 max P.0 mmHg Ao max P.3 mmHg LV V1 VTI: 25.5 cm Ao mean P.8 mmHg KVNG(I,D): 3.7 cm2 Ao V2 VTI: 37.0 cm KVNG(V,D): 3.7 cm2 sev ratio: 0.69 KVNG indexed to BSA (cm^2/m^2): 1.7 MV E max thomas: 89.7 cm/sec SV(LVOT): 136.4 ml MV A max thomas: 101.7 cm/sec MV E/A: 0.88 Med Peak E' Thomas: 6.5 cm/sec E/E' med: 13.9 Lat Peak E' Thomas: 6.7 cm/sec E/E' lat: 13.3 E/e' average: 13.6 MV dec time: 0.35 sec Electronically signed by: La Chapin M.D. on Reading Physician:06/12/2022 02:21 AM
== END ==
PROVIDERS: PCP Family Medicine; Referring Provider Nurse Practitioner Family; Visit Provider Nurse Practitioner Family
DX: I34.81 Nonrheumatic mitral (valve) annulus calcification (principal); I77.89 Other specified disorders of arteries and arterioles; R55 Syncope and collapse
CPT/HCPCS: 93306

== ENCOUNTER → 2022-06-18 13:22 | Outpatient (CLI) | payer MEDICARE, OTHER, SELFPAY ==
[2021-05-09 15:33] VITALS: BMI 32.6
== END ==
PROVIDERS: PCP Family Medicine; Visit Provider Urology
DX: N40.1 Benign prostatic hyperplasia with lower urinary tract symptoms (principal); R33.8 Other retention of urine; Z87.898 Personal history of other specified conditions; Z90.5 Acquired absence of kidney; Z98.890 Other specified postprocedural states; Z90.79 Acquired absence of other genital organ(s)
CPT/HCPCS: 51798; 81002; 87077; 87086; 87147; 87186; 99214

== ENCOUNTER → 2022-06-26 14:43 | Outpatient (CLI) | payer MEDICARE, OTHER, SELFPAY ==
[2021-05-09 15:33] VITALS: BMI 32.6
[2022-06-26 19:06] LABS: Add Manual Diff / Slide Review NO; Basophils Absolute Auto 0 /uL (0-100); Basophils Percent Auto 0.5 % (0-2); Eosinophils Absolute Auto 100 /uL (0-450); Eosinophils Percent Auto 2.6 % (2-4); Hematocrit 32.4 % (41-53); Hemoglobin 11.1 g/dL (13.5-17.5); Lymphocytes Absolute Auto 1300 /uL (1100-4500); Lymphocytes Percent Auto 27.8 % (25-40); Mean Corpuscular HGB Conc 34.4 % (30-36); Mean Corpuscular Hemoglobin 31.3 PG (26-34); Monocytes Absolute Auto 400 /uL (0-900); Monocytes Percent Auto 7.9 % (3-14); Neutrophils Absolute Auto 2900 /uL (1500-7000); Neutrophils Percent Auto 61.2 % (50-75); Platelet Count 166 X10^3/uL (150-400); Red Blood Cell Count 3.56 X10^6/uL (4.5-5.9); Red Cell Distribution Width 13.7 % (11.6-14.8); White Blood Cell Count 4.7 X10^3/uL (4.5-11.0)
[2022-06-26 19:25] LABS: Alanine Aminotransferase 15 IU/L (<50); Albumin 4.2 g/dL (3.5-5.0); Albumin Globulin Ratio 1.5 (1.0-2.8); Alkaline Phosphatase 88 U/L (38-126); Aspartate Aminotransferase 19 IU/L (17-59); BUN Creatinine Ratio 18.7 (6-22); Bilirubin Total 0.3 mg/dL (0.2-1.3); Blood Urea Nitrogen 36 mg/dL (9-20); Calcium 8.7 mg/dL (8.4-10.2); Carbon Dioxide 21 mmol/L (22-32); Chloride 106 mmol/L (98-107); Estimated Glomerular Filt Rate 35 mL/min (>60); Globulin 2.8 g/dL (1.7-4.1); Glucose 94 mg/dL (80-110); HEMOLYSIS < 15 (0-50); Potassium 4.2 mmol/L (3.4-5.1); Sodium 139 mmol/L (137-145)
== END ==
PROVIDERS: PCP Family Medicine; Referring Provider Internal Medicine Infectious Disease; Visit Provider Internal Medicine Infectious Disease
DX: N39.0 Urinary tract infection, site not specified (principal)
CPT/HCPCS: 36415; 80053; 85025; 87040

== ENCOUNTER → 2022-09-28 08:13 | Outpatient (CLI) | payer MEDICARE, OTHER, SELFPAY ==
[2021-05-09 15:33] VITALS: BMI 32.6
[2022-09-28 09:22] LABS: Creatinine Urine Random 56.2 mg/dL; Protein (Total) Urine Random 21 mg/dL (0-12); Protein Creatinine Ratio Urine 0.37 GRAM/24H
[2022-09-28 09:59] LABS: Hemoglobin 10.8 g/dL (13.5-17.5)
[2022-09-28 10:27] LABS: BUN Creatinine Ratio 20.1 (6-22); Blood Urea Nitrogen 35 mg/dL (9-20); Calcium 8.6 mg/dL (8.4-10.2); Carbon Dioxide 24 mmol/L (22-32); Chloride 106 mmol/L (98-107); Estimated Glomerular Filt Rate 40 mL/min (>60); Glucose 102 mg/dL (80-110); HEMOLYSIS < 15 (0-50); Potassium 4.3 mmol/L (3.4-5.1); Sodium 136 mmol/L (137-145)
[2022-09-30 06:56] LABS: Parathyroid Hormone Int 78 pg/mL (15-65)
== END ==
PROVIDERS: PCP Family Medicine; Referring Provider Student in an Organized Health Care Education/Training Program; Visit Provider Student in an Organized Health Care Education/Training Program
DX: N05.9 Unspecified nephritic syndrome with unspecified morphologic changes (principal); R80.9 Proteinuria, unspecified; D64.9 Anemia, unspecified; N25.81 Secondary hyperparathyroidism of renal origin
CPT/HCPCS: 36415; 80048; 82570; 83970; 84156; 85014; 85018

== ENCOUNTER → 2022-10-09 11:40 | Outpatient (CLI) | payer MEDICARE, OTHER, SELFPAY ==
[2021-05-09 15:33] VITALS: BMI 32.6
--- NOTE | 2022-10-09 11:41 | DI.RAD.S_ITS ---
PROCEDURE: XR HIP W PEL IF DONE LT 2V INDICATIONS: Left hip pain TECHNIQUE: AP pelvis with lateral view(s) of the left hip(s). COMPARISON: [facility], , XR HIP W PEL IF DONE LT 2V, 03/21/2022, 12:15. FINDINGS: Bones: No fractures or dislocations. There are degenerative changes of both hips. Degenerative changes of L5-S1 and L4-5. Pelvic ring appears intact. No suspicious bony lesions. Soft tissues: The visualized bowel gas pattern is normal. No suspicious soft tissue calcifications. IMPRESSION: Mild degenerative changes of both hips consistent with osteoarthritis. Dictated by: Dioni Connors M.D. on 10/09/2022 at 14:35 Approved by: Dioni Connors M.D. on 10/09/2022 at 14:37
== END ==
PROVIDERS: PCP Family Medicine; Referring Provider Anesthesiology; Visit Provider Anesthesiology
DX: M47.816 Spondylosis without myelopathy or radiculopathy, lumbar region (principal); M47.817 Spondylosis without myelopathy or radiculopathy, lumbosacral region; M25.552 Pain in left hip; M16.9 Osteoarthritis of hip, unspecified
CPT/HCPCS: 73502

== ENCOUNTER → 2022-10-21 15:16 | Outpatient (CLI) | payer MEDICARE, OTHER, SELFPAY ==
[2021-05-09 15:33] VITALS: BMI 32.6
--- NOTE | 2022-10-21 15:18 | DI.MRI.S_ITS ---
PROCEDURE: MR HIP LT WO CON INDICATIONS: Chronic left hip pain TECHNIQUE: Noncontrast coronal T1 spin echo and STIR through the bony pelvis. Coronal and axial T2 fast spin echo with fat saturation, sagittal T1 spin echo, and oblique axial T2 fast spin echo with fat saturation through the hip. COMPARISON: [facility], CR, XR HIP W PEL IF DONE LT 2V, 10/09/2022, 11:57. FINDINGS: Image quality: Degraded by motion artifact. Bones and joints: Moderate periarticular osteophyte formation at the bilateral hip joints. Mild subchondral degenerative marrow edema within the right superior acetabulum. Bone marrow of the pelvic ring and proximal femurs show normal signal throughout. No intraosseous lesions or fractures. No avascular necrosis of the femoral heads. The visualized lower lumbar spine appears normally aligned. Tendons and ligaments: The gluteus medius and minimus tendons appear intact, without associated muscle atrophy. Moderate T2 signal elevation at the femoral insertion of the left gluteus medius and minimus tendons. The nearby proximal iliotibial band also appears intact. The iliopsoas tendon appears intact, without adjacent bursal fluid collections or evidence for impingement syndrome. The origin of the hamstring tendon is intact at the ischial tuberosity, as well as the associated sacrotuberous ligament. Mild T2 signal elevation within and surrounding the proximal hamstring tendon at the ischial origin. The straight and reflected heads of the rectus femoris muscle origin appear intact, as well as the conjoint tendon. The ligamentum teres appears intact where visualized. Labrum and cartilage: Diffuse left hip labral tearing. Cartilage surface of the femoral head appears of normal thickness. The alpha angle of the femur is within normal limits at less than 55 degrees. Soft tissues: Visualized muscles demonstrate normal bulk and internal signal. Quadratus femoris muscle demonstrates no internal edema to suggest ischiofemoral impingement. The proximal sciatic neurovascular bundle appears normal adjacent to the hamstring tendons. No free pelvic fluid. Bladder wall thickness is normal. Prostate enlargement is present. IMPRESSION: 1. Left hip osteoarthritis associated with left hip labral tearing. 2. Insertional tendinitis of the left gluteus medius and minimus tendons. 3. Left hamstring tendinopathy. 4. Prostate enlargement. Recommend correlation with PSA values. Dictated by: Naren León M.D. on 10/21/2022 at 16:13 Approved by: Naren León M.D. on 10/21/2022 at 16:17
== END ==
PROVIDERS: PCP Family Medicine; Referring Provider Anesthesiology; Visit Provider Anesthesiology
DX: M16.12 Unilateral primary osteoarthritis, left hip (principal); M76.02 Gluteal tendinitis, left hip; M25.552 Pain in left hip; N40.0 Benign prostatic hyperplasia without lower urinary tract symptoms
CPT/HCPCS: 73721

== ENCOUNTER 2023-03-12 13:45 | Outpatient (RCR) | payer MEDICARE, OTHER, SELFPAY ==
[2021-05-09 15:33] VITALS: BMI 32.6
--- NOTE | 2023-03-03 16:45 | PT.OIE ---
Current Diagnoses Unilateral primary osteoarthritis, left hip (03/03/23) Pain in left hip (03/03/23) Past Medical History (Last Updated 01/18/23 @ 14:05 by Liborio Edwards MD) Ankle pain Aortic aneurysm Basal cell adenocarcinoma BPH (benign prostatic hyperplasia) Burning pain CAD (coronary artery disease) Cardiomyopathy Cataract (2013) Clubfoot CMT (Zqnuipv-Hhwbt-Dnnvo disease) (2014) Colon polyps (2009) Essential hypertension Batista catheter problem Hearing loss (2014) Hip osteoarthritis Hip pain History of gross hematuria History of urinary retention Injury of left elbow Ischiogluteal bursitis of left side Kidney stones Labral tear of left hip joint Left bundle branch block Low back pain Lumbar radiculopathy Melanoma (2007) Obstructive sleep apnea Osteoarthritis of both knees Osteoarthrosis, ankle and foot Recurrent urinary tract infection Rheumatic fever (1957) Sepsis Shoulder pain (2011) Spinal stenosis of lumbar region (09/15/13) Squamous cell skin cancer, face Stage 3 chronic kidney disease Superficial laceration Tinnitus UTI (urinary tract infection) Past Surgical History (Last Reviewed 12/15/22 @ 14:59 by Brenton Poole MD) Anesthesia History of back surgery (08/2013) History of cataract removal with insertion of prosthetic lens (2013) History of left knee replacement History of left knee surgery (2004) History of nephrectomy (2003) History of transurethral resection of prostate S/P TURP (~07/2019) Visit Care Team Role Provider Type Kaveh Arroyo MD Family Provider Physician Primary Care Provider Specialty: Family Practice Address: [address] [place], [place] [id number] Email: [email or web address] Brenton Poole MD Attending Provider Physician Referring Provider Specialty: Anesthesiology Interventional Radiology Pain Management Address: [address] [place] [address], [id number] Email: [email or web address] Physical Therapy Initial Evaluation PT-OP-A Visit Information Start: 03/03/23 17:35 Freq: Status: Active Protocol: Document 03/03/23 16:00 DCW (Rec: 03/03/23 17:41 DCW [id number]) Out-Patient Physical Therapy Visit Information Visit Information Visit Type Initial Evaluation Visit Start Time 16:00 Visit Stop Time 16:35 Total Visit Minutes 35 Visit Number 1 Number of ALLIGATOR TRAPPER Visits 0 Evaluation Information Evaluation Date 03/03/23 PT-OP-B Current Condition Start: 03/03/23 17:35 Freq: Status: Active Protocol: Document 03/03/23 16:00 DCW (Rec: 03/04/23 10:10 DCW [id number]) Current Condition History of Current Condition Onset Date Multi-year history Current Complaints Left hip pain History of Current Condition Pt is a 77 year old male presenting to skilled therapy with complaints of left hip pain. Pt notes he was expecting to have surgery, but the ortho does not feel he is at that point. Pt notes pain comes and goes, but has been worsening over the last few years. Pain is worse with staying in one position, like sitting in a car for 30+ minutes. When weather is nicer , he does like to go out and ride his bike, which seems to help decrease his pain. Getting up and moving around typically helps. Notes he has been out doing yard work today , and feeling pretty good. Medical history significantly complicated by history of Lzhbnxi-Sookz-Mekdr disease. 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 Ambulates with significant antalgia, notes it is unrelated to his hip, he's been walking like this for years, likely secondary to ankle immobility. Pt notes hip pain is largely lateral and posterior left hip, does not note any anterior hip pain. Treatment Goals Patient/Caregiver Goals Decrease hip pain and improve mobility PT-OP-C Subjective Start: 03/03/23 17:35 Freq: Status: Active Protocol: Document 03/03/23 16:00 DCW (Rec: 03/03/23 17:41 DCW [id number]) OP-PT Subjective Patient Comments Patient Comments I thought I was ready for hip surgery, but the surgeon disagreed. Patient Reported Progress Same Patient Questionnaires Lower Extremity Functional Scale LEFS Score 61.25% LEFS Impairment 20 to 39% Impaired (Score 48- 62) PT-OP-F Manual Assessment Start: 03/03/23 17:35 Freq: Status: Active Protocol: Document 03/03/23 16:00 DCW (Rec: 03/04/23 10:10 OKW [id number]) Manual Assessments Soft Tissue Assessment Soft Tissue Mobility Assessment Moderate tone and tenderness to palpation 2/4: Pain with wincing along left piriformis, left ITB Joint Mobility Assessment Joint Mobility Assessment Good passive left hip mobility PT-OP-L Special Tests Start: 03/03/23 17:35 Freq: Status: Active Protocol: Document 03/03/23 16:00 DCW (Rec: 03/04/23 10:10 OKW [id number]) Special Tests Hip Special Tests Piriformis Test Results Positive left Straight Leg Raise Test Results Bilateral Hamstring Tightness Scour Test Test Results Negative KARLA Test Results Negative PT-OP-M Strength Start: 03/03/23 17:35 Freq: Status: Active Protocol: Document 03/03/23 16:00 DCW (Rec: 03/04/23 10:10 OKW [id number]) Hip Strength Hip Manual Muscle Testing Right Flexion (L2) 4 Good Abduction 4 Good Adduction 4 Good External Rotation 4 Good Internal Rotation 4 Good Left Flexion (L2) 4 Good Abduction 4 Good Adduction 4 Good External Rotation 4- Good- Internal Rotation 4- Good- Knee Strength Knee Manual Muscle Testing Right Flexion (S2) 4 Good Extension (L3) 4 Good Left Flexion (S2) 4 Good Extension (L3) 4 Good PT-OP-Q Treatments Start: 03/03/23 17:35 Freq: Status: Active Protocol: Document 03/03/23 16:00 DCW (Rec: 03/03/23 17:41 DC [id number]) Therapeutic Exercises Supine Exercises Piriformis Supine Exercise Name Figure-4, knee to opposite shoulder Side bilateral Sitting Exercises Piriformis Sitting Exercise Name Seated figure-4 Side bilateral PT-OP-T Assessment and Plan Start: 03/03/23 17:35 Freq: Status: Active Protocol: Document 03/03/23 16:00 DCW (Rec: 03/04/23 10:10 [facility] [id number]) Physical Therapy Assessment Rehab Potential Rehabilitation Potential Good Evaluation Complexity Number of Personal Factors/Comorbidities 3 or More Number of Body Systems Impaired 3 Clinical Presentation at Evaluation Stable Impairments Impairments Functional Activities, Functional Mobility,Pain,Soft Tissue Mobility,Strength,Tone Goals Two Impairment Left hip internal/external rotation MMT graded at 4-/5 Shelter Goal (LTG) Pt to demonstrate increased left hip strength to at least 4/5 in all tested planes in order to improve functional mobility LTG Duration 05/01/23 Three Impairment Pt experiences increased hip pain sitting longer than 30 minutes in a car Boat Outfitting Supervisor Goal (LTG) Pt to demonstrate ability to sit in vehicle for >60 minutes without increasing hip pain to allow pt to drive with to [place] LTG Duration 05/01/23 One Impairment Pt does not have an appropriate home exercise program Short Term Goal (STG) Pt to be independent and compliant with an appropriate HEP STG Duration 04/02/23 Assessment Summary Assessment Pt presents with signs and symptoms consistent with referring diagnosis. Pt does appear to have increased tone/ stiffness in left hip musculature, particularly in his left ITB and piriformis, which may be adding to discomfort pt notes in his hip secondary to ongoing degenerative changes. Pt showed immediate response to piriformis stretching, instructed in home stretching and given hand out. Pt will likely continue to benefit from skilled therapy focusing on decreasing tone, strengthening hip, improving joint mobility, pain-control, and improving function mobility. Pt's history of CMT disease is a significant limiting factor to potential recovery. Physical Therapy Plan Frequency and Duration Frequency of Treatment 2x/Week Plan of Care Start Date 03/02/23 Plan of Care End Date 05/01/23 Therapeutic Interventions Therapeutic Interventions Home Exercise Program,Joint Mobilizations,Manual Therapy, Neuromuscular Re-education, Patient/Caregiver Education, Self-Care/Home Management,Soft Tissue Mobilization, Therapeutic Activities, Therapeutic Exercises Next Visit Focus/Plan Next Note Type Treatment Note Next Visit Plan Flexibility, Strengthening, STM
--- NOTE | 2023-03-03 16:45 | PT.OPPOC ---
Physical, Occupational & Speech Therapy At [facility] Current Diagnoses Unilateral primary osteoarthritis, left hip (03/03/23) Pain in left hip (03/03/23) Visit Care Team Role Provider Type Kaveh Arroyo MD Family Provider Physician Primary Care Provider Specialty: Family Practice Address: [address] [place] [address], [id number] Email: [email or web address] Brenton Poole MD Attending Provider Physician Referring Provider Specialty: Anesthesiology Interventional Radiology Pain Management Address: [address] [place] [address], [address] Email: [email or web address] Plan Of Care PT-OP-T Assessment and Plan Start: 03/03/23 17:35 Freq: Status: Active Protocol: Document 03/03/23 16:00 DCW (Rec: 03/04/23 10:10 DCW [id number]) Physical Therapy Assessment Rehab Potential Rehabilitation Potential Good Evaluation Complexity Number of Personal Factors/Comorbidities 3 or More Number of Body Systems Impaired 3 Clinical Presentation at Evaluation Stable Impairments Impairments Functional Activities, Functional Mobility,Pain,Soft Tissue Mobility,Strength,Tone Goals Two Impairment Left hip internal/external rotation MMT graded at 4-/5 Group Home Goal (LTG) Pt to demonstrate increased left hip strength to at least 4/5 in all tested planes in order to improve functional mobility LTG Duration 05/01/23 Three Impairment Pt experiences increased hip pain sitting longer than 30 minutes in a car Group Home Goal (LTG) Pt to demonstrate ability to sit in vehicle for >60 minutes without increasing hip pain to allow pt to drive with to [place] LTG Duration 05/01/23 One Impairment Pt does not have an appropriate home exercise program Short Term Goal (STG) Pt to be independent and compliant with an appropriate HEP STG Duration 04/02/23 Assessment Summary Assessment Pt presents with signs and symptoms consistent with referring diagnosis. Pt does appear to have increased tone/ stiffness in left hip musculature, particularly in his left ITB and piriformis, which may be adding to discomfort pt notes in his hip secondary to ongoing degenerative changes. Pt showed immediate response to piriformis stretching, instructed in home stretching and given hand out. Pt will likely continue to benefit from skilled therapy focusing on decreasing tone, strengthening hip, improving joint mobility, pain-control, and improving function mobility. Pt's history of CMT disease is a significant limiting factor to potential recovery. Physical Therapy Plan Frequency and Duration Frequency of Treatment 2x/Week Plan of Care Start Date 03/02/23 Plan of Care End Date 05/01/23 Therapeutic Interventions Therapeutic Interventions Home Exercise Program,Joint Mobilizations,Manual Therapy, Neuromuscular Re-education, Patient/Caregiver Education, Self-Care/Home Management,Soft Tissue Mobilization, Therapeutic Activities, Therapeutic Exercises Next Visit Focus/Plan Next Note Type Treatment Note Next Visit Plan Flexibility, Strengthening, STM Plan of Care Dates Plan of Care Start Date 03/02/23 Plan of Care End Date 05/01/23 Electronically Signed by: Phillip Hu, PT 03/04/23 1012 If you are in agreement with this Plan of Care, please return a signed and dated copy. I have reviewed this Plan of Care and certify that the skilled therapy services above are required to meet the patient?s needs. Physician Signature Date Printed Name and Credentials Clinical Instructor Signature Printed Name and Credentials
--- NOTE | 2023-03-04 10:11 | PT.OIE ---
Current Diagnoses Unilateral primary osteoarthritis, left hip (03/03/23) Pain in left hip (03/03/23) Past Medical History (Last Updated 01/18/23 @ 14:05 by Liborio Edwards MD) Ankle pain Aortic aneurysm Basal cell adenocarcinoma BPH (benign prostatic hyperplasia) Burning pain CAD (coronary artery disease) Cardiomyopathy Cataract (2013) Clubfoot CMT (Wycqmbh-Zulwe-Xjqiz disease) (2014) Colon polyps (2009) Essential hypertension Batista catheter problem Hearing loss (2014) Hip osteoarthritis Hip pain History of gross hematuria History of urinary retention Injury of left elbow Ischiogluteal bursitis of left side Kidney stones Labral tear of left hip joint Left bundle branch block Low back pain Lumbar radiculopathy Melanoma (2007) Obstructive sleep apnea Osteoarthritis of both knees Osteoarthrosis, ankle and foot Recurrent urinary tract infection Rheumatic fever (1957) Sepsis Shoulder pain (2011) Spinal stenosis of lumbar region (09/15/13) Squamous cell skin cancer, face Stage 3 chronic kidney disease Superficial laceration Tinnitus UTI (urinary tract infection) Past Surgical History (Last Reviewed 12/15/22 @ 14:59 by Brenton Poole MD) Anesthesia History of back surgery (08/2013) History of cataract removal with insertion of prosthetic lens (2013) History of left knee replacement History of left knee surgery (2004) History of nephrectomy (2003) History of transurethral resection of prostate S/P TURP (~07/2019) Visit Care Team Role Provider Type Kaveh Arroyo MD Family Provider Physician Primary Care Provider Specialty: Family Practice Address: [address] [place], [place] [phone] Email: [email or web address] Brenton Poole MD Attending Provider Physician Referring Provider Specialty: Anesthesiology Interventional Radiology Pain Management Address: [address] [place] [address], [address] Email: [email or web address] Physical Therapy Initial Evaluation PT-OP-A Visit Information Start: 03/03/23 17:35 Freq: Status: Active Protocol: Document 03/03/23 16:00 DCW (Rec: 03/03/23 17:41 DCW [id number]) Out-Patient Physical Therapy Visit Information Visit Information Visit Type Initial Evaluation Visit Start Time 16:00 Visit Stop Time 16:35 Total Visit Minutes 35 Visit Number 1 Number of WEIGH AND CHARGE WORKER Visits 0 Evaluation Information Evaluation Date 03/03/23 PT-OP-B Current Condition Start: 03/03/23 17:35 Freq: Status: Active Protocol: Document 03/03/23 16:00 DCW (Rec: 03/04/23 10:10 DCW [id number]) Current Condition History of Current Condition Onset Date Multi-year history Current Complaints Left hip pain History of Current Condition Pt is a 77 year old male presenting to skilled therapy with complaints of left hip pain. Pt notes he was expecting to have surgery, but the ortho does not feel he is at that point. Pt notes pain comes and goes, but has been worsening over the last few years. Pain is worse with staying in one position, like sitting in a car for 30+ minutes. When weather is nicer , he does like to go out and ride his bike, which seems to help decrease his pain. Getting up and moving around typically helps. Notes he has been out doing yard work today , and feeling pretty good. Medical history significantly complicated by history of Qerbdps-Vmloz-Xyajm disease. 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 Ambulates with significant antalgia, notes it is unrelated to his hip, he's been walking like this for years, likely secondary to ankle immobility. Pt notes hip pain is largely lateral and posterior left hip, does not note any anterior hip pain. Treatment Goals Patient/Caregiver Goals Decrease hip pain and improve mobility PT-OP-C Subjective Start: 03/03/23 17:35 Freq: Status: Active Protocol: Document 03/03/23 16:00 DCW (Rec: 03/03/23 17:41 DCW [id number]) OP-PT Subjective Patient Comments Patient Comments I thought I was ready for hip surgery, but the surgeon disagreed. Patient Reported Progress Same Patient Questionnaires Lower Extremity Functional Scale LEFS Score 61.25% LEFS Impairment 20 to 39% Impaired (Score 48- 62) PT-OP-F Manual Assessment Start: 03/03/23 17:35 Freq: Status: Active Protocol: Document 03/03/23 16:00 DCW (Rec: 03/04/23 10:10 NEW [id number]) Manual Assessments Soft Tissue Assessment Soft Tissue Mobility Assessment Moderate tone and tenderness to palpation 2/4: Pain with wincing along left piriformis, left ITB Joint Mobility Assessment Joint Mobility Assessment Good passive left hip mobility PT-OP-L Special Tests Start: 03/03/23 17:35 Freq: Status: Active Protocol: Document 03/03/23 16:00 DCW (Rec: 03/04/23 10:10 NEW [id number]) Special Tests Hip Special Tests Piriformis Test Results Positive left Straight Leg Raise Test Results Bilateral Hamstring Tightness Scour Test Test Results Negative KARLA Test Results Negative PT-OP-M Strength Start: 03/03/23 17:35 Freq: Status: Active Protocol: Document 03/03/23 16:00 DCW (Rec: 03/04/23 10:10 NEW [id number]) Hip Strength Hip Manual Muscle Testing Right Flexion (L2) 4 Good Abduction 4 Good Adduction 4 Good External Rotation 4 Good Internal Rotation 4 Good Left Flexion (L2) 4 Good Abduction 4 Good Adduction 4 Good External Rotation 4- Good- Internal Rotation 4- Good- Knee Strength Knee Manual Muscle Testing Right Flexion (S2) 4 Good Extension (L3) 4 Good Left Flexion (S2) 4 Good Extension (L3) 4 Good PT-OP-Q Treatments Start: 03/03/23 17:35 Freq: Status: Active Protocol: Document 03/03/23 16:00 DCW (Rec: 03/03/23 17:41 DC [id number]) Therapeutic Exercises Supine Exercises Piriformis Supine Exercise Name Figure-4, knee to opposite shoulder Side bilateral Sitting Exercises Piriformis Sitting Exercise Name Seated figure-4 Side bilateral PT-OP-T Assessment and Plan Start: 03/03/23 17:35 Freq: Status: Active Protocol: Document 03/03/23 16:00 DCW (Rec: 03/04/23 10:10 [facility] [id number]) Physical Therapy Assessment Rehab Potential Rehabilitation Potential Good Evaluation Complexity Number of Personal Factors/Comorbidities 3 or More Number of Body Systems Impaired 3 Clinical Presentation at Evaluation Stable Impairments Impairments Functional Activities, Functional Mobility,Pain,Soft Tissue Mobility,Strength,Tone Goals Two Impairment Left hip internal/external rotation MMT graded at 4-/5 [facility] Goal (LTG) Pt to demonstrate increased left hip strength to at least 4/5 in all tested planes in order to improve functional mobility LTG Duration 05/01/23 Three Impairment Pt experiences increased hip pain sitting longer than 30 minutes in a car Electronic Systems Technician Goal (LTG) Pt to demonstrate ability to sit in vehicle for >60 minutes without increasing hip pain to allow pt to drive with to [place] LTG Duration 05/01/23 One Impairment Pt does not have an appropriate home exercise program Short Term Goal (STG) Pt to be independent and compliant with an appropriate HEP STG Duration 04/02/23 Assessment Summary Assessment Pt presents with signs and symptoms consistent with referring diagnosis. Pt does appear to have increased tone/ stiffness in left hip musculature, particularly in his left ITB and piriformis, which may be adding to discomfort pt notes in his hip secondary to ongoing degenerative changes. Pt showed immediate response to piriformis stretching, instructed in home stretching and given hand out. Pt will likely continue to benefit from skilled therapy focusing on decreasing tone, strengthening hip, improving joint mobility, pain-control, and improving function mobility. Pt's history of CMT disease is a significant limiting factor to potential recovery. Physical Therapy Plan Frequency and Duration Frequency of Treatment 2x/Week Plan of Care Start Date 03/02/23 Plan of Care End Date 05/01/23 Therapeutic Interventions Therapeutic Interventions Home Exercise Program,Joint Mobilizations,Manual Therapy, Neuromuscular Re-education, Patient/Caregiver Education, Self-Care/Home Management,Soft Tissue Mobilization, Therapeutic Activities, Therapeutic Exercises Next Visit Focus/Plan Next Note Type Treatment Note Next Visit Plan Flexibility, Strengthening, STM
--- NOTE | 2023-03-05 16:49 | PT.OTN ---
Current Diagnoses Unilateral primary osteoarthritis, left hip (03/05/23) Pain in left hip (03/05/23) Physical Therapy Treatment Note PT-OP-A Visit Information Start: 03/03/23 17:35 Freq: Status: Active Protocol: Document 03/05/23 16:00 DCW (Rec: 03/05/23 16:49 DCW [id number]) Out-Patient Physical Therapy Visit Information Visit Information Visit Type Treatment Note Visit Start Time 16:00 Visit Stop Time 16:45 Total Visit Minutes 45 Visit Number 2 Number of SALES FACILITATOR Visits 0 Evaluation Information Evaluation Date 03/03/23 PT-OP-B Current Condition Start: 03/03/23 17:35 Freq: Status: Active Protocol: Document 03/03/23 16:00 DCW (Rec: 03/04/23 10:10 DCW [id number]) Current Condition History of Current Condition Onset Date Multi-year history Current Complaints Left hip pain History of Current Condition Pt is a 77 year old male presenting to skilled therapy with complaints of left hip pain. Pt notes he was expecting to have surgery, but the ortho does not feel he is at that point. Pt notes pain comes and goes, but has been worsening over the last few years. Pain is worse with staying in one position, like sitting in a car for 30+ minutes. When weather is nicer , he does like to go out and ride his bike, which seems to help decrease his pain. Getting up and moving around typically helps. Notes he has been out doing yard work today , and feeling pretty good. 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 Ambulates with significant antalgia, notes it is unrelated to his hip, he's been walking like this for years, likely secondary to ankle immobility. Pt notes hip pain is largely lateral and posterior left hip, does not note any anterior hip pain. Treatment Goals Patient/Caregiver Goals Decrease hip pain and improve mobility PT-OP-C Subjective Start: 03/03/23 17:35 Freq: Status: Active Protocol: Document 03/05/23 16:00 DCW (Rec: 03/05/23 16:49 DCW [id number]) OP-PT Subjective Patient Comments Patient Comments Those exercises you gave me are already helping. PT-OP-F Manual Assessment Start: 03/03/23 17:35 Freq: Status: Active Protocol: Document 03/03/23 16:00 DCW (Rec: 03/04/23 10:10 LAW [id number]) Manual Assessments Soft Tissue Assessment Soft Tissue Mobility Assessment Moderate tone and tenderness to palpation 2/4: Pain with wincing along left piriformis, left ITB Joint Mobility Assessment Joint Mobility Assessment Good passive left hip mobility PT-OP-L Special Tests Start: 03/03/23 17:35 Freq: Status: Active Protocol: Document 03/03/23 16:00 DCW (Rec: 03/04/23 10:10 DCW [id number]) Special Tests Hip Special Tests Piriformis Test Results Positive left Straight Leg Raise Test Results Bilateral Hamstring Tightness Scour Test Test Results Negative KARLA Test Results Negative PT-OP-M Strength Start: 03/03/23 17:35 Freq: Status: Active Protocol: Document 03/03/23 16:00 DCW (Rec: 03/04/23 10:10 DC [id number]) Hip Strength Hip Manual Muscle Testing Right Flexion (L2) 4 Good Abduction 4 Good Adduction 4 Good External Rotation 4 Good Internal Rotation 4 Good Left Flexion (L2) 4 Good Abduction 4 Good Adduction 4 Good External Rotation 4- Good- Internal Rotation 4- Good- Knee Strength Knee Manual Muscle Testing Right Flexion (S2) 4 Good Extension (L3) 4 Good Left Flexion (S2) 4 Good Extension (L3) 4 Good PT-OP-Q Treatments Start: 03/03/23 17:35 Freq: Status: Active Protocol: Document 03/05/23 16:00 DCW (Rec: 03/05/23 16:49 DCW [id number]) Cardio Equipment Recumbent Elliptical (Biodex) Duration (Minutes) 6 Resistance 4 Seat Position 7 Gym Equipment Shuttle Recovery Unilateral Squats Resistance 37# (One new) Bilateral Squats Resistance 75# (Two new) Therapeutic Exercises Supine Exercises Piriformis Supine Exercise Name Figure-4, knee to opposite shoulder Side bilateral Sidelying Exercises Hip Abduction Sidelying Exercise Name Hip Abduction Side bilateral Reverse Clamshell Sidelying Exercise Name Reverse Clamshell Side bilateral Clamshell Sidelying Exercise Name Clamshell Side bilateral Resistance Lv 2 Standing Exercises Hip Extension Standing Exercise Name Hip Extension Side bilateral Resistance Green Other Exercises Resisted Ambulation Other Exercise Name Resisted side-stepping Resistance Green Manual Therapy Treatment Soft Tissue Mobilization Piriformis Body Location L Piriformis Mobilization Type Strumming,Sustained Pressure Body Position Sidelying PT-OP-T Assessment and Plan Start: 03/03/23 17:35 Freq: Status: Active Protocol: Document 03/05/23 16:00 DCW (Rec: 03/05/23 16:49 DCW [id number]) Physical Therapy Assessment Impairments Impairments Functional Activities, Functional Mobility,Pain,Soft Tissue Mobility,Strength,Tone Goals Two Impairment Left hip internal/external rotation MMT graded at 4-/5 Care Home Goal (LTG) Pt to demonstrate increased left hip strength to at least 4/5 in all tested planes in order to improve functional mobility LTG Duration 05/01/23 Three Impairment Pt experiences increased hip pain sitting longer than 30 minutes in a car Computer Equipment Repairer Goal (LTG) Pt to demonstrate ability to sit in vehicle for >60 minutes without increasing hip pain to allow pt to drive with to [place] LTG Duration 05/01/23 One Impairment Pt does not have an appropriate home exercise program Short Term Goal (STG) Pt to be independent and compliant with an appropriate HEP STG Duration 04/02/23 Assessment Summary Assessment Very good response to stretching so far, motivated to continue with HEP. Began hip strengthening today, pt noted fatigue with clamshells. Given HO for clamshells, revers clamshells, and hip abduction Physical Therapy Plan Frequency and Duration Frequency of Treatment 2x/Week Plan of Care Start Date 03/02/23 Plan of Care End Date 05/01/23 Therapeutic Interventions Therapeutic Interventions Home Exercise Program,Joint Mobilizations,Manual Therapy, Neuromuscular Re-education, Patient/Caregiver Education, Self-Care/Home Management,Soft Tissue Mobilization, Therapeutic Activities, Therapeutic Exercises Next Visit Focus/Plan Next Note Type Treatment Note Next Visit Plan Flexibility, Strengthening, STM
--- NOTE | 2023-03-10 11:27 | PT-OP ANOTE ---
Pt cancelled due to snow accumulation weather.
--- NOTE | 2023-03-12 14:30 | PT.OTN ---
Current Diagnoses Unilateral primary osteoarthritis, left hip (03/12/23) Pain in left hip (03/12/23) Physical Therapy Treatment Note PT-OP-A Visit Information Start: 03/03/23 17:35 Freq: Status: Active Protocol: Document 03/12/23 13:46 SP (Rec: 03/12/23 15:20 SP [id number]) Out-Patient Physical Therapy Visit Information Visit Information Visit Type Treatment Note Visit Start Time 13:46 Visit Stop Time 14:30 Total Visit Minutes 44 Visit Number 3 Number of CUSTOMER SERVICE OPERATOR Visits 1 Evaluation Information Evaluation Date 03/03/23 PT-OP-B Current Condition Start: 03/03/23 17:35 Freq: Status: Active Protocol: Document 03/03/23 16:00 DCW (Rec: 03/04/23 10:10 DCW [id number]) Current Condition History of Current Condition Onset Date Multi-year history Current Complaints Left hip pain History of Current Condition Pt is a 77 year old male presenting to skilled therapy with complaints of left hip pain. Pt notes he was expecting to have surgery, but the ortho does not feel he is at that point. Pt notes pain comes and goes, but has been worsening over the last few years. Pain is worse with staying in one position, like sitting in a car for 30+ minutes. When weather is nicer , he does like to go out and ride his bike, which seems to help decrease his pain. Getting up and moving around typically helps. Notes he has been out doing yard work today , and feeling pretty good. Medical history significantly complicated by history of Qzyvroq-Gkyfr-Zxwei disease. 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 Ambulates with significant antalgia, notes it is unrelated to his hip, he's been walking like this for years, likely secondary to ankle immobility. Pt notes hip pain is largely lateral and posterior left hip, does not note any anterior hip pain. Treatment Goals Patient/Caregiver Goals Decrease hip pain and improve mobility PT-OP-C Subjective Start: 03/03/23 17:35 Freq: Status: Active Protocol: Document 03/12/23 13:46 SP (Rec: 03/12/23 15:20 SP [id number]) OP-PT Subjective Patient Comments Patient Comments Pt reports having no pain, the best exercise is the seated piriformis stretch. He feels doing well with HEP and ready to DC to HEP on his own. Patient Reported Progress Improving PT-OP-F Manual Assessment Start: 03/03/23 17:35 Freq: Status: Active Protocol: Document 03/03/23 16:00 DCW (Rec: 03/04/23 10:10 DCW [id number]) Manual Assessments Soft Tissue Assessment Soft Tissue Mobility Assessment Moderate tone and tenderness to palpation 2/4: Pain with wincing along left piriformis, left ITB Joint Mobility Assessment Joint Mobility Assessment Good passive left hip mobility PT-OP-L Special Tests Start: 03/03/23 17:35 Freq: Status: Active Protocol: Document 03/03/23 16:00 DCW (Rec: 03/04/23 10:10 DCW [id number]) Special Tests Hip Special Tests Piriformis Test Results Positive left Straight Leg Raise Test Results Bilateral Hamstring Tightness Scour Test Test Results Negative KARLA Test Results Negative PT-OP-M Strength Start: 03/03/23 17:35 Freq: Status: Active Protocol: Document 03/12/23 13:46 SP (Rec: 03/12/23 15:20 SP [id number]) Hip Strength Hip Manual Muscle Testing Right Flexion (L2) 5 Normal Extension (S1) 4 Good Abduction 4+ Good+ Adduction 5 Normal External Rotation 5 Normal Internal Rotation 4+ Good+ Left Flexion (L2) 5 Normal Extension (S1) 5 Normal Abduction 4+ Good+ Adduction 5 Normal External Rotation 4+ Good+ Internal Rotation 5 Normal Knee Strength Knee Manual Muscle Testing Right Flexion (S2) 5 Normal Extension (L3) 5 Normal Left Flexion (S2) 4+ Good+ Extension (L3) 5 Normal PT-OP-Q Treatments Start: 03/03/23 17:35 Freq: Status: Active Protocol: Document 03/12/23 13:46 SP (Rec: 03/12/23 15:20 SP [id number]) Cardio Equipment Recumbent Elliptical (BiodPartnerbyte) Duration (Minutes) 6 Resistance 4 Seat Position 7 Other BUEs/BLEs Therapeutic Exercises Supine Exercises Piriformis Supine Exercise Name Figure-4, knee to opposite shoulder Side bilateral Equipment Used *has been best HEP help painfree Reps/Minutes 30 x2 Comments performed seated, states does supine as well Sidelying Exercises Hip Abduction Sidelying Exercise Name Hip Abduction Side bilateral Comments discussion review doing well Reverse Clamshell Sidelying Exercise Name Reverse Clamshell Side bilateral Comments discussion review doing well Sitting Exercises HS curl Sitting Exercise Name added to HEP Resistance R>L Equipment Used TB #2 anchored in door Reps/Minutes 2x10 Comments improved quad and HS muscle tiring effort for R knee stabililty during STS Piriformis Sitting Exercise Name Seated figure-4 and piriformis Side bilateral Reps/Minutes 30 each Comments performs throughout day, has been best ex for painfree support Standing Exercises hip abd Standing Exercise Name Hip abd Side bilateral Resistance aqua TB #2 at ankles Reps/Minutes 2x10 Comments added to HEP Hip Extension Standing Exercise Name Hip Extension Side bilateral Resistance aqua TB at ankles Reps/Minutes 2x10 Comments added to HEP Other Exercises self STMs Other Exercise Name discussion for support decrease tightness and flexibility Side bilateral Equipment Used rolling pin quad/HS/calf, ball wall glut Comments verbalized understanding and utilize ball so far good response Resisted Ambulation Other Exercise Name Resisted side-stepping Resistance Green Equipment Used rail PRN Reps/Minutes added to HEP Comments cues for elongated posture, scap &core, clear/ecc control trail LE Therapeutic Activity Therapeutic Activity postural awareness gait in mirror Name use mirror for self corrections Reps/Minutes 20 ft x6 laps Comments Pt improved decrease lateral wt shift/SB trunk righting during gait post cues for elongated posture, scap and core fac demonstrated L engagment WB support and level pelvis/shld/trunk stability. PT-OP-T Assessment and Plan Start: 03/03/23 17:35 Freq: Status: Active Protocol: Document 03/12/23 13:46 SP (Rec: 03/12/23 15:20 SP [id number]) Physical Therapy Assessment Goals Two Impairment Left hip internal/external rotation MMT graded at 4-/5 Jail Goal (LTG) Pt to demonstrate increased left hip strength to at least 4/5 in all tested planes in order to improve functional mobility 03/12/23: goal met: MMT gained .5-1 grade (4+to 5/5), see measurements LTG Duration 05/01/23 GOAL MET 03/12/23 Three Impairment Pt experiences increased hip pain sitting longer than 30 minutes in a car Impairment Initial Eval: Ankle strength: In neutral position isometric strength is normal except: Left: DF 1/5, IV 2-/5; Right: IV 3+/5. Hip strength: In neutral position isometric strength is normal except: Left: Ext 2/ 5, AB 3+/5; Right: Ext 2-/5, AB 3+/5. Jail Goal (LTG) Pt to demonstrate ability to sit in vehicle for >60 minutes without increasing hip pain to allow pt to drive with to [place] 03/12/23: stated hasnt' driven in car to give feedback due to bad weather, no pain sitting and watching TV, used to have shift around to adjust position stiff/achiness not noticed in past 2-3 days, painfree. LTG Duration 05/01/23 met GOAL One Impairment Pt does not have an appropriate home exercise program Impairment Weak ankles, hips & core; and lacks SLS/tandem stance ability. Big toe weak: L flexion, R ext . Ankles: DF(1/5)/IV(2/5) left, IV(3/5) right. Hips: Left: Ext 2-/5, AB 4/5; Right Ext 2-/5, AB 4+/5 Short Term Goal (STG) Pt to be independent and compliant with an appropriate HEP 03/12/23: piriformis stretch, clamshell, hip abd, uses stationary bike and TM. Added: resisted hip abd, ext, band walk, HS curl, STS, discussed self STMs rolling pin quad/hs/calf ball wall glut if needed. STG Duration 04/02/23 GOAL MET Progress Towards Goals Progress Comments Pt improved MMT by .5-1 grade. Assessment Summary Assessment Pt good response stretching HEP for flexibilitynow painfree L hip, feels improved and not having L hip pain. Tx focused on strengthening HEP with added progression in standing&seated at home has performed in PT. Reports good muscle tiring hamstring, quad and glut to support increased stability during gait carryover seen with self correction in mirror walking, see ex added with HOs provided today. DIscussed self STMs ball wall and rolling pin quad /glut/HS/calif needed, verbalized uses the ball wall so far. Pt feels doing well and ready to DC to provided/ reviewed HEP. DIscussed with PT and will complete DC. Physical Therapy Plan Frequency and Duration Frequency of Treatment 2x/Week Plan of Care Start Date 03/02/23 Plan of Care End Date 05/01/23 Therapeutic Interventions Therapeutic Interventions Home Exercise Program,Joint Mobilizations,Manual Therapy, Neuromuscular Re-education, Patient/Caregiver Education, Self-Care/Home Management,Soft Tissue Mobilization, Therapeutic Activities, Therapeutic Exercises Discharge Physical Therapy Discharge Reasons Patient Request Next Visit Focus/Plan Next Note Type Discharge Summary Next Visit Plan Pt progression in goals, request to DC.
--- NOTE | 2023-03-23 09:40 | PT.OPDS ---
Current Diagnoses Unilateral primary osteoarthritis, left hip (03/12/23) Pain in left hip (03/12/23) Visit Care Team Role Provider Type Kaveh Arroyo MD Family Provider Physician Primary Care Provider Specialty: Family Practice Address: [address] [place] [address], [address] Email: [email or web address] Brenton Poole MD Attending Provider Physician Referring Provider Specialty: Anesthesiology Interventional Radiology Pain Management Address: [facility] [place], [address] Email: [email or web address] Visit Number Visit Number 3 Discharge Summary PT-OP-B Current Condition Start: 03/03/23 17:35 Freq: Status: Active Protocol: Document 03/03/23 16:00 DCW (Rec: 03/04/23 10:10 DCW [id number]) Current Condition History of Current Condition Onset Date Multi-year history Current Complaints Left hip pain History of Current Condition Pt is a 77 year old male presenting to skilled therapy with complaints of left hip pain. Pt notes he was expecting to have surgery, but the ortho does not feel he is at that point. Pt notes pain comes and goes, but has been worsening over the last few years. Pain is worse with staying in one position, like sitting in a car for 30+ minutes. When weather is nicer , he does like to go out and ride his bike, which seems to help decrease his pain. Getting up and moving around typically helps. Notes he has been out doing yard work today , and feeling pretty good. Medical history significantly complicated by history of Qsfzbfy-Erbef-Jbyxe disease. 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 Ambulates with significant antalgia, notes it is unrelated to his hip, he's been walking like this for years, likely secondary to ankle immobility. Pt notes hip pain is largely lateral and posterior left hip, does not note any anterior hip pain. Treatment Goals Patient/Caregiver Goals Decrease hip pain and improve mobility PT-OP-C Subjective Start: 03/03/23 17:35 Freq: Status: Active Protocol: Document 03/12/23 13:46 SP (Rec: 03/12/23 15:20 SP [id number]) OP-PT Subjective Patient Comments Patient Comments Pt reports having no pain, the best exercise is the seated piriformis stretch. He feels doing well with HEP and ready to DC to HEP on his own. Patient Reported Progress Improving PT-OP-F Manual Assessment Start: 03/03/23 17:35 Freq: Status: Active Protocol: Document 03/03/23 16:00 DCW (Rec: 03/04/23 10:10 DCW [id number]) Manual Assessments Soft Tissue Assessment Soft Tissue Mobility Assessment Moderate tone and tenderness to palpation 2/4: Pain with wincing along left piriformis, left ITB Joint Mobility Assessment Joint Mobility Assessment Good passive left hip mobility PT-OP-L Special Tests Start: 03/03/23 17:35 Freq: Status: Active Protocol: Document 03/03/23 16:00 DCW (Rec: 03/04/23 10:10 DCW [id number]) Special Tests Hip Special Tests Piriformis Test Results Positive left Straight Leg Raise Test Results Bilateral Hamstring Tightness Scour Test Test Results Negative KARLA Test Results Negative PT-OP-M Strength Start: 03/03/23 17:35 Freq: Status: Active Protocol: Document 03/12/23 13:46 SP (Rec: 03/12/23 15:20 SP [id number]) Hip Strength Hip Manual Muscle Testing Right Flexion (L2) 5 Normal Extension (S1) 4 Good Abduction 4+ Good+ Adduction 5 Normal External Rotation 5 Normal Internal Rotation 4+ Good+ Left Flexion (L2) 5 Normal Extension (S1) 5 Normal Abduction 4+ Good+ Adduction 5 Normal External Rotation 4+ Good+ Internal Rotation 5 Normal Knee Strength Knee Manual Muscle Testing Right Flexion (S2) 5 Normal Extension (L3) 5 Normal Left Flexion (S2) 4+ Good+ Extension (L3) 5 Normal PT-OP-T Assessment and Plan Start: 03/03/23 17:35 Freq: Status: Active Protocol: Document 03/23/23 09:37 DCW (Rec: 03/23/23 09:40 DCW [id number]) Physical Therapy Assessment Goals Two Impairment Left hip internal/external rotation MMT graded at 4-/5 Prison Goal (LTG) Pt to demonstrate increased left hip strength to at least 4/5 in all tested planes in order to improve functional mobility LTG Duration Met Three Impairment Pt experiences increased hip pain sitting longer than 30 minutes in a car Unclaimed Property Manager Goal (LTG) Pt to demonstrate ability to sit in vehicle for >60 minutes without increasing hip pain to allow pt to drive with to [place] LTG Duration Met One Impairment Pt does not have an appropriate home exercise program Short Term Goal (STG) Pt to be independent and compliant with an appropriate HEP STG Duration Met Progress Towards Goals Progress Towards Goals Goals Met Assessment Summary Assessment Pt reports he is happy with HEP, has greatly minimized prior ongoing pain. Feels appropriate for discharge at this time, has met all goals. Physical Therapy Plan Frequency and Duration Frequency of Treatment 2x/Week Plan of Care Start Date 03/02/23 Plan of Care End Date 05/01/23 Therapeutic Interventions Therapeutic Interventions Home Exercise Program,Joint Mobilizations,Manual Therapy, Neuromuscular Re-education, Patient/Caregiver Education, Self-Care/Home Management,Soft Tissue Mobilization, Therapeutic Activities, Therapeutic Exercises Discharge Physical Therapy Discharge Comments Goals met, patient request Next Visit Focus/Plan Next Note Type Discharge Summary
== END 2023-03-25 11:02 | disposition home or self-care (01) ==
LOC: PHYS 13:45
PROVIDERS: Family Provider Family Medicine; PCP Family Medicine; Referring Provider Anesthesiology; Visit Provider Anesthesiology
DX: M16.12 Unilateral primary osteoarthritis, left hip (principal); M25.552 Pain in left hip
CPT/HCPCS: 97110; 97140; 97161; 97530

== ENCOUNTER → 2023-04-13 15:53 | Outpatient (CLI) | payer MEDICARE, OTHER, SELFPAY ==
[2021-05-09 15:33] VITALS: BMI 32.6
[2023-04-13 18:07] LABS: Hemoglobin 11.1 g/dL (13.5-17.5)
[2023-04-13 18:31] LABS: BUN Creatinine Ratio 20.2 (6-22); Blood Urea Nitrogen 36 mg/dL (9-20); Calcium 9.1 mg/dL (8.4-10.2); Carbon Dioxide 21 mmol/L (22-32); Chloride 109 mmol/L (98-107); Estimated Glomerular Filt Rate 39 mL/min (>60); Glucose 111 mg/dL (80-110); HEMOLYSIS < 15 (0-50); Sodium 141 mmol/L (137-145)
[2023-04-13 19:17] LABS: Creatinine Urine Random 81.7 mg/dL; Protein (Total) Urine Random 34 mg/dL (0-12); Protein Creatinine Ratio Urine 0.41 GRAM/24H
[2023-04-16 10:47] LABS: Parathyroid Hormone Int 76 pg/mL (15-65)
== END ==
PROVIDERS: Family Provider Family Medicine; PCP Family Medicine; Referring Provider Student in an Organized Health Care Education/Training Program; Visit Provider Student in an Organized Health Care Education/Training Program
DX: N05.9 Unspecified nephritic syndrome with unspecified morphologic changes (principal); D70.9 Neutropenia, unspecified; D63.1 Anemia in chronic kidney disease; N25.81 Secondary hyperparathyroidism of renal origin; R80.9 Proteinuria, unspecified
CPT/HCPCS: 36415; 80048; 82570; 83970; 84156; 85014; 85018

== ENCOUNTER 2023-05-19 11:59 | Emergency (ER) | payer MEDICARE, OTHER, SELFPAY ==
[2021-05-09 15:33] VITALS: BMI 32.6
[2023-05-19] VITALS (7 sets, daily range): BP systolic 119–149; BP diastolic 58–68; PULSE 51–58; RESP 14–24; TEMP 36.7; O2SAT 96–98; BMI 31.7
--- NOTE | 2023-05-19 12:32 | DI.CT.S_ITS ---
PROCEDURE: CT HEAD/BRAIN WO CON INDICATIONS: BLURRED VISION, FACIAL NUMBNESS INTERMIT X 3 DAYS TECHNIQUE: Noncontrast 4.5 mm thick angled axial sections acquired from the foramen magnum to the vertex, with coronal and sagittal reformats. For radiation dose reduction, the following was used: automated exposure control, adjustment of mA and/or kV according to patient size. COMPARISON: None. FINDINGS: Image quality: Diagnostic. CSF spaces: Basal cisterns are patent. No extra-axial fluid collections. The ventricles are symmetric in size and shape. Brain: No intracranial bleeds or masses. There is cerebral volume loss for age, with resultant ventricular and sulcal prominence. There are mild, age-appropriate periventricular and deep white matter chronic small vessel ischemic changes. There is intracranial internal carotid artery atherosclerosis. Skull and face: Calvarium and visualized facial bones appear intact, without suspicious lesions. Sinuses: Visualized sinuses and mastoids are clear. IMPRESSION: No acute intracranial pathology. Age-related volume loss and mild, age-appropriate small-vessel ischemic change. Dictated by: Anibal Hillman M.D. on 05/19/2023 at 13:42 Approved by: Anibal Hillman M.D. on 05/19/2023 at 13:43
--- NOTE | 2023-05-19 12:32 | DI.RAD.S_ITS ---
PROCEDURE: XR CHEST 1V INDICATIONS: INTERMITTENT NUMBNESS TECHNIQUE: One view of the chest was acquired. COMPARISON: [facility], CR, XR CHEST FOR PICC 1V, 11/16/2020, 19:29. FINDINGS: Surgical changes and devices: Interval placement of a leadless pacer Lungs and pleura: Lungs are clear. No pleural effusions or pneumothorax. Mediastinum: Mediastinal contours appear normal. Unchanged cardiomegaly. Bones and chest wall: No suspicious bony lesions. Overlying soft tissues appear unremarkable. IMPRESSION: Cardiomegaly. No evidence acute pulmonary process. Dictated by: Anibal Hillman M.D. on 05/19/2023 at 13:38 Approved by: Anibal Hillman M.D. on 05/19/2023 at 13:39
--- NOTE | 2023-05-19 13:08 | PC.NURSE ---
Pt w/ normal gait. Moving all extremities equally well. No acute distress. speech is clear. No numbness or tingling at this time. States symptoms last 'fleeting' and will call if they return.
[2023-05-19 13:16] LABS: Add Manual Diff / Slide Review NO; Basophils Absolute Auto 100 /uL (0-100); Basophils Percent Auto 1.1 % (0-2); Eosinophils Absolute Auto 100 /uL (0-450); Eosinophils Percent Auto 2.3 % (2-4); Hematocrit 30.6 % (41-53); Hemoglobin 10.5 g/dL (13.5-17.5); Lymphocytes Absolute Auto 1200 /uL (1100-4500); Lymphocytes Percent Auto 19.6 % (25-40); Mean Corpuscular HGB Conc 34.4 % (30-36); Mean Corpuscular Hemoglobin 31.9 PG (26-34); Mean Corpuscular Volume 92.5 fL (80-100); Monocytes Absolute Auto 400 /uL (0-900); Monocytes Percent Auto 6.3 % (3-14); Neutrophils Absolute Auto 4500 /uL (1500-7000); Neutrophils Percent Auto 70.7 % (50-75); Platelet Count 161 X10^3/uL (150-400); Red Blood Cell Count 3.31 X10^6/uL (4.5-5.9); Red Cell Distribution Width 13.6 % (11.6-14.8); White Blood Cell Count 6.3 X10^3/uL (4.5-11.0)
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
[2023-05-19 13:26] LABS: Alanine Aminotransferase 12 IU/L (<50); Albumin Globulin Ratio 1.4 (1.0-2.8); Alkaline Phosphatase 71 U/L (38-126); Aspartate Aminotransferase 16 IU/L (17-59); BUN Creatinine Ratio 21.8 (6-22); Bilirubin Total 0.6 mg/dL (0.2-1.3); Blood Urea Nitrogen 41 mg/dL (9-20); Calcium 9.2 mg/dL (8.4-10.2); Carbon Dioxide 20 mmol/L (22-32); Chloride 112 mmol/L (98-107); Estimated Glomerular Filt Rate 36 mL/min (>60); Globulin 2.8 g/dL (1.7-4.1); Glucose 166 mg/dL (80-110); HEMOLYSIS < 15 (0-50); Potassium 4.3 mmol/L (3.4-5.1); Sodium 140 mmol/L (137-145); Total Protein 6.8 g/dL (6.3-8.2)
--- NOTE | 2023-05-19 14:23 | DI.MRI.S_ITS ---
PROCEDURE: MR HEAD/BRAIN WO CON INDICATIONS: INTERMITTENT BLURRED VISION, L FACIAL NUMBNESS TODAY TECHNIQUE: Noncontrast axial T1 spin echo, axial T2 fast spin echo, sagittal and axial FLAIR, coronal T2 fast spin echo, axial gradient echo, axial diffusion and ADC through the brain. COMPARISON: [facility], MR, MR HEAD/BRAIN WO CON, 07/01/2020, 17:30. FINDINGS: Image quality: Excellent. CSF Spaces: Basal cisterns are patent. No extra-axial fluid collections. Ventricles are normal in size and shape. Brain: No intracranial masses or hemorrhage. Acosta/white matter interface is normal. Brainstem appears normal. Diffusion-weighted images demonstrate no acute infarct. No chronic ischemic insults. Age-related volume loss and moderate to severe small vessel ischemic change, as before. Normal intravascular flow voids are present. Skull and face: Calvarium has normal marrow signal. Orbits appear normal. Sinuses: Sinuses and mastoids are clear. IMPRESSION: 1. No acute intracranial process. 2. Age-related volume loss and moderate to severe small vessel ischemic change. Dictated by: Anbial Hillman M.D. on 05/19/2023 at 15:17 Approved by: Anibal Hillman M.D. on 05/19/2023 at 15:19
== END 2023-05-19 15:34 | disposition home or self-care (01) ==
PROVIDERS: Emergency Provider Emergency Medicine; Family Provider Family Medicine; PCP Family Medicine
DX: R20.0 Anesthesia of skin (principal); R42 Dizziness and giddiness; H53.8 Other visual disturbances
CPT/HCPCS: 36415; 70450; 70551; 71045; 80053; 85025; 93005; 99284

== ENCOUNTER → 2023-05-20 11:22 | Outpatient (CLI) | payer MEDICARE, OTHER, SELFPAY ==
[2021-05-09 15:33] VITALS: BMI 32.6
[2023-05-20 14:01] LABS: Erythrocyte Sedimentation Rate 23 MM/HR (0-15)
[2023-05-20 19:47] LABS: Prostate Specific Antigen Scrn 2.12 ng/mL (0.1-4.0)
[2023-05-20 20:11] LABS: High Sensitivity CRP - Cardiac 0.8 mg/L (1.0-3.0)
== END ==
LOC: LAB 11:23
PROVIDERS: Urology; Family Provider Family Medicine; PCP Family Medicine; Referring Provider Ophthalmology; Visit Provider Ophthalmology
DX: Z12.5 Encounter for screening for malignant neoplasm of prostate (principal); H53.2 Diplopia
CPT/HCPCS: 36415; 85651; 86140; G0103

== ENCOUNTER → 2023-05-25 11:01 | Outpatient (CLI) | payer MEDICARE, OTHER, SELFPAY ==
[2023-05-21 11:07] VITALS: BMI 32.6
--- NOTE | 2023-05-25 11:02 | DI.US.S_ITS ---
PROCEDURE: US CAROTID DOPPLER BI INDICATIONS: VISUAL DISTURBANCE TECHNIQUE: Color and pulse Doppler interrogation was performed of both carotid systems, with image documentation and velocity measurements. COMPARISON: None. FINDINGS: Stenosis calculations are based on SRU (Society of Radiologists in Ultrasound) criteria. Right side: Brachial blood pressure: 122 56 mm Hg. Common carotid artery peak systolic velocity: 92 cm/sec. Internal carotid artery peak systolic velocity: 74 cm/sec. Internal carotid artery end diastolic velocity: 22 cm/sec. External carotid artery peak systolic velocity: 68 cm/sec. ICA/CCA peak systolic ratio: 0.8 . Acosta scale imaging description: Hfjk-ef-hggwyauc atherosclerotic plaques Percent internal carotid artery stenosis: Less than 50 percent . Vertebral artery: Flow direction is antegrade. Left side: Brachial blood pressure: 109/53 mm Hg. Common carotid artery peak systolic velocity: 97 cm/sec. Internal carotid artery peak systolic velocity: 141 cm/sec. Internal carotid artery end diastolic velocity: 28 cm/sec. External carotid artery peak systolic velocity: 129 cm/sec. ICA/CCA peak systolic ratio: 1.5 . Acosta scale imaging description: Moderate atherosclerotic plaques Percent internal carotid artery stenosis: 50-69 percent . Vertebral artery: Flow direction is antegrade. IMPRESSION: Less than 50 percent stenosis of the right internal carotid artery and 50-69 percent stenosis of the left internal carotid artery. Dictated by: Dawood Cruz M.D. on 05/25/2023 at 13:04 Approved by: Dawood Cruz M.D. on 05/25/2023 at 13:06
== END ==
LOC: US 11:01
PROVIDERS: Family Provider Family Medicine; PCP Family Medicine; Referring Provider Ophthalmology; Visit Provider Ophthalmology
DX: H53.9 Unspecified visual disturbance (principal); I65.23 Occlusion and stenosis of bilateral carotid arteries
CPT/HCPCS: 93880

== ENCOUNTER → 2023-06-22 14:48 | Outpatient (CLI) | payer MEDICARE, OTHER, SELFPAY ==
[2023-05-21 11:07] VITALS: BMI 32.6
[2023-06-22 15:31] LABS: Add Manual Diff / Slide Review NO; Basophils Absolute Auto 0 /uL (0-100); Basophils Percent Auto 0.6 % (0-2); Eosinophils Absolute Auto 200 /uL (0-450); Eosinophils Percent Auto 3.4 % (2-4); Hemoglobin 10.3 g/dL (13.5-17.5); Lymphocytes Absolute Auto 1600 /uL (1100-4500); Lymphocytes Percent Auto 23.1 % (25-40); Mean Corpuscular HGB Conc 34.2 % (30-36); Mean Corpuscular Hemoglobin 31.4 PG (26-34); Mean Corpuscular Volume 91.6 fL (80-100); Monocytes Absolute Auto 600 /uL (0-900); Monocytes Percent Auto 8.9 % (3-14); Neutrophils Absolute Auto 4400 /uL (1500-7000); Platelet Count 213 X10^3/uL (150-400); Red Blood Cell Count 3.28 X10^6/uL (4.5-5.9); Red Cell Distribution Width 14.2 % (11.6-14.8); White Blood Cell Count 6.8 X10^3/uL (4.5-11.0)
[2023-06-22 16:03] LABS: Alanine Aminotransferase 13 IU/L (<50); Albumin 4.3 g/dL (3.5-5.0); Albumin Globulin Ratio 1.6 (1.0-2.8); Alkaline Phosphatase 96 U/L (38-126); Aspartate Aminotransferase 23 IU/L (17-59); BUN Creatinine Ratio 21.9 (6-22); Bilirubin Total 0.5 mg/dL (0.2-1.3); Blood Urea Nitrogen 39 mg/dL (9-20); Calcium 9.1 mg/dL (8.4-10.2); Carbon Dioxide 21 mmol/L (22-32); Chloride 109 mmol/L (98-107); Cholesterol 122 mg/dL (140-199); Estimated Glomerular Filt Rate 39 mL/min (>60); Globulin 2.7 g/dL (1.7-4.1); Glucose 126 mg/dL (80-110); HDL Cholesterol 39 mg/dL (40-60); HEMOLYSIS < 15 (0-50); LDL Cholesterol Calculated 57 mg/dL (<100); Potassium 4.4 mmol/L (3.4-5.1); Sodium 137 mmol/L (137-145); Triglycerides 132 mg/dL (35-150)
[2023-06-22 16:32] LABS: Creatinine Urine Random 87.7 mg/dL
[2023-06-22 16:32] LABS: TSH w/ Reflex to FT4 1.05 uIU/mL (0.47-4.68)
[2023-06-22 16:39] LABS: Microalbumi Creatinin Ratio Ur 63.8 ug/mg CR (<30); Microalbumin Urine Random 5.6 mg/dL (0-1.6)
== END ==
PROVIDERS: Family Provider Family Medicine; PCP Family Medicine; Referring Provider Family Medicine; Visit Provider Family Medicine
DX: I71.9 Aortic aneurysm of unspecified site, without rupture (principal); I10 Essential (primary) hypertension; I44.7 Left bundle-branch block, unspecified; E78.5 Hyperlipidemia, unspecified; I25.10 Atherosclerotic heart disease of native coronary artery without angina pectoris
CPT/HCPCS: 36415; 80053; 80061; 82043; 82172; 82570; 84443; 85025

== ENCOUNTER → 2023-07-22 10:59 | Outpatient (CLI) | payer MEDICARE, OTHER, SELFPAY ==
[2023-05-21 11:07] VITALS: BMI 32.6
--- NOTE | 2023-07-22 11:00 | DI.RAD.S_ITS ---
PROCEDURE: XR KUB INDICATIONS: Follow-up kidney stones TECHNIQUE: One view of the abdomen acquired. COMPARISON: [facility], CT, CT ABDOMEN PELVIS WO CON, 08/29/2021, 10:40. FINDINGS: Surgical changes and devices: None. Bowel: Bowel gas pattern is normal. Soft tissues: No suspicious abdominal calcifications. Visualized solid organ contours appear normal in size. 1.7 cm linear calcification projects over the left kidney. Semi circular calcification projecting over the splenic hilum measuring 1 cm, likely vascular in origin. Bones: No suspicious bony lesions. IMPRESSION: 1.7 cm linear calcification projects over the left kidney, concerning for nephrolithiasis. Possible splenic artery aneurysm measuring 1.0 cm. Recommend abdominal CTA for confirmation. Dictated by: David Estrada M.D. on 07/22/2023 at 13:31 Approved by: David Estrada M.D. on 07/22/2023 at 13:33
== END ==
LOC: RAD 11:00
PROVIDERS: Family Provider Family Medicine; PCP Family Medicine; Referring Provider Urology; Visit Provider Urology
DX: N20.0 Calculus of kidney (principal); N39.0 Urinary tract infection, site not specified; Z87.442 Personal history of urinary calculi
CPT/HCPCS: 74018; 87086

== ENCOUNTER → 2023-07-22 14:36 | Outpatient (CLI) | payer MEDICARE, OTHER, SELFPAY ==
[2023-05-21 11:07] VITALS: BMI 32.6
== END ==
PROVIDERS: Family Provider Family Medicine; PCP Family Medicine; Visit Provider Urology
DX: N39.0 Urinary tract infection, site not specified (principal)
CPT/HCPCS: 87086

== ENCOUNTER → 2023-07-28 12:44 | Outpatient (CLI) | payer MEDICARE, OTHER, SELFPAY ==
[2023-05-21 11:07] VITALS: BMI 32.6
--- NOTE | 2023-07-28 12:49 | DI.CT.S_ITS ---
PROCEDURE: CT KIDNEY URETER BLADDER (KUB) INDICATIONS: CALCUS OF KIDNEY TECHNIQUE: Axial sections were acquired from the lung bases to the pubic symphysis. Coronal and sagittal reformats were performed. For radiation dose reduction, the following was used: automated exposure control, adjustment of mA and/or kV according to patient size. COMPARISON: [facility], CT, CT ABDOMEN PELVIS WO CON, 08/29/2021, 10:40. [facility], CT, CT KIDNEY URETER BLADDER (KUB), 11/14/2020, 19:00. FINDINGS: Image quality: Diagnostic. Lower Chest: Right lower lobe pulmonary nodule 0.4 cm, (3/12), unchanged since 2020. Small pericardial effusion. Pacemaker leads. Prior right-sided rib fractures. URINARY: Right Kidney: No hydronephrosis. Possible punctate nonobstructing kidney stone. Renal arterial vascular calcifications. Multiple low-density renal cysts. Inferior pole exophytic cyst measuring 1 cm, (2/40), unchanged since 2020. Right Ureter: No hydroureter. Left Kidney: No hydronephrosis. Possible punctate nonobstructing kidney stone. Renal arterial vascular calcifications. Multiple low-density renal cysts. Overall similar. Left Ureter: No hydroureter. Bladder: Normal wall thickness. No stones. ABDOMEN: Liver: No contour-deforming solid mass. Gallbladder: Gallstones. Biliary ducts: No biliary dilation. Pancreas: No ductal dilation. Small calcification in the region of the pancreatic head, (2/36). Spleen: Size is within normal limits. Adrenal Glands: No adrenal nodules. Stomach and Bowel: Normal colonic caliber, without significant wall thickening. Diverticulosis. The appendix is not seen. Peritoneum: No abnormal intraperitoneal fluid. No free air. Ventral Wall: No hernia. Abdominal Nodes: No enlarged retroperitoneal or mesenteric lymph nodes. Vessels: Aorta and inferior vena cava are normal in size. PELVIS: Pelvic Organs: Prostatomegaly. Pelvic Nodes: Unremarkable. Miscellaneous: Possible inguinal hernias are seen. Bones: No suspicious osseous lesion. Multilevel DDD. IMPRESSION: 1. No obstructing kidney stone. No hydronephrosis. 2. Small right kidney complicated cyst is unchanged since 2020. 3. Gallstones. Dictated by: Thanh Caballero M.D. on 07/28/2023 at 15:30 Approved by: Thanh Caballero M.D. on 07/28/2023 at 15:41
[2023-07-28 13:33] LABS: Add Manual Diff / Slide Review NO; Basophils Absolute Auto 0 /uL (0-100); Basophils Percent Auto 0.6 % (0-2); Eosinophils Absolute Auto 100 /uL (0-450); Eosinophils Percent Auto 2.2 % (2-4); Hemoglobin 10.6 g/dL (13.5-17.5); Lymphocytes Absolute Auto 1200 /uL (1100-4500); Lymphocytes Percent Auto 20.7 % (25-40); Mean Corpuscular HGB Conc 34.3 % (30-36); Mean Corpuscular Hemoglobin 31.8 PG (26-34); Mean Corpuscular Volume 92.7 fL (80-100); Monocytes Absolute Auto 500 /uL (0-900); Neutrophils Absolute Auto 4100 /uL (1500-7000); Neutrophils Percent Auto 68.5 % (50-75); Platelet Count 165 X10^3/uL (150-400); Red Blood Cell Count 3.34 X10^6/uL (4.5-5.9); Red Cell Distribution Width 14.1 % (11.6-14.8); White Blood Cell Count 5.9 X10^3/uL (4.5-11.0)
[2023-07-28 14:14] LABS: Alanine Aminotransferase 14 IU/L (<50); Albumin 4.3 g/dL (3.5-5.0); Alkaline Phosphatase 83 U/L (38-126); Aspartate Aminotransferase 18 IU/L (17-59); BUN Creatinine Ratio 23.5 (6-22); Bilirubin Total 0.3 mg/dL (0.2-1.3); Blood Urea Nitrogen 43 mg/dL (9-20); Calcium 8.6 mg/dL (8.4-10.2); Carbon Dioxide 21 mmol/L (22-32); Chloride 113 mmol/L (98-107); Estimated Glomerular Filt Rate 37 mL/min (>60); Globulin 2.2 g/dL (1.7-4.1); Glucose 142 mg/dL (80-110); HEMOLYSIS < 15 (0-50); Potassium 4.4 mmol/L (3.4-5.1); Sodium 140 mmol/L (137-145); Total Protein 6.5 g/dL (6.3-8.2)
== END ==
PROVIDERS: Family Provider Family Medicine; PCP Family Medicine; Referring Provider Urology; Visit Provider Urology
DX: N39.0 Urinary tract infection, site not specified (principal); A49.01 Methicillin susceptible Staphylococcus aureus infection, unspecified site; K80.20 Calculus of gallbladder without cholecystitis without obstruction; N28.1 Cyst of kidney, acquired
CPT/HCPCS: 36415; 74176; 80053; 85025; 87040

== ENCOUNTER → 2023-08-13 09:52 | Outpatient (CLI) | payer MEDICARE, OTHER, SELFPAY ==
[2023-05-21 11:07] VITALS: BMI 32.6
[2023-08-13 11:52] LABS: Add Manual Diff / Slide Review NO; Basophils Absolute Auto 0 /uL (0-100); Basophils Percent Auto 0.6 % (0-2); Eosinophils Absolute Auto 100 /uL (0-450); Eosinophils Percent Auto 2.7 % (2-4); Hematocrit 29.6 % (41-53); Hemoglobin 10.1 g/dL (13.5-17.5); Lymphocytes Absolute Auto 1100 /uL (1100-4500); Lymphocytes Percent Auto 23.7 % (25-40); Mean Corpuscular HGB Conc 34.1 % (30-36); Mean Corpuscular Hemoglobin 31.7 PG (26-34); Mean Corpuscular Volume 93.1 fL (80-100); Monocytes Absolute Auto 300 /uL (0-900); Monocytes Percent Auto 7.6 % (3-14); Neutrophils Absolute Auto 3000 /uL (1500-7000); Neutrophils Percent Auto 65.4 % (50-75); Platelet Count 166 X10^3/uL (150-400); Red Blood Cell Count 3.18 X10^6/uL (4.5-5.9); White Blood Cell Count 4.5 X10^3/uL (4.5-11.0)
[2023-08-13 12:03] LABS: HEMOLYSIS < 15 (0-50); Iron 87 ug/dL (49-181)
[2023-08-13 12:07] LABS: Alanine Aminotransferase 14 IU/L (<50); Albumin Globulin Ratio 1.6 (1.0-2.8); Alkaline Phosphatase 87 U/L (38-126); Aspartate Aminotransferase 21 IU/L (17-59); BUN Creatinine Ratio 21.6 (6-22); Bilirubin Total 0.5 mg/dL (0.2-1.3); Blood Urea Nitrogen 36 mg/dL (9-20); Calcium 8.8 mg/dL (8.4-10.2); Carbon Dioxide 22 mmol/L (22-32); Chloride 112 mmol/L (98-107); Estimated Glomerular Filt Rate 41 mL/min (>60); Globulin 2.5 g/dL (1.7-4.1); Glucose 123 mg/dL (80-110); HEMOLYSIS < 15 (0-50); Potassium 4.4 mmol/L (3.4-5.1); Sodium 141 mmol/L (137-145); Total Protein 6.5 g/dL (6.3-8.2)
[2023-08-13 12:13] LABS: Percent Iron Saturation 31 % (20-50); Total Iron Binding Capacity 282 ug/dL (261-462); Transferrin 204 mg/dL (206-381)
[2023-08-13 14:48] LABS: Hemoglobin A1C% w Est Avg Glu 5.4 % (4.0-6.0)
== END ==
PROVIDERS: Family Provider Family Medicine; PCP Family Medicine; Referring Provider Family Medicine; Visit Provider Family Medicine
DX: N18.31 Chronic kidney disease, stage 3a (principal); R73.9 Hyperglycemia, unspecified; D63.1 Anemia in chronic kidney disease; D64.9 Anemia, unspecified; I25.10 Atherosclerotic heart disease of native coronary artery without angina pectoris
CPT/HCPCS: 36415; 80053; 83036; 83540; 83550; 85025

== ENCOUNTER → 2023-10-20 16:11 | Outpatient (CLI) | payer MEDICARE, OTHER, SELFPAY ==
[2023-05-21 11:07] VITALS: BMI 32.6
[2023-10-20 16:53] LABS: Hemoglobin 10.3 g/dL (13.5-17.5)
[2023-10-20 17:20] LABS: Blood Urea Nitrogen 47 mg/dL (9-20); Calcium 9.1 mg/dL (8.4-10.2); Carbon Dioxide 18 mmol/L (22-32); Chloride 108 mmol/L (98-107); Estimated Glomerular Filt Rate 36 mL/min (>60); Glucose 119 mg/dL (80-110); HEMOLYSIS < 15 (0-50); Potassium 4.5 mmol/L (3.4-5.1); Sodium 137 mmol/L (137-145)
[2023-10-20 17:26] LABS: Creatinine Urine Random 102.32 mg/dL; Protein (Total) Urine Random 8 mg/dL (0-12); Protein Creatinine Ratio Urine 0.07 GRAM/24H
== END ==
PROVIDERS: Family Provider Family Medicine; PCP Family Medicine; Referring Provider Student in an Organized Health Care Education/Training Program; Visit Provider Student in an Organized Health Care Education/Training Program
DX: N05.9 Unspecified nephritic syndrome with unspecified morphologic changes (principal); D70.9 Neutropenia, unspecified; D63.1 Anemia in chronic kidney disease; N25.81 Secondary hyperparathyroidism of renal origin; R80.9 Proteinuria, unspecified
CPT/HCPCS: 36415; 80048; 82570; 83970; 84156; 85014; 85018

== ENCOUNTER → 2023-11-04 14:10 | Outpatient (CLI) | payer MEDICARE, OTHER, SELFPAY ==
[2023-05-21 11:07] VITALS: BMI 32.6
[2023-11-04 15:31] LABS: Add Manual Diff / Slide Review NO; Basophils Absolute Auto 0 /uL (0-100); Basophils Percent Auto 0.5 % (0-2); Eosinophils Absolute Auto 100 /uL (0-450); Eosinophils Percent Auto 1.6 % (2-4); Hematocrit 29.3 % (41-53); Hemoglobin 10.2 g/dL (13.5-17.5); Lymphocytes Absolute Auto 1400 /uL (1100-4500); Lymphocytes Percent Auto 21.2 % (25-40); Mean Corpuscular HGB Conc 34.9 % (30-36); Mean Corpuscular Hemoglobin 32.3 PG (26-34); Mean Corpuscular Volume 92.6 fL (80-100); Monocytes Absolute Auto 600 /uL (0-900); Neutrophils Absolute Auto 4400 /uL (1500-7000); Neutrophils Percent Auto 67.7 % (50-75); Platelet Count 173 X10^3/uL (150-400); Red Blood Cell Count 3.17 X10^6/uL (4.5-5.9); Red Cell Distribution Width 14.6 % (11.6-14.8); White Blood Cell Count 6.5 X10^3/uL (4.5-11.0)
[2023-11-04 18:32] LABS: Ferritin 94 ng/mL (18-464)
[2023-11-04 20:06] LABS: HEMOLYSIS < 15 (0-50); Iron 86 ug/dL (49-181)
[2023-11-04 20:21] LABS: Percent Iron Saturation 29 % (20-50); Total Iron Binding Capacity 294 ug/dL (261-462); Transferrin 222 mg/dL (206-381)
== END ==
PROVIDERS: Family Provider Family Medicine; PCP Family Medicine; Referring Provider Family Medicine; Visit Provider Family Medicine
DX: D50.9 Iron deficiency anemia, unspecified (principal); N18.32 Chronic kidney disease, stage 3b
CPT/HCPCS: 36415; 82728; 83540; 83550; 85025

== ENCOUNTER 2023-11-11 10:23 | Day surgery (SDC) | payer MEDICARE, OTHER, SELFPAY ==
[2023-05-21 11:07] VITALS: BMI 32.6
--- NOTE | 2023-11-11 | PATH_ITS ---
[facility] Accession Number: [id number] No. of containers..02 Tissue . 01 Material submitted: . PART A: colon - ASCENDING POLYP PART B: colon - TRANSVERSE POLYPS . 01 Diagnosis: Part A: ASCENDING POLYP: Tubular adenoma. . Part B: TRANSVERSE POLYPS: Tubular adenoma. [facility] 11/16/2023 1503 Local . 01 Electronically signed: . Anselmo Palencia MD, Pathologist NPI- [id number] . 01 Gross description: . A. Received in formalin with two patient identifiers and ascending colon polyp, is a single ho soft tissue fragments, 0.4 cm in greatest dimension. Submitted in A1. . B. Received in formalin with two patient identifiers and transverse colon polyps, are multiple ho soft tissue fragments, the largest measuring 0.8 x 0.7 x 0.5 cm. Inked blue, sectioned, and submitted in B1. The remaining fragments were filtered and submitted in B2. ([id number]) /MRV 11/16/2023 1503 Local . 01 Pathologist provided ICD-10: D12.2, D12.3 . 01 CPT . 552983, [id number] Specimen Comment: A courtesy copy of this report has been sent to [phone] Performed at: [address] [address], [place], [place] [id number] MD Anselmo Palencia MD Phone: [phone]
[2023-11-11] MEDS: LACTATED RINGERS 1,000 ML 42 ML IV (11:12)
[2023-11-11 11:15] VITALS: BP 145/64; PULSE 66; RESP 18; TEMP 36.4; O2SAT 97
--- NOTE | 2023-11-11 11:57 | P.HP_ITS ---
History of Present Illness History of Present Illness Date Patient Seen: 11/11/23 Time Patient Seen: 11:57 Chief complaint: EGD/Colonoscopy Narrative: Lenny is a 78-year-old man with anemia. See the prior office note for details. [facility] Medical History Pacemaker Kidney stones Labral tear of left hip joint Lumbar radiculopathy Low back pain Aortic aneurysm Left bundle branch block Hip pain Hip osteoarthritis Ischiogluteal bursitis of left side History of urinary retention History of gross hematuria Recurrent urinary tract infection Batista catheter problem Sepsis Burning pain Injury of left elbow CAD (coronary artery disease) Cardiomyopathy UTI (urinary tract infection) Superficial laceration Squamous cell skin cancer, face Basal cell adenocarcinoma Rheumatic fever (1957) BPH (benign prostatic hyperplasia) Melanoma (2007) Clubfoot Ankle pain CMT (Qeafwad-Bihgy-Kcxrj disease) (2014) Cataract (2013) Hearing loss (2014) Tinnitus Shoulder pain (2011) Colon polyps Obstructive sleep apnea Osteoarthrosis, ankle and foot Spinal stenosis of lumbar region (09/15/13) Stage 3 chronic kidney disease Osteoarthritis of both knees Essential hypertension Surgical History History of transurethral resection of prostate S/P TURP (~07/2019) History of left knee replacement Anesthesia History of back surgery (08/2013) History of left knee surgery (2004) History of cataract removal with insertion of prosthetic lens (2013) History of nephrectomy (2003) Family History Father Alcoholism Heart disease Mother Stroke Heart disease Other Hypertension Social History marital status: household members: spouse lives independently: Yes occupational status: previously employed Smoking Status: Former smoker alcohol intake: current Meds Home Medications and Allergies Home Medications Medication Instructions Recorded Confirmed Type miscellaneous medical supply #1 ea 10/04/17 11/08/23 Rx Respironics Dreamstation CPAP #1 ea 07/27/18 11/08/23 History carvedilol 12.5 mg tablet 12.5 mg PO BID 04/17/19 11/11/23 History aspirin 81 mg tablet,delayed 81 mg PO DAILY 04/22/20 11/11/23 History release acetaminophen 650 mg See Rx Instructions PO DAILY PRN 09/17/20 11/08/23 History tablet,extended release (Tylenol Pain (Scale Score 4-6) Arthritis Pain) amlodipine 5 mg tablet 7.5 mg PO DAILY 05/09/21 11/11/23 History fluorouracil 5 % topical cream g topical 03/24/22 11/08/23 History lisinopril 2.5 mg tablet 2.5 mg PO DAILY 03/24/22 11/11/23 History tramadol 50 mg tablet 50 mg PO Q6H PRN pain #60 tabs 11/26/22 11/11/23 Rx Disabled Parking Permit #1 ea 12/29/22 11/08/23 Rx finasteride 5 mg tablet See Rx Instructions .Route 02/27/23 11/11/23 Rx .COMPLEX #90 tabs terazosin 10 mg capsule See Rx Instructions .Route 07/05/23 11/11/23 Rx .COMPLEX #90 caps ferrous sulfate 325 mg (65 mg 325 mg PO DAILY 07/22/23 11/11/23 History iron) tablet (Jose-Time) rosuvastatin 5 mg tablet 5 mg PO DAILY #90 tabs 11/03/23 11/11/23 Rx Allergies Allergy/AdvReac Type Severity Reaction Status Date / Time amoxicillin [AMOXICILLIN] Allergy Unknown RASH Verified 11/11/23 11:11 sulfamethoxazole AdvReac Severe acute Verified 11/11/23 11:11 [From Bactrim] renal failure trimethoprim [From Bactrim] AdvReac Severe acute Verified 11/11/23 11:11 renal failure Exam Vital Signs (past 8 hours): - 11/11/23 11:15 Temperature 97.5 F L Pulse Rate 66 Respiratory Rate 18 Blood Pressure 145/64 H Pulse Oximetry 97 Oxygen Delivery Method Room Air Oxygen Delivery Method Room Air Const General: No acute distress Resp Effort & Inspection: normal respiratory effort Assessment & Plan Assessment and plan (1) Anemia: Qualifiers: Anemia type: due to chronic kidney disease Chronic kidney disease stage: stage 3 (moderate) Chronic kidney disease stage 3 subtype: stage 3a (GFR 45-59) Qualified Code(s): N18.31 - Chronic kidney disease, stage 3a; D63.1 - Anemia in chronic kidney disease Status: Chronic Plan We reviewed the risks and benefits of EGD and colonoscopy and he would like to proceed. Time-Based Coding :: [TOTAL MINUTES] spent with patient and on the chart (including review of chart, obtaining history, exam, reviewing outside data, placing orders, documenting exam and treatment plan, and counseling patient) on [DATE].
--- NOTE | 2023-11-11 12:52 | PM.OP.EC ---
Operative Date/Time/Diagnoses Date of procedure: 11/11/23 Time of procedure: 12:52 Pre-op diagnosis: Anemia Post-op diagnosis: same Procedure & Clinicians Study performed: EGD and colonoscopy Same procedure as scheduled: Yes Surgeon: Enrique Santoro Procedure Notes Procedure in detail: Surgeon: Enrique Santoro MD Anesthesia: Kellen Palacios CRNA Procedure in detail: A timeout was performed. A bite blocked was placed and monitors were attached to the patient. The patient was positioned in the left lateral decubitus position. Sedation was administered. Once the patient was sedated the endoscope was inserted through the bite block and passed through the esophagus and stomach and into the duodenum. No abnormalities were identified. We then withdrew the scope into the stomach. No abnormalities were found. The endoscope was retroflexed and no hiatal hernia was seen. The endoscope was straightned and withdrawn into the esophagus. Abnormalities were identified. EGD findings: Normal EGD Next we repositioned the patient for a colonoscopy. A digital rectal exam was performed and was normal. The colonoscope was inserted and advanced to the cecum. The appendiceal orifice was identified and photographed. The scope was slowly withdrawn over greater than 6 minutes. There was a 5 mm polyp in the ascending colon removed with a cold snare. There were 2 polyps in the transverse colon, one was about 1 cm and one was about 7 mm. They were both removed with cold snare and sent together. The scope was retroflexed in the rectum and other abnormalities were identified. Colonoscopy findings: 3 polyps, the largest of which was 1 cm in the transverse colon Total procedural EBL: 8 mL Scope withdrawal time: 16 minutes Sedation minutes: 32 minutes Post-procedure Disposition: PACU
[2023-11-11 12:53] VITALS: BP 107/56; PULSE 67; RESP 16; TEMP 36.6; O2SAT 95
[2023-11-11 12:58] VITALS: BP 109/60; PULSE 65; RESP 19; TEMP 37; O2SAT 96
[2023-11-11 13:03] VITALS: BP 125/60; PULSE 65; RESP 16; TEMP 36.9; O2SAT 98
== END 2023-11-11 13:12 | disposition home or self-care (01) ==
PROVIDERS: Family Provider Family Medicine; PCP Family Medicine; Referring Provider Surgery; Visit Provider Surgery
PROC: 0DJ08ZZ Inspection of Upper Intestinal Tract, Via Natural or Artificial Opening Endoscopic (ICD-10-PCS; CPT 43235; principal; 2023-11-11 11:30)
PROC: 0DJD8ZZ Inspection of Lower Intestinal Tract, Via Natural or Artificial Opening Endoscopic (ICD-10-PCS; CPT 45378; 2023-11-11 11:30)
DX: D50.9 Iron deficiency anemia, unspecified (principal); Z86.010 Personal history of colon polyps; I12.9 Hypertensive chronic kidney disease with stage 1 through stage 4 chronic kidney disease, or unspecified chronic kidney disease; N18.31 Chronic kidney disease, stage 3a; Z95.0 Presence of cardiac pacemaker; G47.33 Obstructive sleep apnea (adult) (pediatric); D12.2 Benign neoplasm of ascending colon; D12.3 Benign neoplasm of transverse colon
CPT/HCPCS: 45385; 43235; J2704

== ENCOUNTER → 2023-11-23 14:35 | Outpatient (CLI) | payer MEDICARE, OTHER, SELFPAY ==
[2023-05-21 11:07] VITALS: BMI 32.6
--- NOTE | 2023-11-23 14:36 | DI.RAD.S_ITS ---
PROCEDURE: XR KUB INDICATIONS: kidney stones TECHNIQUE: One view of the abdomen acquired. COMPARISON: [facility], CR, XR KUB, 07/22/2023, 11:14. FINDINGS: Stool gas pattern: Normal-no evidence of ileus or obstruction. No free intraperitoneal or extraperitoneal air. No gross evidence of ascites Soft tissues: There are 4-5 faint calcification overlying the mid left kidney ranging up to 5 mm. 3-4 faint calcifications overlie the mid right kidney ranging up to 3 mm. 3-4 rounded calcifications in the true pelvis are more likely phleboliths than distal ureteral stones. Organs: No gross evidence for organomegaly. IMPRESSION: Small calcifications overlying both kidneys and distal ureters -any could potentially represent stones Dictated by: Jesús Castillo M.D. on 11/24/2023 at 11:05 Approved by: Jesús Castillo M.D. on 11/24/2023 at 11:06
== END ==
PROVIDERS: Family Provider Family Medicine; PCP Family Medicine; Referring Provider Urology; Visit Provider Urology
DX: N20.0 Calculus of kidney (principal)
CPT/HCPCS: 74018

== ENCOUNTER → 2024-05-25 11:43 | Outpatient (CLI) | payer MEDICARE, OTHER, SELFPAY ==
[2023-05-21 11:07] VITALS: BMI 32.6
--- NOTE | 2024-05-25 11:46 | DI.RAD.S_ITS ---
PROCEDURE: XR KUB INDICATIONS: Kidney Stones TECHNIQUE: One view of the abdomen acquired. COMPARISON: [facility], , XR KUB, 11/23/2023, 14:41. FINDINGS: Surgical changes and devices: None. Bowel: Bowel gas pattern is normal. Soft tissues: Stippled calcifications noted particularly over the left renal shadow. Surgical clips in right upper quadrant. Pacemaker wires partially imaged Bones: Degenerative lumbar spine changes IMPRESSION: Calcifications projecting over the left renal shadow are similar prior Approved by: Lenny Maria M.D. on 05/25/2024 at 18:55
[2024-05-25 12:24] LABS: Add Manual Diff / Slide Review NO; Basophils Absolute Auto 100 /uL (0-100); Basophils Percent Auto 1.2 % (0-2); Eosinophils Absolute Auto 100 /uL (0-450); Eosinophils Percent Auto 2.2 % (2-4); Hemoglobin 10.6 g/dL (13.5-17.5); Lymphocytes Absolute Auto 1100 /uL (1100-4500); Mean Corpuscular HGB Conc 34.3 % (30-36); Mean Corpuscular Hemoglobin 31.9 PG (26-34); Mean Corpuscular Volume 92.9 fL (80-100); Monocytes Absolute Auto 400 /uL (0-900); Monocytes Percent Auto 7.6 % (3-14); Neutrophils Absolute Auto 3600 /uL (1500-7000); Platelet Count 201 X10^3/uL (150-400); Red Blood Cell Count 3.33 X10^6/uL (4.5-5.9); Red Cell Distribution Width 14.4 % (11.6-14.8); White Blood Cell Count 5.3 X10^3/uL (4.5-11.0)
[2024-05-25 12:46] LABS: Alanine Aminotransferase 18 IU/L (<50); Albumin 4.4 g/dL (3.5-5.0); Albumin Globulin Ratio 1.7 (1.0-2.8); Alkaline Phosphatase 80 U/L (38-126); Aspartate Aminotransferase 22 IU/L (17-59); BUN Creatinine Ratio 20.5 (6-22); Bilirubin Total 0.5 mg/dL (0.2-1.3); Blood Urea Nitrogen 39 mg/dL (9-20); Calcium 9.3 mg/dL (8.4-10.2); Carbon Dioxide 22 mmol/L (22-32); Chloride 106 mmol/L (98-107); Cholesterol 132 mg/dL (140-199); Estimated Glomerular Filt Rate 35 mL/min (>60); Globulin 2.6 g/dL (1.7-4.1); Glucose 191 mg/dL (80-110); HDL Cholesterol 42 mg/dL (40-60); HEMOLYSIS < 15 (0-50); LDL Cholesterol Calculated 66 mg/dL (<100); Potassium 4.6 mmol/L (3.4-5.1); Sodium 141 mmol/L (137-145); Triglycerides 122 mg/dL (35-150)
[2024-05-25 13:16] LABS: TSH w/ Reflex to FT4 1.21 uIU/mL (0.47-4.68)
[2024-05-25 13:41] LABS: Prostate Specific Antigen 2.03 ng/mL (0.10-4.00)
[2024-05-25 15:47] LABS: Microalbumin Urine Random 6.7 mg/dL (0-1.6)
[2024-05-25 17:45] LABS: Hemoglobin A1C% w Est Avg Glu 5.6 % (4.0-6.0)
== END ==
LOC: LAB 11:45
PROVIDERS: Family Provider Family Medicine; PCP Family Medicine; Referring Provider Urology; Visit Provider Urology
DX: N18.30 Chronic kidney disease, stage 3 unspecified (principal); R97.20 Elevated prostate specific antigen [PSA]; R73.9 Hyperglycemia, unspecified; N20.0 Calculus of kidney; E78.5 Hyperlipidemia, unspecified; Z87.442 Personal history of urinary calculi; I12.9 Hypertensive chronic kidney disease with stage 1 through stage 4 chronic kidney disease, or unspecified chronic kidney disease
CPT/HCPCS: 74018; 80053; 80061; 82043; 82570; 83036; 84153; 84443; 85025

== ENCOUNTER → 2024-05-29 13:04 | Outpatient (CLI) | payer MEDICARE, OTHER, SELFPAY ==
[2023-05-21 11:07] VITALS: BMI 32.6
== END ==
PROVIDERS: Family Provider Family Medicine; PCP Family Medicine; Visit Provider Urology
DX: N40.1 Benign prostatic hyperplasia with lower urinary tract symptoms (principal); N13.8 Other obstructive and reflux uropathy; R33.8 Other retention of urine; R31.0 Gross hematuria; Z87.442 Personal history of urinary calculi; Z87.440 Personal history of urinary (tract) infections; Z90.5 Acquired absence of kidney; Z87.898 Personal history of other specified conditions; Z98.890 Other specified postprocedural states; Z90.79 Acquired absence of other genital organ(s)
CPT/HCPCS: 51798; 81002; 87077; 87086; 87186; 99214

== ENCOUNTER → 2024-05-31 11:14 | Outpatient (CLI) | payer MEDICARE, OTHER, SELFPAY ==
[2023-05-21 11:07] VITALS: BMI 32.6
[2024-05-31 12:06] LABS: Hematocrit 32.2 % (41-53); Hemoglobin 10.8 g/dL (13.5-17.5)
[2024-05-31 12:26] LABS: BUN Creatinine Ratio 17.5 (6-22); Blood Urea Nitrogen 31 mg/dL (9-20); Calcium 9.3 mg/dL (8.4-10.2); Carbon Dioxide 22 mmol/L (22-32); Chloride 106 mmol/L (98-107); Estimated Glomerular Filt Rate 39 mL/min (>60); Glucose 173 mg/dL (80-110); HEMOLYSIS < 15 (0-50); Potassium 4.5 mmol/L (3.4-5.1); Sodium 140 mmol/L (137-145)
[2024-05-31 15:32] LABS: Protein (Total) Urine Random 23 mg/dL (0-12); Protein Creatinine Ratio Urine 0.36 GRAM/24H
[2024-06-01 05:11] LABS: Parathyroid Hormone Int 85 pg/mL (15-65)
== END ==
PROVIDERS: Family Provider Family Medicine; PCP Family Medicine; Referring Provider Student in an Organized Health Care Education/Training Program; Visit Provider Student in an Organized Health Care Education/Training Program
DX: N05.9 Unspecified nephritic syndrome with unspecified morphologic changes (principal); D70.9 Neutropenia, unspecified; D63.1 Anemia in chronic kidney disease; N25.81 Secondary hyperparathyroidism of renal origin; R80.9 Proteinuria, unspecified
CPT/HCPCS: 36415; 80048; 82570; 83970; 84156; 85014; 85018

== ENCOUNTER → 2024-08-11 15:44 | Outpatient (CLI) | payer MEDICARE, OTHER, SELFPAY ==
[2023-05-21 11:07] VITALS: BMI 32.6
[2024-08-11 16:44] LABS: Add Manual Diff / Slide Review NO; Basophils Absolute Auto 0 /uL (0-100); Basophils Percent Auto 0.7 % (0-2); Eosinophils Absolute Auto 200 /uL (0-450); Hematocrit 29.1 % (41-53); Hemoglobin 9.8 g/dL (13.5-17.5); Lymphocytes Absolute Auto 1200 /uL (1100-4500); Lymphocytes Percent Auto 23.2 % (25-40); Mean Corpuscular HGB Conc 33.6 % (30-36); Mean Corpuscular Hemoglobin 31.7 PG (26-34); Mean Corpuscular Volume 94.3 fL (80-100); Monocytes Absolute Auto 400 /uL (0-900); Monocytes Percent Auto 7.4 % (3-14); Neutrophils Absolute Auto 3300 /uL (1500-7000); Neutrophils Percent Auto 64.7 % (50-75); Platelet Count 175 X10^3/uL (150-400); Red Blood Cell Count 3.08 X10^6/uL (4.5-5.9); Red Cell Distribution Width 14.5 % (11.6-14.8)
[2024-08-11 17:08] LABS: Prothrombin Time 11.7 SECONDS (9.4-12.5)
[2024-08-11 17:11] LABS: PTT Partial Thromboplastin Tim 35 SECONDS (25.1-36.5)
== END ==
PROVIDERS: Family Provider Family Medicine; PCP Family Medicine; Referring Provider Family Medicine; Visit Provider Family Medicine
DX: M54.42 Lumbago with sciatica, left side (principal); T14.8XXA Other injury of unspecified body region, initial encounter; G89.29 Other chronic pain; M54.16 Radiculopathy, lumbar region; G60.0 Hereditary motor and sensory neuropathy
CPT/HCPCS: 36415; 85025; 85610; 85730

== ENCOUNTER → 2024-09-04 15:49 | Outpatient (CLI) | payer MEDICARE, OTHER, SELFPAY ==
[2023-05-21 11:07] VITALS: BMI 32.6
--- NOTE | 2024-09-04 15:51 | DI.RAD.S_ITS ---
PROCEDURE: XR HAND LT MIN 3V INDICATIONS: left hand swelling. TECHNIQUE: 3 views of the hand(s) acquired. COMPARISON: None. FINDINGS: Bones: No fractures or dislocations. Degenerative change of the trapeziometacarpal, 1st metacarpophalangeal and interphalangeal joints of the 2nd through 5th digits includes joint space narrowing, marginal osteophytosis and subchondral sclerosis with periarticular cystic degenerative change within the TMC joint. Carpal bones are normally aligned. No suspicious bony lesions. Soft tissues: No suspicious soft tissue calcifications. IMPRESSION: Polyarticular arthropathy as above without evidence acute bony abnormality. Dictated by: Jean Marie Sheehan M.D. on 09/05/2024 at 4:51 Approved by: Jean Marie Sheehan M.D. on 09/05/2024 at 5:00
[2024-09-04 17:22] LABS: Uric Acid 8.9 mg/dL (3.5-8.5)
== END ==
PROVIDERS: Family Provider Family Medicine; PCP Family Medicine; Referring Provider Family Medicine; Visit Provider Family Medicine
DX: M19.042 Primary osteoarthritis, left hand (principal); M79.89 Other specified soft tissue disorders; N18.32 Chronic kidney disease, stage 3b; D63.1 Anemia in chronic kidney disease; G60.0 Hereditary motor and sensory neuropathy; G62.9 Polyneuropathy, unspecified
CPT/HCPCS: 36415; 73130; 84550; 85651; 86140; 86200; 86430

== ENCOUNTER → 2024-09-19 15:39 | Outpatient (CLI) | payer MEDICARE, OTHER, SELFPAY ==
[2023-05-21 11:07] VITALS: BMI 32.6
--- NOTE | 2024-09-19 15:42 | DI.RAD.S_ITS ---
PROCEDURE: XR HIP W PEL IF DONE LT 2V INDICATIONS: left hip/groin TECHNIQUE: AP pelvis with lateral view of the left hip. COMPARISON: [facility], CR, XR HIP W PEL IF DONE LT 2V, 10/09/2022, 11:57. [facility], CR, XR HIP W PEL IF DONE LT 2V, 03/21/2022, 12:15. FINDINGS: Bones: No acute fractures or dislocations. Pelvic ring appears intact. No suspicious bony lesions. Moderate degenerative changes are seen in the hips bilaterally, slightly worse on the right than on the left. Subchondral cystic changes and marginal osteophytes are present. Multilevel degenerative changes in the included spine. Soft tissues: The visualized bowel gas pattern is normal. No suspicious soft tissue calcifications. IMPRESSION: 1. Moderate bilateral hip osteoarthrosis. 2. Degenerative changes are seen in the included spine. 3. No acute osseous abnormality. Approved by: Kobe Carias M.D. on 09/19/2024 at 18:36
== END ==
PROVIDERS: Family Provider Family Medicine; PCP Family Medicine; Referring Provider Family Medicine; Visit Provider Family Medicine
DX: S73.192A Other sprain of left hip, initial encounter (principal); M16.0 Bilateral primary osteoarthritis of hip; X58.XXXA Exposure to other specified factors, initial encounter
CPT/HCPCS: 73502

== ENCOUNTER → 2024-11-27 14:53 | Outpatient (CLI) | payer MEDICARE, OTHER, SELFPAY ==
[2023-05-21 11:07] VITALS: BMI 32.6
--- NOTE | 2024-11-27 14:56 | DI.RAD.S_ITS ---
PROCEDURE: XR KUB INDICATIONS: Rule out recurrent stones TECHNIQUE: One view of the abdomen acquired. COMPARISON: [facility], CR, XR KUB, 11/23/2023, 14:41. [facility], CR, XR KUB, 05/25/2024, 12:13. FINDINGS: Surgical changes and devices: Surgical clips in the gallbladder fossa. Pacemaker leads partially seen.. Bowel: Bowel gas pattern is normal. Soft tissues: Scattered radiodensity projecting in the left upper quadrant, most likely atherosclerotic. No convincing intrarenal calculi. Pelvic phleboliths are stable. Organ shadows are within normal limits. Bones: No suspicious bony lesions. Multilevel disc and endplate degenerative changes. Mild, bilateral and symmetric hip joint degeneration. IMPRESSION: No definite new intrarenal calculi. Dictated by: Trisha Obregon M.D. on 11/27/2024 at 18:23 Approved by: Trisha Obregon M.D. on 11/27/2024 at 18:28
== END ==
PROVIDERS: Family Provider Family Medicine; PCP Family Medicine; Referring Provider Urology; Visit Provider Urology
DX: Z09 Encounter for follow-up examination after completed treatment for conditions other than malignant neoplasm (principal); Z87.442 Personal history of urinary calculi
CPT/HCPCS: 74018

== ENCOUNTER → 2024-12-04 13:24 | Outpatient (CLI) | payer MEDICARE, OTHER, SELFPAY ==
[2023-05-21 11:07] VITALS: BMI 32.6
== END ==
PROVIDERS: Family Provider Family Medicine; PCP Family Medicine; Visit Provider Urology
DX: N40.1 Benign prostatic hyperplasia with lower urinary tract symptoms (principal); N13.8 Other obstructive and reflux uropathy; Z87.440 Personal history of urinary (tract) infections
CPT/HCPCS: 87077; 87086

== ENCOUNTER → 2025-01-23 16:32 | Outpatient (CLI) | payer MEDICARE, OTHER, SELFPAY ==
[2023-05-21 11:07] VITALS: BMI 32.6
[2025-01-23 17:12] LABS: Add Manual Diff / Slide Review NO; Hematocrit 28.3 % (41-53); Hemoglobin 9.6 g/dL (13.5-17.5); Lymphocytes Absolute Auto 1100 /uL (1100-4500); Mean Corpuscular HGB Conc 33.9 % (30-36); Mean Corpuscular Hemoglobin 31.3 PG (26-34); Mean Corpuscular Volume 92.1 fL (80-100); Platelet Count 167 X10^3/uL (150-400)
[2025-01-23 17:34] LABS: Alanine Aminotransferase 15 IU/L (<50); Albumin 4.4 g/dL (3.5-5.0); Albumin Globulin Ratio 1.7 (1.0-2.8); Alkaline Phosphatase 83 U/L (38-126); Estimated Glomerular Filt Rate 38 mL/min (>60); Globulin 2.6 g/dL (1.7-4.1); HEMOLYSIS < 15 (0-50); Total Protein 7.0 g/dL (6.3-8.2)
== END ==
PROVIDERS: Family Provider Family Medicine; PCP Family Medicine; Referring Provider Internal Medicine Infectious Disease; Visit Provider Internal Medicine Infectious Disease
DX: N39.0 Urinary tract infection, site not specified (principal)
CPT/HCPCS: 36415; 80076; 82565; 85025